=== PATIENT | male | born 1935 | race Caucasian/White ===

== ENCOUNTER → 2023-04-29 08:39 | Outpatient (REF) | payer MEDICARE, SELFPAY ==
[2023-04-29 09:16] LABS: % Basophils 1.2 % (0-2); % Eosinophils 4.7 % (0-6); % Immature Granulocytes 0.3 % (0-0.5); % Lymphocytes 26.4 % (20.5-51.1); % Monocytes 7.2 % (1.7-9.3); % Neutrophils 60.2 % (42.2-75.2); Absolute Basophils 0.1 10^3/uL (0-0.2); Absolute Eosinophils 0.3 10^3/uL (0-0.7); Absolute Lymphocytes 1.5 10^3/uL (1.2-3.4); Absolute Monocytes 0.4 10^3/uL (0.1-0.6); Absolute Neutrophils 3.5 10^3/uL (1.4-6.5); Hematocrit 42.1 % (39.0-52.0); Mean Corp Hgb Conc. 35.6 g/dL (33.0-37.0); Mean Corpuscular Hgb 31.2 pg (27.0-31.0); Mean Corpuscular Volume 87.5 fL (80.0-94.0); Mean Platelet Volume 9.9 fL (7.4-10.4); Nucleated Red Blood Cells % 0 % (-); Platelet Count 165 10^3/uL (130-400); Red Blood Cell Count 4.81 10^6/uL (4.70-6.10); Red Cell Dist. Width 12.9 % (11.5-14.5); White Blood Cell Count 5.7 10^3/uL (4.8-10.8)
[2023-04-29 09:18] LABS: Urine Albumin Negative (Neg - Trace); Urine Bilirubin Negative (Negative); Urine Character Clear (Clear); Urine Color Yellow; Urine Glucose Negative (Negative); Urine Ketone Negative (Negative); Urine Leukocyte Negative (Negative); Urine Nitrite Negative (Negative); Urine Occult Blood Negative (Negative); Urine Urobilinogen Negative (Neg - 1+); Urine pH 6.5 (5.0-9.0)
[2023-04-29 09:49] LABS: ALT (SGPT) 27 U/L (0-50); AST (SGOT) 34 U/L (17-59); Albumin 4.2 g/dl (3.5-5.0); Alkaline Phosphatase 108 U/L (38-126); Blood Urea Nitrogen 21 mg/dl (9-20); Calcium 9.4 mg/dl (8.4-10.2); Carbon Dioxide 28 mmol/L (22-30); Chloride 104 mmol/L (98-107); Glucose 94 mg/dl (70-99); HDL Cholesterol 39 mg/dl; LDL Cholesterol, Calculated 71 mg/dl; Potassium 4.5 mmol/L (3.5-5.1); Sodium 138 mmol/L (135-145); Total Bilirubin 1.1 mg/dl (0.2-1.3); Total Cholesterol 140 mg/dl (50-199); Total Protein 6.4 g/dl (6.3-8.2); Triglyceride 150 mg/dl (10-149); Very Low Density Lipoprotein 30 mg/dl (0-30); eGFR > 60.00
[2023-04-29 10:16] LABS: TSH Reflex To Free T4 1.89 uIU/ml (0.47-4.68)
[2023-04-29 12:01] LABS: Glycohemoglobin (HgbA1c) 5.8 % (4.0-5.6)
[2023-04-30 14:34] LABS: PSA Total 0.2 ng/mL (0.0-4.0)
== END ==
LOC: REG 08:39
PROVIDERS: ATTENDING PHYSICIAN Family Medicine
DX: I10 Essential (primary) hypertension (principal); E78.2 Mixed hyperlipidemia; L12.0 Bullous pemphigoid; R73.03 Prediabetes; R97.20 Elevated prostate specific antigen [PSA]
CPT/HCPCS: 36415; 80053; 80061; 81003; 83036; 84153; 84154; 84443; 85025

== ENCOUNTER → 2023-11-07 08:24 | Outpatient (REF) | payer MEDICARE, SELFPAY ==
[2023-11-07 10:49] LABS: Blood Urea Nitrogen 21 mg/dl (9-20); Calcium 9.9 mg/dl (8.4-10.2); Carbon Dioxide 29 mmol/L (22-30); Chloride 104 mmol/L (98-107); Glucose 95 mg/dl (70-99); Potassium 4.5 mmol/L (3.5-5.1); Sodium 138 mmol/L (135-145); eGFR > 60.00
[2023-11-07 11:04] LABS: PSA, Total - Screen 0.25 ng/ml (0.0-4.0)
== END ==
LOC: REG 08:24
PROVIDERS: ATTENDING PHYSICIAN Specialist; FAMILY PHYSICIAN Family Medicine
DX: N40.1 Benign prostatic hyperplasia with lower urinary tract symptoms (principal); R97.20 Elevated prostate specific antigen [PSA]; Z12.5 Encounter for screening for malignant neoplasm of prostate
CPT/HCPCS: 36415; 80048; G0103

== ENCOUNTER 2024-05-04 09:46 | Inpatient (IN) | payer MEDICARE, SELFPAY ==
[2024-05-04] VITALS (25 sets, daily range): BP systolic 83–157; BP diastolic 52–99; BMI 29.0
[2024-05-04] MEDS: NSS 1000 IV (06:21)
--- NOTE | 2024-05-04 06:22 | ED.GENMED ---
History of Present Illness
General
Chief Complaint: Chest Pain
Source: patient
Exam Limitations: none
Time Seen by Provider: 05/04/24 06:16
History of Present Illness
History of Present Illness:
See MDM
Past History
Past History
ED Past Medical History: HTN, Hypercholesterolemia, Other (Enlarged prostate, sleep apnea, arthritis, hearing impaired utilizes hearing aids bilaterally.) and Other (GIB)
ED Past Surgical History: None
Social History
Tobacco: Non-smoker
Alcohol: None
Drug: None
Personal:
Living: with family
Employment: Retired
Family History
Family History: Diabetes
Phy Exam
Physical Exam
Physical Exam:
See MDM
Scores
Heart Score for Chest Pain Patients
STEMI patient?: No
History: Slightly or Non-Suspicious
ECG: Nonspecific Repolarization
Age: >/= 65 years
Risk Factors: 1 or 2 Risk Factors
Troponin: </= Normal Limit
Heart Score for Chest Pain Patients: 4
Heart Score Risk: 20.3% MACE over next 6 weeks
Course
Orders/Labs/Results
Orders:
Orders
05/04/24 Breakfast
Regular
At Your Request: Limited Participation
05/04/24 06:12
Electrocardiogram (*1) Urgent
Reason for Study: Chest Pain
CT Chest PE Study Urgent
Comment:
Reason For Exam: chest pain through to back
EKG- Treatment ONCE
05/04/24 06:18
CT Head W/o Iv Contrast Urgent
Comment:
Reason For Exam: altered
0.9% Sodium Chloride 1000 ml [Nss] 1,000 ml IV BOLUS
05/04/24 06:19
CMP [Comprehensive Metabolic Panel] Urgent
Complete Blood Count/With Diff Urgent
PTT Urgent
Pro-BNP [NT-proBNP] Urgent
Troponin I Urgent
05/04/24 07:34
Portable Chest Xray [CR Chest Portable - 1 View] Urgent
Comment:
Reason For Exam: post chest tube insertion
Reason Study Needs to be Portable: Unable to Transport
05/04/24 07:46
Morphine Sulfate 4 mg .ROUTE .STK-MED ONE
05/04/24 07:47
Morphine Sulfate 4 mg IV NOW STA
05/04/24 09:09
Admit/Transfer Patient As Directed
Co-Sign Provider:
Level of Care: Inpatient admission
Assign to:: Telemetry
Physician / Group: hospitalist
Diagnosis: pneumothorax
Reason for Telemetry: Other
Other Reason for Telemetry: pneumothorax
Date to Stop Telemetry: 05/06/24
Time to Stop Telemetry: 11:00
Reason for Hospitalization: pneumothorax
Expected length of stay greater than two midnights?: Yes
ELOS- Estimated Length of Stay in days: 2
I certify the patient meets the requirements for IP care: Yes
PRN Pain Medication Management As Directed
May give lesser potent ordered pain med per pt: Yes
preference::
Protocol:: Medication orders for pain may be administered in a
manner that supports deferring to patient preference
when the pt is:
- Requesting an ordered lesser potent pain medication.
Least to most potent pain medications are defined
as: acetaminophen < NSAID < tramadol < opioids
(morphine, oxycodone, hydromorphone).
- Requesting a lesser dose of the same medication IF
ORDERED.
- Requesting a less intrusive route of administration
if both routes are prescribed by the provider (PO <
IV).
05/04/24 09:11
Code Status As Directed
Resuscitation Status: Full Code
05/04/24 09:12
Morphine Sulfate 2 mg IV NOW STA
05/04/24 09:14
PULMONARY CONSULT Routine
Consulting Provider: Marion Onofre
Was physician already notified: Yes
Reason for consult: pneumo
05/04/24 12:19
Acetaminophen [Tylenol] 650 mg PO Q4HPRN PRN
Amlodipine [Norvasc] 2.5 mg PO DAILY
Bisacodyl [Dulcolax] 10 mg RECTAL [id number] PRN
Docusate W/Senna [Senokot-S] 1 tablet PO BIDPRN PRN
Doxycycline [Vibramycin] 100 mg PO DAILY
Polyethylene Glycol Powder [Miralax] 17 grams PO DAILYPRN PRN
Tramadol HCl [Ultram] 50 mg PO Q6HPRN PRN
05/04/24 12:19
Activity As Directed
Activity Level: Encourage Progressive Amb
Vital Signs As Directed
Frequency: q4h
DX Deep Vein Thrombosis Video Routine
05/04/24 12:26
Artificial Tears (Pf) [Refresh Eye Drops (Pf)] 1 drops BOTH EYES BIDPRN PRN
05/04/24 18:00
Enoxaparin Sodium [Lovenox] 40 mg SC QPM
05/04/24 20:00
Dexamethasone [Decadron] 0.5 mg PO BID
Docusate Sodium [Colace] 100 mg PO BID
Sennosides [Senokot] 8.6 mg PO BID
05/04/24 22:00
Atorvastatin [Lipitor] 10 mg PO HS
Finasteride [Proscar] 5 mg PO HS
05/05/24 06:28
Basic Metabolic Panel IN AM
Complete Blood Count/No Diff IN AM
Magnesium IN AM
05/05/24 08:00
Ascorbic Acid [Vitamin C] 1,000 mg PO DAILY
Multivitamin [Theragran] 1 tablet PO DAILY
05/05/24 14:00
Non-Formulary Item See Dose Instructions PO DAILY
05/06/24 11:00
DC Protocol for Telemetry ONCE
Abnormal Lab Results
05/04/24
06:19
WBC 12.5 H 10^3/uL
(4.8-10.8)
RBC 4.60 L 10^6/uL
(4.70-6.10)
Abs Immat Gran (auto) 0.1 H 10^3/uL
(0-0.05)
Absolute Neuts (auto) 8.9 H 10^3/uL
(1.4-6.5)
BUN 23 H mg/dl
(9-20)
Glucose 205 H mg/dl
(70-99)
Total Protein 5.9 L g/dl
(6.3-8.2)
05/04/24 06:19
05/04/24 06:19
Vital Signs
Initial and Last Documented VS:
Initial Vital Signs
Temp Pulse Resp BP Pulse Ox
97.5 F 112 24 83/58 91
05/04/24 06:13 05/04/24 06:13 05/04/24 06:13 05/04/24 06:13 05/04/24 06:13
Last Documented Vital Signs
Temp Pulse Resp BP Pulse Ox
98.8 F 65 19 128/76 96
05/06/24 03:13 05/06/24 03:13 05/06/24 03:13 05/06/24 03:13 05/06/24 03:13
Procedures
Chest Tube
Indication for procedure:: Tension pneumothroax
Procedure completed by: Avni Smith DO
Consent form signed: Yes
Anesthesia: 1% Lidocaine
Chest tube placed to: left side
Size of chest tube (cm): 29
Preparation: cleaned with Betadine
Chest tube position: mid axillary line
Chest tube sutured to skin?: Yes
Chest tube complications: none
Additional information:
14Fr 29cm pigtail placed
MDM/Problems Addressed
Differential Diagnosis Includes:
HPI and MDM Narrative:
88-year-old male presenting with chest pain. Symptoms started just prior to arrival. EMS did give aspirin. On arrival, patient has a bizarre affect. He is pointing to the center of his chest but is lying in bed comfortably. He is grimacing then
smiling. Given his age and history, will obtain troponin and CT PE rule out. He is tachycardic. His EKG is nonspecific but no obvious ischemic changes. Given the bizarre affect, will obtain basic blood work and CT head.
Physical exam
General: Well appearing and non-toxic. Sitting in bed comfortably. Intermittently smiling and grimacing
HEENT: protecting airway
Neck: appears supple
CV: No evidence of cyanosis. Tachycardic but no murmur auscultated
Resp: No accessory muscle use. Shallow breath sounds throughout. Decreased breath sounds to the left
Abd: Non-distended
Extremities: No deformities. No leg edema or tenderness
Neuro: alert
Psych: Bizarre affect.
Skin: Intact
Problems Addressed including Acute and Chronic Conditions affecting care:
1. Chest pain
Acuity: acute
Prognosis: stable
Details: Given tachycardia, will obtain CT PE. Will obtain troponin
2. Bizarre affect
Acuity: acute
Prognosis: stable
Details: Will obtain CT head
3. Tension pneumothorax
Acuity: acute
Prognosis: unstable
Details: Emergent CT was performed looking for mass versus PE versus dissection. The tension pneumothorax was found. Patient signed consent and emergent chest tube placed
Updates
7 AM at bedside indicating that he woke up around 5:45 AM with chest pain and did have a fall. Based on this, will obtain second troponin
After the tension pneumothorax was found on CT, emergent chest tube placed. Patient tolerated procedure well
Differential Diagnosis (but not limited to): Noncardiac chest pain, pulmonary embolism, hyponatremia
Testing considered: Urinalysis
Drug therapy (if applicable): OTC meds, please see d/c instruction regarding Rx drugs
Amount and/or Complexity of Data Reviewed
Clinical info obtained from: Patient
External data reviewed: N/A
Labs I independently reviewed (but not limited to): Mild leukocytosis
Radiology: The CT scan was personally and independently reviewed. In addition, official CT report reviewed.
Pulse Ox: not hypoxic
EKG independently reviewed: Sinus tachycardia, normal axis, PVCs, no STEMI
C2 Tactical Analysis Technician: Sinus tachycardia
Critical Care: the high probability of a clinically significant, sudden or life threatening deterioration of the cardiopulmonary system(s) required my full and direct attention, intervention and personal management. The aggregate critical care
time was 33 minutes. This time is in addition to time spent performing reported procedures but includes the following:
[x] Data Review and interpretation
[x] Patient assessment and monitoring of vital signs
[x] Documentation
[x] Medication orders and management
Risk of Complication:
Social Determinants of health: Good social support
Discussed with other providers: Hospitalist
Escalation of Care includes Admit/Obs: Given the tension pneumothorax requiring chest tube placement, will admit
Occasional wrong word or 'sound a like' substitutions may have occurred due to the inherent limitations of voice recognition software. Read the chart carefully and recognize, using context, where substitutions have occurred.
*Critical Care Note
Total Time (30-74mins, 75-104mins- exclusive of procedures): 33 min
ED Attending Note
-
Portions of this chart may have been created with voice recognition software.� Occasional wrong word or��sound alike� substitutions may have occurred due to the inherent limitations of voice recognition software.
Discharge Plan
Departure
Patient Disposition: Admit
Date of Disposition: 05/04/24
Time of Disposition: 07:52
Admit to: Med/Surg
Presentation/result/management discussed w/ accepting MD/DO: Hospitalist
Discharge Problem:
Spontaneous tension pneumothorax
Interventions
Interventions:
*Risk Screen - Suicide Last Done: 05/04/24 06:13
*General Assessment Last Done: 05/04/24 06:13
*Neglect/Abuse Screening Last Done: 05/04/24 07:25
ED- Fall Risk Assessment Last Done: 05/04/24 06:59
*ED COVID-19 Vaccine History Last Done: 05/04/24 07:52
*Nursing Disposition Last Done: 05/04/24 12:13
ED- Cardiac Assessment Last Done: 05/04/24 07:15
Discharge Date and Time
Discharge Date/Time: 05/04/24 12:13
[2024-05-04 06:26] LABS: % Basophils 0.8 % (0-2); % Immature Granulocytes 0.4 % (0-0.5); % Lymphocytes 21.1 % (20.5-51.1); % Monocytes 3.6 % (1.7-9.3); % Neutrophils 71.1 % (42.2-75.2); Absolute Basophils 0.1 10^3/uL (0-0.2); Absolute Eosinophils 0.4 10^3/uL (0-0.7); Absolute Immature Granulocytes 0.1 10^3/uL (0-0.05); Absolute Lymphocytes 2.6 10^3/uL (1.2-3.4); Absolute Monocytes 0.5 10^3/uL (0.1-0.6); Absolute Neutrophils 8.9 10^3/uL (1.4-6.5); Hematocrit 41.3 % (39.0-52.0); Hemoglobin 14.2 g/dL (13.0-18.0); Mean Corp Hgb Conc. 34.4 g/dL (33.0-37.0); Mean Corpuscular Hgb 30.9 pg (27.0-31.0); Mean Corpuscular Volume 89.8 fL (80.0-94.0); Mean Platelet Volume 9.6 fL (7.4-10.4); Nucleated Red Blood Cells % 0 % (-); Platelet Count 166 10^3/uL (130-400); Red Cell Dist. Width 13.2 % (11.5-14.5); White Blood Cell Count 12.5 10^3/uL (4.8-10.8)
[2024-05-04 06:43] LABS: ALT (SGPT) 26 U/L (0-50); AST (SGOT) 37 U/L (17-59); Albumin 3.9 g/dl (3.5-5.0); Alkaline Phosphatase 106 U/L (38-126); Blood Urea Nitrogen 23 mg/dl (9-20); Calcium 9.2 mg/dl (8.4-10.2); Carbon Dioxide 23 mmol/L (22-30); Chloride 104 mmol/L (98-107); Estimated Creatinine Clearance 50 ml/min; Glucose 205 mg/dl (70-99); Potassium 3.9 mmol/L (3.5-5.1); Sodium 137 mmol/L (135-145); Total Protein 5.9 g/dl (6.3-8.2); eGFR > 60.00
[2024-05-04 06:51] LABS: NT-proBNP 71.2 pg/ml; Troponin I < 0.012 ng/ml
[2024-05-04 07:42] LABS: APTT 23.9 Sec (23.4-35.0)
[2024-05-04] MEDS: MORPHINE SULFATE 4 MG IV (07:50)
--- NOTE | 2024-05-04 08:50 | HPS.HSE ---
Family Physician
-
Family Physician: NOT KNOW UNKNOWN - PT DOES
Chief Complaint
-
Back pain, shortness of breath
History of Present Illness
88-year-old male woke up around 3;40 in the morning because of back pain. He sat up and then he thought he slid down in bed. He then wanted to use the restroom and came back and sat in the chair when he became really short of breath which prompted
him to come to the hospital.
Medical History
Past Medical History
Past Medical History: Reports Other
Additional Past Medical History:
Sleep apnea, history of GI bleed, hypertension, arthritis, bullous pemphigoid
Past Surgical History: Reports Other
Additional Past Surgical History:
Arthroscopy of the right knee, excision of basal cell carcinoma,
Social History
Tobacco: Former Smoker
Alcohol: None
Drug: None
Personal:
Living: With Family
Employment: Retired ([employer])
Family History
Family History: Not pertinent
Allergies / Home Medications
Allergies reflects when Allergies were last updated in [facility].
Home Medications with original date entered in [facility]
Allergy/Medication List:
Allergies
Allergy/AdvReac Type Severity Reaction Status Date / Time
Sulfa (Sulfonamide Allergy Intermediate Rash Verified 05/04/24 06:18
Antibiotics)
[Sulfa (Sulfonamides)]
niacinamide Allergy Mild Unknown Verified 05/04/24 06:18
insect stings Allergy Swelling Uncoded 05/04/24 06:18
Home Medications
ascorbic acid (vitamin C) 500 mg tablet (Vitamin C) 1,000 mg PO DAILY 12/29/15
multivitamin with folic acid 400 mcg tablet (Tab-A-Ghada) 1 tab PO DAILY 12/29/15
amlodipine 2.5 mg tablet 2.5 mg PO DAILY 05/04/24
atorvastatin 10 mg tablet 10 mg PO HS 05/04/24
dexamethasone 0.5 mg/5 mL oral solution 10 mg PO .SWISH AND SPIT BID bullous pemphigoid 05/04/24
dextran 70-hypromellose eye drops in a dropperette (Artificial Tears (PF) drops in a dropperette) 1 drp BOTH EYES BIDPRN PRN dry eye 05/04/24
doxycycline hyclate 100 mg capsule 100 mg PO DAILY bullous pemphigoid 05/04/24
finasteride 5 mg tablet 5 mg PO HS 05/04/24
niacinamide 500 mg tablet 500 mg PO DAILY 05/04/24
Review of Systems
-
A 12 point ROS was completed and negative except as noted: Yes
EENT: Denies Sore Throat, Mouth Pain or Mouth Swelling
Respiratory: Reports Trouble Breathing
Cardiac: Reports Other (Pain at the site of the tube)
Physical Exam
Vital Signs
Vital Signs
Temp Pulse Resp BP Pulse Ox
97.5 F 87 16 85/64 96
05/04/24 06:13 05/04/24 06:45 05/04/24 07:22 05/04/24 06:45 05/04/24 07:15
Physical Exam
General: Conversant and Pain (At the site of the chest tube)
Respiratory: Clear
Cardiac: S1/S2 and Regular Rhythm
GI: Soft, Non Tender and Normal Bowel Sounds
Musculoskeletal: No Edema
Neuro: AO x 3 and Nonfocal/grossly intact
Psych: Intact Judgment/Insight
Laboratory Results
-
05/04/24 06:19
05/04/24 06:19
Laboratory Results
APTT 23.9 Sec (23.4-35.0) 05/04/24 06:19
Total Bilirubin 1.0 mg/dl (0.2-1.3) 05/04/24 06:19
AST 37 U/L (17-59) 05/04/24 06:19
ALT 26 U/L (0-50) 05/04/24 06:19
Alkaline Phosphatase 106 U/L (38-126) 05/04/24 06:19
Troponin I < 0.012 ng/ml 05/04/24 06:19
Data Reviewed
-
CT Scan: Image Personally Visualized and interpreted (CT chest-large left tension pneumothorax. No PE) and Report Reviewed by me (Head CT-no acute changes)
Medical Tests (Nuc Med, Echo, EKG etc): Image Personally Visualized and interpreted (EKG sinus tachycardia [address]-T changes.)
Impression/Plan
-
IMPRESSION/PLAN:
# Spontaneous pneumothorax
Status post chest tube placement in the ER
Continue-consult pulmonary
Chest x-ray shows reexpansion after chest tube
Repeat chest x-ray in the morning
# Bullous pemphigoid-in remission
Follows up with Dr. Felicia Rico and at [place]
Not on tacrolimus or steroid ointment anymore for the skin
Uses dexamethasone swish and spit-for the mouth
Also on doxycycline 100 mg daily
# Hyperlipidemia-continue atorvastatin
# Hypertension-continue amlodipine
# Enlarged prostate-continue finasteride
# [id number] several decades ago
# DVT prophylaxis-Lovenox
# Full code
Discussed with at bedside
[2024-05-04] MEDS: MORPHINE SULFATE 2 MG IV (09:26)
--- NOTE | 2024-05-04 11:28 | CON.PUL ---
Consultation
Consultation Request
Date/Time Consultation Requested: 05/04/24
Date/Time Consultation Performed: 05/04/24
Performing Provider: [place]
Reason for Consultation: PTX
Medical History
-
History of Present Illness:
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 He notes he woke up around 3:40AM due to back pain. He sat up and then he thought he slid down in bed.
He may have fallen as he found himself on the floor. He then suddenly had acute anterior chest pain wtih SOB and came to ER. CXR showing acute L sided pneumothorax. Chest tube emergently inserted in ER and he is admitted to floors. He has never
had a ptx before, denies coughing spells prior.
Past Medical History
Past Medical History: Other (see list below)
Social History
Tobacco: Former Smoker
Alcohol: None
Drug: None
Family History
Family History: Reviewed & Not Pertinent
Allergies / Home Medications
Allergies
Allergy/AdvReac Type Severity Reaction Status Date / Time
Sulfa (Sulfonamide Allergy Intermediate Rash Verified 05/04/24 06:18
Antibiotics)
[Sulfa (Sulfonamides)]
niacinamide Allergy Mild Unknown Verified 05/04/24 06:18
insect stings Allergy Swelling Uncoded 05/04/24 06:18
Home Medications
�Medication �Instructions �Recorded �Confirmed �Last Taken �Type
ascorbic acid (vitamin C) 500 mg 1,000 mg PO DAILY 12/29/15 05/04/24 05/03/24 History
tablet (Vitamin C)
multivitamin with folic acid 400 1 tab PO DAILY 12/29/15 05/04/24 05/03/24 History
mcg tablet (Tab-A-Ghada)
amlodipine 2.5 mg tablet 2.5 mg PO DAILY 05/04/24 05/04/24 05/03/24 History
atorvastatin 10 mg tablet 10 mg PO HS 05/04/24 05/04/24 05/03/24 History
dexamethasone 0.5 mg/5 mL oral 10 mg PO .SWISH AND SPIT BID 05/04/24 05/04/24 05/03/24 History
solution bullous pemphigoid
dextran 70-hypromellose eye drops 1 drp BOTH EYES BIDPRN PRN dry eye 05/04/24 05/04/24 Unknown History
in a dropperette (Artificial Tears
(PF) drops in a dropperette)
doxycycline hyclate 100 mg capsule 100 mg PO DAILY bullous pemphigoid 05/04/24 05/04/24 05/03/24 History
finasteride 5 mg tablet 5 mg PO HS 05/04/24 05/04/24 05/03/24 History
niacinamide 500 mg tablet 500 mg PO DAILY 05/04/24 05/04/24 05/03/24 History
Review of Systems
-
History Source: Patient
All other systems: Negative unless noted
Vitals / Labs / Diagnostic Testing
Vital Signs
Temp Pulse Resp BP Pulse Ox
97.5 F 78 22 153/96 97
05/04/24 06:13 05/04/24 11:15 05/04/24 11:15 05/04/24 11:00 05/04/24 11:15
Lab Data
05/04/24 06:19
05/04/24 06:19
Laboratory Results
05/04/24
06:19
APTT 23.9
Diagnostic Testing:
Physical Exam
-
HEENT: Normocephalic, Anicteric and Moist Mucous Membranes
Cardiovascular: S1/S2 and Regular Rhythm
Respiratory: Clear, Non-Labored Respirations and Other (chest tube)
GI: Soft, Non Distended and Non Tender
Neurology: Awake, Alert, Oriented and No Motor Deficits
Skin: Warm, Dry and Good Color
General: Comfortable and Other (NAD)
Assessment
-
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 He notes he woke up around 3:40AM due to back pain. He sat up and then he thought he slid down in bed.
He may have fallen as he found himself on the floor. He then suddenly had acute anterior chest pain wtih SOB and came to ER. CXR showing acute L sided pneumothorax. Chest tube emergently inserted in ER and he is admitted to floors. He has never
had a ptx before, denies coughing spells prior.
Spontaneous pneumothorax, fell at home
Chest pain
Mild leukocytosis
Hyperglycemia
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
Data download revealed excellent compliance, AHI of 3.7, average pressure of 21/[address] scan
Pulmonary nodules <4mm/benign
Former smoker, quit smoking at age 46, smoked 1 pack/day from age [age]
Hypertension
Hyperlipidemia
GERD
Osteoarthritis of left knee, history of right knee replacement
Prediabetes
History of past GI bleed on aspirin
B/L Cataracts 2019
Basal cell carcinoma
Bilateral sensorineural hearing loss, has hearing aids
Bullous pemphigoid
History of TIA, not on aspirin due to past GI bleed
BPH, history of elevated PSA, history of bladder stones
DDD/DJD C spine, L spine
Mohs procedure left and right side of head and neck 06/16/18
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
Plan
Currently on room air, no hypoxemia noted
No chronic O2 use at home
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
Follows with Dr Stratton
On BIPAP
CXR showing acute ptx, he thinks he may have fallen at home but not sure, was on the floor
Chest tube placed on left in ER 05/04/24
PAP pressures may have contributed to issue
We will hold off PAP usage
We discussed management of chest tube in the next 48-72 hours
Suction x 24 hours, if doing well, can try water seal tomorrow
Reviewed with patient and
ECHO results from past reviewed, stable findings
Resume home meds
Former smoker, emphysema mild on CT/apical findings on prior imaging
Resume home meds
Nebs PRN
Pulmonary nodule history, benign
Discussed management of PTX and likelihood of recurrence
Will arrange OP FU post discharge
May need to reduce PAP pressure in OP settings to avoid recurrence
Last PSG in 2019, weight was 188, he has lost 15 lbs
May be worthwhile also restudying to reduce his pressures or try alternative treatments
We will follow
Diagnostic Data
CXR 05/04/24- Placement of left chest tube with significantly decreased large left pneumothorax in comparison to CT earlier in same day.
CT CHEST 05/04/24- Large left tension type pneumothorax. No findings to suggest central pulmonary embolism.
08/13/18- Pulmonary nodule being followed:
-Flat plaque-like nodule, 8 mm, at the base of the left lung of the diaphragm surface at the apex of the diaphragm. (Axial sequence 2 image 48). 2 mm nodule subpleural posterior right lower lobe (sequence 2 image 31), unchanged. No new or growing
pulmonary nodules.
Minor biapical subpleural emphysema spaces. No generalized emphysema. No fibrosis. Airways: No bronchiectasis. Minimum linear atelectasis or scarring in the para spinal medial base of both lower lobes. No change.
ECHO 2015- . Left ventricle: Normal size and function. The estimated ejection fraction is 55-60%.
2. Right ventricle: Normal size and function
3. Atria: Normal
4. Mitral valve: Trace mitral regurgitation
5. Aortic valve: Trace aortic insufficiency. No aortic stenosis
6. Tricuspid valve: Mild tricuspid regurgitation. Estimated pulmonary systolic pressures are 25-30 mmHg
7. There has been no significant change since the most recent echocardiogram from 10/28/14
[2024-05-04] MEDS: VIBRAMYCIN 100 MG PO (12:59)
[2024-05-04] MEDS: NORVASC 2.5 MG PO (12:59)
[2024-05-04] MEDS: ULTRAM 50 MG PO (17:49)
[2024-05-04] MEDS: LOVENOX 40 MG SC (17:51)
[2024-05-04] MEDS: SENOKOT 8.6 MG PO (19:46)
[2024-05-04] MEDS: COLACE 100 MG PO (19:46)
[2024-05-04] MEDS: DECADRON 0.5 MG PO (21:28)
[2024-05-04] MEDS: LIPITOR 10 MG PO (21:29)
[2024-05-04] MEDS: PROSCAR 5 MG PO (21:29)
[2024-05-05 03:45] VITALS: BP 140/85
[2024-05-05] MEDS: ULTRAM 50 MG PO ×2 (05:46→23:06)
[2024-05-05 07:32] LABS: Hematocrit 42.6 % (39.0-52.0); Hemoglobin 14.7 g/dL (13.0-18.0); Mean Corp Hgb Conc. 34.5 g/dL (33.0-37.0); Mean Corpuscular Hgb 30.7 pg (27.0-31.0); Mean Corpuscular Volume 88.9 fL (80.0-94.0); Mean Platelet Volume 9.8 fL (7.4-10.4); Platelet Count 153 10^3/uL (130-400); Red Blood Cell Count 4.79 10^6/uL (4.70-6.10); Red Cell Dist. Width 13.1 % (11.5-14.5); White Blood Cell Count 8.1 10^3/uL (4.8-10.8)
[2024-05-05 07:52] LABS: Blood Urea Nitrogen 16 mg/dl (9-20); Calcium 9.2 mg/dl (8.4-10.2); Carbon Dioxide 29 mmol/L (22-30); Chloride 103 mmol/L (98-107); Estimated Creatinine Clearance 65 ml/min; Glucose 120 mg/dl (70-99); Magnesium 1.9 mg/dl (1.6-2.3); Potassium 4.6 mmol/L (3.5-5.1); Sodium 137 mmol/L (135-145); eGFR > 60.00
[2024-05-05 08:14] VITALS: BP 128/72
[2024-05-05] MEDS: COLACE 100 MG PO ×2 (09:09→19:49)
[2024-05-05] MEDS: SENOKOT 8.6 MG PO ×2 (09:09→19:49)
[2024-05-05] MEDS: VITAMIN C 1000 MG PO (09:09)
[2024-05-05] MEDS: NORVASC 2.5 MG PO (09:09)
[2024-05-05] MEDS: DECADRON 0.5 MG PO ×2 (09:10→19:49)
[2024-05-05] MEDS: VIBRAMYCIN 100 MG PO (09:10)
[2024-05-05] MEDS: THERAGRAN 1 TABLET PO (09:10)
[2024-05-05 11:05] VITALS: BP 122/73
--- NOTE | 2024-05-05 12:18 | W.PN.PUL3 ---
Today's Communication / Plan
-
CXR today stable, 24 hours on suction
Waterseal today, repeat CXR at 6PM
If tolerating and CXR in AM is stable, can try clamp trial
OP FU discussed as well in regards to BIPAP
Assessment
-
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 He notes he woke up around 3:40AM due to back pain. He sat up and then he thought he slid down in bed.
He may have fallen as he found himself on the floor. He then suddenly had acute anterior chest pain wtih SOB and came to ER. CXR showing acute L sided pneumothorax. Chest tube emergently inserted in ER and he is admitted to floors. He has never
had a ptx before, denies coughing spells prior.
Spontaneous pneumothorax, fell at home s/p chest tube placement in ER 05/04/24
Chest pain
Mild leukocytosis
Hyperglycemia
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
Data download revealed excellent compliance, AHI of 3.7, average pressure of 21/[address] scan
Pulmonary nodules <4mm/benign
Former smoker, quit smoking at age 46, smoked 1 pack/day from age [age]
Hypertension
Hyperlipidemia
GERD
Osteoarthritis of left knee, history of right knee replacement
Prediabetes
History of past GI bleed on aspirin
B/L Cataracts 2018
Basal cell carcinoma
Bilateral sensorineural hearing loss, has hearing aids
Bullous pemphigoid
History of TIA, not on aspirin due to past GI bleed
BPH, history of elevated PSA, history of bladder stones
DDD/DJD C spine, L spine
Mohs procedure left and right side of head and neck 06/16/18
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
Plan
Currently on room air, no hypoxemia noted
No chronic O2 use at home
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
Follows with Dr Stratton
On BIPAP
CXR showing acute ptx, he thinks he may have fallen at home but not sure, was on the floor
Chest tube placed on left in ER 05/04/24
PAP pressures may have contributed to issue
We will hold off PAP usage
We discussed management of chest tube in the next 48-72 hours
Suction x 24 hours, stable CXR today
We will place on water seal today 05/05 repeat CXR this evening and AM
Reviewed with patient and /family at bedside
ECHO results from past reviewed, stable findings
Resume home meds
Former smoker, emphysema mild on CT/apical findings on prior imaging
Resume home meds
Nebs PRN
Pulmonary nodule history, benign
Discussed management of PTX and likelihood of recurrence
Will arrange OP FU post discharge
May need to reduce PAP pressure in OP settings to avoid recurrence
Last PSG in 2019, weight was 188, he has lost 15 lbs
May be worthwhile also restudying to reduce his pressures or try alternative treatments
Diagnostic Data
CXR 05/05/24- Left-sided chest tube with the tip now positioned over the left lung base. No appreciable pneumothorax. Ovoid lucency projecting over the left lung base may represent a bulla in correlation with the previous chest CT. Low lung volumes.
Subsegmental atelectasis in the left lung base. No large pleural effusion. Stable cardiomediastinal silhouette.
CXR 05/04/24- Placement of left chest tube with significantly decreased large left pneumothorax in comparison to CT earlier in same day.
CT CHEST 05/04/24- Large left tension type pneumothorax. No findings to suggest central pulmonary embolism.
08/13/18- Pulmonary nodule being followed:
-Flat plaque-like nodule, 8 mm, at the base of the left lung of the diaphragm surface at the apex of the diaphragm. (Axial sequence 2 image 48). 2 mm nodule subpleural posterior right lower lobe (sequence 2 image 31), unchanged. No new or growing
pulmonary nodules.
Minor biapical subpleural emphysema spaces. No generalized emphysema. No fibrosis. Airways: No bronchiectasis. Minimum linear atelectasis or scarring in the para spinal medial base of both lower lobes. No change.
ECHO 2016- . Left ventricle: Normal size and function. The estimated ejection fraction is 55-60%.
2. Right ventricle: Normal size and function
3. Atria: Normal
4. Mitral valve: Trace mitral regurgitation
5. Aortic valve: Trace aortic insufficiency. No aortic stenosis
6. Tricuspid valve: Mild tricuspid regurgitation. Estimated pulmonary systolic pressures are 25-30 mmHg
7. There has been no significant change since the most recent echocardiogram from 10/28/14
Reports and relevant images were personally reviewed.
Total time spent on this encounter __51__ minutes which includes review of history, physical exam, medications, laboratory data, personal review of imaging, extensive review of outpatient records, discussion with care team and respiratory therapy.
Subjective Data
-
Date of Service:
Date of Service: May 05, 2024
Chief Complaint: Pulmonary Follow Up
Subjective:
Stable on RA, no new complaints
Family at bedside
Chest tube to suction
Objective Data
Data Reviewed
Vital Signs / I&O / Oxygen:
Vital Signs
Temp Pulse Resp BP Pulse Ox
97.7 F 62 20 122/73 94
05/05/24 11:05 05/05/24 11:05 05/05/24 11:05 05/05/24 11:05 05/05/24 11:05
Intake and Output
05/04/24 05/05/24 05/06/24
06:59 06:59 06:59
Intake Total 240 / 240
Output Total 2850 / 2850
Balance -2610 / -2610
SaO2 94
Physical Exam
General: Comfortable and Other (NAD)
HEENT: Normocephalic, Anicteric and Moist Mucous Membranes
Cardiovascular: S1-S2 and Regular Rhythm
Respiratory: Clear, Non-Labored Respirations and Chest Tube
GI: Soft, Non Distended and Non Tender
Neurology: Awake, Alert, Oriented and No Motor Deficits
Skin: Warm, Dry and Good Color
Labs/Micro/Reports
Lab Data
05/05/24 06:28
05/05/24 06:28
[2024-05-05] MEDS: NON-FORMULARY ITEM 1 UNIT PO (14:08)
--- NOTE | 2024-05-05 14:52 | W.PN.HOSP.TC ---
Today's Communication/Plan
-
CXR this evening after water seal
Assessment / Plan
Assessment / Plan
CVS: S1-S2 normal
Chest: few rales left
Abdomen: Soft, NT / Bowel sounds present
Extremities: No edema, normal pulses
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
# Spontaneous pneumothorax
Status post chest tube placement in the ER
Pulmonary following.
Chest x-ray shows reexpansion after chest tube
CXR from am reviewed. No Pneumo
CT placed under water seal.
Repeat chest x-ray later today
CT had a bulla , so at risk for Spontaneous Pneumothorax again
# Bullous pemphigoid-in remission
Follows up with Dr. Felicia Rico and at [place]
Not on tacrolimus or steroid ointment anymore for the skin
Uses dexamethasone swish and spit-for the mouth
Also on doxycycline 100 mg daily
# Hyperlipidemia-continue atorvastatin
# Hypertension-continue amlodipine
# Enlarged prostate-continue finasteride
# [id number] several decades ago
# DVT prophylaxis-Lovenox
# Full code
D/W Family at bed side
D/W Pulm
D/W RN at bed side
Anticipated Discharge: Within 24 hours
Subjective/Interval History
-
Date of Service: May 05, 2024
Objective Data
-
Labs:
Laboratory Results
05/05/24
06:28
WBC 8.1
Hgb 14.7
Hct 42.6
Plt Count 153
Sodium 137
Potassium 4.6
Chloride 103
Carbon Dioxide 29
BUN 16
Creatinine 0.7
Glucose 120 H
Calcium 9.2
Vital Signs:
Vital Signs
Temp Pulse Resp BP Pulse Ox
97.7 F 62 20 122/73 94
05/05/24 11:05 05/05/24 11:05 05/05/24 11:05 05/05/24 11:05 05/05/24 11:05
I&O
05/04/24 05/05/24 05/06/24
06:59 06:59 06:59
Intake Total 240 / 240
Output Total 2850 / 2850
Balance -2610 / -2610
[2024-05-05 15:25] VITALS: BP 128/71
[2024-05-05] MEDS: LOVENOX 40 MG SC (16:51)
[2024-05-05 19:52] VITALS: BP 128/74
[2024-05-05] MEDS: PROSCAR 5 MG PO (21:10)
[2024-05-05] MEDS: LIPITOR 10 MG PO (21:10)
[2024-05-05 23:31] VITALS: BP 139/74
[2024-05-06 03:13] VITALS: BP 128/76
[2024-05-06] MEDS: ULTRAM 50 MG PO ×2 (06:30→20:54)
[2024-05-06 07:25] VITALS: BP 129/80
[2024-05-06] MEDS: SENOKOT 8.6 MG PO ×2 (07:44→20:54)
[2024-05-06] MEDS: COLACE 100 MG PO ×2 (07:44→20:54)
[2024-05-06] MEDS: NORVASC 2.5 MG PO (07:45)
[2024-05-06] MEDS: DECADRON 0.5 MG PO ×2 (07:45→20:54)
[2024-05-06] MEDS: VIBRAMYCIN 100 MG PO (07:45)
[2024-05-06] MEDS: VITAMIN C 1000 MG PO (07:45)
[2024-05-06] MEDS: THERAGRAN 1 TABLET PO (07:45)
[2024-05-06] MEDS: NON-FORMULARY ITEM 1 UNIT PO (07:46)
--- NOTE | 2024-05-06 08:57 | CM ---
Alert awake oriented patient who lives with his Geri who lives in a 2 story home with 3 step to enter and 14 steps to bed and bathroom. He is independent in driving and in all activities of daily living.He was offered VN he declined need.His
will drive him home. He has a chest tube.
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
[facility] hx / No SNF history
Pharmacy [facility]
PCP DR Thayer
PLAN Home Declined VN
--- NOTE | 2024-05-06 09:11 | W.PN.PUL3 ---
Today's Communication / Plan
-
Waterseal x 24 hours, stable CXR
Clamp trial today, repeat CXR this evening and again in AM
Can discontinue in AM if tolerates
Reviewed plan of care with patient and at bedside
Assessment
-
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 He notes he woke up around 3:40AM due to back pain. He sat up and then he thought he slid down in bed.
He may have fallen as he found himself on the floor. He then suddenly had acute anterior chest pain wtih SOB and came to ER. CXR showing acute L sided pneumothorax. Chest tube emergently inserted in ER and he is admitted to floors. He has never
had a ptx before, denies coughing spells prior.
Spontaneous pneumothorax, fell at home s/p chest tube placement in ER 05/04/24
Chest pain
Mild leukocytosis
Hyperglycemia
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
Data download revealed excellent compliance, AHI of 3.7, average pressure of 21/[address] scan
Pulmonary nodules <4mm/benign
Former smoker, quit smoking at age 46, smoked 1 pack/day from age [age]
Hypertension
Hyperlipidemia
GERD
Osteoarthritis of left knee, history of right knee replacement
Prediabetes
History of past GI bleed on aspirin
B/L Cataracts 2018
Basal cell carcinoma
Bilateral sensorineural hearing loss, has hearing aids
Bullous pemphigoid
History of TIA, not on aspirin due to past GI bleed
BPH, history of elevated PSA, history of bladder stones
DDD/DJD C spine, L spine
Mohs procedure left and right side of head and neck 06/16/18
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
Plan
Currently on room air, no hypoxemia noted
No chronic O2 use at home
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
Follows with Dr Stratton
On BIPAP
CXR showing acute ptx, he thinks he may have fallen at home but not sure, was on the floor
Chest tube placed on left in ER 05/04/24
PAP pressures may have contributed to issue
We will hold off PAP usage
We discussed management of chest tube in the next 48-72 hours
Suction x 24 hours, tolerating water seal since 05/05/24
Clamp trial today, repeat CXR this evening and AM
Reviewed with patient and /family at bedside
ECHO results from past reviewed, stable findings
Resume home meds
Former smoker, emphysema mild on CT/apical findings on prior imaging
Resume home meds
Nebs PRN
Pulmonary nodule history, benign
Discussed management of PTX and likelihood of recurrence
Will arrange OP FU post discharge
May need to reduce PAP pressure in OP settings to avoid recurrence
Last PSG in 2019, weight was 188, he has lost 15 lbs
May be worthwhile also restudying to reduce his pressures or try alternative treatments
Diagnostic Data
CXR 05/05/24- Left-sided chest tube with the tip now positioned over the left lung base. No appreciable pneumothorax. Ovoid lucency projecting over the left lung base may represent a bulla in correlation with the previous chest CT. Low lung volumes.
Subsegmental atelectasis in the left lung base. No large pleural effusion. Stable cardiomediastinal silhouette.
CXR 05/04/24- Placement of left chest tube with significantly decreased large left pneumothorax in comparison to CT earlier in same day.
CT CHEST 05/04/24- Large left tension type pneumothorax. No findings to suggest central pulmonary embolism.
08/13/18- Pulmonary nodule being followed:
-Flat plaque-like nodule, 8 mm, at the base of the left lung of the diaphragm surface at the apex of the diaphragm. (Axial sequence 2 image 48). 2 mm nodule subpleural posterior right lower lobe (sequence 2 image 31), unchanged. No new or growing
pulmonary nodules.
Minor biapical subpleural emphysema spaces. No generalized emphysema. No fibrosis. Airways: No bronchiectasis. Minimum linear atelectasis or scarring in the para spinal medial base of both lower lobes. No change.
ECHO 2016- . Left ventricle: Normal size and function. The estimated ejection fraction is 55-60%.
2. Right ventricle: Normal size and function
3. Atria: Normal
4. Mitral valve: Trace mitral regurgitation
5. Aortic valve: Trace aortic insufficiency. No aortic stenosis
6. Tricuspid valve: Mild tricuspid regurgitation. Estimated pulmonary systolic pressures are 25-30 mmHg
7. There has been no significant change since the most recent echocardiogram from 10/28/14
Reports and relevant images were personally reviewed.
Total time spent on this encounter __51__ minutes which includes review of history, physical exam, medications, laboratory data, personal review of imaging, extensive review of outpatient records, discussion with care team and respiratory therapy.
Subjective Data
-
Date of Service:
Date of Service: May 06, 2024
Chief Complaint: Pulmonary Follow Up
Subjective:
Doing well, stable on water seal
No new complaints
Objective Data
Data Reviewed
Vital Signs / I&O / Oxygen:
Vital Signs
Temp Pulse Resp BP Pulse Ox
97.5 F 64 16 129/80 94
05/06/24 07:25 05/06/24 07:25 05/06/24 07:25 05/06/24 07:25 05/06/24 07:25
Intake and Output
05/05/24 05/06/24 05/07/24
06:59 06:59 06:59
Intake Total 240 / 240 1340 / 1340
Output Total 2850 / 2850 150 / 150
Balance -2610 / -2610 1190 / 1190
SaO2 94
Physical Exam
General: Comfortable and Other (NAD)
HEENT: Normocephalic, Anicteric and Moist Mucous Membranes
Cardiovascular: S1-S2 and Regular Rhythm
Respiratory: Clear, Non-Labored Respirations and Chest Tube
GI: Soft, Non Distended and Non Tender
Neurology: Awake, Alert, Oriented and No Motor Deficits
Skin: Warm, Dry and Good Color
Labs/Micro/Reports
Lab Data
05/05/24 06:28
05/05/24 06:28
[2024-05-06] MEDS: MIRALAX 17 GRAMS PO (10:52)
[2024-05-06 11:10] VITALS: BP 127/73
--- NOTE | 2024-05-06 13:01 | PTCARENOTE ---
Addendum entered by Ana Smith RN 05/06/24 17:00:
As per front end java developer. Keep clamped until the morning. CXR in morning and if looks good with pull chest tube tomorrow.
Original Note:
Chest tube clamped at 1300 as per order.
--- NOTE | 2024-05-06 14:47 | W.PN.HOSP.TC ---
Today's Communication/Plan
-
Repeat chest x-ray tomorrow morning if no pneumothorax chest tube will be pulled
Possible discharge tomorrow
PT OT eval
Assessment / Plan
Assessment / Plan
CVS: S1-S2 normal
Chest: few rales left
Abdomen: Soft, NT / Bowel sounds present
Extremities: No edema
# Spontaneous pneumothorax
Status post chest tube placement in the ER
Chest x-ray shows reexpansion after chest tube
CT placed under water seal 05/05/24 and Clamped 05/06/24
CXR from am reviewed. No Pneumo
CT had a bulla , so at risk for Spontaneous Pneumothorax again
# Bullous pemphigoid-in remission
Follows up with Dr. Felicia Rcio and at [place]
Not on tacrolimus or steroid ointment anymore for the skin
Uses dexamethasone swish and spit-for the mouth
Also on doxycycline 100 mg daily
# Hyperlipidemia-continue atorvastatin
# Hypertension-continue amlodipine
# Enlarged prostate-continue finasteride
# [id number] several decades ago
# DVT prophylaxis-Lovenox
# Full code
D/W Family at bed side
D/W Pulm
D/W RN
Anticipated Discharge: Within 24 hours
Subjective/Interval History
-
Date of Service: May 06, 2024
Objective Data
-
Vital Signs:
Vital Signs
Temp Pulse Resp BP Pulse Ox
97.8 F 67 16 127/73 94
05/06/24 11:10 05/06/24 11:10 05/06/24 11:10 05/06/24 11:10 05/06/24 11:10
I&O
05/05/24 05/06/24 05/07/24
06:59 06:59 06:59
Intake Total 240 / 240 1340 / 1340
Output Total 2850 / 2850 150 / 150
Balance -2610 / -2610 1190 / 1190
[2024-05-06 15:30] VITALS: BP 118/69
[2024-05-06] MEDS: LOVENOX 40 MG SC (17:34)
[2024-05-06 19:45] VITALS: BP 140/83
[2024-05-06] MEDS: LIPITOR 10 MG PO (21:00)
[2024-05-06] MEDS: PROSCAR 5 MG PO (21:00)
[2024-05-06 23:58] VITALS: BP 131/79
[2024-05-07] VITALS (9 sets, daily range): BP systolic 124–175; BP diastolic 74–94
[2024-05-07] MEDS: VIBRAMYCIN 100 MG PO (08:43)
[2024-05-07] MEDS: DECADRON 0.5 MG PO ×2 (08:43→19:59)
[2024-05-07] MEDS: VITAMIN C 1000 MG PO (08:43)
[2024-05-07] MEDS: THERAGRAN 1 TABLET PO (08:43)
[2024-05-07] MEDS: COLACE 100 MG PO (08:43)
[2024-05-07] MEDS: NORVASC 2.5 MG PO (08:43)
[2024-05-07] MEDS: NON-FORMULARY ITEM 1 UNIT PO (08:44)
[2024-05-07] MEDS: SENOKOT PO (09:05)
--- NOTE | 2024-05-07 09:15 | W.PN.PUL3 ---
Today's Communication / Plan
-
Clamp x 12 hours, stable--doing well
Discontinue chest tube, IR consult placed
If doing well can discharge per team
We discussed outpatient FU and stopping PAP for now until seen/retested
OP FU to be arranged by our office
Assessment
-
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 He notes he woke up around 3:40AM due to back pain. He sat up and then he thought he slid down in bed.
He may have fallen as he found himself on the floor. He then suddenly had acute anterior chest pain wtih SOB and came to ER. CXR showing acute L sided pneumothorax. Chest tube emergently inserted in ER and he is admitted to floors. He has never
had a ptx before, denies coughing spells prior.
Spontaneous pneumothorax, fell at home s/p chest tube placement in ER 05/04/24
Chest pain
Mild leukocytosis
Hyperglycemia
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
Data download revealed excellent compliance, AHI of 3.7, average pressure of 21/[address] scan
Pulmonary nodules <4mm/benign
Former smoker, quit smoking at age 46, smoked 1 pack/day from age [age]
Hypertension
Hyperlipidemia
GERD
Osteoarthritis of left knee, history of right knee replacement
Prediabetes
History of past GI bleed on aspirin
B/L Cataracts 2018
Basal cell carcinoma
Bilateral sensorineural hearing loss, has hearing aids
Bullous pemphigoid
History of TIA, not on aspirin due to past GI bleed
BPH, history of elevated PSA, history of bladder stones
DDD/DJD C spine, L spine
Mohs procedure left and right side of head and neck 06/16/18
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
Plan
Currently on room air, no hypoxemia noted
No chronic O2 use at home
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
Follows with Dr Stratton
On BIPAP
CXR showing acute ptx, he thinks he may have fallen at home but not sure, was on the floor
Chest tube placed on left in ER 05/04/24
PAP pressures may have contributed to issue
We will hold off PAP usage
We discussed management of chest tube in the next 48-72 hours
Suction x 24 hours, tolerating water seal since 05/05/24
Clamped x 12 hours, CXR this AM appears stable
Discontinue chest tube today, IR consult placed
Reviewed with patient and /family at bedside
ECHO results from past reviewed, stable findings
Resume home meds
Former smoker, emphysema mild on CT/apical findings on prior imaging
Resume home meds
Nebs PRN
Pulmonary nodule history, benign
Discussed management of PTX and likelihood of recurrence
Will arrange OP FU post discharge
May need to reduce PAP pressure in OP settings to avoid recurrence
Last PSG in 2019, weight was 188, he has lost 15 lbs
May be worthwhile also restudying to reduce his pressures or try alternative treatments
Instructed patient not to use BIPAP until seen in office and would move forward with repeat sleep study
Discharge planning per team today
Diagnostic Data
CXR 05/05/24- Left-sided chest tube with the tip now positioned over the left lung base. No appreciable pneumothorax. Ovoid lucency projecting over the left lung base may represent a bulla in correlation with the previous chest CT. Low lung volumes.
Subsegmental atelectasis in the left lung base. No large pleural effusion. Stable cardiomediastinal silhouette.
CXR 05/04/24- Placement of left chest tube with significantly decreased large left pneumothorax in comparison to CT earlier in same day.
CT CHEST 05/04/24- Large left tension type pneumothorax. No findings to suggest central pulmonary embolism.
08/13/18- Pulmonary nodule being followed:
-Flat plaque-like nodule, 8 mm, at the base of the left lung of the diaphragm surface at the apex of the diaphragm. (Axial sequence 2 image 48). 2 mm nodule subpleural posterior right lower lobe (sequence 2 image 31), unchanged. No new or growing
pulmonary nodules.
Minor biapical subpleural emphysema spaces. No generalized emphysema. No fibrosis. Airways: No bronchiectasis. Minimum linear atelectasis or scarring in the para spinal medial base of both lower lobes. No change.
ECHO 2015- . Left ventricle: Normal size and function. The estimated ejection fraction is 55-60%.
2. Right ventricle: Normal size and function
3. Atria: Normal
4. Mitral valve: Trace mitral regurgitation
5. Aortic valve: Trace aortic insufficiency. No aortic stenosis
6. Tricuspid valve: Mild tricuspid regurgitation. Estimated pulmonary systolic pressures are 25-30 mmHg
7. There has been no significant change since the most recent echocardiogram from 10/28/14
Reports and relevant images were personally reviewed.
Total time spent on this encounter __51__ minutes which includes review of history, physical exam, medications, laboratory data, personal review of imaging, extensive review of outpatient records, discussion with care team and respiratory therapy.
Subjective Data
-
Date of Service:
Date of Service: May 07, 2024
Chief Complaint: Pulmonary Follow Up
Subjective:
Doing well, remains stable
no new complaints
Objective Data
Data Reviewed
Vital Signs / I&O / Oxygen:
Vital Signs
Temp Pulse Resp BP Pulse Ox
99.2 F 77 18 143/77 96
05/07/24 07:35 05/07/24 07:35 05/07/24 07:35 05/07/24 07:35 05/07/24 07:35
Intake and Output
05/06/24 05/07/24 05/08/24
06:59 06:59 06:59
Intake Total 1340 / 1340 240 / 240
Output Total 150 / 150
Balance 1190 / 1190 240 / 240
SaO2 96
Physical Exam
General: Comfortable and Other (NAD)
HEENT: Normocephalic, Anicteric and Moist Mucous Membranes
Cardiovascular: S1-S2 and Regular Rhythm
Respiratory: Clear, Non-Labored Respirations and Chest Tube
GI: Soft, Non Distended and Non Tender
Neurology: Awake, Alert, Oriented and No Motor Deficits
Skin: Warm, Dry and Good Color
Labs/Micro/Reports
Lab Data
05/05/24 06:28
05/05/24 06:28
--- NOTE | 2024-05-07 11:43 | W.PN.HOSP.TC ---
Today's Communication/Plan
-
Discharge later today after CT removal.
Assessment / Plan
Assessment / Plan
CVS: S1-S2 normal
Chest: few rales left
Abdomen: Soft, NT / Bowel sounds present
Extremities: No edema
# Spontaneous pneumothorax
Status post chest tube placement in the ER
Chest x-ray shows reexpansion after chest tube
CT placed under water seal 05/05/24 and Clamped 05/06/24
CXR from am reviewed. No Pneumo
CT had a bulla , so at risk for Spontaneous Pneumothorax again
CT removal today
# Bullous pemphigoid-in remission
Follows up with Dr. Felicia Rico and at [place]
Not on tacrolimus or steroid ointment anymore for the skin
Uses dexamethasone swish and spit-for the mouth
Also on doxycycline 100 mg daily
# Hyperlipidemia-continue atorvastatin
# Hypertension-continue amlodipine
# Enlarged prostate-continue finasteride
# [id number] several decades ago
# DVT prophylaxis-Lovenox
# Full code
D/W Pulm
D/W RN
Anticipated Discharge: Today
Subjective/Interval History
-
Date of Service: May 07, 2024
Objective Data
-
Vital Signs:
Vital Signs
Temp Pulse Resp BP Pulse Ox
97.6 F 96 18 124/80 99
05/07/24 11:12 05/07/24 11:12 05/07/24 11:12 05/07/24 11:12 05/07/24 11:12
I&O
05/06/24 05/07/24 05/08/24
06:59 06:59 06:59
Intake Total 1340 / 1340 240 / 240
Output Total 150 / 150
Balance 1190 / 1190 240 / 240
--- NOTE | 2024-05-07 14:19 | CM ---
Patient seen at bedside. Patient stated that he is doing well and does not anticipate any discharge needs. [facility] provided for patient to review and sign. CM will continue to follow for discharge planning needs.
Plan;home with no needs. watch for VN needs due to chest tube.
[2024-05-07] MEDS: LOVENOX 40 MG SC (17:16)
--- NOTE | 2024-05-07 17:31 | W.PN.UPDATE ---
Update Note
Progress Note Update
- L chest tube pulled in IR earlier this afternoon.
- Post pull CXR showed a likely small left pneumothorax. Pt asymptomatic.
- Discussed with Drs. Klein and Kingston. Repeat CXR ordered for later this evening.
[2024-05-07] MEDS: COLACE PO ×2 (20:00→20:05)
[2024-05-07] MEDS: SENOKOT 8.6 MG PO (20:00)
[2024-05-07] MEDS: PROSCAR 5 MG PO (20:00)
[2024-05-07] MEDS: LIPITOR 10 MG PO (20:00)
[2024-05-08] VITALS (14 sets, daily range): BP systolic 72–160; BP diastolic 68–95
[2024-05-08 08:44] LABS: Platelet Count 178 10^3/uL (130-400)
[2024-05-08 08:57] LABS: Blood Urea Nitrogen 24 mg/dl (9-20); Carbon Dioxide 33 mmol/L (22-30); Chloride 102 mmol/L (98-107); Estimated Creatinine Clearance 57 ml/min; eGFR > 60.00
--- NOTE | 2024-05-08 09:21 | W.PN.PUL3 ---
Today's Communication / Plan
-
Repeat CXR this AM with recurrent PTX, updated patient and
Reconsult for IR for chest tube re-insertion
Likely to need prolonged waterseal and clamp trials
If not improving, may need to involve CTS
Monitor through weekend
Assessment
-
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 He notes he woke up around 3:40AM due to back pain. He sat up and then he thought he slid down in bed.
He may have fallen as he found himself on the floor. He then suddenly had acute anterior chest pain wtih SOB and came to ER. CXR showing acute L sided pneumothorax. Chest tube emergently inserted in ER and he is admitted to floors. He has never
had a ptx before, denies coughing spells prior.
Spontaneous pneumothorax, fell at home s/p chest tube placement in ER 05/04/24
Chest tube discontinued 05/07
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
Chest pain
Mild leukocytosis
Hyperglycemia
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
Data download revealed excellent compliance, AHI of 3.7, average pressure of 21/[address] scan
Pulmonary nodules <4mm/benign
Former smoker, quit smoking at age 46, smoked 1 pack/day from age [age]
Hypertension
Hyperlipidemia
GERD
Osteoarthritis of left knee, history of right knee replacement
Prediabetes
History of past GI bleed on aspirin
B/L Cataracts 2018
Basal cell carcinoma
Bilateral sensorineural hearing loss, has hearing aids
Bullous pemphigoid
History of TIA, not on aspirin due to past GI bleed
BPH, history of elevated PSA, history of bladder stones
DDD/DJD C spine, L spine
Mohs procedure left and right side of head and neck 06/16/18
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
Plan
Currently on room air, no hypoxemia noted
No chronic O2 use at home
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
Follows with Dr Stratton
On BIPAP
CXR showing acute ptx, he thinks he may have fallen at home but not sure, was on the floor
Chest tube placed on left in ER 05/04/24
PAP pressures may have contributed to issue
We will hold off PAP usage
Spontaneous ptx s/p chest tube placement in ER 05/04/24
Completed suction x 24 hours, water seal x 24 hours and clamp x 24 hours
Discontinued 05/07/24--repeat CXRs with small resolving apical PTX through the evening
Unfortunately recurred 05/08/24 AM
IR reconsult for re-insertion
Likely will need to waterseal for 48-72 hours this time
Reviewed with patient and /family at bedside
ECHO results from past reviewed, stable findings
Resume home meds
Former smoker, emphysema mild on CT/apical findings on prior imaging
Resume home meds
Nebs PRN
Pulmonary nodule history, benign
Discussed management of PTX and likelihood of recurrence
Will arrange OP FU post discharge
May need to reduce PAP pressure in OP settings to avoid recurrence
Last PSG in 2019, weight was 188, he has lost 15 lbs
May be worthwhile also restudying to reduce his pressures or try alternative treatments
Instructed patient not to use BIPAP until seen in office and would move forward with repeat sleep study
Discussed with care team
Observation this week
Diagnostic Data
CXR 05/05/24- Left-sided chest tube with the tip now positioned over the left lung base. No appreciable pneumothorax. Ovoid lucency projecting over the left lung base may represent a bulla in correlation with the previous chest CT. Low lung volumes.
Subsegmental atelectasis in the left lung base. No large pleural effusion. Stable cardiomediastinal silhouette.
CXR 05/04/24- Placement of left chest tube with significantly decreased large left pneumothorax in comparison to CT earlier in same day.
CT CHEST 05/04/24- Large left tension type pneumothorax. No findings to suggest central pulmonary embolism.
08/13/18- Pulmonary nodule being followed:
-Flat plaque-like nodule, 8 mm, at the base of the left lung of the diaphragm surface at the apex of the diaphragm. (Axial sequence 2 image 48). 2 mm nodule subpleural posterior right lower lobe (sequence 2 image 31), unchanged. No new or growing
pulmonary nodules.
Minor biapical subpleural emphysema spaces. No generalized emphysema. No fibrosis. Airways: No bronchiectasis. Minimum linear atelectasis or scarring in the para spinal medial base of both lower lobes. No change.
ECHO 2016- . Left ventricle: Normal size and function. The estimated ejection fraction is 55-60%.
2. Right ventricle: Normal size and function
3. Atria: Normal
4. Mitral valve: Trace mitral regurgitation
5. Aortic valve: Trace aortic insufficiency. No aortic stenosis
6. Tricuspid valve: Mild tricuspid regurgitation. Estimated pulmonary systolic pressures are 25-30 mmHg
7. There has been no significant change since the most recent echocardiogram from 10/28/14
Reports and relevant images were personally reviewed.
Total time spent on this encounter __58__ minutes which includes review of history, physical exam, medications, laboratory data, personal review of imaging, extensive review of outpatient records, discussion with care team and respiratory therapy.
Subjective Data
-
Date of Service:
Date of Service: May 08, 2024
Chief Complaint: Pulmonary Follow Up
Subjective:
This AM felt more SOB overnight, following chest tube discontinuation had stable CXRs with small apical ptx
Repeat this AM with re-expansion
He remains stable on RA, more SOB but in NAD
Objective Data
Data Reviewed
Vital Signs / I&O / Oxygen:
Vital Signs
Temp Pulse Resp BP Pulse Ox
97.7 F 66 22 149/87 92
05/08/24 07:30 05/08/24 07:30 05/08/24 07:30 05/08/24 07:30 05/08/24 07:30
Intake and Output
05/07/24 05/08/24 05/09/24
06:59 06:59 06:59
Intake Total 240 / 240 700 / 700
Balance 240 / 240 700 / 700
SaO2 92
Physical Exam
General: Comfortable and Other (NAD)
HEENT: Normocephalic, Anicteric and Moist Mucous Membranes
Cardiovascular: S1-S2 and Regular Rhythm
Respiratory: Clear (on R), Non-Labored Respirations and Other (absent on L)
GI: Soft, Non Distended and Non Tender
Neurology: Awake, Alert, Oriented and No Motor Deficits
Skin: Warm, Dry and Good Color
Labs/Micro/Reports
Lab Data
05/08/24 08:35
05/08/24 08:35
[2024-05-08 09:24] LABS: Glucose 122 mg/dl (70-99); Potassium 5.1 mmol/L (3.5-5.1); Sodium 139 mmol/L (135-145)
[2024-05-08] MEDS: DECADRON 0.5 MG PO ×2 (09:31→21:08)
[2024-05-08] MEDS: COLACE PO ×2 (09:31→21:08)
[2024-05-08] MEDS: NORVASC 2.5 MG PO (09:33)
[2024-05-08] MEDS: SENOKOT PO ×2 (09:34→21:08)
[2024-05-08] MEDS: VITAMIN C 1000 MG PO (09:34)
[2024-05-08] MEDS: VIBRAMYCIN 100 MG PO (09:34)
[2024-05-08] MEDS: THERAGRAN 1 TABLET PO (09:34)
[2024-05-08] MEDS: NON-FORMULARY ITEM 1 UNIT PO (09:34)
--- NOTE | 2024-05-08 11:45 | PTCARENOTE ---
Pt leaving floor to [facility] for another chest tube placement
--- NOTE | 2024-05-08 13:05 | W.PN.UPDATE ---
Update Note
Progress Note Update
- L chest tube replaced. 16F
- Placed to -20cm suction.
[2024-05-08] MEDS: ULTRAM 50 MG PO (14:04)
--- NOTE | 2024-05-08 14:45 | W.PN.HOSP.TC ---
Today's Communication/Plan
-
CT to suction
Assessment / Plan
Assessment / Plan
CVS: S1-S2 normal
Chest: few rales left
Abdomen: Soft, NT / Bowel sounds present
Extremities: No edema
# Spontaneous pneumothorax
Status post chest tube placement in the ER
Chest x-ray shows reexpansion after chest tube
CT placed under water seal 05/05/24 and Clamped 05/06/24 and removed 03/06/25, CT Replaced 03/07/[address] had a bulla , so at risk for Spontaneous Pneumothorax again
CXR reviewed by me today showed more pneumothorax- SO CT replaced.
Oxygen added.
# Bullous pemphigoid-in remission
Follows up with Dr. Felicia Rico and at [place]
Not on tacrolimus or steroid ointment anymore for the skin
Uses dexamethasone swish and spit-for the mouth
Also on doxycycline 100 mg daily
# Hyperlipidemia-continue atorvastatin
# Hypertension-continue amlodipine
# Enlarged prostate-continue finasteride
# [id number] several decades ago
# DVT prophylaxis-Lovenox
# Full code
D/W IRAD
D/W Pulm
D/W RN
D/W at bed side
Anticipated Discharge: > 48 hours
Subjective/Interval History
-
Date of Service: May 08, 2024
Objective Data
-
Labs:
Laboratory Results
05/08/24
08:35
Plt Count 178
Sodium 139
Potassium 5.1
Chloride 102
Carbon Dioxide 33 H
BUN 24 H
Creatinine 0.8
Glucose 122 H
Calcium 10.0
Vital Signs:
Vital Signs
Temp Pulse Resp BP Pulse Ox
97.8 F 77 18 160/89 97
05/08/24 14:05 05/08/24 14:05 05/08/24 14:05 05/08/24 14:05 05/08/24 14:05
I&O
05/07/24 05/08/24 05/09/24
06:59 06:59 06:59
Intake Total 240 / 240 700 / 700 180 / 180
Balance 240 / 240 700 / 700 180 / 180
[2024-05-08] MEDS: LOVENOX 40 MG SC (17:12)
[2024-05-08] MEDS: PROSCAR 5 MG PO (21:11)
[2024-05-08] MEDS: LIPITOR 10 MG PO (21:11)
[2024-05-09 03:33] VITALS: BP 149/85
[2024-05-09 07:30] VITALS: BP 142/78
[2024-05-09] MEDS: DECADRON 0.5 MG PO ×2 (09:47→20:10)
[2024-05-09] MEDS: NORVASC 2.5 MG PO (09:48)
[2024-05-09] MEDS: VIBRAMYCIN 100 MG PO (09:48)
[2024-05-09] MEDS: THERAGRAN 1 TABLET PO (09:48)
[2024-05-09] MEDS: NON-FORMULARY ITEM 1 UNIT PO (09:48)
[2024-05-09] MEDS: VITAMIN C 1000 MG PO (09:48)
[2024-05-09] MEDS: SENOKOT PO ×2 (09:49→20:10)
[2024-05-09] MEDS: COLACE PO ×2 (09:49→20:10)
[2024-05-09 11:56] VITALS: BP 140/82
--- NOTE | 2024-05-09 12:54 | W.PN.PUL.V3 ---
Today's Communication / Plan
-
Wean oxygen
New chest tube
Chest x-ray with resolution of pneumothorax
Wall suction today-if no leak then waterseal for 48 to 72 hours before clamping and removal
Assessment
-
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 He notes he woke up around 3:40AM due to back pain. He sat up and then he thought he slid down in bed.
He may have fallen as he found himself on the floor. He then suddenly had acute anterior chest pain wtih SOB and came to ER. CXR showing acute L sided pneumothorax. Chest tube emergently inserted in ER and he is admitted to floors. He has never
had a ptx before, denies coughing spells prior.
Spontaneous pneumothorax, fell at home s/p chest tube placement in ER 05/04/24
Chest tube discontinued 05/07
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
Chest pain
Mild leukocytosis
Hyperglycemia
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
Data download revealed excellent compliance, AHI of 3.7, average pressure of 21/[address] scan
Pulmonary nodules <4mm/benign
Former smoker, quit smoking at age 46, smoked 1 pack/day from age [age]
Hypertension
Hyperlipidemia
GERD
Osteoarthritis of left knee, history of right knee replacement
Prediabetes
History of past GI bleed on aspirin
B/L Cataracts 2018
Basal cell carcinoma
Bilateral sensorineural hearing loss, has hearing aids
Bullous pemphigoid
History of TIA, not on aspirin due to past GI bleed
BPH, history of elevated PSA, history of bladder stones
DDD/DJD C spine, L spine
Mohs procedure left and right side of head and neck 06/16/18
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
Plan
Respiratory status slowly improving
Wean oxygen
Assess discharge supplemental oxygen needs
Incentive spirometry
BiPAP 21/18 cm at night and during the daytime as tolerated-hold while patient has pneumothorax
Aspiration precautions
Chest x-ray follow-up 05/09/2024-typically left chest tube lateral left lung apex and complete resolution of left-sided pneumothorax
Chest tube for pneumothorax after fall 05/04/2024-discontinued 05/07/2024
Recurrent pneumothorax 05/08/2024
Interventional radiology reconsulted
Will likely need waterseal for 48 to 72 hours this time
Discussed with nursing
Last saw Dr. Stratton on 12/21/2020 for COPD and FATEMEH on BiPAP and since then has been following with Cristina Olmstead-last seen 09/17/[id number] as an outpatient
May need to reduce PAP pressure in OP settings to avoid recurrence
Last PSG in 2019, weight was 188, he has lost 15 lbs
May be worthwhile also restudying to reduce his pressures or try alternative treatments
Instructed patient not to use BIPAP until seen in office and would move forward with repeat sleep study
Diagnostic Data
CXR 05/05/24- Left-sided chest tube with the tip now positioned over the left lung base. No appreciable pneumothorax. Ovoid lucency projecting over the left lung base may represent a bulla in correlation with the previous chest CT. Low lung volumes.
Subsegmental atelectasis in the left lung base. No large pleural effusion. Stable cardiomediastinal silhouette.
CXR 05/04/24- Placement of left chest tube with significantly decreased large left pneumothorax in comparison to CT earlier in same day.
CT CHEST 05/04/24- Large left tension type pneumothorax. No findings to suggest central pulmonary embolism.
08/13/18- Pulmonary nodule being followed:
-Flat plaque-like nodule, 8 mm, at the base of the left lung of the diaphragm surface at the apex of the diaphragm. (Axial sequence 2 image 48). 2 mm nodule subpleural posterior right lower lobe (sequence 2 image 31), unchanged. No new or growing
pulmonary nodules.
Minor biapical subpleural emphysema spaces. No generalized emphysema. No fibrosis. Airways: No bronchiectasis. Minimum linear atelectasis or scarring in the para spinal medial base of both lower lobes. No change.
ECHO 2016- . Left ventricle: Normal size and function. The estimated ejection fraction is 55-60%.
2. Right ventricle: Normal size and function
3. Atria: Normal
4. Mitral valve: Trace mitral regurgitation
5. Aortic valve: Trace aortic insufficiency. No aortic stenosis
6. Tricuspid valve: Mild tricuspid regurgitation. Estimated pulmonary systolic pressures are 25-30 mmHg
7. There has been no significant change since the most recent echocardiogram from 10/28/14
.
Subjective Data
-
Date of Service:
Date of Service: May 09, 2024
Chief Complaint: Pulmonary Follow Up and Dyspnea Follow Up
Subjective:
Denies any worsening shortness of breath, chest pain, productive cough, abdominal pain
Review of Systems
General: Other (Per HPI)
Objective Data
Data Reviewed
Vital Signs / I&O:
Vital Signs
Temp Pulse Resp BP Pulse Ox
97.5 F 77 20 140/82 96
05/09/24 11:56 05/09/24 11:56 05/09/24 11:56 05/09/24 11:56 05/09/24 11:56
Intake and Output
05/08/24 05/09/24 05/10/24
06:59 06:59 06:59
Intake Total 700 / 700 900 / 900
Output Total 433 / 433
Balance 700 / 700 467 / 467
SaO2: 96
Nasal Cannula flow liters per minute: 2
Physical Exam
General: Comfortable and Other (NAD)
HEENT: Normocephalic, Anicteric and Moist Mucous Membranes
Cardiovascular: S1-S2 and Regular Rhythm
Respiratory: Clear (on R), Non-Labored Respirations and Other (absent on L)
GI: Soft, Non Distended and Non Tender
Neurology: Awake, Alert, Oriented and No Motor Deficits
Skin: Warm, Dry and Good Color
Labs/Micro/Reports
Lab Data
05/08/24 08:35
05/08/24 08:35
--- NOTE | 2024-05-09 13:32 | W.PN.HOSP.TC ---
Today's Communication/Plan
-
CT management per pulm.
? water seal
Assessment / Plan
Assessment / Plan
CVS: S1-S2 normal
Chest: few rales left
Abdomen: Soft, NT / Bowel sounds present
Extremities: No edema
# Spontaneous pneumothorax
Status post chest tube placement in the ER
CT placed under water seal 05/05/24 and Clamped 05/06/24 and removed 03/06/25, CT Replaced 03/07/25 for recurrent Pneumothorax
Chest x-ray today shows reexpansion after chest tube
CT had a bulla , so at risk for Spontaneous Pneumothorax again
CXR reviewed by me today showed more pneumothorax- SO CT replaced.
Oxygen added.
# Bullous pemphigoid-in remission
Follows up with Dr. Felicia Rico and at [facility]
Not on tacrolimus or steroid ointment anymore for the skin
Uses dexamethasone swish and spit-for the mouth
Also on doxycycline 100 mg daily
# Hyperlipidemia-continue atorvastatin
# Hypertension-continue amlodipine
# Enlarged prostate-continue finasteride
# [id number] several decades ago
# DVT prophylaxis-Lovenox
# Full code
D/W RN
D/W at bed side
Anticipated Discharge: 24 - 48 hours
Subjective/Interval History
-
Date of Service: May 09, 2024
Objective Data
-
Vital Signs:
Vital Signs
Temp Pulse Resp BP Pulse Ox
97.5 F 77 20 140/82 96
05/09/24 11:56 05/09/24 11:56 05/09/24 11:56 05/09/24 11:56 05/09/24 12:55
I&O
05/08/24 05/09/24 05/10/24
06:59 06:59 06:59
Intake Total 700 / 700 900 / 900
Output Total 433 / 433
Balance 700 / 700 467 / 467
[2024-05-09 15:25] VITALS: BP 137/86
[2024-05-09] MEDS: LOVENOX 40 MG SC (17:13)
[2024-05-09 19:30] VITALS: BP 123/74
[2024-05-09] MEDS: LIPITOR 10 MG PO (20:11)
[2024-05-09] MEDS: PROSCAR 5 MG PO (20:11)
[2024-05-09 23:29] VITALS: BP 139/78
[2024-05-10] MEDS: ULTRAM 50 MG PO ×2 (03:41→20:43)
[2024-05-10 06:57] LABS: Hematocrit 40.6 % (39.0-52.0); Hemoglobin 13.9 g/dL (13.0-18.0); Mean Corp Hgb Conc. 34.2 g/dL (33.0-37.0); Mean Corpuscular Hgb 30.4 pg (27.0-31.0); Mean Corpuscular Volume 88.8 fL (80.0-94.0); Mean Platelet Volume 9.8 fL (7.4-10.4); Platelet Count 157 10^3/uL (130-400); Red Blood Cell Count 4.57 10^6/uL (4.70-6.10); Red Cell Dist. Width 13.2 % (11.5-14.5); White Blood Cell Count 7.9 10^3/uL (4.8-10.8)
[2024-05-10 07:30] VITALS: BP 146/81
[2024-05-10 07:35] LABS: Blood Urea Nitrogen 27 mg/dl (9-20); Calcium 8.8 mg/dl (8.4-10.2); Carbon Dioxide 28 mmol/L (22-30); Chloride 105 mmol/L (98-107); Estimated Creatinine Clearance 57 ml/min; Glucose 107 mg/dl (70-99); Potassium 4.4 mmol/L (3.5-5.1); Sodium 138 mmol/L (135-145); eGFR > 60.00
[2024-05-10] MEDS: VIBRAMYCIN 100 MG PO (08:42)
[2024-05-10] MEDS: DECADRON 0.5 MG PO ×2 (08:42→20:44)
[2024-05-10] MEDS: NORVASC 2.5 MG PO (08:42)
[2024-05-10] MEDS: VITAMIN C 1000 MG PO (08:42)
[2024-05-10] MEDS: THERAGRAN 1 TABLET PO (08:43)
[2024-05-10] MEDS: NON-FORMULARY ITEM 1 UNIT PO (08:43)
[2024-05-10] MEDS: COLACE PO ×2 (08:44→20:42)
[2024-05-10] MEDS: SENOKOT PO ×2 (08:44→20:42)
--- NOTE | 2024-05-10 13:33 | W.PN.HOSP.TC ---
Today's Communication/Plan
-
CT under water seal
Assessment / Plan
Assessment / Plan
CVS: S1-S2 normal
Chest: few rales left
Abdomen: Soft, NT / Bowel sounds present
Extremities: No edema
# Spontaneous pneumothorax
Status post chest tube placement in the ER
CT placed under water seal 05/05/24 and Clamped 05/06/24 and removed 03/06/25, CT Replaced 03/07/25 for recurrent Pneumothorax
Chest x-ray today shows reexpansion after chest tube
CT had a bulla , so at risk for Spontaneous Pneumothorax again
CXR reviewed by me today showed more pneumothorax- So CT replaced.
No pneumothorax on the chest x-ray yesterday
I discussed with pulmonary today, placed CT under water seal.
# Bullous pemphigoid-in remission
Follows up with Dr. Felicia Rico and at [facility]
Not on tacrolimus or steroid ointment anymore for the skin
Uses dexamethasone swish and spit-for the mouth
Also on doxycycline 100 mg daily
# Hyperlipidemia-continue Atorvastatin
# Hypertension-continue Amlodipine
# Enlarged prostate-continue Finasteride
# [id number] several decades ago
# DVT prophylaxis-Lovenox
# Full code
D/W RN
D/W Pulm
D/W daughter at bed side
Anticipated Discharge: > 48 hours
Subjective/Interval History
-
Date of Service: May 10, 2024
Objective Data
-
Labs:
Laboratory Results
05/10/24
05:58
WBC 7.9
Hgb 13.9
Hct 40.6
Plt Count 157
Sodium 138
Potassium 4.4
Chloride 105
Carbon Dioxide 28
BUN 27 H
Creatinine 0.8
Glucose 107 H
Calcium 8.8
Vital Signs:
Vital Signs
Temp Pulse Resp BP Pulse Ox
97.6 F 62 20 146/81 96
05/10/24 07:30 05/10/24 08:42 05/10/24 07:30 05/10/24 08:42 05/10/24 08:40
I&O
05/09/24 05/10/24 05/11/24
06:59 06:59 06:59
Intake Total 900 / 900 1680 / 1680
Output Total 433 / 433 826 / 826
Balance 467 / 467 854 / 854
--- NOTE | 2024-05-10 14:47 | W.PN.PUL.V3 ---
Today's Communication / Plan
-
No airleak
Chest x-ray with pneumothorax resolution
Changed to waterseal for 48-72 hours with subsequent clamp and potential removal
Assessment
-
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 He notes he woke up around 3:40AM due to back pain. He sat up and then he thought he slid down in bed.
He may have fallen as he found himself on the floor. He then suddenly had acute anterior chest pain wtih SOB and came to ER. CXR showing acute L sided pneumothorax. Chest tube emergently inserted in ER and he is admitted to floors. He has never
had a ptx before, denies coughing spells prior.
Spontaneous pneumothorax, fell at home s/p chest tube placement in ER 05/04/24
Chest tube discontinued 05/07
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
Chest pain
Mild leukocytosis
Hyperglycemia
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
Data download revealed excellent compliance, AHI of 3.7, average pressure of 21/[address] scan
Pulmonary nodules <4mm/benign
Former smoker, quit smoking at age 46, smoked 1 pack/day from age [age]
Hypertension
Hyperlipidemia
GERD
Osteoarthritis of left knee, history of right knee replacement
Prediabetes
History of past GI bleed on aspirin
B/L Cataracts 2018
Basal cell carcinoma
Bilateral sensorineural hearing loss, has hearing aids
Bullous pemphigoid
History of TIA, not on aspirin due to past GI bleed
BPH, history of elevated PSA, history of bladder stones
DDD/DJD C spine, L spine
Mohs procedure left and right side of head and neck 06/16/18
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
Plan
Respiratory status is stabilized with chest tube
Supplemental oxygen as needed
Assess discharge supplemental oxygen needs
BiPAP 21/18 cm at night and during the daytime as tolerated-hold while patient has pneumothorax
Aspiration precautions
Chest x-ray follow-up 05/09/2024-typically left chest tube lateral left lung apex and complete resolution of left-sided pneumothorax
Chest tube for pneumothorax after fall 05/04/2024-discontinued 05/07/2024
Recurrent pneumothorax 05/08/2024
Interventional radiology reconsulted for another chest tube
Chest x-ray 05/09/2024 with resolution of pneumothorax
No airleak-lets change to waterseal for 48-72 hours before clamping-reviewed with primary team
Last saw Dr. Stratton on 12/21/2020 for COPD and FATEMEH on BiPAP and since then has been following with Cristina Olmstead-last seen 09/[id number] as an outpatient
May need to reduce PAP pressure in OP settings to avoid recurrence
Last PSG in 2019, weight was 188, he has lost 15 lbs
May be worthwhile also restudying to reduce his pressures or try alternative treatments
Instructed patient not to use BIPAP until seen in office and would move forward with repeat sleep study
Diagnostic Data
CXR 05/05/24- Left-sided chest tube with the tip now positioned over the left lung base. No appreciable pneumothorax. Ovoid lucency projecting over the left lung base may represent a bulla in correlation with the previous chest CT. Low lung volumes.
Subsegmental atelectasis in the left lung base. No large pleural effusion. Stable cardiomediastinal silhouette.
CXR 05/04/24- Placement of left chest tube with significantly decreased large left pneumothorax in comparison to CT earlier in same day.
CT CHEST 05/04/24- Large left tension type pneumothorax. No findings to suggest central pulmonary embolism.
08/13/18- Pulmonary nodule being followed:
-Flat plaque-like nodule, 8 mm, at the base of the left lung of the diaphragm surface at the apex of the diaphragm. (Axial sequence 2 image 48). 2 mm nodule subpleural posterior right lower lobe (sequence 2 image 31), unchanged. No new or growing
pulmonary nodules.
Minor biapical subpleural emphysema spaces. No generalized emphysema. No fibrosis. Airways: No bronchiectasis. Minimum linear atelectasis or scarring in the para spinal medial base of both lower lobes. No change.
ECHO 2016- . Left ventricle: Normal size and function. The estimated ejection fraction is 55-60%.
2. Right ventricle: Normal size and function
3. Atria: Normal
4. Mitral valve: Trace mitral regurgitation
5. Aortic valve: Trace aortic insufficiency. No aortic stenosis
6. Tricuspid valve: Mild tricuspid regurgitation. Estimated pulmonary systolic pressures are 25-30 mmHg
7. There has been no significant change since the most recent echocardiogram from 10/28/14
.
Subjective Data
-
Date of Service:
Date of Service: May 10, 2024
Chief Complaint: Pulmonary Follow Up and Dyspnea Follow Up
Subjective:
No complaints of worsening shortness of breath, chest pain, productive cough
Review of Systems
General: Other (Per HPI)
Objective Data
Data Reviewed
Vital Signs / I&O:
Vital Signs
Temp Pulse Resp BP Pulse Ox
97.6 F 62 20 146/81 96
05/10/24 07:30 05/10/24 08:42 05/10/24 07:30 05/10/24 08:42 05/10/24 08:40
Intake and Output
05/09/24 05/10/24 05/11/24
06:59 06:59 06:59
Intake Total 900 / 900 1680 / 1680
Output Total 433 / 433 826 / 826
Balance 467 / 467 854 / 854
SaO2: 96
Nasal Cannula flow liters per minute: 2
Physical Exam
General: Respiratory Distress (n), Comfortable and Other (NAD)
HEENT: Normocephalic, Anicteric and Moist Mucous Membranes
Cardiovascular: Regular Rhythm
Respiratory: Clear (on R), Non-Labored Respirations, Chest Tube and Other
GI: Soft, Non Distended and Non Tender
Neurology: Awake, Alert, Oriented and No Motor Deficits
Skin: Warm, Dry and Good Color
Labs/Micro/Reports
Lab Data
05/10/24 05:58
05/10/24 05:58
[2024-05-10 15:40] VITALS: BP 129/75; PULSE 81; O2SAT 91
[2024-05-10 15:45] VITALS: BP 127/73
[2024-05-10] MEDS: LOVENOX 40 MG SC (18:11)
[2024-05-10] MEDS: PROSCAR 5 MG PO (20:43)
[2024-05-10] MEDS: LIPITOR 10 MG PO (20:44)
[2024-05-10 23:56] VITALS: BP 127/71
[2024-05-11 07:30] VITALS: BP 145/81
[2024-05-11] MEDS: COLACE PO ×2 (08:35→20:00)
[2024-05-11] MEDS: VIBRAMYCIN 100 MG PO (08:35)
[2024-05-11] MEDS: NORVASC 2.5 MG PO (08:35)
[2024-05-11] MEDS: VITAMIN C 1000 MG PO (08:35)
[2024-05-11] MEDS: THERAGRAN 1 TABLET PO (08:35)
[2024-05-11] MEDS: NON-FORMULARY ITEM 1 UNIT PO (08:37)
[2024-05-11] MEDS: DECADRON 0.5 MG PO ×2 (08:37→20:02)
[2024-05-11] MEDS: SENOKOT PO ×2 (08:38→20:00)
--- NOTE | 2024-05-11 09:55 | CM ---
Patient seen at bedside, patient with suction in place to chest tube. CM will continue to follow for discharge planning needs.
Plan; home with no needs vs home with VN
--- NOTE | 2024-05-11 10:01 | W.PN.PUL.V3 ---
Today's Communication / Plan
-
Chest tube on waterseal-chest x-ray with small apical pneumothorax
Chest tube back on wall suction
Assessment
-
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 He notes he woke up around 3:40AM due to back pain. He sat up and then he thought he slid down in bed.
He may have fallen as he found himself on the floor. He then suddenly had acute anterior chest pain wtih SOB and came to ER. CXR showing acute L sided pneumothorax. Chest tube emergently inserted in ER and he is admitted to floors. He has never
had a ptx before, denies coughing spells prior.
Spontaneous pneumothorax, fell at home s/p chest tube placement in ER 05/04/24
Chest tube discontinued 05/07
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
Chest pain
Mild leukocytosis
Hyperglycemia
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
Data download revealed excellent compliance, AHI of 3.7, average pressure of 21/[address] scan
Pulmonary nodules <4mm/benign
Former smoker, quit smoking at age 46, smoked 1 pack/day from age [age]
Hypertension
Hyperlipidemia
GERD
Osteoarthritis of left knee, history of right knee replacement
Prediabetes
History of past GI bleed on aspirin
B/L Cataracts 2018
Basal cell carcinoma
Bilateral sensorineural hearing loss, has hearing aids
Bullous pemphigoid
History of TIA, not on aspirin due to past GI bleed
BPH, history of elevated PSA, history of bladder stones
DDD/DJD C spine, L spine
Mohs procedure left and right side of head and neck 06/16/18
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
Plan
Respiratory status is stabilized with chest tube
Supplemental oxygen as needed-attempt to wean
Assess discharge supplemental oxygen needs
BiPAP 21/18 cm at night and during the daytime as tolerated--on hold while patient has pneumothorax
Aspiration precautions
Chest x-ray follow-up 05/09/2024-typically left chest tube lateral left lung apex and complete resolution of left-sided pneumothorax
Chest x-ray 05/10/2024-resolution of pneumothorax
Chest tube for pneumothorax after fall 05/04/2024-discontinued 05/07/2024
Recurrent pneumothorax 05/08/2024
Interventional radiology reconsulted for another chest tube
Chest x-ray 05/09/2024 with resolution of pneumothorax
Chest tube was placed on waterseal 05/10/2024
Chest x-ray 05/11/2024 with small left apical pneumothorax
Chest tube placed back on wall suction for at least [address] Stratton on 12/21/2020 for COPD and FATEMEH on BiPAP and since then has been following with Cristina Olmstead-last seen 09/17/[id number] as an outpatient
May need to reduce PAP pressure in OP settings to avoid recurrence
Last PSG in 2019, weight was 188, he has lost 15 lbs
May be worthwhile also restudying to reduce his pressures or try alternative treatments
Instructed patient not to use BIPAP until seen in office and would move forward with repeat sleep study
Diagnostic Data
CXR 05/05/24- Left-sided chest tube with the tip now positioned over the left lung base. No appreciable pneumothorax. Ovoid lucency projecting over the left lung base may represent a bulla in correlation with the previous chest CT. Low lung volumes.
Subsegmental atelectasis in the left lung base. No large pleural effusion. Stable cardiomediastinal silhouette.
CXR 05/04/24- Placement of left chest tube with significantly decreased large left pneumothorax in comparison to CT earlier in same day.
CT CHEST 05/04/24- Large left tension type pneumothorax. No findings to suggest central pulmonary embolism.
08/13/18- Pulmonary nodule being followed:
-Flat plaque-like nodule, 8 mm, at the base of the left lung of the diaphragm surface at the apex of the diaphragm. (Axial sequence 2 image 48). 2 mm nodule subpleural posterior right lower lobe (sequence 2 image 31), unchanged. No new or growing
pulmonary nodules.
Minor biapical subpleural emphysema spaces. No generalized emphysema. No fibrosis. Airways: No bronchiectasis. Minimum linear atelectasis or scarring in the para spinal medial base of both lower lobes. No change.
ECHO 2016- . Left ventricle: Normal size and function. The estimated ejection fraction is 55-60%.
2. Right ventricle: Normal size and function
3. Atria: Normal
4. Mitral valve: Trace mitral regurgitation
5. Aortic valve: Trace aortic insufficiency. No aortic stenosis
6. Tricuspid valve: Mild tricuspid regurgitation. Estimated pulmonary systolic pressures are 25-30 mmHg
7. There has been no significant change since the most recent echocardiogram from 10/28/14
.
Subjective Data
-
Date of Service:
Date of Service: May 11, 2024
Chief Complaint: Pulmonary Follow Up and Dyspnea Follow Up
Subjective:
No complaints of worsening shortness of breath, chest pain, chest tightness, productive cough, abdominal pain or leg swelling.CT
Review of Systems
General: Other (Per HPI)
Objective Data
Data Reviewed
Vital Signs / I&O:
Vital Signs
Temp Pulse Resp BP Pulse Ox
97.8 F 62 18 145/81 94
05/11/24 07:30 05/11/24 08:35 05/11/24 07:30 05/11/24 08:35 05/11/24 08:00
Intake and Output
05/10/24 05/11/24 05/12/24
06:59 06:59 06:59
Intake Total 1680 / 1680 1440 / 1440
Output Total 826 / 826 840 / 840
Balance 854 / 854 600 / 600
SaO2: 94
Nasal Cannula flow liters per minute: 2
Physical Exam
General: Respiratory Distress (n), Comfortable and Other (NAD)
HEENT: Normocephalic, Anicteric and Moist Mucous Membranes
Cardiovascular: Regular Rhythm
Respiratory: Clear (on R), Non-Labored Respirations, Chest Tube and Other
GI: Soft, Non Distended and Non Tender
Neurology: Awake, Alert, Oriented and No Motor Deficits
Skin: Warm, Dry and Good Color
Labs/Micro/Reports
Lab Data
05/10/24 05:58
05/10/24 05:58
--- NOTE | 2024-05-11 11:59 | W.PN.HOSP.TC ---
Today's Communication/Plan
-
Chest tube to wall suction
Assessment / Plan
Assessment / Plan
CVS: S1-S2 normal
Chest: few rales left
Abdomen: Soft, NT / Bowel sounds present
Extremities: No edema
# Spontaneous pneumothorax
Status post chest tube placement in the ER
CT placed under water seal 05/05/24 and Clamped 05/06/24 and removed 03/06/25, CT Replaced 03/07/25 for recurrent Pneumothorax
Chest tube placed to waterseal 03/09/2025-repeat x-ray with pneumothorax. Placed on wall suction again today 03/10/2025
CT had a bulla , so at risk for Spontaneous Pneumothorax again
# Bullous pemphigoid-in remission
Follows up with Dr. Felicia Rico and at [place]
Not on tacrolimus or steroid ointment anymore for the skin
Uses dexamethasone swish and spit-for the mouth
Also on doxycycline 100 mg daily
# Hyperlipidemia-continue Atorvastatin
# Hypertension-continue Amlodipine
# Enlarged prostate-continue Finasteride
# [id number] several decades ago
# DVT prophylaxis-Lovenox
# Full code
D/W RN
Anticipated Discharge: > 48 hours
Subjective/Interval History
-
Date of Service: May 11, 2024
Objective Data
-
Vital Signs:
Vital Signs
Temp Pulse Resp BP Pulse Ox
97.8 F 62 18 145/81 94
05/11/24 07:30 05/11/24 08:35 05/11/24 07:30 05/11/24 08:35 05/11/24 11:54
I&O
05/10/24 05/11/24 05/12/24
06:59 06:59 06:59
Intake Total 1680 / 1680 1440 / 1440
Output Total 826 / 826 840 / 840
Balance 854 / 854 600 / 600
--- NOTE | 2024-05-11 13:12 | PTCARENOTE ---
At 8:30, Chest tube back on wall suction as per MD order.
[2024-05-11 15:21] VITALS: BP 138/40
[2024-05-11] MEDS: LOVENOX 40 MG SC (17:48)
[2024-05-11] MEDS: LIPITOR 10 MG PO (20:02)
[2024-05-11] MEDS: PROSCAR 5 MG PO (20:02)
[2024-05-11 23:25] VITALS: BP 140/83
--- NOTE | 2024-05-12 00:55 | PTCARENOTE ---
Pt has left lateral chest tube in place. dressing is clean, dry and intact. Hooked up to wall suction. Pt has no active order for suction 05/11/24. Prior notes from 05/11/24 include information about the chest tube to suction. INSURANCE OFFICE MANAGER aware. [facility] is
within reach.
[2024-05-12 07:30] VITALS: BP 152/84
[2024-05-12 07:36] LABS: Hematocrit 43.3 % (39.0-52.0); Hemoglobin 15.1 g/dL (13.0-18.0); Mean Corp Hgb Conc. 34.9 g/dL (33.0-37.0); Mean Corpuscular Hgb 30.6 pg (27.0-31.0); Mean Corpuscular Volume 87.8 fL (80.0-94.0); Mean Platelet Volume 9.8 fL (7.4-10.4); Platelet Count 166 10^3/uL (130-400); Red Blood Cell Count 4.93 10^6/uL (4.70-6.10); Red Cell Dist. Width 13.2 % (11.5-14.5)
[2024-05-12 07:59] LABS: Blood Urea Nitrogen 23 mg/dl (9-20); Calcium 9.4 mg/dl (8.4-10.2); Carbon Dioxide 24 mmol/L (22-30); Chloride 104 mmol/L (98-107); Estimated Creatinine Clearance 57 ml/min; Glucose 111 mg/dl (70-99); Potassium 4.4 mmol/L (3.5-5.1); Sodium 136 mmol/L (135-145); eGFR > 60.00
[2024-05-12] MEDS: THERAGRAN 1 TABLET PO (08:44)
[2024-05-12] MEDS: VITAMIN C 1000 MG PO (08:44)
[2024-05-12] MEDS: NORVASC 2.5 MG PO (08:44)
[2024-05-12] MEDS: VIBRAMYCIN 100 MG PO (08:44)
[2024-05-12] MEDS: NON-FORMULARY ITEM 1 UNIT PO (08:45)
[2024-05-12] MEDS: DECADRON 0.5 MG PO ×2 (08:45→19:33)
[2024-05-12] MEDS: COLACE PO ×2 (08:47→19:19)
[2024-05-12] MEDS: SENOKOT PO ×2 (08:47→19:19)
--- NOTE | 2024-05-12 10:39 | W.PN.PUL.V3 ---
Today's Communication / Plan
-
Increased wall suction
Recheck chest x-ray
Consider upsizing chest tube or thoracic surgical involvement in the next 24 hours if no significant improvement
Dr. Stratton updated daughter at length
Assessment
-
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 He notes he woke up around 3:40AM due to back pain. He sat up and then he thought he slid down in bed.
He may have fallen as he found himself on the floor. He then suddenly had acute anterior chest pain wtih SOB and came to ER. CXR showing acute L sided pneumothorax. Chest tube emergently inserted in ER and he is admitted to floors. He has never
had a ptx before, denies coughing spells prior.
Spontaneous pneumothorax, fell at home s/p chest tube placement in ER 05/04/24
Chest tube discontinued 05/07
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
Chest pain
Mild leukocytosis
Hyperglycemia
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
Data download revealed excellent compliance, AHI of 3.7, average pressure of 21/[address] scan
Pulmonary nodules <4mm/benign
Former smoker, quit smoking at age 46, smoked 1 pack/day from age [age]
Hypertension
Hyperlipidemia
GERD
Osteoarthritis of left knee, history of right knee replacement
Prediabetes
History of past GI bleed on aspirin
B/L Cataracts 2018
Basal cell carcinoma
Bilateral sensorineural hearing loss, has hearing aids
Bullous pemphigoid
History of TIA, not on aspirin due to past GI bleed
BPH, history of elevated PSA, history of bladder stones
DDD/DJD C spine, L spine
Mohs procedure left and right side of head and neck 06/16/18
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
Plan
Respiratory status is stabilized with chest tube
Supplemental oxygen as needed-attempt to wean
Assess discharge supplemental oxygen needs
BiPAP 21/18 cm at night and during the daytime as tolerated--on hold while patient has pneumothorax
Aspiration precautions
Chest x-ray follow-up 05/09/2024-typically left chest tube lateral left lung apex and complete resolution of left-sided pneumothorax
Chest x-ray 05/10/2024-resolution of pneumothorax
Chest tube for pneumothorax after fall 05/04/2024-discontinued 05/07/2024
Recurrent pneumothorax 05/08/2024
Interventional radiology reconsulted for another chest tube
Chest x-ray 05/09/2024 with resolution of pneumothorax
Chest tube was placed on waterseal 05/10/2024
Chest x-ray 05/11/2024 with small left apical pneumothorax
Chest tube placed back on wall suction 05/11/24--20 cm-there was a 5-hour. Where he was not placed back on wall suction
Chest x-ray 05/12/2024 while on -20 cm wall suction-persistent pneumothorax
Ordered suction to be increased to -40 cm on 05/12/2024
Follow-up chest x-ray 05/13/2024-if no pneumothorax then chest tube may need to be 'upsized'
Or thoracic surgery may need to be involved
Last saw Dr. Stratton on 12/21/2020 for COPD and FATEMEH on BiPAP and since then has been following with Cristina Olmstead-last seen 09/17/[id number] as an outpatient
May need to reduce PAP pressure in OP settings to avoid recurrence
Last PSG in 2019, weight was 188, he has lost 15 lbs
May be worthwhile also restudying to reduce his pressures or try alternative treatments
Instructed patient not to use BIPAP until seen in office and would move forward with repeat sleep study
Dr. Stratton reviewed with daughter 05/12/2024 over the phone extensively including pathophysiology of pneumothorax, typical treatment options, if not improved potential upsizing of chest tube for thoracic surgery involvement and realistically it will
take many more days to resolve
Diagnostic Data
CXR 05/05/24- Left-sided chest tube with the tip now positioned over the left lung base. No appreciable pneumothorax. Ovoid lucency projecting over the left lung base may represent a bulla in correlation with the previous chest CT. Low lung volumes.
Subsegmental atelectasis in the left lung base. No large pleural effusion. Stable cardiomediastinal silhouette.
CXR 05/04/24- Placement of left chest tube with significantly decreased large left pneumothorax in comparison to CT earlier in same day.
CT CHEST 05/04/24- Large left tension type pneumothorax. No findings to suggest central pulmonary embolism.
08/13/18- Pulmonary nodule being followed:
-Flat plaque-like nodule, 8 mm, at the base of the left lung of the diaphragm surface at the apex of the diaphragm. (Axial sequence 2 image 48). 2 mm nodule subpleural posterior right lower lobe (sequence 2 image 31), unchanged. No new or growing
pulmonary nodules.
Minor biapical subpleural emphysema spaces. No generalized emphysema. No fibrosis. Airways: No bronchiectasis. Minimum linear atelectasis or scarring in the para spinal medial base of both lower lobes. No change.
ECHO 2016- . Left ventricle: Normal size and function. The estimated ejection fraction is 55-60%.
2. Right ventricle: Normal size and function
3. Atria: Normal
4. Mitral valve: Trace mitral regurgitation
5. Aortic valve: Trace aortic insufficiency. No aortic stenosis
6. Tricuspid valve: Mild tricuspid regurgitation. Estimated pulmonary systolic pressures are 25-30 mmHg
7. There has been no significant change since the most recent echocardiogram from 10/28/14
.
Subjective Data
-
Date of Service:
Date of Service: May 12, 2024
Chief Complaint: Pulmonary Follow Up and Dyspnea Follow Up
Subjective:
No complaints of worsening shortness of breath, chest pain, abdominal pain
Review of Systems
General: Other (Per HPI)
Objective Data
Data Reviewed
Vital Signs / I&O:
Vital Signs
Temp Pulse Resp BP Pulse Ox
97.5 F 58 18 152/84 95
05/12/24 07:30 05/12/24 08:44 05/12/24 07:30 05/12/24 08:44 05/12/24 07:30
Intake and Output
05/11/24 05/12/24 05/13/24
06:59 06:59 06:59
Intake Total 1440 / 1440 1560 / 1560 420 / 420
Output Total 840 / 840 1950 / 1950
Balance 600 / 600 -390 / -390 420 / 420
SaO2: 95
Nasal Cannula flow liters per minute: 2
Physical Exam
General: Respiratory Distress (n), Comfortable and Other (NAD)
HEENT: Normocephalic, Anicteric and Moist Mucous Membranes
Cardiovascular: Regular Rhythm
Respiratory: Clear (on R), Non-Labored Respirations, Chest Tube and Other
GI: Soft, Non Distended and Non Tender
Neurology: Awake, Alert, Oriented and No Motor Deficits
Skin: Warm, Dry and Good Color
Labs/Micro/Reports
Lab Data
05/12/24 06:46
05/12/24 06:46
--- NOTE | 2024-05-12 12:00 | VATNOTE ---
VAT rounds: Left ac red and swollen. Iv dc'd. Warm compress applied for comfort. Will monitor closely.
--- NOTE | 2024-05-12 14:37 | W.PN.HOSP.TC ---
Today's Communication/Plan
-
Chest tube wall suction increased pressure
Assessment / Plan
Assessment / Plan
CVS: S1-S2 normal
Chest: few rales left
Abdomen: Soft, NT / Bowel sounds present
Extremities: No edema
# Spontaneous pneumothorax
Status post chest tube placement in the ER
First chest tube placed under water seal 05/05/24 and Clamped 05/06/24 and removed 03/06/25, CT Replaced 03/07/25 for recurrent Pneumothorax
Second chest tube chest tube placed to waterseal 03/09/2025-repeat x-ray with pneumothorax. Placed on wall suction again 03/10/2025, wall suction negative pressure increased on 05/12/2024
CT had a bulla , so at risk for Spontaneous Pneumothorax again
# Bullous pemphigoid-in remission
Follows up with Dr. Felicia Rico and at [place]
Not on tacrolimus or steroid ointment anymore for the skin
Uses dexamethasone swish and spit-for the mouth
Also on doxycycline 100 mg daily
# Hyperlipidemia-continue Atorvastatin
# Hypertension-continue Amlodipine
# Enlarged prostate-continue Finasteride
# [id number] several decades ago
# DVT prophylaxis-Lovenox
# Full code
Discussed with daughter at bedside
D/W RN
Discussed with pulmonary
Encouraged out of bed
Anticipated Discharge: > 48 hours
Subjective/Interval History
-
Date of Service: May 12, 2024
Objective Data
-
Labs:
Laboratory Results
05/12/24
06:46
WBC 7.0
Hgb 15.1
Hct 43.3
Plt Count 166
Sodium 136
Potassium 4.4
Chloride 104
Carbon Dioxide 24
BUN 23 H
Creatinine 0.8
Glucose 111 H
Calcium 9.4
Vital Signs:
Vital Signs
Temp Pulse Resp BP Pulse Ox
97.5 F 58 18 152/84 95
05/12/24 07:30 05/12/24 08:44 05/12/24 07:30 05/12/24 08:44 05/12/24 10:39
I&O
05/11/24 05/12/24 05/13/24
06:59 06:59 06:59
Intake Total 1440 / 1440 1560 / 1560 660 / 660
Output Total 840 / 840 1950 / 1950
Balance 600 / 600 -390 / -390 660 / 660
[2024-05-12 15:23] VITALS: BP 136/75
[2024-05-12] MEDS: LOVENOX 40 MG SC (17:49)
[2024-05-12] MEDS: LIPITOR 10 MG PO (19:32)
[2024-05-12] MEDS: PROSCAR 5 MG PO (19:33)
[2024-05-12 23:45] VITALS: BP 120/68
[2024-05-13] VITALS (7 sets, daily range): BP systolic 72–154; BP diastolic 74–84; PULSE 71; O2SAT 98
--- NOTE | 2024-05-13 03:32 | DOWNTIME ---
There was a [facility] [employer] Operator Downtime on 05/13/2024 from 0100 to 05/13/2023 at 0235 . Downtime documentation of patient's care, including medication administrations, has been reconciled in the electronic record per guidelines. Refer to the
patient's paper chart under the miscellaneous tab to see printed paper medication records and downtime forms.
[2024-05-13] MEDS: VITAMIN C 1000 MG PO (08:40)
[2024-05-13] MEDS: THERAGRAN 1 TABLET PO (08:41)
[2024-05-13] MEDS: VIBRAMYCIN 100 MG PO (08:41)
[2024-05-13] MEDS: NORVASC 2.5 MG PO (08:41)
[2024-05-13] MEDS: DECADRON 0.5 MG PO ×2 (08:42→19:56)
[2024-05-13] MEDS: NON-FORMULARY ITEM 1 UNIT PO (08:43)
[2024-05-13] MEDS: SENOKOT PO ×2 (08:49→19:52)
[2024-05-13] MEDS: COLACE PO ×2 (08:49→19:52)
--- NOTE | 2024-05-13 10:26 | W.PN.PUL.V3 ---
Today's Communication / Plan
-
Chest x-ray mild improvement
Bedside chest tube evaluation-no inspiratory pleural swings-even with coughing-not sure if tube is clogged --clearly not evacuating air---no bubbles.
Dr. Stratton spoke with interventional radiology-they will upsize an reposition chest tube.
Follow chest x-ray
Consider thoracic surgical opinion if pneumothorax does not resolve with conservative therapy.
Dr. Stratton reviewed with extensively
Assessment
-
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 He notes he woke up around 3:40AM due to back pain. He sat up and then he thought he slid down in bed.
He may have fallen as he found himself on the floor. He then suddenly had acute anterior chest pain wtih SOB and came to ER. CXR showing acute L sided pneumothorax. Chest tube emergently inserted in ER and he is admitted to floors. He has never
had a ptx before, denies coughing spells prior.
Spontaneous pneumothorax, fell at home s/p chest tube placement in ER 05/04/24
Chest tube discontinued 05/07
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
Chest pain
Mild leukocytosis
Hyperglycemia
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
Data download revealed excellent compliance, AHI of 3.7, average pressure of 21/[address] scan
Pulmonary nodules <4mm/benign
Former smoker, quit smoking at age 46, smoked 1 pack/day from age [age]
Hypertension
Hyperlipidemia
GERD
Osteoarthritis of left knee, history of right knee replacement
Prediabetes
History of past GI bleed on aspirin
B/L Cataracts 2019
Basal cell carcinoma
Bilateral sensorineural hearing loss, has hearing aids
Bullous pemphigoid
History of TIA, not on aspirin due to past GI bleed
BPH, history of elevated PSA, history of bladder stones
DDD/DJD C spine, L spine
Mohs procedure left and right side of head and neck 06/16/18
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
Plan
Respiratory status is stabilized with chest tube
Supplemental oxygen as needed-attempt to wean
Assess discharge supplemental oxygen needs
Patient is usually on BiPAP 21/18 cm at night and during the daytime as tolerated--on hold while patient has pneumothorax
Aspiration precautions
Follow-up chest x-ray
Chest tube for pneumothorax after fall 05/04/2024-discontinued 05/07/2024
Recurrent pneumothorax 05/08/2024
Interventional radiology reconsulted for another chest tube
Chest x-ray 05/09/2024 with resolution of pneumothorax
Chest tube was placed on waterseal 05/10/2024
Chest x-ray 05/11/2024 with small left apical pneumothorax
Chest tube placed back on wall suction 05/11/24--20 cm-there was a 5-hour. Where he was not placed back on wall suction
Chest x-ray 05/12/2024 while on -20 cm wall suction-persistent pneumothorax
Ordered suction to be increased to -40 cm on 05/12/2024
Chest x-ray 05/13/24-small left apical pneumothorax decrease in volume compared to yesterday.
Dr. Stratton called interventional radiology to evaluate chest tube-no pleural slings with deep inspiration-? To reposition or upsize-discussed with then-they will upsize chest tube.
Continue to follow. Chest x-ray
Thoracic surgery opinion may need to be obtained if persistent leak occurs
Last saw Dr. Stratton on 12/21/2020 for COPD and FATEMEH on BiPAP and since then has been following with Cristina Olmstead-last seen [id number] as an outpatient
May need to reduce PAP pressure in OP settings to avoid recurrence
Last PSG in 2019, weight was 188, he has lost 15 lbs
May be worthwhile also restudying to reduce his pressures or try alternative treatments
Instructed patient not to use BIPAP until seen in office and would move forward with repeat sleep study
Dr. Stratton reviewed with daughter 05/12/2024 over the phone extensively including pathophysiology of pneumothorax, typical treatment options, if not improved potential upsizing of chest tube for thoracic surgery involvement and realistically it will
take many more days to resolve
Dr. Stratton reviewed with 05/13/24, extensively, including once again the pathophysiology, pneumothorax, treatment options, potential need for increasing chest tube size or possibly even thoracic surgical opinion if pleural tear is not healed
with conservative therapy
Diagnostic Data
CXR 05/05/24- Left-sided chest tube with the tip now positioned over the left lung base. No appreciable pneumothorax. Ovoid lucency projecting over the left lung base may represent a bulla in correlation with the previous chest CT. Low lung volumes.
Subsegmental atelectasis in the left lung base. No large pleural effusion. Stable cardiomediastinal silhouette.
CXR 05/04/24- Placement of left chest tube with significantly decreased large left pneumothorax in comparison to CT earlier in same day.
Chest x-ray follow-up 05/09/2024-typically left chest tube lateral left lung apex and complete resolution of left-sided pneumothorax
Chest x-ray 05/10/2024-resolution of pneumothorax
CT CHEST 05/04/24- Large left tension type pneumothorax. No findings to suggest central pulmonary embolism.
08/13/18- Pulmonary nodule being followed:
-Flat plaque-like nodule, 8 mm, at the base of the left lung of the diaphragm surface at the apex of the diaphragm. (Axial sequence 2 image 48). 2 mm nodule subpleural posterior right lower lobe (sequence 2 image 31), unchanged. No new or growing
pulmonary nodules.
Minor biapical subpleural emphysema spaces. No generalized emphysema. No fibrosis. Airways: No bronchiectasis. Minimum linear atelectasis or scarring in the para spinal medial base of both lower lobes. No change.
ECHO 2015- . Left ventricle: Normal size and function. The estimated ejection fraction is 55-60%.
2. Right ventricle: Normal size and function
3. Atria: Normal
4. Mitral valve: Trace mitral regurgitation
5. Aortic valve: Trace aortic insufficiency. No aortic stenosis
6. Tricuspid valve: Mild tricuspid regurgitation. Estimated pulmonary systolic pressures are 25-30 mmHg
7. There has been no significant change since the most recent echocardiogram from 10/28/14
.
Subjective Data
-
Date of Service:
Date of Service: May 13, 2024
Chief Complaint: Pulmonary Follow Up and Dyspnea Follow Up
Subjective:
No complaints of worsening shortness breath, chest pain, productive cough, abdominal pain
Review of Systems
General: Other ( per HPI)
Objective Data
Data Reviewed
Vital Signs / I&O:
Vital Signs
Temp Pulse Resp BP Pulse Ox
98.5 F 59 20 150/80 97
05/13/24 07:29 05/13/24 08:41 05/13/24 07:29 05/13/24 08:41 05/13/24 07:29
Intake and Output
05/12/24 05/13/24 05/14/24
06:59 06:59 06:59
Intake Total 1560 / 1560 1140 / 1140
Output Total 1950 / 1950 1150 / 1150 0 / 0
Balance -390 / -390 -10 / -10 0 / 0
SaO2: 97
Nasal Cannula flow liters per minute: 2
Physical Exam
General: Respiratory Distress (n), Comfortable and Other (NAD)
HEENT: Normocephalic, Anicteric and Moist Mucous Membranes
Cardiovascular: Regular Rhythm
Respiratory: Clear (on R), Non-Labored Respirations, Chest Tube and Other
GI: Soft, Non Distended and Non Tender
Neurology: Awake, Alert and No Motor Deficits
Skin: Warm, Good Color, Cyanosis (n) and Jaundice (n)
Labs/Micro/Reports
Lab Data
05/12/24 06:46
05/12/24 06:46
--- NOTE | 2024-05-13 11:19 | W.PN.HOSP.TC ---
Today's Communication/Plan
-
mgmt as per pulm
Assessment / Plan
Assessment / Plan
88yo M with PMHx of COPD, bullous pemphigoid, HLD, HTN, BPH came with chest pain, found spontaneous pneumothorax, chest tube placed on 05/05, clamped on 05/06 and removed on 05/07, however pneumothorax reoccured, so tube placed back on 05/11. Managed
with consulting hr professional
A/P:
#Spontaneous pneumothorax 04/26 bullous disease
chest tube mgmt as per pulm
#Bullous pemphigoid
#HLD
#Essential HTN
#BPH
cont home meds
#DJD
Tylenol
PT/OT
DVT ppx lovenox
Full code
I have spent at least 37min reviewing chart, test results and providing direct patient care
Anticipated Discharge: > 48 hours
Subjective/Interval History
-
Date of Service: May 13, 2024
Objective Data
-
Vital Signs:
Vital Signs
Temp Pulse Resp BP Pulse Ox
98.5 F 59 20 150/80 97
05/13/24 07:29 05/13/24 08:41 05/13/24 07:29 05/13/24 08:41 05/13/24 10:26
I&O
05/12/24 05/13/24 05/14/24
06:59 06:59 06:59
Intake Total 1560 / 1560 1140 / 1140
Output Total 1949 / 1949 1150 / 1150 0 / 0
Balance -390 / -390 -10 / -10 0 / 0
Review of Systems
-
History Source: Patient
All other systems: Reviewed and negative
Physical Exam
-
General: No Apparent Distress
HEENT: Normocephalic
GI: Soft, Nontender and Nondistended
Neuro: Awake, Alert, Oriented and AO x 3
Psych: Calm
[2024-05-13] MEDS: ULTRAM 50 MG PO (17:37)
[2024-05-13] MEDS: LOVENOX 40 MG SC (17:37)
[2024-05-13] MEDS: LIPITOR 10 MG PO (19:56)
[2024-05-13] MEDS: PROSCAR 5 MG PO (19:56)
[2024-05-14 07:36] LABS: ALT (SGPT) 47 U/L (0-50); AST (SGOT) 39 U/L (17-59); Albumin 3.5 g/dl (3.5-5.0); Alkaline Phosphatase 113 U/L (38-126); Blood Urea Nitrogen 22 mg/dl (9-20); Calcium 9.1 mg/dl (8.4-10.2); Carbon Dioxide 23 mmol/L (22-30); Chloride 105 mmol/L (98-107); Estimated Creatinine Clearance 75 ml/min; Glucose 87 mg/dl (70-99); Potassium 4.4 mmol/L (3.5-5.1); Sodium 137 mmol/L (135-145); Total Bilirubin 0.8 mg/dl (0.2-1.3); Total Protein 5.4 g/dl (6.3-8.2); eGFR > 60.00
[2024-05-14 07:43] LABS: % Basophils 1.1 % (0-2); % Immature Granulocytes 0.8 % (0-0.5); % Lymphocytes 22.6 % (20.5-51.1); % Monocytes 8.3 % (1.7-9.3); % Neutrophils 59.2 % (42.2-75.2); Absolute Basophils 0.1 10^3/uL (0-0.2); Absolute Eosinophils 0.6 10^3/uL (0-0.7); Absolute Immature Granulocytes 0.1 10^3/uL (0-0.05); Absolute Lymphocytes 1.8 10^3/uL (1.2-3.4); Absolute Monocytes 0.7 10^3/uL (0.1-0.6); Absolute Neutrophils 4.7 10^3/uL (1.4-6.5); Hematocrit 41.3 % (39.0-52.0); Hemoglobin 14.2 g/dL (13.0-18.0); Mean Corp Hgb Conc. 34.4 g/dL (33.0-37.0); Mean Corpuscular Hgb 30.5 pg (27.0-31.0); Mean Corpuscular Volume 88.8 fL (80.0-94.0); Mean Platelet Volume 9.5 fL (7.4-10.4); Nucleated Red Blood Cells % 0 % (-); Platelet Count 166 10^3/uL (130-400); Red Blood Cell Count 4.65 10^6/uL (4.70-6.10); Red Cell Dist. Width 13.2 % (11.5-14.5); White Blood Cell Count 7.9 10^3/uL (4.8-10.8)
[2024-05-14 07:45] VITALS: BP 129/74
[2024-05-14] MEDS: VIBRAMYCIN 100 MG PO (09:05)
[2024-05-14] MEDS: NORVASC 2.5 MG PO (09:05)
[2024-05-14] MEDS: THERAGRAN 1 TABLET PO (09:05)
[2024-05-14] MEDS: DECADRON 0.5 MG PO ×2 (09:06→20:23)
[2024-05-14] MEDS: COLACE PO ×2 (09:06→20:35)
[2024-05-14] MEDS: VITAMIN C 1000 MG PO (09:06)
[2024-05-14] MEDS: SENOKOT PO ×2 (09:07→20:35)
[2024-05-14] MEDS: NON-FORMULARY ITEM 1 UNIT PO (09:07)
--- NOTE | 2024-05-14 09:16 | W.PN.PUL3 ---
Today's Communication / Plan
-
CXR with resolution of left-sided pneumothorax today
Reduced chest tube negative suction from -20 cmH2O to -10 cmH2O
If airleak continues to remain resolved for the remainder of today then I will change to waterseal for tonight with repeat CXR tomorrow
Okay to keep patient off of oxygen but if pneumothorax recurs then he should be placed back onto supplemental O2 to help resorb pneumothorax
Consider thoracic surgical opinion if pneumothorax does not resolve with conservative therapy
Hopefully I can remove the chest tube over the next 1-2 days, then would keep in hospital for 1 extra day after removal to assure PTX does not recur
Do NOT use BiPAP/CPAP or incentive spirometer until instructed otherwise given the high risk of PTX recurrence with positive pressure or high negative inspiratory force
Assessment
-
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 He notes he woke up around 3:40AM due to back pain. He sat up and then he thought he slid down in bed.
He may have fallen as he found himself on the floor. He then suddenly had acute anterior chest pain wtih SOB and came to ER. CXR showing acute L sided pneumothorax. Chest tube emergently inserted in ER and he is admitted to floors. He has never
had a ptx before, denies coughing spells prior.
Spontaneous pneumothorax, fell at home s/p chest tube placement in ER 05/04/24
Chest tube discontinued 05/07
Recurrent PtX 05/08/24 with upsize in tube on 05/13 from 16Fr to 18 Fr
Chest pain
Mild leukocytosis - resolved
Hyperglycemia
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
Data download revealed excellent compliance, AHI of 3.7, average pressure of 21/18 cm
Paraseptal emphysema on CT scan
Pulmonary nodules <4mm/benign
Former smoker, quit smoking at age 46, smoked 1 pack/day from age [age]
Hypertension
Hyperlipidemia
GERD
Osteoarthritis of left knee, history of right knee replacement
Prediabetes
History of past GI bleed on aspirin
B/L Cataracts 2018
Basal cell carcinoma
Bilateral sensorineural hearing loss, has hearing aids
Bullous pemphigoid
History of TIA, not on aspirin due to past GI bleed
BPH, history of elevated PSA, history of bladder stones
DDD/DJD C spine, L spine
Mohs procedure left and right side of head and neck 06/16/18
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
Plan
Respiratory status is stabilized with chest tube
Supplemental oxygen as needed-currently on room air
CXR this AM (05/14) shows that the left PTX has resolved
No need for O2 at this time, but if PTX recurs again then he should be on O2 to help resorb his PTX --> continue to monitor
Patient is usually on BiPAP 21/18 cm at night and during the daytime as tolerated--on hold for now until instructed otherwise by our service given high risk for PTX recurrence
Aspiration precautions
Serial AM CXR
Chest tube for pneumothorax after fall 05/04/2024-discontinued 05/07/2024
Recurrent pneumothorax 05/08/2024
Interventional radiology reconsulted for another chest tube
Chest x-ray 05/09/2024 with resolution of pneumothorax
Chest tube was placed on waterseal 05/10/2024
Chest x-ray 05/11/2024 with small left apical pneumothorax
Chest tube placed back on wall suction 05/11/24--20 cm-there was a 5-hour window where he was not placed back on wall suction
Chest x-ray 05/12/2024 while on -20 cm wall suction-persistent pneumothorax
Ordered suction to be increased to -40 cm on 05/12/2024
Chest x-ray 05/13/24-small left apical pneumothorax decrease in volume compared to day prior.
Chest tube upsized from 16 Fr to 18 Fr on 05/13
CXR on AM of 05/14 shows resolution of PTX
Chest tube suction reduced today from [id number] to [id number]
If no air leak for remainder of the day, then will place chest tube to water seal, with CXR tomorrow AM
Thoracic surgery opinion may need to be obtained if persistent leak occurs
Last saw Dr. Stratton on 12/21/2020 for COPD and FATEMEH on BiPAP and since then has been following with KELSEY Mejia - last seen 09/17/[id number] as an outpatient
May need to reduce PAP pressure in OP settings to avoid PTX recurrence
Last PSG in 2019, weight was 188, he has lost 15 lbs
May be worthwhile also restudying to reduce his pressures or try alternative treatments
Instructed patient not to use BIPAP until seen in office and would move forward with repeat sleep study/titration study
Dr. Stratton reviewed with daughter 05/12/2024 over the phone extensively including pathophysiology of pneumothorax, typical treatment options, if not improved potential upsizing of chest tube for thoracic surgery involvement and realistically it will
take many more days to resolve
Dr. Stratton reviewed with 05/13/24, extensively, including once again the pathophysiology, pneumothorax, treatment options, potential need for increasing chest tube size or possibly even thoracic surgical opinion if pleural tear is not healed
with conservative therapy
Dr. El reviewed with daughter and today at bedside and answered all questions.
Diagnostic Data
CXR 05/05/24- Left-sided chest tube with the tip now positioned over the left lung base. No appreciable pneumothorax. Ovoid lucency projecting over the left lung base may represent a bulla in correlation with the previous chest CT. Low lung volumes.
Subsegmental atelectasis in the left lung base. No large pleural effusion. Stable cardiomediastinal silhouette.
CXR 05/04/24- Placement of left chest tube with significantly decreased large left pneumothorax in comparison to CT earlier in same day.
Chest x-ray follow-up 05/09/2024-typically left chest tube lateral left lung apex and complete resolution of left-sided pneumothorax
Chest x-ray 05/10/2024-resolution of pneumothorax
CT CHEST 05/04/24- Large left tension type pneumothorax. No findings to suggest central pulmonary embolism.
08/13/18- Pulmonary nodule being followed:
-Flat plaque-like nodule, 8 mm, at the base of the left lung of the diaphragm surface at the apex of the diaphragm. (Axial sequence 2 image 48). 2 mm nodule subpleural posterior right lower lobe (sequence 2 image 31), unchanged. No new or growing
pulmonary nodules.
Minor biapical subpleural emphysema spaces. No generalized emphysema. No fibrosis. Airways: No bronchiectasis. Minimum linear atelectasis or scarring in the para spinal medial base of both lower lobes. No change.
ECHO 2016- . Left ventricle: Normal size and function. The estimated ejection fraction is 55-60%.
2. Right ventricle: Normal size and function
3. Atria: Normal
4. Mitral valve: Trace mitral regurgitation
5. Aortic valve: Trace aortic insufficiency. No aortic stenosis
6. Tricuspid valve: Mild tricuspid regurgitation. Estimated pulmonary systolic pressures are 25-30 mmHg
7. There has been no significant change since the most recent echocardiogram from 10/28/14
.
Total time spent today was 37 minutes for this encounter. Time includes reviewing laboratory test/imaging results, reviewing pertinent medical records, obtaining and reviewing medical history, performing an appropriate exam, ordering medications,
tests and procedures. Time also includes documentation of this encounter, coordinating patient care and communicating with other healthcare professionals. Total time does not include separately billed tests performed on this date of service.
Subjective Data
-
Date of Service:
Date of Service: May 14, 2024
Chief Complaint: Pulmonary Follow Up and Dyspnea Follow Up
Subjective:
Patient seen and evaluated this morning. He is feeling well. No airleak seen in Pleur-evac. Chest tube currently at 20 cmH2O. Currently on room air breathing comfortably. Patient's daughter as well as (Stormy) at bedside and all questions
were answered. He has minimal chest pain on the left side where the chest tube was inserted, otherwise denies shoulder pain, SOB, nausea, fevers chills.
Review of Systems
General: Other (Negative unless mentioned above)
Objective Data
Data Reviewed
Vital Signs / I&O / Oxygen:
Vital Signs
Temp Pulse Resp BP Pulse Ox
97.6 F 58 18 129/74 96
05/14/24 07:45 05/14/24 09:05 05/14/24 07:45 05/14/24 09:05 05/14/24 07:45
Intake and Output
05/13/24 05/14/24 05/15/24
06:59 06:59 06:59
Intake Total 1140 / 1140 960 / 960
Output Total 1150 / 1150 790 / 790
Balance -10 / -10 170 / 170
SaO2 96
Nasal Cannula flow liters per 2
minute
Physical Exam
General: Respiratory Distress (n), Comfortable and Other (NAD)
HEENT: Normocephalic, Anicteric and Moist Mucous Membranes
Cardiovascular: S1-S2, Murmur (RONNI heard best at RUSB) and Peripheral Edema (negative)
Respiratory: Wheeze (negative), Crackles (Bibasilar), Rhonchi (negative), Non-Labored Respirations, Stridor (negative), Chest Tube (no air leak seen) and Other (Inspiratory squeeks heard in bases bilaterally)
GI: Soft, Non Distended and Non Tender
Neurology: Awake, Alert and Tremors (negative)
Skin: Warm, Dry, Cyanosis (n) and Jaundice (n)
Labs/Micro/Reports
Lab Data
05/14/24 07:12
05/14/24 05:54
--- NOTE | 2024-05-14 09:54 | W.PN.HOSP.TC ---
Today's Communication/Plan
-
mgmt as per pulm
Assessment / Plan
Assessment / Plan
88yo M with PMHx of COPD, bullous pemphigoid, HLD, HTN, BPH came with chest pain, found spontaneous pneumothorax, chest tube placed on 05/05, clamped on 05/06 and removed on 05/07, however pneumothorax reoccured, so tube placed back on 05/11. Tube was
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
A/P:
#Spontaneous pneumothorax 04/26 bullous disease
chest tube mgmt as per pulm
#Bullous pemphigoid
#HLD
#Essential HTN
#BPH
cont home meds
#DJD
Tylenol
PT/OT
DVT ppx lovenox
Full code
I have spent at least 37min reviewing chart, test results and providing direct patient care
Anticipated Discharge: 24 - 48 hours
Subjective/Interval History
-
Date of Service: May 14, 2024
Objective Data
-
Labs:
Laboratory Results
05/14/24 05/14/24 05/14/24
05:54 05:55 07:12
WBC Cancelled 7.9
Hgb Cancelled 14.2
Hct Cancelled 41.3
Plt Count Cancelled 166
Sodium 137
Potassium 4.4
Chloride 105
Carbon Dioxide 23
BUN 22 H
Creatinine 0.6 L
Glucose 87
Calcium 9.1
Total Bilirubin 0.8
AST 39
ALT 47
Alkaline Phosphatase 113
Vital Signs:
Vital Signs
Temp Pulse Resp BP Pulse Ox
97.6 F 58 18 129/74 96
05/14/24 07:45 05/14/24 09:05 05/14/24 07:45 05/14/24 09:05 05/14/24 07:45
I&O
05/13/24 05/14/24 05/15/24
06:59 06:59 06:59
Intake Total 1140 / 1140 960 / 960
Output Total 1150 / 1150 790 / 790
Balance -10 / -10 170 / 170
Review of Systems
-
History Source: Patient
All other systems: Reviewed and negative
Physical Exam
-
General: No Apparent Distress
HEENT: Normocephalic
Respiratory: Clear to Auscultation
GI: Soft, Nontender and Nondistended
Neuro: Awake, Alert, Oriented and AO x 3
Psych: Calm
--- NOTE | 2024-05-14 11:11 | VATNOTE ---
Left antecub. area not swollen. Not painful per patient. Skin does appear slightly red.
[2024-05-14 15:43] VITALS: BP 132/76; PULSE 74; O2SAT 96
[2024-05-14 15:49] VITALS: BP 130/76
--- NOTE | 2024-05-14 16:40 | CM ---
PT indicated no skilled needs.
Pt continues with a chest tube which was changed.
Supportive and family.
Offered VN he declined need.
PLAN Home no needs
[2024-05-14] MEDS: LOVENOX 40 MG SC (18:12)
[2024-05-14] MEDS: LIPITOR 10 MG PO (20:23)
[2024-05-14] MEDS: PROSCAR 5 MG PO (20:24)
[2024-05-14 23:23] VITALS: BP 120/60
[2024-05-15 07:25] VITALS: BP 147/80
--- NOTE | 2024-05-15 07:49 | VATNOTE ---
Left antecub. area slightly red. No swelling noted. No pain per pt. Dressing removed.
--- NOTE | 2024-05-15 08:27 | W.PN.PUL3 ---
Today's Communication / Plan
-
CXR with resolution of left-sided pneumothorax today
Placed chest tube to water seal this AM --> repeat CXR this evening --> if no PTX recurrence tonight then will clamp trial overnight with CXR tomorrow AM
Okay to keep patient off of oxygen but if pneumothorax recurs then he should be placed back onto supplemental O2 to help resorb pneumothorax
Consider thoracic surgical opinion if pneumothorax does not resolve with conservative therapy
Hopefully I can remove the chest tube by tomorrow, then would keep in hospital for 1 extra day after removal to assure PTX does not recur
Do NOT use BiPAP/CPAP or incentive spirometer until instructed otherwise given the high risk of PTX recurrence with positive pressure or high negative inspiratory force
Assessment
-
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 He notes he woke up around 3:40AM due to back pain. He sat up and then he thought he slid down in bed.
He may have fallen as he found himself on the floor. He then suddenly had acute anterior chest pain wtih SOB and came to ER. CXR showing acute L sided pneumothorax. Chest tube emergently inserted in ER and he is admitted to floors. He has never
had a ptx before, denies coughing spells prior.
Spontaneous pneumothorax, fell at home s/p chest tube placement in ER 05/04/24
Chest tube discontinued 05/07
Recurrent PTX 05/08/24 with upsize in tube on 05/13 from 16Fr to 18 Fr
Chest pain
Mild leukocytosis - resolved
Hyperglycemia
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
Data download revealed excellent compliance, AHI of 3.7, average pressure of 21/18 cm
Paraseptal emphysema on CT scan
Pulmonary nodules <4mm/benign
Former smoker, quit smoking at age 46, smoked 1 pack/day from age [age]
Hypertension
Hyperlipidemia
GERD
Osteoarthritis of left knee, history of right knee replacement
Prediabetes
History of past GI bleed on aspirin
B/L Cataracts 2019
Basal cell carcinoma
Bilateral sensorineural hearing loss, has hearing aids
Bullous pemphigoid
History of TIA, not on aspirin due to past GI bleed
BPH, history of elevated PSA, history of bladder stones
DDD/DJD C spine, L spine
Mohs procedure left and right side of head and neck 06/16/18
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
Plan
Respiratory status is stabilized with chest tube
Supplemental oxygen as needed-currently on room air
CXR shows resolved L-sided PTX since 05/14/2024
No need for O2 at this time, but if PTX recurs again then he should be on O2 to help resorb his PTX --> continue to monitor
Patient is usually on BiPAP 21/18 cm at night and during the daytime as tolerated--on hold for now until instructed otherwise by our service given high risk for PTX recurrence
Aspiration precautions
Serial AM CXR
Chest tube for pneumothorax after fall 05/04/2024-discontinued 05/07/2024
Recurrent pneumothorax 05/08/2024
Interventional radiology reconsulted for another chest tube
Chest x-ray 05/09/2024 with resolution of pneumothorax
Chest tube was placed on waterseal 05/10/2024
Chest x-ray 05/11/2024 with small left apical pneumothorax
Chest tube placed back on wall suction 05/11/24--20 cm-there was a 5-hour window where he was not placed back on wall suction
Chest x-ray 05/12/2024 while on -20 cm wall suction-persistent pneumothorax
Ordered suction to be increased to -40 cm on 05/12/2024
Chest x-ray 05/13/24-small left apical pneumothorax decrease in volume compared to day prior.
Chest tube upsized from 16 Fr to 18 Fr on 05/13
CXR on AM of 05/14 shows resolution of PTX
On 05/14, chest tube suction reduced from [id number] to [id number]
Chest tube changed to continuosu water seal on 05/15 --> will repeat CXR tonight and if still no PTX recurrence then chest tube should be clamped for the night with CXR tomorrow AM
Thoracic surgery opinion may need to be obtained if persistent leak occurs
Last saw Dr. Stratton on 12/21/2020 for COPD and FATEMEH on BiPAP and since then has been following with KELSEY Mejia - last seen 09/17/[id number] as an outpatient
May need to reduce PAP pressure in OP settings to avoid PTX recurrence
Last PSG in 2018, weight was 188, he has lost 15 lbs
May be worthwhile also restudying to reduce his pressures or try alternative treatments
Instructed patient not to use BIPAP until seen in office and would move forward with repeat sleep study/titration study
Dr. Stratton reviewed with daughter 05/12/2024 over the phone extensively including pathophysiology of pneumothorax, typical treatment options, if not improved potential upsizing of chest tube for thoracic surgery involvement and realistically it will
take many more days to resolve
Dr. Stratton reviewed with 05/13/24, extensively, including once again the pathophysiology, pneumothorax, treatment options, potential need for increasing chest tube size or possibly even thoracic surgical opinion if pleural tear is not healed
with conservative therapy
Dr. El reviewed with daughter and on 05/14/2024 at bedside and answered all questions.
Diagnostic Data
CXR 05/05/24- Left-sided chest tube with the tip now positioned over the left lung base. No appreciable pneumothorax. Ovoid lucency projecting over the left lung base may represent a bulla in correlation with the previous chest CT. Low lung volumes.
Subsegmental atelectasis in the left lung base. No large pleural effusion. Stable cardiomediastinal silhouette.
CXR 05/04/24- Placement of left chest tube with significantly decreased large left pneumothorax in comparison to CT earlier in same day.
Chest x-ray follow-up 05/09/2024-typically left chest tube lateral left lung apex and complete resolution of left-sided pneumothorax
Chest x-ray 05/10/2024-resolution of pneumothorax
CT CHEST 05/04/24- Large left tension type pneumothorax. No findings to suggest central pulmonary embolism.
08/13/18- Pulmonary nodule being followed:
-Flat plaque-like nodule, 8 mm, at the base of the left lung of the diaphragm surface at the apex of the diaphragm. (Axial sequence 2 image 48). 2 mm nodule subpleural posterior right lower lobe (sequence 2 image 31), unchanged. No new or growing
pulmonary nodules.
Minor biapical subpleural emphysema spaces. No generalized emphysema. No fibrosis. Airways: No bronchiectasis. Minimum linear atelectasis or scarring in the para spinal medial base of both lower lobes. No change.
ECHO 2016- . Left ventricle: Normal size and function. The estimated ejection fraction is 55-60%.
2. Right ventricle: Normal size and function
3. Atria: Normal
4. Mitral valve: Trace mitral regurgitation
5. Aortic valve: Trace aortic insufficiency. No aortic stenosis
6. Tricuspid valve: Mild tricuspid regurgitation. Estimated pulmonary systolic pressures are 25-30 mmHg
7. There has been no significant change since the most recent echocardiogram from 10/28/14
.
Total time spent today was 36 minutes for this encounter. Time includes reviewing laboratory test/imaging results, reviewing pertinent medical records, obtaining and reviewing medical history, performing an appropriate exam, ordering medications,
tests and procedures. Time also includes documentation of this encounter, coordinating patient care and communicating with other healthcare professionals. Total time does not include separately billed tests performed on this date of service.
Subjective Data
-
Date of Service:
Date of Service: May 15, 2024
Chief Complaint: Pulmonary Follow Up and Dyspnea Follow Up
Subjective:
Patient seen and evaluated today at bedside. Currently on room air breathing comfortably. Denies shortness of breath. No airleak seen in Pleur-evac which is currently at -10 cmH2O. Chest tube placed to waterseal. Still with no airleak seen.
Currently denies cough, HERNANDEZ, nausea, fevers chills.
Review of Systems
General: Other (Negative unless mentioned above)
Objective Data
Data Reviewed
Vital Signs / I&O / Oxygen:
Vital Signs
Temp Pulse Resp BP Pulse Ox
97.9 F 64 19 120/60 94
05/14/24 23:23 05/14/24 23:23 05/14/24 23:23 05/14/24 23:23 05/14/24 23:23
Intake and Output
05/14/24 05/15/24 05/16/24
06:59 06:59 06:59
Intake Total 960 / 960 720 / 720
Output Total 790 / 790 1011 / 1011
Balance 170 / 170 -291 / -291
SaO2 94
Nasal Cannula flow liters per 2
minute
Physical Exam
General: Respiratory Distress (n), Comfortable and Other (NAD)
HEENT: Normocephalic, Anicteric and Moist Mucous Membranes
Cardiovascular: S1-S2, Murmur (RONNI heard best at R[facility]) and Peripheral Edema (negative)
Respiratory: Wheeze (negative), Crackles (Bibasilar), Rhonchi (negative), Non-Labored Respirations, Stridor (negative) and Chest Tube (no air leak seen)
GI: Soft, Non Distended, Non Tender and Normal Bowel Sounds
Neurology: AO x 3 and Tremors (negative)
Skin: Warm, Dry, Cyanosis (n) and Jaundice (n)
Labs/Micro/Reports
Lab Data
05/14/24 07:12
05/14/24 05:54
[2024-05-15] MEDS: THERAGRAN 1 TABLET PO (09:22)
[2024-05-15] MEDS: VITAMIN C 1000 MG PO (09:22)
[2024-05-15] MEDS: NORVASC 2.5 MG PO (09:22)
[2024-05-15] MEDS: NON-FORMULARY ITEM 1 UNIT PO (09:23)
[2024-05-15] MEDS: DECADRON 0.5 MG PO ×2 (09:23→20:11)
[2024-05-15] MEDS: SENOKOT PO ×2 (09:23→22:31)
[2024-05-15] MEDS: COLACE PO ×2 (09:23→22:30)
[2024-05-15] MEDS: VIBRAMYCIN 100 MG PO (09:23)
--- NOTE | 2024-05-15 09:28 | W.PN.HOSP.TC ---
Today's Communication/Plan
-
Pneumothorax resolved, tube mgmt as per pulm
Assessment / Plan
Assessment / Plan
88yo M with PMHx of COPD, bullous pemphigoid, HLD, HTN, BPH came with chest pain, found spontaneous pneumothorax, chest tube placed on 05/05, clamped on 05/06 and removed on 05/07, however pneumothorax reoccured, so tube placed back on 05/11. Tube was
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
A/P:
#Spontaneous pneumothorax 04/26 bullous disease
chest tube mgmt as per pulm
#Bullous pemphigoid
#HLD
#Essential HTN
#BPH
cont home meds
#DJD
Tylenol
PT/OT
DVT ppx lovenox
Full code
I have spent at least 37min reviewing chart, test results and providing direct patient care
Anticipated Discharge: 24 - 48 hours
Subjective/Interval History
-
Date of Service: May 15, 2024
Objective Data
-
Vital Signs:
Vital Signs
Temp Pulse Resp BP Pulse Ox
97.7 F 68 16 147/80 94
05/15/24 07:25 05/15/24 09:22 05/15/24 07:25 05/15/24 09:22 05/15/24 07:25
I&O
05/14/24 05/15/24 05/16/24
06:59 06:59 06:59
Intake Total 960 / 960 720 / 720
Output Total 790 / 790 1011 / 1011
Balance 170 / 170 -291 / -291
Review of Systems
-
History Source: Patient
All other systems: Reviewed and negative
Physical Exam
-
General: No Apparent Distress
HEENT: Normocephalic
Respiratory: Clear to Auscultation
GI: Soft, Nontender and Nondistended
Neuro: Awake, Alert, Oriented and AO x 3
Psych: Calm
[2024-05-15 12:44] VITALS: BP 133/67; PULSE 78; O2SAT 95
[2024-05-15 15:15] VITALS: BP 139/76
[2024-05-15] MEDS: LOVENOX 40 MG SC (17:38)
[2024-05-15] MEDS: LIPITOR PO (20:10)
[2024-05-15] MEDS: PROSCAR 5 MG PO (20:11)
[2024-05-15] MEDS: LIPITOR 10 MG PO (20:15)
[2024-05-15 23:47] VITALS: BP 112/60
--- NOTE | 2024-05-16 06:35 | PTCARENOTE ---
Pt [id number] to make his needs known.Denies pain or any other discomfort. Pt left chest tube is clamped since yesterday evening,awaiting xray results this morning.. Plan of care continued.
[2024-05-16 07:37] VITALS: BP 148/78
[2024-05-16] MEDS: COLACE PO (10:01)
[2024-05-16] MEDS: SENOKOT PO ×2 (10:02→19:52)
[2024-05-16] MEDS: VITAMIN C 1000 MG PO (10:02)
[2024-05-16] MEDS: THERAGRAN 1 TABLET PO (10:02)
[2024-05-16] MEDS: VIBRAMYCIN 100 MG PO (10:02)
[2024-05-16] MEDS: NORVASC 2.5 MG PO (10:03)
[2024-05-16] MEDS: DECADRON 0.5 MG PO ×2 (10:03→19:53)
[2024-05-16] MEDS: NON-FORMULARY ITEM 1 UNIT PO (10:05)
--- NOTE | 2024-05-16 10:10 | PTCARENOTE ---
pt aox3, left sided back continues, refuses pain med. chest tube unclamped, wall suction resumed. pt resting, call rivers in place
--- NOTE | 2024-05-16 10:33 | W.PN.UPDATE ---
Update Note
Progress Note Update
CARDIAC SURGERY ATTENDING:
CXR reviewed. Apical PTX despite CT w/ upsizing
Given patient's advanced age would recommend IR placement of additional apical CT
If PTX resolves with this additional tube, could then consider CT based pleurodesis
Will follow
--- NOTE | 2024-05-16 10:57 | W.PN.HOSP.TC ---
Today's Communication/Plan
-
cont tube suction
IRAD for apical tube
Assessment / Plan
Assessment / Plan
88yo M with PMHx of COPD, bullous pemphigoid, HLD, HTN, BPH came with chest pain, found spontaneous pneumothorax, chest tube placed on 05/05, clamped on 05/06 and removed on 05/07, however pneumothorax reoccured, so tube placed back on 05/11. Tube was
changed to larger diameter on 05/13/24 with resultant complete resolution of pneumothorax on suction, but recurrence while clamped tube. CTX recommended additional apical chest tube and possible chemical pleurodesis via chest tube if still not
resolved
A/P:
#Spontaneous pneumothorax 04/26 bullous disease
chest tube mgmt as per pulm
CTX consult_ not good candidate for VATS with wedge, manage with additional chest tube and possible chemical pleurodesis - IRAD informed
#Bullous pemphigoid
#HLD
#Essential HTN
#BPH
cont home meds
#DJD
Tylenol
PT/OT
DVT ppx lovenox
Full code
I have spent at least 50min reviewing chart, test results and providing direct patient care
Anticipated Discharge: > 48 hours
Subjective/Interval History
-
Date of Service: May 16, 2024
Objective Data
-
Vital Signs:
Vital Signs
Temp Pulse Resp BP Pulse Ox
98 F 57 20 148/78 96
05/16/24 07:37 05/16/24 07:37 05/16/24 07:37 05/16/24 07:37 05/16/24 07:37
I&O
05/15/24 05/16/24 05/17/24
06:59 06:59 06:59
Intake Total 720 / 720 340 / 340
Output Total 1011 / 1011 2049
Balance -291 / -291 -1710 / -1710
Review of Systems
-
History Source: Patient
All other systems: Reviewed and negative
Physical Exam
-
General: No Apparent Distress
HEENT: Normocephalic
Respiratory: Clear to Auscultation
GI: Soft, Nontender and Nondistended
Skin: Warm
Neuro: Awake, Alert, Oriented and AO x 3
Psych: Calm
--- NOTE | 2024-05-16 12:41 | W.PN.PUL3 ---
Today's Communication / Plan
-
CXR this AM shows recurrence of L-sided PTX after chest tube was clamped overnight
Keep on negative suction for now at [id number]
Plan for chemical pleurodesis on Saturday
If pleurodesis unsuccessful then will need evaluation from CT surgery for blebectomy vs lobectomy
keep on supplemental O2 for now to help resorb the PTX
Do NOT use BiPAP/CPAP or incentive spirometer until instructed otherwise given the high risk of PTX recurrence with positive pressure or high negative inspiratory force
Pulmonary service will continue to follow along
Assessment
-
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 He notes he woke up around 3:40AM due to back pain. He sat up and then he thought he slid down in bed.
He may have fallen as he found himself on the floor. He then suddenly had acute anterior chest pain wtih SOB and came to ER. CXR showing acute L sided pneumothorax. Chest tube emergently inserted in ER and he is admitted to floors. He has never
had a ptx before, denies coughing spells prior.
Spontaneous pneumothorax, fell at home s/p chest tube placement in ER 05/04/24
Chest tube discontinued 05/07
Recurrent PTX 05/08/24 with upsize in tube on 05/13 from 16Fr to 18 Fr
Chest pain
Mild leukocytosis - resolved
Hyperglycemia
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
Data download revealed excellent compliance, AHI of 3.7, average pressure of 21/18 cm
Paraseptal emphysema on CT scan
Pulmonary nodules <4mm/benign
Former smoker, quit smoking at age 46, smoked 1 pack/day from age [age]
Hypertension
Hyperlipidemia
GERD
Osteoarthritis of left knee, history of right knee replacement
Prediabetes
History of past GI bleed on aspirin
B/L Cataracts 2018
Basal cell carcinoma
Bilateral sensorineural hearing loss, has hearing aids
Bullous pemphigoid
History of TIA, not on aspirin due to past GI bleed
BPH, history of elevated PSA, history of bladder stones
DDD/DJD C spine, L spine
Mohs procedure left and right side of head and neck 06/16/18
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
Plan
Respiratory status is stabilized with chest tube
Supplemental oxygen as needed-currently on room air --> will place onto supplemental O2 to help resorb L-sided PTX
CXR shows resolved L-sided PTX since 05/14/2024 --> chest tube was clamped on 05/15 but CXR this AM (on 05/16/2024) shows recurrent PTX --> chest tube back on suction now at [id number]
Place the pt onto venturi mask at 50% FiO2, and can change to nasal cannula when he eats at 6L/min - this will help resorb his PTX
Patient is usually on BiPAP 21/18 cm at night and during the daytime as tolerated--on hold for now until instructed otherwise by our service given high risk for PTX recurrence
Aspiration precautions
Serial AM CXR
Chest tube for pneumothorax after fall 05/04/2024-discontinued 05/07/2024
Recurrent pneumothorax 05/08/2024
Interventional radiology reconsulted for another chest tube
Chest x-ray 05/09/2024 with resolution of pneumothorax
Chest tube was placed on waterseal 05/10/2024
Chest x-ray 05/11/2024 with small left apical pneumothorax
Chest tube placed back on wall suction 05/11/24--20 cm-there was a 5-hour window where he was not placed back on wall suction
Chest x-ray 05/12/2024 while on -20 cm wall suction-persistent pneumothorax
Ordered suction to be increased to -40 cm on 05/12/2024
Chest x-ray 05/13/24-small left apical pneumothorax decrease in volume compared to day prior.
Chest tube upsized from 16 Fr to 18 Fr on 05/13
CXR on AM of 05/14 shows resolution of PTX
On 05/14, chest tube suction reduced from [id number] to [id number]
Chest tube changed to continuous water seal on 05/15 --> clamped on evening of 05/15 but CXR on 05/16 shows recurrent L-sided PTX. Chest tube back on suction now. Touched base with IR --> will plan for chemical pleurodesis on Saturday. If pleurodesis
unsuccessful then he will need thoracic surgery evaluation for blebectomy vs lobectomy
I think if he goes for surgery that he would be a good candidate as he has adequate functional status with no chronic heart or lung disease besides FATEMEH
Hospitalist consulted thoracic surgery today --> recs appreciated
Last saw Dr. Stratton on 12/21/2020 for COPD and FATEMEH on BiPAP and since then has been following with KELSEY Mejia - last seen [id number] as an outpatient
May need to reduce PAP pressure in OP settings to avoid PTX recurrence
Last PSG in 2019, weight was 188, he has lost 15 lbs
May be worthwhile also restudying to reduce his pressures or try alternative treatments
Instructed patient not to use BIPAP until seen in office and would move forward with repeat sleep study/titration study
Dr. Stratton reviewed with daughter 05/12/2024 over the phone extensively including pathophysiology of pneumothorax, typical treatment options, if not improved potential upsizing of chest tube for thoracic surgery involvement and realistically it will
take many more days to resolve
Dr. Stratton reviewed with 05/13/24, extensively, including once again the pathophysiology, pneumothorax, treatment options, potential need for increasing chest tube size or possibly even thoracic surgical opinion if pleural tear is not healed
with conservative therapy
Dr. El reviewed with daughter and on 05/14/2024 and again on 05/16/2024 at bedside and answered all questions.
Diagnostic Data
CXR 05/05/24- Left-sided chest tube with the tip now positioned over the left lung base. No appreciable pneumothorax. Ovoid lucency projecting over the left lung base may represent a bulla in correlation with the previous chest CT. Low lung volumes.
Subsegmental atelectasis in the left lung base. No large pleural effusion. Stable cardiomediastinal silhouette.
CXR 05/04/24- Placement of left chest tube with significantly decreased large left pneumothorax in comparison to CT earlier in same day.
Chest x-ray follow-up 05/09/2024-typically left chest tube lateral left lung apex and complete resolution of left-sided pneumothorax
Chest x-ray 05/10/2024-resolution of pneumothorax
CT CHEST 05/04/24- Large left tension type pneumothorax. No findings to suggest central pulmonary embolism.
08/13/18- Pulmonary nodule being followed:
-Flat plaque-like nodule, 8 mm, at the base of the left lung of the diaphragm surface at the apex of the diaphragm. (Axial sequence 2 image 48). 2 mm nodule subpleural posterior right lower lobe (sequence 2 image 31), unchanged. No new or growing
pulmonary nodules.
Minor biapical subpleural emphysema spaces. No generalized emphysema. No fibrosis. Airways: No bronchiectasis. Minimum linear atelectasis or scarring in the para spinal medial base of both lower lobes. No change.
ECHO 2016- . Left ventricle: Normal size and function. The estimated ejection fraction is 55-60%.
2. Right ventricle: Normal size and function
3. Atria: Normal
4. Mitral valve: Trace mitral regurgitation
5. Aortic valve: Trace aortic insufficiency. No aortic stenosis
6. Tricuspid valve: Mild tricuspid regurgitation. Estimated pulmonary systolic pressures are 25-30 mmHg
7. There has been no significant change since the most recent echocardiogram from 10/28/14
.
Total time spent today was 36 minutes for this encounter. Time includes reviewing laboratory test/imaging results, reviewing pertinent medical records, obtaining and reviewing medical history, performing an appropriate exam, ordering medications,
tests and procedures. Time also includes documentation of this encounter, coordinating patient care and communicating with other healthcare professionals. Total time does not include separately billed tests performed on this date of service.
Subjective Data
-
Date of Service:
Date of Service: May 16, 2024
Chief Complaint: Pulmonary Follow Up and Dyspnea Follow Up
Subjective:
Patient seen and evaluated today at bedside. Chest tube was clamped last night and this morning CXR showed recurrence of left-sided pneumothorax. He feels well, denies shortness of breath overnight or this morning. Patient's as well as
daughter (Megan), at bedside and all questions were answered. Chest tube currently on -20 cmH2O and there is no airleak seen currently.
Review of Systems
General: Other (Negative unless mentioned above)
Objective Data
Data Reviewed
Vital Signs / I&O / Oxygen:
Vital Signs
Temp Pulse Resp BP Pulse Ox
98 F 57 20 148/78 96
05/16/24 07:37 05/16/24 07:37 05/16/24 07:37 05/16/24 07:37 05/16/24 07:37
Intake and Output
05/15/24 05/16/24 05/17/24
06:59 06:59 06:59
Intake Total 720 / 720 340 / 340
Output Total 1011 / 1011 2049
Balance -291 / -291 -1710 / -1710
SaO2 96
Nasal Cannula flow liters per 2
minute
Physical Exam
General: Respiratory Distress (n), Comfortable and Other (NAD)
HEENT: Normocephalic, Anicteric and Moist Mucous Membranes
Cardiovascular: S1-S2, Murmur (RONNI heard best at RUSB) and Peripheral Edema (negative)
Respiratory: Wheeze (negative), Crackles (Bibasilar), Rhonchi (negative), Non-Labored Respirations, Stridor (negative) and Chest Tube (no air leak seen)
GI: Soft, Non Distended, Non Tender and Normal Bowel Sounds
Neurology: AO x 3 and Tremors (negative)
Skin: Warm, Dry, Cyanosis (n) and Jaundice (n)
Labs/Micro/Reports
Lab Data
05/14/24 07:12
05/14/24 05:54
--- NOTE | 2024-05-16 12:43 | CONSULT.CT ---
Consultation
-
Date/Time Consultation Requested: 05/16/24
Date/Time Consultation Performed: 05/16/24
Requesting Provider: Hannah
Performing Provider: Sheila Womack PA-C for Dr. Osiel Sauceda
Reason for Consultation: spontaneous PTX
Patient History
History of Present Illness
Patient is a very pleasant 88-year-old male who presented to the hospital on 05/04/2024 with a spontaneous left-sided tension pneumothorax. Urgent chest tube was placed in the emergency department with good reexpansion of his lung. Patient has
remained hospitalized for conservative management of this pneumothorax. Chest tube has been replaced/upsized twice so far this admission. Unfortunately last night he failed a clamp trial and had a recurrence of his pneumothorax, we are asked to
weigh in on management of this problem.
Past Medical History
Past Medical History: Other
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
Emphysema on CT scan
Pulmonary nodules <4mm/benign
Former smoker, quit smoking at age 46, smoked 1 pack/day from age [age]
Hypertension
Hyperlipidemia
GERD
Osteoarthritis of left knee, history of right knee replacement
Prediabetes
History of past GI bleed on aspirin
B/L Cataracts 2018
Basal cell carcinoma
Bilateral sensorineural hearing loss, has hearing aids
Bullous pemphigoid
History of TIA, not on aspirin due to past GI bleed
BPH, history of elevated PSA, history of bladder stones
DDD/DJD C spine, L spine
Mohs procedure left and right side of head and neck 06/16/18
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
Family History
Mother: N/A
Father: N/A
Social History
Alcohol: None
Drug: None
Tobacco: Former Smoker
Allergies
Allergy/AdvReac Type Severity Reaction Status Date / Time
Sulfa (Sulfonamide Allergy Intermediate Rash Verified 05/04/24 06:18
Antibiotics)
[Sulfa (Sulfonamides)]
niacinamide Allergy Mild Unknown Verified 05/04/24 06:18
insect stings Allergy Swelling Uncoded 05/04/24 06:18
Home Medications
�Medication �Instructions �Recorded �Confirmed �Type
ascorbic acid (vitamin C) 500 mg 1,000 mg PO DAILY Supplement 12/29/15 05/04/24 History
tablet (Vitamin C)
multivitamin with folic acid 400 1 tab PO DAILY Supplement 12/29/15 05/04/24 History
mcg tablet (Tab-A-Ghada)
amlodipine 2.5 mg tablet 2.5 mg PO DAILY Blood Pressure 05/04/24 05/04/24 History
atorvastatin 10 mg tablet 10 mg PO HS High Cholesterol 05/04/24 05/04/24 History
dexamethasone 0.5 mg/5 mL oral 0.5 mg PO .SWISH AND SPIT BID 05/04/24 05/04/24 History
solution bullous pemphigoid
dextran 70-hypromellose eye drops 1 drp BOTH EYES BIDPRN PRN dry eye 05/04/24 05/04/24 History
in a dropperette (Artificial Tears
(PF) drops in a dropperette)
doxycycline hyclate 100 mg capsule 100 mg PO DAILY bullous pemphigoid 05/04/24 05/04/24 History
finasteride 5 mg tablet 5 mg PO HS Urinary Issue 05/04/24 05/04/24 History
niacinamide 500 mg tablet 500 mg PO DAILY Supplement 05/04/24 05/04/24 History
docusate sodium 100 mg capsule 100 mg PO BID Constipation #0 caps 05/07/24 Rx
polyethylene glycol 3350 17 gram 17 g PO DAILYPRN PRN constipation 05/07/24 Rx
oral powder packet #0 ea
Review of Systems
-
History Source: Patient
General: Reports No Symptoms
HEENT: Reports No Symptoms
Respiratory: Reports SOB
Cardiac: Reports Chest Pain
Abdomen/GI: Reports No Symptoms
: Reports No Symptoms
Musculoskeletal: Reports No Symptoms
Skin: Reports No Symptoms
Neurological: Reports No Symptoms
Vascular: Reports No Symptoms
Physical Exam
Vital Signs
Temp 98 F 05/16/24 07:37
Temp route: Oral 05/16/24 07:37
Pulse 57 05/16/24 07:37
Rhythm: Normal sinus rhythm 05/08/24 08:45
Resp Rate 20 05/16/24 07:37
Blood pressure 148/78 05/16/24 07:37
Blood pressure extremity used: Left upper arm 05/16/24 07:37
Position: Lying 05/16/24 07:37
MAP (cuff-Amanda Monitor) 105 05/04/24 12:00
MAP 67 05/04/24 06:13
SaO2 96 05/16/24 07:37
Nasal Cannula flow liters per minute 2 05/13/24 10:26
Oxygen Mode of Delivery Room air 05/16/24 07:37
Other oxygen comment 2LO2 PRN 05/12/24 20:00
Pulse Ox at Rest 95 05/15/24 12:44
Can the patient verbally communicate their pain? Yes 05/15/24 21:15
Pain scale ratin 05/14/24 09:00
Actual Weight 79 kg 05/04/24 06:20
Body Mass Index (BMI) 29.0 05/04/24 06:20
Supine- Blood Pressure 133/67 05/15/24 12:44
Supine- Pulse 78 05/15/24 12:44
Heart rate after activity 93 05/10/24 15:40
Blood pressure after activity 175/94 05/07/24 09:40
Oxygen Saturation with Activity 99 05/15/24 12:44
Labs
05/14/24 07:12
05/14/24 05:54
APTT 23.9 Sec (23.4-35.0) 05/04/24 06:19
Troponin I Cancelled 05/04/24 09:00
Exu-H-Joiyjnagomj Pept 71.2 pg/ml 05/04/24 06:19
Exam
General: Well Developed, Well Nourished and No Apparent Distress
Respiratory: Other (Chest tube site clean dry and intact, dressing changed at bedside; no significant tidaling, no airleak, on -20cm h2o)
Neuro: Nonfocal/Grossly Intact
Psych: Calm
Assessment / Plan
-
Left-sided tension pneumothorax, spontaneous
-Continue conservative management per direction of pulmonary
-Consider additional apical chest tube if unable to get full reexpansion of lung with current tube
-Hopefully can undergo chemical pleurodesis by interventional radiology this week
-Would exhaust all conservative options prior to taking patient for VATS, but we will follow along
Data Reviewed
-
Radiology: Image Personally Visualized and interpreted and Report Reviewed by me
CT Scan: Report Reviewed by me
[2024-05-16 15:37] VITALS: BP 129/69
[2024-05-16] MEDS: LOVENOX 40 MG SC (18:21)
[2024-05-16] MEDS: COLACE 100 MG PO (19:52)
[2024-05-16] MEDS: LIPITOR 10 MG PO (19:56)
[2024-05-16] MEDS: PROSCAR 5 MG PO (19:56)
[2024-05-16 23:41] VITALS: BP 144/75
[2024-05-17 07:58] VITALS: BP 141/66
[2024-05-17 08:05] LABS: % Basophils 1.3 % (0-2); % Eosinophils 6.8 % (0-6); % Immature Granulocytes 0.8 % (0-0.5); % Lymphocytes 25.1 % (20.5-51.1); % Monocytes 6.9 % (1.7-9.3); % Neutrophils 59.1 % (42.2-75.2); Absolute Basophils 0.1 10^3/uL (0-0.2); Absolute Eosinophils 0.5 10^3/uL (0-0.7); Absolute Immature Granulocytes 0.1 10^3/uL (0-0.05); Absolute Monocytes 0.6 10^3/uL (0.1-0.6); Absolute Neutrophils 4.7 10^3/uL (1.4-6.5); Hematocrit 41.7 % (39.0-52.0); Hemoglobin 14.3 g/dL (13.0-18.0); Mean Corp Hgb Conc. 34.3 g/dL (33.0-37.0); Mean Corpuscular Hgb 30.7 pg (27.0-31.0); Mean Corpuscular Volume 89.5 fL (80.0-94.0); Mean Platelet Volume 9.8 fL (7.4-10.4); Nucleated Red Blood Cells % 0 % (-); Platelet Count 192 10^3/uL (130-400); Red Blood Cell Count 4.66 10^6/uL (4.70-6.10); Red Cell Dist. Width 13.2 % (11.5-14.5)
[2024-05-17 08:34] LABS: ALT (SGPT) 45 U/L (0-50); AST (SGOT) 33 U/L (17-59); Albumin 3.3 g/dl (3.5-5.0); Alkaline Phosphatase 110 U/L (38-126); Blood Urea Nitrogen 28 mg/dl (9-20); Calcium 9.3 mg/dl (8.4-10.2); Carbon Dioxide 27 mmol/L (22-30); Chloride 103 mmol/L (98-107); Estimated Creatinine Clearance 57 ml/min; Glucose 104 mg/dl (70-99); Potassium 4.3 mmol/L (3.5-5.1); Sodium 136 mmol/L (135-145); Total Bilirubin 0.6 mg/dl (0.2-1.3); Total Protein 5.6 g/dl (6.3-8.2); eGFR > 60.00
[2024-05-17] MEDS: THERAGRAN 1 TABLET PO (09:15)
[2024-05-17] MEDS: SENOKOT PO ×2 (09:15→19:41)
[2024-05-17] MEDS: VITAMIN C 1000 MG PO (09:15)
[2024-05-17] MEDS: VIBRAMYCIN 100 MG PO (09:15)
[2024-05-17] MEDS: NON-FORMULARY ITEM 1 UNIT PO (09:16)
[2024-05-17] MEDS: DECADRON 0.5 MG PO ×2 (09:16→19:41)
[2024-05-17] MEDS: NORVASC 2.5 MG PO (09:16)
[2024-05-17] MEDS: COLACE 100 MG PO ×2 (09:18→19:41)
--- NOTE | 2024-05-17 11:18 | W.PN.HOSP.TC ---
Today's Communication/Plan
-
pending pleurodesis on 05/18/24
Assessment / Plan
Assessment / Plan
88yo M with PMHx of COPD, bullous pemphigoid, HLD, HTN, BPH came with chest pain, found spontaneous pneumothorax, chest tube placed on 05/05, clamped on 05/06 and removed on 05/07, however pneumothorax reoccured, so tube placed back on 05/11. Tube was
changed to larger diameter on 05/13/24 with resultant complete resolution of pneumothorax on suction, but recurrence while clamped tube. CTX recommended chemical pleurodesis via chest tube, that is planned for 05/17/24
A/P:
#Spontaneous pneumothorax 04/26 bullous disease
chest tube mgmt as per pulm
CTX consult_ not good candidate for VATS with wedge, manage with chemical pleurodesis at this time - IRAD informed
#Bullous pemphigoid
#HLD
#Essential HTN
#BPH
cont home meds
#DJD
Tylenol
PT/OT
DVT ppx lovenox
Full code
I have spent at least 50min reviewing chart, test results and providing direct patient care
Anticipated Discharge: 24 - 48 hours
Subjective/Interval History
-
Date of Service: May 17, 2024
Objective Data
-
Labs:
Laboratory Results
05/17/24
06:25
WBC 8.0
Hgb 14.3
Hct 41.7
Plt Count 192
Sodium 136
Potassium 4.3
Chloride 103
Carbon Dioxide 27
BUN 28 H
Creatinine 0.8
Glucose 104 H
Calcium 9.3
Total Bilirubin 0.6
AST 33
ALT 45
Alkaline Phosphatase 110
Vital Signs:
Vital Signs
Temp Pulse Resp BP Pulse Ox
98.1 F 63 20 141/66 97
05/17/24 07:58 05/17/24 07:58 05/17/24 07:58 05/17/24 07:58 05/17/24 07:58
I&O
05/16/24 05/17/24 05/18/24
06:59 06:59 06:59
Intake Total 340 / 340 660 / 660
Output Total 2049 1185 / 1185
Balance -1710 / -1710 -525 / -525
Review of Systems
-
History Source: Patient
All other systems: Reviewed and negative
Physical Exam
-
General: Comfortable
HEENT: Normocephalic
Respiratory: Clear to Auscultation; Negative Wheezes
Cardiac: Regular Rhythm
GI: Soft and Nontender
Neuro: Awake, Alert, Oriented and AO x 3
Psych: Calm
--- NOTE | 2024-05-17 13:50 | W.PN.PUL3 ---
Today's Communication / Plan
-
CXR AM of 05/16 showed recurrence of L-sided PTX after chest tube was clamped overnight
Chest tube back on negative suction at -[id number] --> PTX now resolved again
Plan for chemical pleurodesis on Saturday; keep NPO past midnight
If pleurodesis unsuccessful then will need evaluation from CT surgery for blebectomy vs lobectomy
Keep on supplemental O2 for now to help resorb the PTX
Do NOT use BiPAP/CPAP or incentive spirometer until instructed otherwise given the high risk of PTX recurrence with positive pressure or high negative inspiratory force
Pulmonary service will continue to follow along
Assessment
-
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 He notes he woke up around 3:40AM due to back pain. He sat up and then he thought he slid down in bed.
He may have fallen as he found himself on the floor. He then suddenly had acute anterior chest pain wtih SOB and came to ER. CXR showing acute L sided pneumothorax. Chest tube emergently inserted in ER and he is admitted to floors. He has never
had a ptx before, denies coughing spells prior.
Spontaneous pneumothorax, fell at home s/p chest tube placement in ER 05/04/24
Chest tube discontinued 05/07
Recurrent PTX 05/08/24 with upsize in tube on 05/13 from 16Fr to 18 Fr
Chest pain
Mild leukocytosis - resolved
Hyperglycemia - resolved
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
Data download revealed excellent compliance, AHI of 3.7, average pressure of 21/18 cm
Paraseptal emphysema on CT scan
Pulmonary nodules <4mm/benign
Former smoker, quit smoking at age 46, smoked 1 pack/day from age [age]
Hypertension
Hyperlipidemia
GERD
Osteoarthritis of left knee, history of right knee replacement
Prediabetes
History of past GI bleed on aspirin
B/L Cataracts 2018
Basal cell carcinoma
Bilateral sensorineural hearing loss, has hearing aids
Bullous pemphigoid
History of TIA, not on aspirin due to past GI bleed
BPH, history of elevated PSA, history of bladder stones
DDD/DJD C spine, L spine
Mohs procedure left and right side of head and neck 06/16/18
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
Plan
Respiratory status is stabilized with chest tube
Supplemental oxygen as needed-currently on room air --> will place onto supplemental O2 to help resorb L-sided PTX
CXR had shown resolved L-sided PTX since 05/14/2024 --> chest tube was clamped on 05/15 but CXR on AM of 05/16/2024 shows recurrent PTX --> chest tube back on suction at -[id number]
Placed pt onto venturi mask at 50% FiO2, and can change to nasal cannula when he eats at 6L/min - this will help resorb his PTX
Patient is usually on BiPAP 21/18 cm at night and during the daytime as tolerated--on hold for now until instructed otherwise by our service given high risk for PTX recurrence
Aspiration precautions
Serial AM CXR
Chest tube for pneumothorax after fall 05/04/2024-discontinued 05/07/2024
Recurrent pneumothorax 05/08/2024
Interventional radiology reconsulted for another chest tube
Chest x-ray 05/09/2024 with resolution of pneumothorax
Chest tube was placed on waterseal 05/10/2024
Chest x-ray 05/11/2024 with small left apical pneumothorax
Chest tube placed back on wall suction 05/11/24--20 cm-there was a 5-hour window where he was not placed back on wall suction
Chest x-ray 05/12/2024 while on -20 cm wall suction-persistent pneumothorax
Ordered suction to be increased to -40 cm on 05/12/2024
Chest x-ray 05/13/24-small left apical pneumothorax decrease in volume compared to day prior.
Chest tube upsized from 16 Fr to 18 Fr on 05/13
CXR on AM of 05/14 shows resolution of PTX
On 05/14, chest tube suction reduced from [id number] to [id number]
Chest tube changed to continuous water seal on 05/15 --> clamped on evening of 05/15 but CXR on 05/16 shows recurrent L-sided PTX. Chest tube back on suction now. Touched base with IR --> will plan for chemical pleurodesis tomorrow (05/18). If
pleurodesis unsuccessful then he will need thoracic surgery evaluation for blebectomy vs lobectomy.
I think if he goes for surgery that he would be a good candidate as he has adequate functional status with no chronic heart or lung disease besides FATEMEH
Hospitalist consulted thoracic surgery on 05/16 --> recs appreciated
Last saw Dr. Stratton on 12/21/2020 for COPD and FATEMEH on BiPAP and since then has been following with KELSEY Mejia - last seen 09/17/[id number] as an outpatient
May need to reduce PAP pressure in OP settings to avoid PTX recurrence
Last PSG in 2019, weight was 188, he has lost 15 lbs
May be worthwhile also restudying to reduce his pressures or try alternative treatments
Instructed patient not to use BIPAP until seen in office and would move forward with repeat sleep study/titration study
Dr. Stratton reviewed with daughter 05/12/2024 over the phone extensively including pathophysiology of pneumothorax, typical treatment options, if not improved potential upsizing of chest tube for thoracic surgery involvement and realistically it will
take many more days to resolve
Dr. Stratton reviewed with 05/13/24, extensively, including once again the pathophysiology, pneumothorax, treatment options, potential need for increasing chest tube size or possibly even thoracic surgical opinion if pleural tear is not healed
with conservative therapy
Dr. El reviewed with daughter and on 05/14/2024 and again on 05/16-05/17/2024 at bedside and answered all questions.
Diagnostic Data
CXR 05/05/24- Left-sided chest tube with the tip now positioned over the left lung base. No appreciable pneumothorax. Ovoid lucency projecting over the left lung base may represent a bulla in correlation with the previous chest CT. Low lung volumes.
Subsegmental atelectasis in the left lung base. No large pleural effusion. Stable cardiomediastinal silhouette.
CXR 05/04/24- Placement of left chest tube with significantly decreased large left pneumothorax in comparison to CT earlier in same day.
Chest x-ray follow-up 05/09/2024-typically left chest tube lateral left lung apex and complete resolution of left-sided pneumothorax
Chest x-ray 05/10/2024-resolution of pneumothorax
CT CHEST 05/04/24- Large left tension type pneumothorax. No findings to suggest central pulmonary embolism.
08/13/18- Pulmonary nodule being followed:
-Flat plaque-like nodule, 8 mm, at the base of the left lung of the diaphragm surface at the apex of the diaphragm. (Axial sequence 2 image 48). 2 mm nodule subpleural posterior right lower lobe (sequence 2 image 31), unchanged. No new or growing
pulmonary nodules.
Minor biapical subpleural emphysema spaces. No generalized emphysema. No fibrosis. Airways: No bronchiectasis. Minimum linear atelectasis or scarring in the para spinal medial base of both lower lobes. No change.
ECHO 2016- . Left ventricle: Normal size and function. The estimated ejection fraction is 55-60%.
2. Right ventricle: Normal size and function
3. Atria: Normal
4. Mitral valve: Trace mitral regurgitation
5. Aortic valve: Trace aortic insufficiency. No aortic stenosis
6. Tricuspid valve: Mild tricuspid regurgitation. Estimated pulmonary systolic pressures are 25-30 mmHg
7. There has been no significant change since the most recent echocardiogram from 10/28/14
.
Total time spent today was 40 minutes for this encounter. Time includes reviewing laboratory test/imaging results, reviewing pertinent medical records, obtaining and reviewing medical history, performing an appropriate exam, ordering medications,
tests and procedures. Time also includes documentation of this encounter, coordinating patient care and communicating with other healthcare professionals. Total time does not include separately billed tests performed on this date of service.
Subjective Data
-
Date of Service:
Date of Service: May 17, 2024
Chief Complaint: Pulmonary Follow Up and Dyspnea Follow Up
Subjective:
Patient seen this afternoon and evaluated at bedside. Patient's and daughter both at bedside. All questions were answered. Chest tube currently on -20 cmH2O suction with no airleak. Patient has some pain at the chest tube insertion site but
otherwise denies shortness of breath, HERNANDEZ, cough, fevers or chills.
Review of Systems
General: Other (Negative unless mentioned above)
Objective Data
Data Reviewed
Vital Signs / I&O / Oxygen:
Vital Signs
Temp Pulse Resp BP Pulse Ox
98.1 F 63 20 141/66 97
05/17/24 07:58 05/17/24 07:58 05/17/24 07:58 05/17/24 07:58 05/17/24 07:58
Intake and Output
05/16/24 05/17/24 05/18/24
06:59 06:59 06:59
Intake Total 340 / 340 660 / 660
Output Total 2049 / 2049 1185 / 1185
Balance -1710 / -1710 -525 / -525
SaO2 97
Nasal Cannula flow liters per 2
minute
Physical Exam
General: Respiratory Distress (n), Pain (chest tube insertion site) and Other (NAD)
HEENT: Normocephalic, Anicteric and Moist Mucous Membranes
Cardiovascular: S1-S2, Murmur (RONNI heard best at [facility]) and Peripheral Edema (negative)
Respiratory: Wheeze (negative), Crackles (Bibasilar), Rhonchi (negative), Non-Labored Respirations, Stridor (negative) and Chest Tube (no air leak seen)
GI: Soft, Non Distended, Non Tender and Normal Bowel Sounds
Neurology: AO x 3 and Tremors (negative)
Skin: Warm, Dry, Cyanosis (n) and Jaundice (n)
Labs/Micro/Reports
Lab Data
05/17/24 06:25
05/17/24 06:25
[2024-05-17] MEDS: ULTRAM 50 MG PO ×2 (14:32→22:30)
[2024-05-17 15:50] VITALS: BP 127/66
[2024-05-17] MEDS: LOVENOX 40 MG SC (17:17)
--- NOTE | 2024-05-17 19:23 | PTCARENOTE ---
Received patient this am [facility]. CT reamined on suction. Pt complained of pain at chest tube site. Medicated with Tramadol with relief. Pt tolerated diet well. Made patient comfortable. Cont to assess patient status.
[2024-05-17] MEDS: LIPITOR 10 MG PO (20:58)
[2024-05-17] MEDS: PROSCAR 5 MG PO (20:58)
[2024-05-17 23:13] VITALS: BP 135/83
[2024-05-18] VITALS (21 sets, daily range): BP systolic 74–168; BP diastolic 59–109
[2024-05-18 08:16] LABS: Hematocrit 42.3 % (39.0-52.0); Hemoglobin 14.1 g/dL (13.0-18.0); Mean Corp Hgb Conc. 33.3 g/dL (33.0-37.0); Mean Corpuscular Hgb 30.5 pg (27.0-31.0); Mean Corpuscular Volume 91.4 fL (80.0-94.0); Mean Platelet Volume 9.3 fL (7.4-10.4); Platelet Count 165 10^3/uL (130-400); Red Blood Cell Count 4.63 10^6/uL (4.70-6.10); Red Cell Dist. Width 13.2 % (11.5-14.5); White Blood Cell Count 8.2 10^3/uL (4.8-10.8)
--- NOTE | 2024-05-18 08:19 | W.PN.UPDATE ---
Update Note
Progress Note Update
Case was discussed with Dr. Ham. Will place patient on h20 seal this am and repeat CXR in a few hours to monitor for a PTX. Eventual chemical pleurodesis by IR today.
--- NOTE | 2024-05-18 08:40 | W.PN.HOSP.TC ---
Addendum entered and electronically signed by Naren Naik MD 05/18/24 18:22:
I saw and evaluated the patient. I reviewed the resident�s note and agree with findings and plan as documented in the resident�s note except for changes in my documentation
Original Note:
Today's Communication/Plan
-
Continue chest tube to suction
Repeat chest x-ray later today
If no pneumothorax, can place chest tube to waterseal
Assessment / Plan
Assessment / Plan
88yo M who presented with came with chest pain and shortness of breath. Chest x-ray in ED showed left-sided pneumothorax, chest tube placed on 05/05, clamped on 05/06 and removed on 05/07, however pneumothorax reoccured after waterseal, so tube placed
back on 05/11. Tube was upsized on 05/13 with resultant complete resolution of pneumothorax on suction on 05/15. However, pneumothorax recurred while on clamp trial. CTX recommended chemical pleurodesis via chest tube, that is planned for 05/17/24
Chronic conditions prior to admission
COPD
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
Former smoker
Essential hypertension
HLD
BPH
Bullous pemphigoid
# Spontaneous left-sided pneumothorax
CXR 05/14/24 showed no pneumothorax. Chest tube placed to waterseal on 05/15/2020 and clamped in the evening of 05/15/2020
Chest x-ray 05/16 showed recurrence of pneumothorax and chest tube was changed back to suction
CTS consulted�patient not a good candidate for VATS-recommend chemical pleurodesis before surgery
Interventional radiology consulted-pleurodesis done earlier this morning. Repeat chest x-ray immediately after chemical pleurodesis shows no pneumothorax
Chest tube left to suction (-20)-currently no apparent air leakage
Will obtain follow-up chest x-ray-if no pneumothorax, can change to waterseal
Per pulmonology, if pneumothorax recurs within 48 to 72 hours, he will require surgical intervention
# Bullous pemphigoid-in remission
Follows up with Dr. Felicia Rico and at [facility]
Currently not on tacrolimus or steroid ointment
Uses dexamethasone swish and spit-for the mouth
Continue doxycycline 100 mg daily
# Essential ypertension
-continue Amlodipine
# Hyperlipidemia
-continue Atorvastatin
# History of BPH
-continue Finasteride
# DVT prophylaxis
-Lovenox
# Full code
Anticipated Discharge: 24 - 48 hours
Subjective/Interval History
-
Date of Service: May 18, 2024
Patient complains of minor pain at the site of chest tube. However, he declines receiving any pain meds.
Objective Data
-
Labs:
Laboratory Results
05/18/24
07:58
WBC 8.2
Hgb 14.1
Hct 42.3
Plt Count 165
Sodium Pending
Potassium Pending
Chloride Pending
Carbon Dioxide Pending
BUN Pending
Creatinine Pending
Glucose Pending
Calcium Pending
Vital Signs:
Vital Signs
Temp Pulse Resp BP Pulse Ox
97.8 F 70 18 135/83 98
05/17/24 23:13 05/17/24 23:13 05/17/24 23:13 05/17/24 23:13 05/17/24 23:13
I&O
05/17/24 05/18/24 05/19/24
06:59 06:59 06:59
Intake Total 660 / 660 720 / 720
Output Total 1185 / 1185 1555 / 1555
Balance -525 / -525 -835 / -835
Review of Systems
-
History Source: Patient
All other systems: Reviewed and negative
Physical Exam
-
General: Comfortable
HEENT: Normocephalic
Respiratory: Clear to Auscultation and Chest Tubes; Negative Wheezes
Cardiac: Regular Rhythm
GI: Soft and Nontender
Neuro: Awake, Alert, Oriented and AO x 3
Psych: Calm
[2024-05-18 08:43] LABS: Blood Urea Nitrogen 28 mg/dl (9-20); Calcium 9.3 mg/dl (8.4-10.2); Carbon Dioxide 29 mmol/L (22-30); Chloride 103 mmol/L (98-107); Estimated Creatinine Clearance 57 ml/min; Glucose 103 mg/dl (70-99); Potassium 4.4 mmol/L (3.5-5.1); Sodium 137 mmol/L (135-145); eGFR > 60.00
[2024-05-18] MEDS: NORVASC 2.5 MG PO (08:54)
[2024-05-18] MEDS: VIBRAMYCIN 100 MG PO (08:54)
[2024-05-18] MEDS: THERAGRAN 1 TABLET PO (08:55)
[2024-05-18] MEDS: DECADRON 0.5 MG PO ×2 (08:55→20:40)
[2024-05-18] MEDS: NON-FORMULARY ITEM 1 UNIT PO (08:55)
[2024-05-18] MEDS: VITAMIN C 1000 MG PO (08:56)
[2024-05-18] MEDS: COLACE PO (09:05)
[2024-05-18] MEDS: SENOKOT PO ×2 (09:05→20:41)
[2024-05-18] MEDS: SUBLIMAZE 50 MCG IV ×2 (09:36→10:01)
--- NOTE | 2024-05-18 09:45 | PN.IRAD.UPD ---
Update Note - IRAD
- -
Injected 50ml of Doxycycline into left sided chest tube at 9:40 and clamped tube. Chest tube should be unclamped in 1 hour at 10:40.
Hammad Snow RT(R)()
[2024-05-18] MEDS: TORADOL 15 MG IV ×2 (09:47→10:27)
--- NOTE | 2024-05-18 13:08 | W.PN.PUL3 ---
Today's Communication / Plan
-
s/p chemical pleurodesis today
Chest tube to suction and eventually to waterseal.
Analgesia
Daily chest x-ray
Hold on BiPAP until seen in the office
Assessment
-
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 He notes he woke up around 3:40AM due to back pain. He sat up and then he thought he slid down in bed.
He may have fallen as he found himself on the floor. He then suddenly had acute anterior chest pain wtih SOB and came to ER. CXR showing acute L sided pneumothorax. Chest tube emergently inserted in ER and he is admitted to floors. He has never
had a ptx before, denies coughing spells prior.
Spontaneous pneumothorax, fell at home s/p chest tube placement in ER 05/04/24
Chest tube discontinued 05/07
Recurrent PTX 05/08/24 with upsize in tube on 05/13 from 16Fr to 18 Fr
Status post chemical pleurodesis 05/18/2024
Chest pain
Mild leukocytosis - resolved
Hyperglycemia - resolved
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
Data download revealed excellent compliance, AHI of 3.7, average pressure of 21/18 cm
Paraseptal emphysema on CT scan
Pulmonary nodules <4mm/benign
Former smoker, quit smoking at age 46, smoked 1 pack/day from age [age]
Hypertension
Hyperlipidemia
GERD
Osteoarthritis of left knee, history of right knee replacement
Prediabetes
History of past GI bleed on aspirin
B/L Cataracts 2018
Basal cell carcinoma
Bilateral sensorineural hearing loss, has hearing aids
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
History of TIA, not on aspirin due to past GI bleed
BPH, history of elevated PSA, history of bladder stones
DDD/DJD C spine, L spine
Mohs procedure left and right side of head and neck 06/16/18
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
Plan
Respiratory status is stable-no overnight events.
Supplemental oxygen as needed-currently on room air --> will place onto supplemental O2 to help resorb L-sided PTX
CXR had shown resolved L-sided PTX since 05/14/2024 --> chest tube was clamped on 05/15 but CXR on AM of 05/16/2024 shows recurrent PTX --> chest tube back on suction at -[id number]
-
Patient is usually on BiPAP 21/18 cm at night and during the daytime as tolerated--on hold for now until instructed otherwise by our service given high risk for PTX recurrence
-
Chest tube for pneumothorax after fall 05/04/2024-discontinued 05/07/2024
Recurrent pneumothorax 05/08/2024
Interventional radiology reconsulted for another chest tube
Chest x-ray 05/09/2024 with resolution of pneumothorax
Chest tube was placed on waterseal 05/10/2024
Chest x-ray 05/11/2024 with small left apical pneumothorax
Chest tube placed back on wall suction 05/11/24--20 cm-there was a 5-hour window where he was not placed back on wall suction
Chest x-ray 05/12/2024 while on -20 cm wall suction-persistent pneumothorax
Ordered suction to be increased to -40 cm on 05/12/2024
Chest x-ray 05/13/24-small left apical pneumothorax decrease in volume compared to day prior.
Chest tube upsized from 16 Fr to 18 Fr on 05/13
CXR on AM of 05/14 shows resolution of PTX
On 05/14, chest tube suction reduced from [id number] to [id number]
Chest tube changed to continuous water seal on 05/15 --> clamped on evening of 05/15 but CXR on 05/16 shows recurrent L-sided PTX. Chest tube back on suction now.
Hospitalist consulted thoracic surgery on 05/16 --> recs appreciated
Chest x-ray 05/18/2019 5:11 AM-on waterseal reviewed, no recurrent pneumothorax.
Status post chemical pleurodesis (05/18).
No airleak noted in chest tube 05/18/2024 1:27 PM
Analgesia-monitor respiratory status closely.
Eventual transition to waterseal,
If pleurodesis unsuccessful then he will need thoracic surgery evaluation for blebectomy vs lobectomy.
I think if he goes for surgery that he would be a good candidate as he has adequate functional status with no chronic heart or lung disease besides FATEMEH
-
Last saw Dr. Stratton on 12/21/2020 for COPD and FATEMEH on BiPAP and since then has been following with KELSEY Mejia - last seen 09/17/[id number] as an outpatient
May need to reduce PAP pressure in OP settings to avoid PTX recurrence
Last PSG in 2018, weight was 188, he has lost 15 lbs
May be worthwhile also restudying to reduce his pressures or try alternative treatments
Instructed patient not to use BIPAP until seen in office and would move forward with repeat sleep study/titration study
Dr. Stratton reviewed with daughter 05/12/2024 over the phone extensively including pathophysiology of pneumothorax, typical treatment options, if not improved potential upsizing of chest tube for thoracic surgery involvement and realistically it will
take many more days to resolve
Dr. Stratton reviewed with 05/13/24, extensively, including once again the pathophysiology, pneumothorax, treatment options, potential need for increasing chest tube size or possibly even thoracic surgical opinion if pleural tear is not healed
with conservative therapy
Dr. El reviewed with daughter and on 05/14/2024 and again on 05/16-05/17/2024 at bedside and answered all questions.

Diagnostic Data
CXR 05/05/24- Left-sided chest tube with the tip now positioned over the left lung base. No appreciable pneumothorax. Ovoid lucency projecting over the left lung base may represent a bulla in correlation with the previous chest CT. Low lung volumes.
Subsegmental atelectasis in the left lung base. No large pleural effusion. Stable cardiomediastinal silhouette.
CXR 05/04/24- Placement of left chest tube with significantly decreased large left pneumothorax in comparison to CT earlier in same day.
Chest x-ray follow-up 05/09/2024-typically left chest tube lateral left lung apex and complete resolution of left-sided pneumothorax
Chest x-ray 05/10/2024-resolution of pneumothorax
CT CHEST 05/04/24- Large left tension type pneumothorax. No findings to suggest central pulmonary embolism.
08/13/18- Pulmonary nodule being followed:
-Flat plaque-like nodule, 8 mm, at the base of the left lung of the diaphragm surface at the apex of the diaphragm. (Axial sequence 2 image 48). 2 mm nodule subpleural posterior right lower lobe (sequence 2 image 31), unchanged. No new or growing
pulmonary nodules.
Minor biapical subpleural emphysema spaces. No generalized emphysema. No fibrosis. Airways: No bronchiectasis. Minimum linear atelectasis or scarring in the para spinal medial base of both lower lobes. No change.
ECHO 2016- . Left ventricle: Normal size and function. The estimated ejection fraction is 55-60%.
2. Right ventricle: Normal size and function
3. Atria: Normal
4. Mitral valve: Trace mitral regurgitation
5. Aortic valve: Trace aortic insufficiency. No aortic stenosis
6. Tricuspid valve: Mild tricuspid regurgitation. Estimated pulmonary systolic pressures are 25-30 mmHg
7. There has been no significant change since the most recent echocardiogram from 10/28/14
.
Total time spent today was 41 minutes for this encounter. Time includes reviewing laboratory test/imaging results, reviewing pertinent medical records, obtaining and reviewing medical history, performing an appropriate exam, ordering medications,
tests and procedures. Time also includes documentation of this encounter, coordinating patient care and communicating with other healthcare professionals. Total time does not include separately billed tests performed on this date of service.
Subjective Data
-
Date of Service:
Date of Service: May 18, 2024
Chief Complaint: Pulmonary Follow Up and Dyspnea Follow Up
Subjective:
No new pulmonary complaints
Review of Systems
Cardiopulmonary: Dyspnea (n) and Cough (n)
GI: Abdominal Pain (n)
Neuro: Headache (n)
Objective Data
Data Reviewed
Vital Signs / I&O / Oxygen:
Vital Signs
Temp Pulse Resp BP Pulse Ox
98.0 F 87 18 160/86 95
05/18/24 11:27 05/18/24 11:27 05/18/24 11:27 05/18/24 11:27 05/18/24 11:27
Intake and Output
05/17/24 05/18/24 05/19/24
06:59 06:59 06:59
Intake Total 660 / 660 720 / 720
Output Total 1185 / 1185 1555 / 1555
Balance -525 / -525 -835 / -835
SaO2 95
Nasal Cannula flow liters per 6
minute
Physical Exam
General: Respiratory Distress (n), Pain (chest tube insertion site) and Other (NAD)
HEENT: Normocephalic, Anicteric and Moist Mucous Membranes
Cardiovascular: S1-S2, Murmur (RONNI heard best at [facility]) and Peripheral Edema (negative)
Respiratory: Wheeze (negative), Crackles (Bibasilar), Rhonchi (negative), Non-Labored Respirations, Stridor (negative) and Chest Tube (no air leak seen)
GI: Soft, Non Distended, Non Tender and Normal Bowel Sounds
Neurology: AO x 3 and Tremors (negative)
Skin: Warm, Dry, Cyanosis (n) and Jaundice (n)
Labs/Micro/Reports
Lab Data
05/18/24 07:58
05/18/24 07:58
--- NOTE | 2024-05-18 16:10 | W.PN.UPDATE ---
Update Note
Progress Note Update
I saw and evaluated the patient. I reviewed the resident�s note and agree with findings and plan as documented in the resident�s note except for changes in my documentation
Seen earlier. Late documentation
88-year-old with pneumothorax
CVS: S1-S2 normal
Chest: CTA B/L, few rales left base
Abdomen: Soft, NT , Bowel sounds present
Extremities: No edema
# Spontaneous pneumothorax
Status post chest tube placement in the ER
First chest tube placed under water seal 05/05/24 and Clamped 05/06/24 and removed 03/06/25, CT Replaced 03/07/25 for recurrent Pneumothorax
Second chest tube chest tube placed to waterseal 03/09/2025-repeat x-ray with pneumothorax. Placed on wall suction again 03/10/2025, wall suction negative pressure increased on 05/12/2024
Patient continued to have pneumothorax-Chest tube upsized from 16 Fr to 18 Fr on 05/13
CXR 05/14/24 no pneumothorax. Suction reduced and chest tube changed to waterseal on 05/15/2020 and clamped in the evening of 05/15/2020
Chest x-ray 05/16/2024 showed pneumothorax-chest tube changed back to suction
Interventional radiology consulted for pleurodesis which was done on on 05/18/2024.
Repeat chest x-ray after the pleurodesis with no pneumothorax.
Change to water seal per interventional radiology/pulmonary when OK
If pleurodesis is unsuccessful he needs thoracic surgery intervention
# Bullous pemphigoid-in remission
Follows up with Dr. Felicia Rico and at [place]
Not on tacrolimus or steroid ointment anymore for the skin
Uses dexamethasone swish and spit-for the mouth
Also on doxycycline 100 mg daily
# Hyperlipidemia-continue Atorvastatin
# Hypertension-continue Amlodipine
# Enlarged prostate-continue Finasteride
# [id number] several decades ago
# DVT prophylaxis-Lovenox
# Full code
Discussed with patient's and daughter at bedside
Discussed with nursing
--- NOTE | 2024-05-18 16:11 | PTCARENOTE ---
Received patient this am AAOx3. Pt NPO this am for Chemical Pleurodesis in Interventional Radiology. Pt Chest Tube to water as per ordered at 08:05. Pt sent to IR. Pt returned to unit at 11:25 am. Chest Tube placed on Suction as ordered. AAOx3 ,
HRR, Lungs diminished throughout. Pt on Mora Mask at 6 Liters. Pt made comfortable. Cont to assess patient status.
--- NOTE | 2024-05-18 16:51 | CM ---
Spoke with pt and at bedside.
On Ventimask Pox 93%.
Pt had chemical pleurodesis today. Awaiting results
Chest tube remains.
Pulmonary involved .
PLAN Home no needs
[2024-05-18] MEDS: LOVENOX 40 MG SC (18:05)
[2024-05-18] MEDS: COLACE 100 MG PO (20:39)
[2024-05-18] MEDS: LIPITOR 10 MG PO (20:41)
[2024-05-18] MEDS: PROSCAR 5 MG PO (20:42)
[2024-05-19 06:37] LABS: Hematocrit 44.2 % (39.0-52.0); Hemoglobin 14.6 g/dL (13.0-18.0); Mean Corpuscular Volume 90.9 fL (80.0-94.0); Platelet Count 169 10^3/uL (130-400); Red Blood Cell Count 4.86 10^6/uL (4.70-6.10); Red Cell Dist. Width 13.2 % (11.5-14.5); White Blood Cell Count 9.9 10^3/uL (4.8-10.8)
[2024-05-19 07:14] LABS: Blood Urea Nitrogen 25 mg/dl (9-20); Calcium 9.4 mg/dl (8.4-10.2); Carbon Dioxide 26 mmol/L (22-30); Chloride 103 mmol/L (98-107); Estimated Creatinine Clearance 65 ml/min; Glucose 103 mg/dl (70-99); Potassium 4.5 mmol/L (3.5-5.1); Sodium 136 mmol/L (135-145); eGFR > 60.00
--- NOTE | 2024-05-19 07:30 | W.PN.HOSP.TC ---
Today's Communication/Plan
-
Pain management
Place CT to waterseal
Daily CXR
Assessment / Plan
Assessment / Plan
88yo M who presented with came with chest pain and shortness of breath. Chest x-ray in ED showed left-sided pneumothorax, chest tube placed on 05/05, clamped on 05/06 and removed on 05/07, however pneumothorax reoccured after waterseal, so tube placed
back on 05/11. Tube was upsized on 05/13 with resultant complete resolution of pneumothorax on suction on 05/15. However, pneumothorax recurred while on clamp trial. CTX recommended chemical pleurodesis via chest tube, that is planned for 05/17/24
Chronic conditions prior to admission
COPD
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
Former smoker
Essential hypertension
HLD
BPH
Bullous pemphigoid
# Spontaneous left-sided pneumothorax
CXR 05/14/24 showed no pneumothorax. Chest tube placed to waterseal on 05/15/2020 and clamped in the evening of 05/15/2020
Chest x-ray 05/16 showed recurrence of pneumothorax and chest tube was changed back to suction
CTS consulted�patient not a good candidate for VATS-recommend chemical pleurodesis before surgery-signed off
Interventional radiology consulted-pleurodesis done earlier this morning. Repeat chest x-ray immediately after chemical pleurodesis showed no pneumothorax.
Chest x-ray today (05/19) did not show pneumothorax, Will place CT to waterseal
Avoid BiPAP-supplemental O2 to keep SpO2>90%
Per pulmonology, if pneumothorax recurs within 48 to 72 hours, he will require surgical intervention.
Pain management with Tylenol for pain at CT site
# Bullous pemphigoid-in remission
Follows up with Dr. Felicia Rico and at [place]
Currently not on tacrolimus or steroid ointment
Uses dexamethasone swish and spit-for the mouth
Continue doxycycline 100 mg daily
# Essential ypertension
-continue Amlodipine
# Hyperlipidemia
-continue Atorvastatin
# History of BPH
-continue Finasteride
# DVT prophylaxis
-Lovenox
Full code
Updated and daughter at bedside
Anticipated Discharge: 24 - 48 hours
Subjective/Interval History
-
Date of Service: May 19, 2024
Objective Data
-
Labs:
Laboratory Results
05/19/24
06:06
WBC 9.9
Hgb 14.6
Hct 44.2
Plt Count 169
Sodium 136
Potassium 4.5
Chloride 103
Carbon Dioxide 26
BUN 25 H
Creatinine 0.7
Glucose 103 H
Calcium 9.4
Vital Signs:
Vital Signs
Temp Pulse Resp BP Pulse Ox
98.2 F 83 20 112/59 98
05/18/24 23:31 05/18/24 23:31 05/18/24 23:31 05/18/24 23:31 05/18/24 23:31
I&O
05/18/24 05/19/24 05/20/24
06:59 06:59 06:59
Intake Total 720 / 720 0 / 0
Output Total 1555 / 1555 300 / 300
Balance -835 / -835 -300 / -300
Review of Systems
-
History Source: Patient
All other systems: Reviewed and negative
Constitutional: Reports Other (Pain at site of chest tube)
Physical Exam
-
General: Comfortable
HEENT: Normocephalic
Respiratory: Clear to Auscultation, Other (Saturating well on 6lit O2) and Chest Tubes (anterolateral left chest); Negative Wheezes
Cardiac: Regular Rhythm
GI: Soft and Nontender
Neuro: Awake, Alert, Oriented and AO x 3
Psych: Calm
[2024-05-19 07:55] VITALS: BP 131/75
[2024-05-19] MEDS: VIBRAMYCIN 100 MG PO (09:02)
[2024-05-19] MEDS: SENOKOT PO ×2 (09:14→20:01)
[2024-05-19] MEDS: VITAMIN C 1000 MG PO (09:14)
[2024-05-19] MEDS: NORVASC 2.5 MG PO (09:15)
[2024-05-19] MEDS: THERAGRAN 1 TABLET PO (09:15)
[2024-05-19] MEDS: DECADRON 0.5 MG PO ×2 (09:16→20:01)
[2024-05-19] MEDS: NON-FORMULARY ITEM 1 UNIT PO (09:16)
[2024-05-19] MEDS: COLACE 100 MG PO ×2 (09:16→20:01)
[2024-05-19] MEDS: TYLENOL 650 MG PO (11:28)
--- NOTE | 2024-05-19 12:48 | W.PN.UPDATE ---
Update Note
Progress Note Update
S/p chemical pleurodesis on 05/18. A.m. chest x-ray was reviewed and no pneumothorax was appreciated. Continue pulmonary management of chest tube and CT surgery will sign off at this time. Please reconsult as needed, thank you.
--- NOTE | 2024-05-19 14:39 | W.PN.PUL3 ---
Today's Communication / Plan
-
Chest tube to waterseal today 3:40 PM.
Repeat chest x-ray tomorrow
Plan is to clamp chest tube tomorrow morning if lung remains reexpanded. If there is no recurrent pneumothorax on 05/21/2024 then discontinue chest tube.
Continue analgesia
continue to hold BiPAP until seen in the office
Assessment
-
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 He notes he woke up around 3:40AM due to back pain. He sat up and then he thought he slid down in bed.
He may have fallen as he found himself on the floor. He then suddenly had acute anterior chest pain wtih SOB and came to ER. CXR showing acute L sided pneumothorax. Chest tube emergently inserted in ER and he is admitted to floors. He has never
had a ptx before, denies coughing spells prior.
Spontaneous pneumothorax, fell at home s/p chest tube placement in ER 05/04/24
Chest tube discontinued 05/07
Recurrent PTX 05/08/24 with upsize in tube on 05/13 from 16Fr to 18 Fr
Status post chemical pleurodesis 05/18/2024
Chest pain
Mild leukocytosis - resolved
Hyperglycemia - resolved
Conditions present [employer]:
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
Data download revealed excellent compliance, AHI of 3.7, average pressure of 21/18 cm
Paraseptal emphysema on CT scan
Pulmonary nodules <4mm/benign
Former smoker, quit smoking at age 46, smoked 1 pack/day from age [age]
Hypertension
Hyperlipidemia
GERD
Osteoarthritis of left knee, history of right knee replacement
Prediabetes
History of past GI bleed on aspirin
B/L Cataracts 2018
Basal cell carcinoma
Bilateral sensorineural hearing loss, has hearing aids
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
History of TIA, not on aspirin due to past GI bleed
BPH, history of elevated PSA, history of bladder stones
DDD/DJD C spine, L spine
Mohs procedure left and right side of head and neck 06/16/18
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
Plan
Respiratory status is stable-no overnight events.
Supplemental oxygen as needed-currently on room air --> will place onto supplemental O2 to help resorb L-sided PTX
CXR had shown resolved L-sided PTX since 05/14/2024 --> chest tube was clamped on 05/15 but CXR on AM of 05/16/2024 shows recurrent PTX --> chest tube back on suction at -[id number]
-
Patient is usually on BiPAP 21/18 cm at night and during the daytime as tolerated--on hold for now until instructed otherwise by our service given high risk for PTX recurrence
-
Chest tube for pneumothorax after fall 05/04/2024-discontinued 05/07/2024
Recurrent pneumothorax 05/08/2024
Interventional radiology reconsulted for another chest tube
Chest x-ray 05/09/2024 with resolution of pneumothorax
Chest tube was placed on waterseal 05/10/2024
Chest x-ray 05/11/2024 with small left apical pneumothorax
Chest tube placed back on wall suction 05/11/24--20 cm-there was a 5-hour window where he was not placed back on wall suction
Chest x-ray 05/12/2024 while on -20 cm wall suction-persistent pneumothorax
Ordered suction to be increased to -40 cm on 05/12/2024
Chest x-ray 05/13/24-small left apical pneumothorax decrease in volume compared to day prior.
Chest tube upsized from 16 Fr to 18 Fr on 05/13
CXR on AM of 05/14 shows resolution of PTX
On 05/14, chest tube suction reduced from [id number] to [id number]
Chest tube changed to continuous water seal on 05/15 --> clamped on evening of 05/15 but CXR on 05/16 shows recurrent L-sided PTX. Chest tube back on suction now.
Hospitalist consulted thoracic surgery on 05/16 --> recs appreciated
Chest x-ray 05/18/2019 5:11 AM-on waterseal reviewed, no recurrent pneumothorax.
Status post chemical pleurodesis (05/18).
No airleak noted in chest tube 05/19/2024
Chest x-ray 05/19/2024: Reviewed, no evidence for pneumothorax.
Analgesia-monitor respiratory status closely.
Transition to waterseal for 24 hours. If there is no pneumothorax then will clamp and discontinue chest tube if he remains stable and there is full lung reexpansion on 05/21/2024.
If pleurodesis unsuccessful then he will need thoracic surgery evaluation for blebectomy vs lobectomy.
I think if he goes for surgery that he would be a good candidate as he has adequate functional status with no chronic heart or lung disease besides FATEMEH
-
Last saw Dr. Stratton on 12/21/2020 for COPD and FATEMEH on BiPAP and since then has been following with KELSEY Mejia - last seen [id number] as an outpatient
May need to reduce PAP pressure in OP settings to avoid PTX recurrence
Last PSG in 2019, weight was 188, he has lost 15 lbs
May be worthwhile also restudying to reduce his pressures or try alternative treatments
Instructed patient not to use BIPAP until seen in office and would move forward with repeat sleep study/titration study

Dr. Stratton reviewed with daughter 05/12/2024 over the phone extensively including pathophysiology of pneumothorax, typical treatment options, if not improved potential upsizing of chest tube for thoracic surgery involvement and realistically it will
take many more days to resolve
Dr. Stratton reviewed with 05/13/24, extensively, including once again the pathophysiology, pneumothorax, treatment options, potential need for increasing chest tube size or possibly even thoracic surgical opinion if pleural tear is not healed
with conservative therapy
Dr. El reviewed with daughter and on 05/14/2024 and again on 05/16-05/17/2024 at bedside and answered all questions.
Dr. Mcdaniel updated daughter and in detail 05/19/2024.

Diagnostic Data
CXR 05/05/24- Left-sided chest tube with the tip now positioned over the left lung base. No appreciable pneumothorax. Ovoid lucency projecting over the left lung base may represent a bulla in correlation with the previous chest CT. Low lung volumes.
Subsegmental atelectasis in the left lung base. No large pleural effusion. Stable cardiomediastinal silhouette.
CXR 05/04/24- Placement of left chest tube with significantly decreased large left pneumothorax in comparison to CT earlier in same day.
Chest x-ray follow-up 05/09/2024-typically left chest tube lateral left lung apex and complete resolution of left-sided pneumothorax
Chest x-ray 05/10/2024-resolution of pneumothorax
CT CHEST 05/04/24- Large left tension type pneumothorax. No findings to suggest central pulmonary embolism.
08/13/18- Pulmonary nodule being followed:
-Flat plaque-like nodule, 8 mm, at the base of the left lung of the diaphragm surface at the apex of the diaphragm. (Axial sequence 2 image 48). 2 mm nodule subpleural posterior right lower lobe (sequence 2 image 31), unchanged. No new or growing
pulmonary nodules.
Minor biapical subpleural emphysema spaces. No generalized emphysema. No fibrosis. Airways: No bronchiectasis. Minimum linear atelectasis or scarring in the para spinal medial base of both lower lobes. No change.
ECHO 2016- . Left ventricle: Normal size and function. The estimated ejection fraction is 55-60%.
2. Right ventricle: Normal size and function
3. Atria: Normal
4. Mitral valve: Trace mitral regurgitation
5. Aortic valve: Trace aortic insufficiency. No aortic stenosis
6. Tricuspid valve: Mild tricuspid regurgitation. Estimated pulmonary systolic pressures are 25-30 mmHg
7. There has been no significant change since the most recent echocardiogram from 10/28/14
.
Total time spent today was 41 minutes for this encounter. Time includes reviewing laboratory test/imaging results, reviewing pertinent medical records, obtaining and reviewing medical history, performing an appropriate exam, ordering medications,
tests and procedures. Time also includes documentation of this encounter, coordinating patient care and communicating with other healthcare professionals. Total time does not include separately billed tests performed on this date of service.
Subjective Data
-
Date of Service:
Date of Service: May 19, 2024
Chief Complaint: Pulmonary Follow Up and Dyspnea Follow Up
Subjective:
No new complaints
No overnight events
Continues to complain of some chest discomfort post pleurodesis.
Review of Systems
Cardiopulmonary: Dyspnea (None at rest) and Cough (n)
Objective Data
Data Reviewed
Vital Signs / I&O / Oxygen:
Vital Signs
Temp Pulse Resp BP Pulse Ox
98.0 F 72 16 131/75 96
05/19/24 07:55 05/19/24 07:55 05/19/24 07:55 05/19/24 07:55 05/19/24 09:30
Intake and Output
05/18/24 05/19/24 05/20/24
06:59 06:59 06:59
Intake Total 720 / 720 0 / 0
Output Total 1555 / 1555 300 / 300
Balance -835 / -835 -300 / -300
SaO2 96
Nasal Cannula flow liters per 6
minute
Physical Exam
General: Respiratory Distress (n), Pain (chest tube insertion site) and Other (NAD)
HEENT: Normocephalic, Anicteric and Moist Mucous Membranes
Cardiovascular: S1-S2, Murmur (RONNI heard best at RUSB) and Peripheral Edema (negative)
Respiratory: Wheeze (negative), Crackles (Bibasilar), Rhonchi (negative), Non-Labored Respirations, Stridor (negative) and Chest Tube (no air leak seen)
GI: Soft, Non Distended, Non Tender and Normal Bowel Sounds
Neurology: AO x 3 and Tremors (negative)
Skin: Warm, Dry, Cyanosis (n) and Jaundice (n)
Labs/Micro/Reports
Lab Data
05/19/24 06:06
05/19/24 06:06
--- NOTE | 2024-05-19 15:34 | W.PN.UPDATE ---
Update Note
Progress Note Update
I saw and evaluated the patient. I reviewed the resident�s note and agree with findings and plan as documented in the resident�s note except for changes in my documentation
Seen earlier. Late documentation
88-year-old with pneumothorax
CVS: S1-S2 normal
Chest: CTA B/L, good air entry bilateral.
Abdomen: Soft, NT , Bowel sounds present
Extremities: No edema
# Spontaneous pneumothorax
Status post chest tube placement in the ER
First chest tube placed under water seal 05/05/24 and Clamped 05/06/24 and removed 03/06/25, CT Replaced 03/07/25 for recurrent Pneumothorax
Second chest tube chest tube placed to waterseal 03/09/2025-repeat x-ray with pneumothorax. Placed on wall suction again 03/10/2025, wall suction negative pressure increased on 05/12/2024
Patient continued to have pneumothorax-Chest tube upsized from 16 Fr to 18 Fr on 05/13
CXR 05/14/24 no pneumothorax. Suction reduced and chest tube changed to waterseal on 05/15/2020 and clamped in the evening of 05/15/2020
Chest x-ray 05/16/2024 showed pneumothorax-chest tube changed back to suction
Interventional radiology consulted for pleurodesis which was done on on 05/18/2024.
Repeat chest x-ray after the pleurodesis with no pneumothorax.
Chest x-ray 05/19/2024 reviewed by me-questionable localized pneumothorax around the chest tube area laterally but other than that lung reexpansion noted.
Change to water seal per interventional radiology/pulmonary when OK
If pleurodesis is unsuccessful he needs thoracic surgery intervention
# Bullous pemphigoid-in remission
Follows up with Dr. Felicia Rico and at [place]
Not on tacrolimus or steroid ointment anymore for the skin
Uses dexamethasone swish and spit-for the mouth
Also on doxycycline 100 mg daily
# Hyperlipidemia-continue Atorvastatin
# Hypertension-continue Amlodipine
# Enlarged prostate-continue Finasteride
# [id number] several decades ago
# DVT prophylaxis-Lovenox
# Full code
Discussed with patient's and daughter at bedside
Discussed with nursing
D/W OMAR and [facility].
[2024-05-19 15:55] VITALS: BP 105/64
[2024-05-19] MEDS: LOVENOX 40 MG SC (18:10)
[2024-05-19] MEDS: LIPITOR 10 MG PO (21:22)
[2024-05-19] MEDS: PROSCAR 5 MG PO (21:22)
[2024-05-19 23:30] VITALS: BP 138/75
[2024-05-20] MEDS: ULTRAM 50 MG PO (06:27)
[2024-05-20 07:01] LABS: Hematocrit 44.9 % (39.0-52.0); Hemoglobin 14.9 g/dL (13.0-18.0); Mean Corp Hgb Conc. 33.2 g/dL (33.0-37.0); Mean Corpuscular Volume 90.3 fL (80.0-94.0); Mean Platelet Volume 9.2 fL (7.4-10.4); Platelet Count 181 10^3/uL (130-400); Red Blood Cell Count 4.97 10^6/uL (4.70-6.10); Red Cell Dist. Width 13.2 % (11.5-14.5); White Blood Cell Count 8.2 10^3/uL (4.8-10.8)
[2024-05-20 07:16] LABS: Blood Urea Nitrogen 23 mg/dl (9-20); Calcium 9.6 mg/dl (8.4-10.2); Carbon Dioxide 28 mmol/L (22-30); Chloride 104 mmol/L (98-107); Estimated Creatinine Clearance 65 ml/min; Glucose 107 mg/dl (70-99); Potassium 4.7 mmol/L (3.5-5.1); Sodium 137 mmol/L (135-145); eGFR > 60.00
[2024-05-20 07:30] VITALS: BP 137/88
[2024-05-20] MEDS: NORVASC 2.5 MG PO (07:53)
[2024-05-20] MEDS: THERAGRAN 1 TABLET PO (07:53)
[2024-05-20] MEDS: VIBRAMYCIN 100 MG PO (07:53)
[2024-05-20] MEDS: VITAMIN C 1000 MG PO (07:53)
[2024-05-20] MEDS: SENOKOT PO ×3 (07:54→20:45)
[2024-05-20] MEDS: COLACE 100 MG PO ×2 (07:54→20:41)
[2024-05-20] MEDS: NON-FORMULARY ITEM 1 UNIT PO (07:54)
[2024-05-20] MEDS: DECADRON 0.5 MG PO ×2 (07:54→20:40)
--- NOTE | 2024-05-20 10:18 | W.PN.PUL3 ---
Today's Communication / Plan
-
Back to suction this morning 05/20/2024
No significant air leak noted during my evaluation including coughing, suctioning or deep inspiration.
Likely has minimal intermittent leak.
Chest x-ray tomorrow.
Continue with current care for now.
Holding BiPAP.
Discussed with family at the bedside 05/20/2024.
Assessment
-
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 He notes he woke up around 3:40AM due to back pain. He sat up and then he thought he slid down in bed.
He may have fallen as he found himself on the floor. He then suddenly had acute anterior chest pain wtih SOB and came to ER. CXR showing acute L sided pneumothorax. Chest tube emergently inserted in ER and he is admitted to floors. He has never
had a ptx before, denies coughing spells prior.
Spontaneous pneumothorax, fell at home s/p chest tube placement in ER 05/04/24
Chest tube discontinued 05/07
Recurrent PTX 05/08/24 with upsize in tube on 05/13 from 16Fr to 18 Fr
Status post chemical pleurodesis 05/18/2024
Chest pain
Mild leukocytosis - resolved
Hyperglycemia - resolved
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
Data download revealed excellent compliance, AHI of 3.7, average pressure of 21/18 cm
Paraseptal emphysema on CT scan
Pulmonary nodules <4mm/benign
Former smoker, quit smoking at age 46, smoked 1 pack/day from age [age]
Hypertension
Hyperlipidemia
GERD
Osteoarthritis of left knee, history of right knee replacement
Prediabetes
History of past GI bleed on aspirin
B/L Cataracts 2018
Basal cell carcinoma
Bilateral sensorineural hearing loss, has hearing aids
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
History of TIA, not on aspirin due to past GI bleed
BPH, history of elevated PSA, history of bladder stones
DDD/DJD C spine, L spine
Mohs procedure left and right side of head and neck 06/16/18
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
Plan
Respiratory status is stable-no overnight events.
Continue supplemental oxygen as needed. It may help with pneumothorax reabsorption.
-
Chest tube for pneumothorax after fall 05/04/2024-discontinued 05/07/2024
Recurrent pneumothorax 05/08/2024
Interventional radiology reconsulted for another chest tube
Chest x-ray 05/09/2024 with resolution of pneumothorax
Chest tube was placed on waterseal 05/10/2024
Chest x-ray 05/11/2024 with small left apical pneumothorax
Chest tube placed back on wall suction 05/11/24--20 cm-there was a 5-hour window where he was not placed back on wall suction
Chest x-ray 05/12/2024 while on -20 cm wall suction-persistent pneumothorax
Ordered suction to be increased to -40 cm on 05/12/2024
Chest x-ray 05/13/24-small left apical pneumothorax decrease in volume compared to day prior.
Chest tube upsized from 16 Fr to 18 Fr on 05/13
CXR on AM of 05/14 shows resolution of PTX
On 05/14, chest tube suction reduced from [id number] to [id number]
Chest tube changed to continuous water seal on 05/15 --> clamped on evening of 05/15 but CXR on 05/16 shows recurrent L-sided PTX. Chest tube back on suction now.
Hospitalist consulted thoracic surgery on 05/16 --> recs appreciated
Chest x-ray 05/18/2019 5:11 AM-on waterseal reviewed, no recurrent pneumothorax.
Status post chemical pleurodesis (05/18).
No airleak noted in chest tube 05/19/2024 or 05/20/2024
Chest x-ray 05/19/2024: no evidence for pneumothorax.
-
Chest x-ray 05/20/2024: Reviewed, showed new slight left apical pneumothorax. No subcutaneous air. Patient was on waterseal overnight.
Return to suction -20 cm of water morning of 05/20/2024.
Okay to disconnect from suctioning for mobility. May go to the bathroom without suction as well.
-
Analgesia-monitor respiratory status closely.
-
If pleurodesis unsuccessful then he will need thoracic surgery reevaluation for blebectomy vs lobectomy.
I think if he goes for surgery that he would be a good candidate as he has adequate functional status with no chronic heart or lung disease besides FATEMEH.
CT surgery has signed off for now. Will reconsult if there is significant recurrence.
-
Last saw Dr. Stratton on 12/21/2020 for COPD and FATEMEH on BiPAP and since then has been following with KELSEY Mejia - last seen [id number] as an outpatient
May need to reduce PAP pressure in OP settings to avoid PTX recurrence
Last PSG in 2019, weight was 188, he has lost 15 lbs
May be worthwhile also restudying to reduce his pressures or try alternative treatments
Instructed patient not to use BIPAP until seen in office and would move forward with repeat sleep study/titration study

Dr. Stratton reviewed with daughter 05/12/2024 over the phone extensively including pathophysiology of pneumothorax, typical treatment options, if not improved potential upsizing of chest tube for thoracic surgery involvement and realistically it will
take many more days to resolve
Dr. Stratton reviewed with 05/13/24, extensively, including once again the pathophysiology, pneumothorax, treatment options, potential need for increasing chest tube size or possibly even thoracic surgical opinion if pleural tear is not healed
with conservative therapy
Dr. El reviewed with daughter and on 05/14/2024 and again on 05/16-05/17/2024 at bedside and answered all questions.
Dr. Mcdaniel updated daughter and in detail 05/19/2024 and 05/20/2024.

Diagnostic Data
CXR 05/05/24- Left-sided chest tube with the tip now positioned over the left lung base. No appreciable pneumothorax. Ovoid lucency projecting over the left lung base may represent a bulla in correlation with the previous chest CT. Low lung volumes.
Subsegmental atelectasis in the left lung base. No large pleural effusion. Stable cardiomediastinal silhouette.
CXR 05/04/24- Placement of left chest tube with significantly decreased large left pneumothorax in comparison to CT earlier in same day.
Chest x-ray follow-up 05/09/2024-typically left chest tube lateral left lung apex and complete resolution of left-sided pneumothorax
Chest x-ray 05/10/2024-resolution of pneumothorax
CT CHEST 05/04/24- Large left tension type pneumothorax. No findings to suggest central pulmonary embolism.
08/13/18- Pulmonary nodule being followed:
-Flat plaque-like nodule, 8 mm, at the base of the left lung of the diaphragm surface at the apex of the diaphragm. (Axial sequence 2 image 48). 2 mm nodule subpleural posterior right lower lobe (sequence 2 image 31), unchanged. No new or growing
pulmonary nodules.
Minor biapical subpleural emphysema spaces. No generalized emphysema. No fibrosis. Airways: No bronchiectasis. Minimum linear atelectasis or scarring in the para spinal medial base of both lower lobes. No change.
ECHO 2015- . Left ventricle: Normal size and function. The estimated ejection fraction is 55-60%.
2. Right ventricle: Normal size and function
3. Atria: Normal
4. Mitral valve: Trace mitral regurgitation
5. Aortic valve: Trace aortic insufficiency. No aortic stenosis
6. Tricuspid valve: Mild tricuspid regurgitation. Estimated pulmonary systolic pressures are 25-30 mmHg
7. There has been no significant change since the most recent echocardiogram from 10/28/14
.
Total time spent today was 41 minutes for this encounter. Time includes reviewing laboratory test/imaging results, reviewing pertinent medical records, obtaining and reviewing medical history, performing an appropriate exam, ordering medications,
tests and procedures. Time also includes documentation of this encounter, coordinating patient care and communicating with other healthcare professionals. Total time does not include separately billed tests performed on this date of service.
Subjective Data
-
Date of Service:
Date of Service: May 20, 2024
Chief Complaint: Pulmonary Follow Up and Dyspnea Follow Up
Subjective:
He offers no new complaints
Left-sided chest discomfort only with deep inspiration and movement.
Denies shortness of breath at rest
Review of Systems
General: Fever (n)
Cardiopulmonary: Dyspnea (none at rest)
GI: Abdominal Pain (n) and Nausea
Objective Data
Data Reviewed
Vital Signs / I&O / Oxygen:
Vital Signs
Temp Pulse Resp BP Pulse Ox
97.8 F 68 16 137/88 93
05/20/24 07:30 05/20/24 07:53 05/20/24 07:30 05/20/24 07:53 05/20/24 07:30
Intake and Output
05/19/24 05/20/24 05/21/24
06:59 06:59 06:59
Intake Total 0 / 0 1680 / 1680
Output Total 300 / 300 1575 / 1575
Balance -300 / -300 105 / 105
SaO2 93
Nasal Cannula flow liters per 6
minute
Physical Exam
General: Respiratory Distress (n), Pain (chest tube insertion site) and Other (NAD)
HEENT: Normocephalic, Anicteric and Moist Mucous Membranes
Cardiovascular: S1-S2, Murmur (RONNI heard best at RUSB) and Peripheral Edema (negative)
Respiratory: Wheeze (negative), Crackles (Bibasilar), Rhonchi (negative), Non-Labored Respirations, Stridor (negative) and Chest Tube (no air leak seen during visit)
GI: Soft, Non Distended, Non Tender and Normal Bowel Sounds
Neurology: AO x 3 and Tremors (negative)
Skin: Warm, Dry, Cyanosis (n) and Jaundice (n)
Labs/Micro/Reports
Lab Data
05/20/24 06:39
05/20/24 06:39
--- NOTE | 2024-05-20 12:56 | W.PN.HOSP.TC ---
Addendum entered and electronically signed by Naren Naik MD 05/20/24 14:22:
I saw and evaluated the patient. I reviewed the resident�s note and agree with findings and plan as documented in the resident�s note.
Seen earlier today. Late documentation
Case discussed with pulmonary also
Per pulmonary he was on waterseal overnight and repeat chest x-ray showed pneumothorax
Patient placed on wall suction -20 cm of water
Chest exam with slightly decreased breath sounds lateral left side chest
Repeat x-ray tomorrow
We have also given a heads up to CT surgery
Discussed with pulmonary
Discussed with at bedside
Original Note:
Today's Communication/Plan
-
Place CT to suction
TT'ed Dr. Ham (CTS)
Discussed case with Dr. Herbert
Cont daily CXR
Assessment / Plan
Assessment / Plan
88yo M who presented with came with chest pain and shortness of breath. Chest x-ray in ED showed left-sided pneumothorax, chest tube placed on 05/05, clamped on 05/06 and removed on 05/07, however pneumothorax reoccured after waterseal, so tube placed
back on 05/11. Tube was upsized on 05/13 with resultant complete resolution of pneumothorax on suction on 05/15. However, pneumothorax recurred while on clamp trial. CTX recommended chemical pleurodesis via chest tube, that is planned for 05/17/24
Chronic conditions prior to admission
COPD
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
Former smoker
Essential hypertension
HLD
BPH
Bullous pemphigoid
# Spontaneous left-sided pneumothorax
CXR 05/14/24 showed no pneumothorax. Chest tube placed to waterseal on 05/15/2020 and clamped in the evening of 05/15/2020
Chest x-ray 05/16 showed recurrence of pneumothorax and chest tube was changed back to suction
Interventional radiology aprreciated-pleurodesis done 05/18. Repeat chest x-ray immediately after chemical pleurodesis showed no pneumothorax.
Chest x-ray today (05/19) did not show pneumothorax, today (05/20) shows recurrent small left pneumothorax
No air leakage seen when asked patient to cough
Avoid BiPAP-supplemental O2 to keep SpO2>90%
Appreciate pulmonology-Return to suction -20 cm- Okay to disconnect from suctioning for mobility. May go to the bathroom without suction as well.
CTS consulted-recommend chemical pleurodesis- Recurrent PTX seen today- Re-consulted CTS, Dr. Ham aware
Pain management with Tylenol/Tramadol for pain at CT site
# Bullous pemphigoid-in remission
Follows up with Dr. Felicia Rico and at [facility]
Currently not on tacrolimus or steroid ointment
Uses dexamethasone swish and spit-for the mouth
Continue doxycycline 100 mg daily
# Essential hypertension
-continue Amlodipine
# Hyperlipidemia
-continue Atorvastatin
# History of BPH
-continue Finasteride
# DVT prophylaxis
-Lovenox
Full code
Updated at bedside
Anticipated Discharge: 24 - 48 hours
Subjective/Interval History
-
Date of Service: May 20, 2024
Patient is very disappointed to hear that pneumothorax is back. Otherwise, does not offer any complaints
Objective Data
-
Labs:
Laboratory Results
05/20/24
06:39
WBC 8.2
Hgb 14.9
Hct 44.9
Plt Count 181
Sodium 137
Potassium 4.7
Chloride 104
Carbon Dioxide 28
BUN 23 H
Creatinine 0.7
Glucose 107 H
Calcium 9.6
Vital Signs:
Vital Signs
Temp Pulse Resp BP Pulse Ox
97.8 F 68 16 137/88 2
05/20/24 07:30 05/20/24 07:53 05/20/24 07:30 05/20/24 07:53 05/20/24 08:00
I&O
05/19/24 05/20/24 05/21/24
06:59 06:59 06:59
Intake Total 0 / 0 1680 / 1680
Output Total 300 / 300 1575 / 1575
Balance -300 / -300 105 / 105
Review of Systems
-
History Source: Patient
All other systems: Reviewed and negative
Constitutional: Reports Other (Pain at site of chest tube)
Physical Exam
-
General: Comfortable
HEENT: Normocephalic
Respiratory: Clear to Auscultation, Other (Saturating well on 6lit O2) and Chest Tubes (at anterolateral left chest); Negative Wheezes
Cardiac: Regular Rhythm and S1/S2
GI: Soft, Nontender and Distended
Neuro: Awake, Alert, Oriented and AO x 3
Psych: Anxious
[2024-05-20 14:41] VITALS: BP 131/78; PULSE 88; O2SAT 95
--- NOTE | 2024-05-20 14:57 | CM ---
Patient seen bedside with spouse.
Patient with chest tube to suction.
Patient and spouse both declined home care needs.
Plan: home no needs anticipated.
[2024-05-20 15:25] VITALS: BP 125/80
[2024-05-20] MEDS: LOVENOX 40 MG SC (16:30)
[2024-05-20] MEDS: PROSCAR 5 MG PO (20:41)
[2024-05-20] MEDS: LIPITOR 10 MG PO (20:41)
[2024-05-20 23:15] VITALS: BP 137/72
[2024-05-21 07:30] VITALS: BP 146/87
[2024-05-21 07:36] LABS: Hematocrit 43.5 % (39.0-52.0); Hemoglobin 14.5 g/dL (13.0-18.0); Mean Corp Hgb Conc. 33.3 g/dL (33.0-37.0); Mean Corpuscular Hgb 30.6 pg (27.0-31.0); Mean Corpuscular Volume 91.8 fL (80.0-94.0); Mean Platelet Volume 9.3 fL (7.4-10.4); Platelet Count 186 10^3/uL (130-400); Red Blood Cell Count 4.74 10^6/uL (4.70-6.10); Red Cell Dist. Width 13.1 % (11.5-14.5); White Blood Cell Count 7.7 10^3/uL (4.8-10.8)
--- NOTE | 2024-05-21 08:10 | W.PN.HOSP.TC ---
Addendum entered and electronically signed by Naren Naik MD 05/21/24 17:16:
I personally performed a history and physical exam of the patient and discussed management with the resident. I reviewed the resident's note and agree with the documented findings and plan of care HPI/CC.
Seen and examined the patient earlier today. Late documentation
Patient with no symptoms
Exam unchanged
Chest x-ray reviewed by me increasing pneumothorax
Case discussed with pulmonary
CT surgery recommended IR consult to evaluate the chest tube to make sure of its patency-consulted and discussed
CT surgery also recommends consulting Dr Tony Mariscal -Dr. Mcdaniel will discuss with Dr. Mariscal.
Consult placed
Discussed with pulmonary
Discussed with patient's and daughter at bedside
D/W Nursing
Original Note:
Today's Communication/Plan
-
Daily CXR
CTS consulted yesterday-awaiting input regarding next steps
Assessment / Plan
Assessment / Plan
88yo M who presented with came with chest pain and shortness of breath. Chest x-ray in ED showed left-sided pneumothorax, chest tube placed on 05/05, clamped on 05/06 and removed on 05/07, however pneumothorax reoccured after waterseal, so tube placed
back on 05/11. Tube was upsized on 05/13 with resultant complete resolution of pneumothorax on suction on 05/15. However, pneumothorax recurred while on clamp trial. CTX recommended chemical pleurodesis via chest tube, that is planned for 05/17/24
Chronic conditions prior to admission
COPD
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
Former smoker
Essential hypertension
HLD
BPH
Bullous pemphigoid
# Spontaneous left-sided pneumothorax
CXR 05/14/24 showed no pneumothorax. Chest tube placed to waterseal on 05/15/2020 and clamped in the evening of 05/15/2020
Chest x-ray 05/16 showed recurrence of pneumothorax and chest tube was changed back to suction
Interventional radiology aprreciated-pleurodesis done 05/18. Repeat chest x-ray immediately after chemical pleurodesis showed no pneumothorax.
Chest x-ray today (05/19) did not show pneumothorax, cxr 05/20 shows recurrent small left pneumothorax.
Personally reviewd CXR today- PTX appears to be expanding-awaiting final report
No air leakage seen when asked patient to cough
Avoid BiPAP-supplemental O2 to keep SpO2>90%- currently on RA
Appreciate pulmonology-Returned to suction on 05/20- Currently on -10- Okay to disconnect from suctioning for mobility. May go to the bathroom without suction as well.
CTS consulted-recommended chemical pleurodesis which was done 05/18- Recurrent PTX seen after chemical pleurodesis - Re-consulted CTS, Dr. Ham aware, awaiting input
Adequate pain management with Tylenol/Tramadol for pain at CT site
# Bullous pemphigoid-in remission
Follows up with Dr. Felicia Rico and at [place]
Currently not on tacrolimus or steroid ointment
Uses dexamethasone swish and spit-for the mouth
Continue doxycycline 100 mg daily
# Essential hypertension
-continue Amlodipine
# Hyperlipidemia
-continue Atorvastatin
# History of BPH
-continue Finasteride
# DVT prophylaxis
-Lovenox
Full code
Updated at bedside
Anticipated Discharge: > 48 hours
Subjective/Interval History
-
Date of Service: May 21, 2024
Objective Data
-
Labs:
Laboratory Results
05/21/24
06:44
WBC 7.7
Hgb 14.5
Hct 43.5
Plt Count 186
Sodium Pending
Potassium Pending
Chloride Pending
Carbon Dioxide Pending
BUN Pending
Creatinine Pending
Glucose Pending
Calcium Pending
Vital Signs:
Vital Signs
Temp Pulse Resp BP Pulse Ox
98.1 F 70 18 137/72 93
05/20/24 23:15 05/20/24 23:15 05/20/24 23:15 05/20/24 23:15 05/20/24 23:15
I&O
05/20/24 05/21/24 05/22/24
06:59 06:59 06:59
Intake Total 1680 / 1680 1300 / 1300
Output Total 1575 / 1575 460 / 460
Balance 105 / 105 840 / 840
Review of Systems
-
History Source: Patient
All other systems: Reviewed and negative
Constitutional: Reports Other (Pain at site of chest tube)
Physical Exam
-
General: Comfortable
HEENT: Normocephalic
Respiratory: Clear to Auscultation, Other (Saturating well on RA) and Chest Tubes (at anterolateral left chest); Negative Wheezes
Cardiac: Regular Rhythm and S1/S2
GI: Soft, Nontender and Distended
Neuro: Awake, Alert, Oriented and AO x 3
Psych: Anxious
[2024-05-21] MEDS: THERAGRAN 1 TABLET PO (08:11)
[2024-05-21] MEDS: COLACE 100 MG PO ×2 (08:11→19:55)
[2024-05-21] MEDS: VITAMIN C 1000 MG PO (08:11)
[2024-05-21] MEDS: NORVASC 2.5 MG PO (08:11)
[2024-05-21] MEDS: VIBRAMYCIN 100 MG PO (08:11)
[2024-05-21] MEDS: NON-FORMULARY ITEM 1 UNIT PO (08:13)
[2024-05-21] MEDS: SENOKOT PO ×2 (08:14→21:26)
[2024-05-21] MEDS: DECADRON 0.5 MG PO ×2 (08:14→19:56)
[2024-05-21 09:06] LABS: Blood Urea Nitrogen 20 mg/dl (9-20); Calcium 9.6 mg/dl (8.4-10.2); Carbon Dioxide 28 mmol/L (22-30); Chloride 104 mmol/L (98-107); Estimated Creatinine Clearance 65 ml/min; Glucose 102 mg/dl (70-99); Potassium 4.6 mmol/L (3.5-5.1); Sodium 139 mmol/L (135-145); eGFR > 60.00
--- NOTE | 2024-05-21 12:00 | W.PN.UPDATE ---
Update Note
Progress Note Update
Pt seen with and daughter at bedside. Prolonged hospitalization for refractory Left sided pneumothorax. Pt underwent chemical pleurodesis 05/18 by interventional radiology and has again recurred with moderate sized L PTX despite being back on
-10 suction x24hrs. I examined his chest tube and temporarily increased suction to -20, but no air leak or tidaling was noted. Pt remains comfortable on room air. Discussed case in detail with Dr. Ham, current recommendation is for VATS/bleb
resection/pleurodesis. Unfortunately, at this time, Dr. Ham does not have OR/robotic time in the near future. We discussed case with Dr. Tony Mariscal who is willing to take on this consult for VATS eval & could potentially operate early next week. IF
[facility] is unable to offer surgery, recommend tertiary transfer. In the meantime, recommend re-eval by IR with tPA/flush chest tube vs wire exchange for patency and leave on suction for at least 2-3 days prior to trialing another water seal. Will defer
to pulmonary service for chest tube management. Discussed with Dr. Mcdaniel, hospitalist resident and RN. Explained all of the above to patient and family. We will sign off at this time, please call with questions/concerns.
--- NOTE | 2024-05-21 14:12 | CHAP ---
Fr. Gene Torres of [facility] in [place] gave Ronnie the Anointing of the Sick and Holy Communion.
[2024-05-21 15:25] VITALS: BP 131/83
--- NOTE | 2024-05-21 15:25 | W.PN.PUL3 ---
Today's Communication / Plan
-
Will have IR either replace or troubleshoot nonfunctional chest tube.
After chest tube more functional we will maintain on suction for a few more days.
Repeat chest x-ray daily
Wait for surgical evaluation for possible VATS definitive pneumothorax therapy. Case discussed with Dr. Mariscal. Consult has been placed.
Will follow
Assessment
-
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 He notes he woke up around 3:40AM due to back pain. He sat up and then he thought he slid down in bed.
He may have fallen as he found himself on the floor. He then suddenly had acute anterior chest pain wtih SOB and came to ER. CXR showing acute L sided pneumothorax. Chest tube emergently inserted in ER and he is admitted to floors. He has never
had a ptx before, denies coughing spells prior.
Left spontaneous pneumothorax, fell at home s/p chest tube placement in ER 05/04/24
Chest tube discontinued 05/07
Recurrent PTX 05/08/24 with upsize in tube on 05/13 from 16Fr to 18 Fr
Status post chemical pleurodesis 05/18/2024
Chest pain
Mild leukocytosis - resolved
Hyperglycemia - resolved
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
Data download revealed excellent compliance, AHI of 3.7, average pressure of 21/18 cm
Paraseptal emphysema on CT scan
Pulmonary nodules <4mm/benign
Former smoker, quit smoking at age 46, smoked 1 pack/day from age [age]
Hypertension
Hyperlipidemia
GERD
Osteoarthritis of left knee, history of right knee replacement
Prediabetes
History of past GI bleed on aspirin
B/L Cataracts 2018
Basal cell carcinoma
Bilateral sensorineural hearing loss, has hearing aids
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
History of TIA, not on aspirin due to past GI bleed
BPH, history of elevated PSA, history of bladder stones
DDD/DJD C spine, L spine
Mohs procedure left and right side of head and neck 06/16/18
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
Plan:
Respiratory status is stable-no overnight events-05/21/2024
-
Chest tube for pneumothorax after fall 05/04/2024-discontinued 05/07/2024
Recurrent pneumothorax 05/08/2024
Since then unfortunately recurrent pneumothorax/air leak.
Status post chemical pleurodesis (05/18).
Hospitalist consulted thoracic surgery on 05/16 --> recs appreciated
Chest x-ray 05/18/2019 5:11 AM-on water seal reviewed, no recurrent pneumothorax.
No airleak noted in chest tube 05/19/2024 or 05/20/2024
Chest x-ray 05/19/2024: no evidence for pneumothorax.
Chest x-ray 05/20/2024: showed new slight left apical pneumothorax. No subcutaneous air. Patient was on waterseal overnight.
Return to suction -20 cm of water morning of 05/20/2024.
Chest x-ray 05/21/2024: Moderate sided pneumothorax.
No air leak appreciated even with milking of the chest tube. Discussed with CT surgery possibly chest tube is nonfunctional.
Will ask interventional radiology to flush/wire/exchange.
CT surgery recommendations noted 05/21/2024: Recommending VATS for definitive treatment. Patient does have history of mild paraseptal emphysema in that area on prior CT chest. Case has been discussed.
Unfortunately, Dr. Ham does not have OR time.
We have consulted Dr. Tony Mariscal to evaluate patient. I personally discussed his case. Will evaluate today or tomorrow. Likely surgical intervention next week.
-
Analgesia-monitor respiratory status closely.
-
I think if he goes for surgery that he would be a good candidate as he has adequate functional status with no chronic heart or lung disease besides FATEMEH.
-
Last saw Dr. Stratton on 12/21/2020 for COPD and FATEMEH on BiPAP and since then has been following with KELSEY Mejia - last seen [id number]/17/[id number] as an outpatient
May need to reduce PAP pressure in OP settings to avoid PTX recurrence
Last PSG in 2019, weight was 188, he has lost 15 lbs
May be worthwhile also restudying to reduce his pressures or try alternative treatments
Instructed patient not to use BIPAP until seen in office and would move forward with repeat sleep study/titration study

Dr. Stratton reviewed with daughter 05/12/2024 over the phone extensively including pathophysiology of pneumothorax, typical treatment options, if not improved potential upsizing of chest tube for thoracic surgery involvement and realistically it will
take many more days to resolve
Dr. Stratton reviewed with 05/13/24, extensively, including once again the pathophysiology, pneumothorax, treatment options, potential need for increasing chest tube size or possibly even thoracic surgical opinion if pleural tear is not healed
with conservative therapy
Dr. El reviewed with daughter and on 05/14/2024 and again on 05/16-05/17/2024 at bedside and answered all questions.
Dr. Mcdaniel updated daughter and in detail 05/19/2024 and 05/20/2024.

Diagnostic Data
CXR 05/05/24- Left-sided chest tube with the tip now positioned over the left lung base. No appreciable pneumothorax. Ovoid lucency projecting over the left lung base may represent a bulla in correlation with the previous chest CT. Low lung volumes.
Subsegmental atelectasis in the left lung base. No large pleural effusion. Stable cardiomediastinal silhouette.
CXR 05/04/24- Placement of left chest tube with significantly decreased large left pneumothorax in comparison to CT earlier in same day.
Chest x-ray follow-up 05/09/2024-typically left chest tube lateral left lung apex and complete resolution of left-sided pneumothorax
Chest x-ray 05/10/2024-resolution of pneumothorax
CT CHEST 05/04/24- Large left tension type pneumothorax. No findings to suggest central pulmonary embolism.
08/13/18- Pulmonary nodule being followed:
-Flat plaque-like nodule, 8 mm, at the base of the left lung of the diaphragm surface at the apex of the diaphragm. (Axial sequence 2 image 48). 2 mm nodule subpleural posterior right lower lobe (sequence 2 image 31), unchanged. No new or growing
pulmonary nodules.
Minor biapical subpleural emphysema spaces. No generalized emphysema. No fibrosis. Airways: No bronchiectasis. Minimum linear atelectasis or scarring in the para spinal medial base of both lower lobes. No change.
ECHO 2016- . Left ventricle: Normal size and function. The estimated ejection fraction is 55-60%.
2. Right ventricle: Normal size and function
3. Atria: Normal
4. Mitral valve: Trace mitral regurgitation
5. Aortic valve: Trace aortic insufficiency. No aortic stenosis
6. Tricuspid valve: Mild tricuspid regurgitation. Estimated pulmonary systolic pressures are 25-30 mmHg
7. There has been no significant change since the most recent echocardiogram from 10/28/14
.
Total time spent today was 45 minutes for this encounter. Time includes reviewing laboratory test/imaging results, reviewing pertinent medical records, obtaining and reviewing medical history, performing an appropriate exam, ordering medications,
tests and procedures. Time also includes documentation of this encounter, coordinating patient care and communicating with other healthcare professionals. Total time does not include separately billed tests performed on this date of service.
Subjective Data
-
Date of Service:
Date of Service: May 21, 2024
Chief Complaint: Pulmonary Follow Up and Dyspnea Follow Up
Subjective:
Patient offers no new complaints
Chest pain is slowly subsiding
Denies cough or phlegm production
Review of Systems
Cardiopulmonary: Dyspnea (n)
GI: Abdominal Pain (n) and Nausea (n)
Objective Data
Data Reviewed
Vital Signs / I&O / Oxygen:
Vital Signs
Temp Pulse Resp BP Pulse Ox
97.9 F 72 18 146/87 94
05/21/24 07:30 05/21/24 08:11 05/21/24 07:30 05/21/24 08:11 05/21/24 08:00
Intake and Output
05/20/24 05/21/24 05/22/24
06:59 06:59 06:59
Intake Total 1680 / 1680 1300 / 1300
Output Total 1575 / 1575 460 / 460
Balance 105 / 105 840 / 840
SaO2 94
Nasal Cannula flow liters per 93
minute
Physical Exam
General: Respiratory Distress (n), Pain (chest tube insertion site) and Other (NAD)
HEENT: Normocephalic, Anicteric and Moist Mucous Membranes
Cardiovascular: S1-S2, Murmur (RONNI heard best at [facility]) and Peripheral Edema (negative)
Respiratory: Wheeze (negative), Crackles (Bibasilar), Rhonchi (negative), Non-Labored Respirations, Stridor (negative) and Chest Tube (no air leak seen during visit)
GI: Soft, Non Distended, Non Tender and Normal Bowel Sounds
Neurology: AO x 3 and Tremors (negative)
Skin: Warm, Dry, Cyanosis (n) and Jaundice (n)
Labs/Micro/Reports
Lab Data
05/21/24 06:44
05/21/24 06:44
[2024-05-21 15:45] VITALS: BP 143/87; BP_SYST 93
[2024-05-21 16:38] VITALS: BP 152/86
[2024-05-21] MEDS: LOVENOX 40 MG SC (18:18)
--- NOTE | 2024-05-21 19:22 | PTCARENOTE ---
Received patient this am AAOx3 . Pt ff unit today to interventional radiology for change out of left chest tube. Pt returned from IR with Ct at 20 cm of suction. Pt offered no complaints. Made patient comfortable. Cont to assess patient status.
[2024-05-21] MEDS: PROSCAR 5 MG PO (19:55)
[2024-05-21] MEDS: LIPITOR 10 MG PO (19:55)
--- NOTE | 2024-05-21 20:48 | CON.SURG ---
Surgical Consultation
-
Mr. Ronnie Wolfe is an 88-year-old man who was admitted on 05/04/24 for a spontaneous pneumothorax. His chest CT scan on 05/04/24 revealed a large left tension pneumothorax. Since his admission, he has undergone several chest tube placements and
doxycycline pleurodesis via the chest tube. His most recent chest tube was placed today, and he has just returned from that procedure. He had no complaints and denied experiencing chest pain or dyspnea.
His past medical history is significant for sleep apnea and HTN. He is allergic to sulfa drugs and niacinamide.
His heart had a regular rhythm and rate, and his lungs had decreased breath sounds in the left lower lung field.
His chest tube had no air leak on suction.
A/P Spontaneous/persistent left pneumothorax
Although not mentioned on the official reading of the CT scan done on 05/04/24, there appears to be a large bleb coming off the inferior aspect of the collapsed left lung. Furthermore, his CT scan from 6 years ago (2018) showed an 8 mm cavitary
lesion/bleb-like lesion in the inferior lingular segment of the left upper lobe. If this is the cause of his pneumothorax, there is a high risk of a persistent air leak and recurrent pneumothorax, even if this episode resolves on its own. I
recommend repeating his chest CT scan since his lung has been reinflated to define the anatomy better. I will tentatively put him on the OR schedule this coming Saturday for video-assisted thoracoscopic bleb resection and talc pleurodesis. I will
regroup with the patient and his on the morning of this coming Saturday.
D/w Mr. & Mrs. Wolfe and Dr. Mcdaniel
[2024-05-21] MEDS: ULTRAM 50 MG PO (21:44)
[2024-05-21 23:03] VITALS: BP 115/69
[2024-05-22 07:25] VITALS: BP 150/81
[2024-05-22 08:03] LABS: Mean Corp Hgb Conc. 34.1 g/dL (33.0-37.0); Mean Corpuscular Hgb 30.4 pg (27.0-31.0); Mean Corpuscular Volume 89.1 fL (80.0-94.0); Mean Platelet Volume 9.3 fL (7.4-10.4); Platelet Count 211 10^3/uL (130-400); Red Blood Cell Count 4.94 10^6/uL (4.70-6.10); Red Cell Dist. Width 13.2 % (11.5-14.5); White Blood Cell Count 8.9 10^3/uL (4.8-10.8)
--- NOTE | 2024-05-22 08:19 | W.PN.HOSP.TC ---
Addendum entered and electronically signed by Naren Naik MD 05/22/24 15:37:
I saw and evaluated the patient. I reviewed the resident�s note and agree with findings and plan as documented in the resident�s note.
Seen earlier today. Late documentation
was at bedside
Patient did not have any symptoms
Chest tube was replaced yesterday by IR
CT scan of the chest noted-results reviewed with patient and at bedside. They were aware about his renal cyst from before-outpatient urology follow-up discussed.
Also discussed about the findings on CT of the chest
Plan for VATS on Saturday by Dr. Mariscal
Continue chest tube with wall suction
Original Note:
Today's Communication/Plan
-
Chest CT today
Cont rest of care as before
For VATS on Saturday with Dr. Mariscal
Assessment / Plan
Assessment / Plan
88yo M who presented with came with chest pain and shortness of breath. Chest x-ray in ED showed left-sided pneumothorax, chest tube placed on 05/05, clamped on 05/06 and removed on 05/07, however pneumothorax reoccured after waterseal, so tube placed
back on 05/11. Tube was upsized on 05/13 with resultant complete resolution of pneumothorax on suction on 05/15. However, pneumothorax recurred while on clamp trial. CTX recommended chemical pleurodesis via chest tube, that is planned for 05/17/24
Chronic conditions prior to admission
COPD
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
Former smoker
Essential hypertension
HLD
BPH
Bullous pemphigoid
# Spontaneous left-sided pneumothorax
CXR 05/14/24 showed no pneumothorax. Chest tube placed to waterseal on 05/15/2020 and clamped in the evening of 05/15/2020
Chest x-ray 05/16 showed recurrence of pneumothorax and chest tube was changed back to suction
-Interventional radiology appreciated-pleurodesis done 05/18. Repeat chest x-ray immediately after chemical pleurodesis showed no pneumothorax.
-Chest x-ray (05/19) did not show pneumothorax, cxr 05/20 showed recurrent small left pneumothorax. 05/21 showed PTX expansion
-Avoid BiPAP-supplemental O2 to keep SpO2>90%- currently on RA
-Appreciate pulmonology-Returned to suction on 05/20- Currently on -10- Okay to disconnect from suctioning for mobility. May go to the bathroom without suction as well.
-CTS consulted-recommended chemical pleurodesis which was done 05/18- Recurrent PTX seen after chemical pleurodesis - Re-consulted CTS- Appreciate Dr. Mariscal-recommend repeating his chest CT scan-will tentatively put him on the OR schedule this coming
Saturday for video-assisted thoracoscopic bleb resection and talc pleurodesis
-Adequate pain management with Tylenol/Tramadol for pain at CT site
# Bullous pemphigoid-in remission
Follows up with Dr. Felicia Rico and at [facility]
Currently not on tacrolimus or steroid ointment
Uses dexamethasone swish and spit-for the mouth
Continue doxycycline 100 mg daily
# Essential hypertension
-continue Amlodipine
# Hyperlipidemia
-continue Atorvastatin
# History of BPH
-continue Finasteride
# DVT prophylaxis
-Lovenox
Full code
Updated at bedside
Anticipated Discharge: > 48 hours
Subjective/Interval History
-
Date of Service: May 22, 2024
Objective Data
-
Labs:
Laboratory Results
05/22/24
07:25
WBC 8.9
Hgb 15.0
Hct 44.0
Plt Count 211
Sodium Pending
Potassium Pending
Chloride Pending
Carbon Dioxide Pending
BUN Pending
Creatinine Pending
Glucose Pending
Calcium Pending
Vital Signs:
Vital Signs
Temp Pulse Resp BP Pulse Ox
98.1 F 73 20 115/69 93
05/21/24 23:03 05/21/24 23:03 05/21/24 23:03 05/21/24 23:03 05/21/24 23:03
I&O
05/21/24 05/22/24 05/23/24
06:59 06:59 06:59
Intake Total 1300 / 1300 240 / 240
Output Total 460 / 460 710 / 710
Balance 840 / 840 -470 / -470
Review of Systems
-
History Source: Patient
All other systems: Reviewed and negative
Constitutional: Reports Other (Pain at site of chest tube)
Physical Exam
-
General: Comfortable
HEENT: Normocephalic
Respiratory: Clear to Auscultation, Other (Saturating well on RA) and Chest Tubes (at anterolateral left chest); Negative Wheezes
Cardiac: Regular Rhythm and S1/S2
GI: Soft, Nontender and Normal Bowel Sounds
Neuro: Awake, Alert, Oriented and AO x 3
Psych: Calm and Anxious
[2024-05-22 08:45] LABS: Blood Urea Nitrogen 20 mg/dl (9-20); Calcium 9.9 mg/dl (8.4-10.2); Carbon Dioxide 25 mmol/L (22-30); Chloride 101 mmol/L (98-107); Estimated Creatinine Clearance 57 ml/min; Glucose 100 mg/dl (70-99); Potassium 4.3 mmol/L (3.5-5.1); Sodium 136 mmol/L (135-145); eGFR > 60.00
[2024-05-22] MEDS: COLACE 100 MG PO ×2 (09:38→20:31)
[2024-05-22] MEDS: DECADRON 0.5 MG PO ×2 (09:39→20:31)
[2024-05-22] MEDS: VITAMIN C 1000 MG PO (09:39)
[2024-05-22] MEDS: NON-FORMULARY ITEM 1 UNIT PO (09:39)
[2024-05-22] MEDS: NORVASC 2.5 MG PO (09:39)
[2024-05-22] MEDS: THERAGRAN 1 TABLET PO (09:40)
[2024-05-22] MEDS: VIBRAMYCIN 100 MG PO (09:40)
[2024-05-22] MEDS: FLUSH (NSS) 1 FLUSH IV (09:40)
[2024-05-22] MEDS: SENOKOT PO ×2 (09:42→20:32)
[2024-05-22 15:15] VITALS: BP 124/75
--- NOTE | 2024-05-22 15:35 | W.PN.PUL3 ---
Today's Communication / Plan
-
Continue chest tube to suction, may disconnect to waterseal for mobility
Daily chest x-ray
For VATS next week with Dr. Mariscal
will follow
Assessment
-
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 He notes he woke up around 3:40AM due to back pain. He sat up and then he thought he slid down in bed.
He may have fallen as he found himself on the floor. He then suddenly had acute anterior chest pain wtih SOB and came to ER. CXR showing acute L sided pneumothorax. Chest tube emergently inserted in ER and he is admitted to floors. He has never
had a ptx before, denies coughing spells prior.
Left spontaneous pneumothorax, fell at home s/p chest tube placement in ER 05/04/24
Chest tube discontinued 05/07
Recurrent PTX 05/08/24 with upsize in tube on 05/13 from 16Fr to 18 Fr
Status post chemical pleurodesis 05/18/2024
Chest pain
Mild leukocytosis - resolved
Hyperglycemia - resolved
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
Data download revealed excellent compliance, AHI of 3.7, average pressure of 21/18 cm
Paraseptal emphysema on CT scan
Pulmonary nodules <4mm/benign
Former smoker, quit smoking at age 46, smoked 1 pack/day from age [age]
Hypertension
Hyperlipidemia
GERD
Osteoarthritis of left knee, history of right knee replacement
Prediabetes
History of past GI bleed on aspirin
B/L Cataracts 2018
Basal cell carcinoma
Bilateral sensorineural hearing loss, has hearing aids
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
History of TIA, not on aspirin due to past GI bleed
BPH, history of elevated PSA, history of bladder stones
DDD/DJD C spine, L spine
Mohs procedure left and right side of head and neck 06/16/18
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
Plan:
-
Respiratory status is stable 05/22/2024
-
Chest tube for pneumothorax after fall 05/04/2024-discontinued 05/07/2024
Recurrent pneumothorax 05/08/2024
Since then unfortunately recurrent pneumothorax/air leak.
Status post chemical pleurodesis (05/18/2024).
Hospitalist consulted thoracic surgery on 05/16 --> recs appreciated
Chest x-ray 05/20/2024: showed new slight left apical pneumothorax. No subcutaneous air. Patient was on waterseal overnight.
Return to suction -20 cm of water morning of 05/20/2024.
Chest x-ray 05/21/2024: Moderate sided pneumothorax.
Chest tube was exchanged. Reexpansion of lung on subsequent chest x-ray 05/21/2024
05/22/2024: No airleak.
-
CT chest 05/22/2024-reviewed showed 5.8 cm loculated thin-walled collection of air on the left hemithorax pulmonary bulla. Residual loculated left pneumothorax less likely. Left chest tube in adequate position. Small left pleural effusion.
Moderate subpleural airspace consolidation suspect atelectasis. Mild paraseptal emphysema in the right lung apex.
-
CT surgery recommendations noted 05/21/2024: Recommending VATS for definitive treatment. Patient does have history of mild paraseptal emphysema in that area on prior CT chest. Case has been discussed.
Unfortunately, Dr. Ham does not have OR time.
Discussed with Dr. Tony Mariscal -for VATS/talc pleurodesis/blebectomy next week.
-
Analgesia-monitor respiratory status closely.
-
From the pulmonary perspective okay to proceed with surgery. Good functional capacity. Minimal emphysema
-
Last saw Dr. Stratton on 12/21/2020 for COPD and FATEMEH on BiPAP and since then has been following with KELSEY Mejia - last seen 09/17/[id number] as an outpatient
May need to reduce PAP pressure in OP settings to avoid PTX recurrence
Last PSG in 2019, weight was 188, he has lost 15 lbs
May be worthwhile also restudying to reduce his pressures or try alternative treatments
Instructed patient not to use BIPAP until seen in office and would move forward with repeat sleep study/titration study

Dr. Stratton reviewed with daughter 05/12/2024 over the phone extensively including pathophysiology of pneumothorax, typical treatment options, if not improved potential upsizing of chest tube for thoracic surgery involvement and realistically it will
take many more days to resolve
Dr. Stratton reviewed with 05/13/24, extensively, including once again the pathophysiology, pneumothorax, treatment options, potential need for increasing chest tube size or possibly even thoracic surgical opinion if pleural tear is not healed
with conservative therapy
Dr. El reviewed with daughter and on 05/14/2024 and again on 05/16-05/17/2024 at bedside and answered all questions.
Dr. Mcdaniel updated daughter and in detail 05/19/2024 and 05/20/2024, 05/21/2024 and 05/22/2024.

Diagnostic Data
CXR 05/05/24- Left-sided chest tube with the tip now positioned over the left lung base. No appreciable pneumothorax. Ovoid lucency projecting over the left lung base may represent a bulla in correlation with the previous chest CT. Low lung volumes.
Subsegmental atelectasis in the left lung base. No large pleural effusion. Stable cardiomediastinal silhouette.
CXR 05/04/24- Placement of left chest tube with significantly decreased large left pneumothorax in comparison to CT earlier in same day.
Chest x-ray follow-up 05/09/2024-typically left chest tube lateral left lung apex and complete resolution of left-sided pneumothorax
Chest x-ray 05/10/2024-resolution of pneumothorax
CT CHEST 05/04/24- Large left tension type pneumothorax. No findings to suggest central pulmonary embolism.
08/13/18- Pulmonary nodule being followed:
-Flat plaque-like nodule, 8 mm, at the base of the left lung of the diaphragm surface at the apex of the diaphragm. (Axial sequence 2 image 48). 2 mm nodule subpleural posterior right lower lobe (sequence 2 image 31), unchanged. No new or growing
pulmonary nodules.
Minor biapical subpleural emphysema spaces. No generalized emphysema. No fibrosis. Airways: No bronchiectasis. Minimum linear atelectasis or scarring in the para spinal medial base of both lower lobes. No change.
ECHO 2016- . Left ventricle: Normal size and function. The estimated ejection fraction is 55-60%.
2. Right ventricle: Normal size and function
3. Atria: Normal
4. Mitral valve: Trace mitral regurgitation
5. Aortic valve: Trace aortic insufficiency. No aortic stenosis
6. Tricuspid valve: Mild tricuspid regurgitation. Estimated pulmonary systolic pressures are 25-30 mmHg
7. There has been no significant change since the most recent echocardiogram from 10/28/14
.
Total time spent today was 43 minutes for this encounter. Time includes reviewing laboratory test/imaging results, reviewing pertinent medical records, obtaining and reviewing medical history, performing an appropriate exam, ordering medications,
tests and procedures. Time also includes documentation of this encounter, coordinating patient care and communicating with other healthcare professionals. Total time does not include separately billed tests performed on this date of service.
Subjective Data
-
Date of Service:
Date of Service: May 22, 2024
Chief Complaint: Pulmonary Follow Up and Dyspnea Follow Up
Subjective:
No new complaint
Review of Systems
Cardiopulmonary: Dyspnea (n), Dyspnea on Exertion and Cough (n)
GI: Abdominal Pain (n)
Objective Data
Data Reviewed
Vital Signs / I&O / Oxygen:
Vital Signs
Temp Pulse Resp BP Pulse Ox
97.7 F 97 18 124/75 95
05/22/24 15:15 05/22/24 15:15 05/22/24 15:15 05/22/24 15:15 05/22/24 15:15
Intake and Output
05/21/24 05/22/24 05/23/24
06:59 06:59 06:59
Intake Total 1300 / 1300 240 / 240
Output Total 460 / 460 710 / 710
Balance 840 / 840 -470 / -470
SaO2 95
Nasal Cannula flow liters per 93
minute
Physical Exam
General: Respiratory Distress (n), Pain (chest tube insertion site) and Other (NAD)
HEENT: Normocephalic, Anicteric and Moist Mucous Membranes
Cardiovascular: S1-S2, Murmur (RONNI heard best at [facility]) and Peripheral Edema (negative)
Respiratory: Wheeze (negative), Crackles (Bibasilar), Rhonchi (negative), Non-Labored Respirations, Stridor (negative) and Chest Tube (no air leak seen during visit)
GI: Soft, Non Distended, Non Tender and Normal Bowel Sounds
Neurology: AO x 3 and Tremors (negative)
Skin: Warm, Dry, Cyanosis (n) and Jaundice (n)
Labs/Micro/Reports
Lab Data
05/22/24 07:25
05/22/24 07:25
--- NOTE | 2024-05-22 16:45 | PTCARENOTE ---
patient reporting feeling swollen in face and hands, requesting IV fluids be decreased. Dr Lovett made aware ad order received to decrease IV fluids to 60 ml/hr, rate decreased at 1630.
[2024-05-22 16:51] VITALS: BP 134/77; PULSE 87; O2SAT 94
--- NOTE | 2024-05-22 17:07 | CM ---
Spoke with pt and and dgt at bedside.
On room air
Continues with Chest tube..
Pulmonary involved.Pt will surgery by Dr Tony Mariscal Saturday.
PLAN Will depend on hospital course of care
[2024-05-22] MEDS: LOVENOX 40 MG SC (18:01)
[2024-05-22] MEDS: PROSCAR 5 MG PO (21:16)
[2024-05-22] MEDS: LIPITOR 10 MG PO (21:16)
[2024-05-22 23:44] VITALS: BP 131/74
[2024-05-23 07:25] VITALS: BP 143/85
[2024-05-23] MEDS: DECADRON 0.5 MG PO ×2 (08:39→20:53)
[2024-05-23] MEDS: NORVASC 2.5 MG PO (08:40)
[2024-05-23] MEDS: NON-FORMULARY ITEM 1 UNIT PO (08:40)
[2024-05-23] MEDS: VIBRAMYCIN 100 MG PO (08:40)
[2024-05-23] MEDS: THERAGRAN 1 TABLET PO (08:40)
[2024-05-23] MEDS: VITAMIN C 1000 MG PO (08:41)
[2024-05-23] MEDS: COLACE PO ×2 (08:56→20:52)
[2024-05-23] MEDS: SENOKOT PO ×2 (08:56→20:52)
[2024-05-23] MEDS: ULTRAM 50 MG PO ×2 (11:18→20:53)
--- NOTE | 2024-05-23 14:47 | W.PN.HOSP.TC ---
Today's Communication/Plan
-
Chest x-ray in the morning
Labs ordered for Saturday
Assessment / Plan
Assessment / Plan
88-year-old with pneumothorax
CVS: S1-S2 normal
Chest: CTA B/L, few rales left base
Abdomen: Soft, NT , Bowel sounds present
Extremities: No edema
# Spontaneous pneumothorax
Status post chest tube placement in the ER
First chest tube placed under water seal 05/05/24 and Clamped 05/06/24 and removed 03/06/25, CT Replaced 03/07/25 for recurrent Pneumothorax
Second chest tube chest tube placed to waterseal 03/09/2025-repeat x-ray with pneumothorax. Placed on wall suction again 03/10/2025, wall suction negative pressure increased on 05/12/2024
Patient continued to have pneumothorax-Chest tube upsized from 16 Fr to 18 Fr on 05/13
CXR 05/14/24 no pneumothorax. Suction reduced and chest tube changed to waterseal on 05/15/2020 and clamped in the evening of 05/15/2020
Chest x-ray 05/16/2024 showed pneumothorax-chest tube changed back to suction
Interventional radiology did pleurodesis on 05/18/2024.
Repeat chest x-ray after the pleurodesis with no pneumothorax. But next day showed Pneumothorax-chest tube changed to wall suction
CT surgery recommended IR check of chest tube to make sure of patency-chest tube was exchanged on 05/21/2024 by IR
Chest tube remains on wall suction
Dr.Ho Mariscal consulted for VATS
VATS planned on Saturday05/26/24
# Bullous pemphigoid-in remission
Follows up with Dr. Felicia Rico and at [place]
Not on tacrolimus or steroid ointment anymore for the skin
Uses dexamethasone swish and spit-for the mouth
Also on doxycycline 100 mg daily
# Hyperlipidemia-continue Atorvastatin
# Hypertension-continue Amlodipine
# Enlarged prostate-continue Finasteride
# [id number] several decades ago
# DVT prophylaxis-Lovenox
# Full code
Discussed with patient's daughter at bedside
Discussed with nursing
Anticipated Discharge: > 48 hours
Subjective/Interval History
-
Date of Service: May 23, 2024
Objective Data
-
Vital Signs:
Vital Signs
Temp Pulse Resp BP Pulse Ox
97.5 F 66 16 143/85 93
05/23/24 07:25 05/23/24 07:25 05/23/24 07:25 05/23/24 07:25 05/23/24 07:25
I&O
05/22/24 05/23/24 05/24/24
06:59 06:59 06:59
Intake Total 240 / 240 720 / 720
Output Total 710 / 710 1350 / 1350
Balance -470 / -470 -630 / -630
[2024-05-23 15:30] VITALS: BP 159/82
--- NOTE | 2024-05-23 17:20 | W.PN.PUL3 ---
Today's Communication / Plan
-
Continue chest tube to suction, may disconnect to waterseal for mobility
Daily chest x-ray
For VATS next week with Dr. Mariscal on 05/26/2024
Pain control
will follow
Assessment
-
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 He notes he woke up around 3:40AM due to back pain. He sat up and then he thought he slid down in bed.
He may have fallen as he found himself on the floor. He then suddenly had acute anterior chest pain wtih SOB and came to ER. CXR showing acute L sided pneumothorax. Chest tube emergently inserted in ER and he is admitted to floors. He has never
had a ptx before, denies coughing spells prior.
Left spontaneous pneumothorax, fell at home s/p chest tube placement in ER 05/04/24
Chest tube discontinued 05/07
Recurrent PTX 05/08/24 with upsize in tube on 05/13 from 16Fr to 18 Fr
Status post chemical pleurodesis 05/18/2024 - unsuccessful
Chest pain
Mild leukocytosis - resolved
Hyperglycemia - resolved
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
Data download revealed excellent compliance, AHI of 3.7, average pressure of 21/18 cm
Paraseptal emphysema on CT scan
Pulmonary nodules <4mm/benign
Former smoker, quit smoking at age 46, smoked 1 pack/day from age [age]
Hypertension
Hyperlipidemia
GERD
Osteoarthritis of left knee, history of right knee replacement
Prediabetes
History of past GI bleed on aspirin
B/L Cataracts 2018
Basal cell carcinoma
Bilateral sensorineural hearing loss, has hearing aids
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
History of TIA, not on aspirin due to past GI bleed
BPH, history of elevated PSA, history of bladder stones
DDD/DJD C spine, L spine
Mohs procedure left and right side of head and neck 06/16/18
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
Plan:
-
Respiratory status is stable 05/22/2024
-
Chest tube for pneumothorax after fall 05/04/2024-discontinued 05/07/2024
Recurrent pneumothorax 05/08/2024
Since then unfortunately recurrent pneumothorax/air leak.
Status post chemical pleurodesis (05/18/2024) --> unsuccessful as pneumothorax recurred on 05/20/2024
Hospitalist consulted thoracic surgery on 05/16 --> recs appreciated
Chest x-ray 05/20/2024: showed new left-sided pneumothorax. No subcutaneous air. Patient was on waterseal overnight.
Returned to suction -20 cm of water morning of 05/20/2024.
Chest x-ray 05/21/2024: Moderate sided pneumothorax.
Chest tube was exchanged on 05/21/2024 by IR, upsizing from a 16 [place] to an 18 [place] Thal-Quick chest tube. Reexpansion of lung on subsequent chest x-ray 05/21/2024
05/22/2024 + 05/23/2024: No airleak.
-
CT chest 05/22/2024-reviewed showed 5.8 cm loculated thin-walled collection of air on the left hemithorax pulmonary bulla. Residual loculated left pneumothorax less likely. Left chest tube in adequate position. Small left pleural effusion.
Moderate subpleural airspace consolidation suspect atelectasis. Mild paraseptal emphysema in the right lung apex.
-
CT surgery recommendations noted 05/21/2024: Recommending VATS for definitive treatment. Patient does have history of mild paraseptal emphysema in that area on prior CT chest. Case has been discussed.
Unfortunately, Dr. Ham does not have OR time.
Discussed with Dr. Tony Mariscal -for VATS/talc pleurodesis/blebectomy next week on 05/26/2024
-
Pain control
-
From the pulmonary perspective okay to proceed with surgery. Good functional capacity. Minimal emphysema
-
Last saw Dr. Stratton on 12/21/2020 for COPD and FATEMEH on BiPAP and since then has been following with KELSEY Mejia - last seen [id number] as an outpatient
May need to reduce PAP pressure in OP settings to avoid PTX recurrence
Last PSG in 2019, weight was 188, he has lost 15 lbs
May be worthwhile also restudying to reduce his pressures or try alternative treatments
Instructed patient not to use BIPAP until seen in office and would move forward with repeat sleep study/titration study

Dr. Stratton reviewed with daughter 05/12/2024 over the phone extensively including pathophysiology of pneumothorax, typical treatment options, if not improved potential upsizing of chest tube for thoracic surgery involvement and realistically it will
take many more days to resolve
Dr. Stratton reviewed with 05/13/24, extensively, including once again the pathophysiology, pneumothorax, treatment options, potential need for increasing chest tube size or possibly even thoracic surgical opinion if pleural tear is not healed
with conservative therapy
Dr. El reviewed with daughter and on 05/14/2024 and again on 05/16-05/17/2024 at bedside and answered all questions.
Dr. Mcdaniel updated daughter and in detail 05/19/2024 and 05/20/2024, 05/21/2024 and 05/22/2024.

Diagnostic Data
CXR 05/05/24- Left-sided chest tube with the tip now positioned over the left lung base. No appreciable pneumothorax. Ovoid lucency projecting over the left lung base may represent a bulla in correlation with the previous chest CT. Low lung volumes.
Subsegmental atelectasis in the left lung base. No large pleural effusion. Stable cardiomediastinal silhouette.
CXR 05/04/24- Placement of left chest tube with significantly decreased large left pneumothorax in comparison to CT earlier in same day.
Chest x-ray follow-up 05/09/2024-typically left chest tube lateral left lung apex and complete resolution of left-sided pneumothorax
Chest x-ray 05/10/2024-resolution of pneumothorax
CT CHEST 05/04/24- Large left tension type pneumothorax. No findings to suggest central pulmonary embolism.
08/13/18- Pulmonary nodule being followed:
-Flat plaque-like nodule, 8 mm, at the base of the left lung of the diaphragm surface at the apex of the diaphragm. (Axial sequence 2 image 48). 2 mm nodule subpleural posterior right lower lobe (sequence 2 image 31), unchanged. No new or growing
pulmonary nodules.
Minor biapical subpleural emphysema spaces. No generalized emphysema. No fibrosis. Airways: No bronchiectasis. Minimum linear atelectasis or scarring in the para spinal medial base of both lower lobes. No change.
ECHO 2016- . Left ventricle: Normal size and function. The estimated ejection fraction is 55-60%.
2. Right ventricle: Normal size and function
3. Atria: Normal
4. Mitral valve: Trace mitral regurgitation
5. Aortic valve: Trace aortic insufficiency. No aortic stenosis
6. Tricuspid valve: Mild tricuspid regurgitation. Estimated pulmonary systolic pressures are 25-30 mmHg
7. There has been no significant change since the most recent echocardiogram from 10/28/14
.
Total time spent today was 38 minutes for this encounter. Time includes reviewing laboratory test/imaging results, reviewing pertinent medical records, obtaining and reviewing medical history, performing an appropriate exam, ordering medications,
tests and procedures. Time also includes documentation of this encounter, coordinating patient care and communicating with other healthcare professionals. Total time does not include separately billed tests performed on this date of service.
Subjective Data
-
Date of Service:
Date of Service: May 23, 2024
Chief Complaint: Pulmonary Follow Up and Dyspnea Follow Up
Subjective:
Patient seen earlier today (late note entry). Patient currently on room air breathing comfortably. Has pain at the left side where the chest tube is located. Chest tube is on -20 cmH2O suction and there is no airleak. He currently denies HERNANDEZ,
SOB, nausea, fevers or chills.
Review of Systems
General: Other (Negative unless mentioned above)
Objective Data
Data Reviewed
Vital Signs / I&O / Oxygen:
Vital Signs
Temp Pulse Resp BP Pulse Ox
97.5 F 66 16 143/85 93
05/23/24 07:25 05/23/24 07:25 05/23/24 07:25 05/23/24 07:25 05/23/24 07:25
Intake and Output
05/22/24 05/23/24 05/24/24
06:59 06:59 06:59
Intake Total 240 / 240 720 / 720
Output Total 710 / 710 1350 / 1350
Balance -470 / -470 -630 / -630
SaO2 93
Nasal Cannula flow liters per 93
minute
Physical Exam
General: Respiratory Distress (n), Pain (chest tube insertion site), Chills (n), Sweats (n) and Other (NAD)
HEENT: Normocephalic, Anicteric and Moist Mucous Membranes
Cardiovascular: S1-S2, Murmur (RONNI heard best at [facility]) and Peripheral Edema (negative)
Respiratory: Wheeze (negative), Crackles (Bibasilar), Rhonchi (negative), Non-Labored Respirations, Stridor (negative) and Chest Tube (On -20 cmH2O suction; no air leak seen)
GI: Soft, Non Distended, Non Tender and Normal Bowel Sounds
Neurology: AO x 3 and Tremors (negative)
Skin: Warm, Dry, Cyanosis (n) and Jaundice (n)
Labs/Micro/Reports
Lab Data
05/22/24 07:25
05/22/24 07:25
[2024-05-23] MEDS: LOVENOX 40 MG SC (17:59)
[2024-05-23] MEDS: LIPITOR 10 MG PO (21:21)
[2024-05-23] MEDS: PROSCAR 5 MG PO (21:21)
[2024-05-23 23:28] VITALS: BP 119/60
[2024-05-24] MEDS: THERAGRAN 1 TABLET PO (08:06)
[2024-05-24] MEDS: COLACE PO (08:06)
[2024-05-24] MEDS: VIBRAMYCIN 100 MG PO (08:06)
[2024-05-24] MEDS: NON-FORMULARY ITEM 1 UNIT PO (08:06)
[2024-05-24] MEDS: NORVASC 2.5 MG PO (08:06)
[2024-05-24] MEDS: DECADRON 0.5 MG PO ×2 (08:06→20:28)
[2024-05-24] MEDS: VITAMIN C 1000 MG PO (08:06)
[2024-05-24] MEDS: SENOKOT PO ×2 (08:07→20:28)
[2024-05-24 08:11] VITALS: BP 145/73
--- NOTE | 2024-05-24 13:24 | W.PN.HOSP.TC ---
Today's Communication/Plan
-
CT to wall suction
VATS saturday
Assessment / Plan
Assessment / Plan
88-year-old with pneumothorax
CVS: S1-S2 normal
Chest: CTA B/L, few rales left base
Abdomen: Soft, NT , Bowel sounds present
Extremities: No edema
Chest x-ray 05/24/2024 reviewed by me-pneumothorax noted
# Spontaneous pneumothorax
Status post chest tube placement in the ER
First chest tube placed under water seal 05/05/24 and Clamped 05/06/24 and removed 03/06/25, CT Replaced 03/07/25 for recurrent Pneumothorax
Second chest tube chest tube placed to waterseal 03/09/2025-repeat x-ray with pneumothorax. Placed on wall suction again 03/10/2025, wall suction negative pressure increased on 05/12/2024
Patient continued to have pneumothorax-Chest tube upsized from 16 Fr to 18 Fr on 05/13
CXR 05/14/24 no pneumothorax. Suction reduced and chest tube changed to waterseal on 05/15/2020 and clamped in the evening of 05/15/2020
Chest x-ray 05/16/2024 showed pneumothorax-chest tube changed back to suction
Interventional radiology did pleurodesis on 05/18/2024.
Repeat chest x-ray after the pleurodesis with no pneumothorax. But next day showed Pneumothorax-chest tube changed to wall suction
CT surgery recommended IR check of chest tube to make sure of patency-chest tube was exchanged on 05/21/2024 by IR
Chest tube remains on wall suction
25% pneumothorax on x-ray on 05/24/2024-wall suction increased to -[address]Ho Mariscal consulted for VATS
VATS planned on Saturday05/26/24
# Bullous pemphigoid-in remission
Follows up with Dr. Felicia Rico and at [place]
Not on tacrolimus or steroid ointment anymore for the skin
Uses dexamethasone swish and spit-for the mouth
Also on doxycycline 100 mg daily
# Hyperlipidemia-continue Atorvastatin
# Hypertension-continue Amlodipine
# Enlarged prostate-continue Finasteride
# [id number] several decades ago
# DVT prophylaxis-Lovenox
# Full code
Discussed with patient's daughter at bedside
Discussed with nursing
Discussed
Anticipated Discharge: > 48 hours
Subjective/Interval History
-
Date of Service: May 24, 2024
Objective Data
-
Vital Signs:
Vital Signs
Temp Pulse Resp BP Pulse Ox
98.1 F 70 18 145/73 95
05/24/24 08:11 05/24/24 08:11 05/24/24 08:11 05/24/24 08:11 05/24/24 08:11
I&O
05/23/24 05/24/24 05/25/24
06:59 06:59 06:59
Intake Total 720 / 720
Output Total 1350 / 1350 907.5 / 907.5
Balance -630 / -630 -907.5 / -907.5
--- NOTE | 2024-05-24 14:30 | W.PN.PUL3 ---
Today's Communication / Plan
-
This morning on 05/24, CXR showed enlargement of left-sided pneumothorax, now moderate size. Negative suction change from -20 cmH2O to -30 cmH2O. CXR repeated later in the afternoon showed stable, unchanged moderate left-sided pneumothorax. I
placed him onto supplemental oxygen at nasal cannula at 4 L/min, in an attempt to resorb his left-sided pneumothorax. Contact pulmonary physician on-call for any sudden chest pain, shoulder pain, back pain, increased leak noticed in airleak
chamber, or hypoxia. In no scenarios, obtain stat CXR.
Keep chest tube at negative suction now at -30 cmH2O
Daily chest x-ray
For VATS with Dr. Mariscal on 05/26/2024
Pain control
Will follow
Assessment
-
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 He notes he woke up around 3:40AM due to back pain. He sat up and then he thought he slid down in bed.
He may have fallen as he found himself on the floor. He then suddenly had acute anterior chest pain wtih SOB and came to ER. CXR showing acute L sided pneumothorax. Chest tube emergently inserted in ER and he is admitted to floors. He has never
had a ptx before, denies coughing spells prior.
Left spontaneous pneumothorax, fell at home s/p chest tube placement in ER 05/04/24
Chest tube discontinued 05/07
Recurrent PTX 05/08/24 with upsize in tube on 05/13 from 16Fr to 18 Fr
Status post chemical pleurodesis 05/18/2024 - unsuccessful
Chest pain
Mild leukocytosis - resolved
Hyperglycemia - resolved
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
Data download revealed excellent compliance, AHI of 3.7, average pressure of 21/18 cm
Paraseptal emphysema on CT scan
Pulmonary nodules <4mm/benign
Former smoker, quit smoking at age 46, smoked 1 pack/day from age [age]
Hypertension
Hyperlipidemia
GERD
Osteoarthritis of left knee, history of right knee replacement
Prediabetes
History of past GI bleed on aspirin
B/L Cataracts 2019
Basal cell carcinoma
Bilateral sensorineural hearing loss, has hearing aids
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
History of TIA, not on aspirin due to past GI bleed
BPH, history of elevated PSA, history of bladder stones
DDD/DJD C spine, L spine
Mohs procedure left and right side of head and neck 06/16/18
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
Plan:
-
Respiratory status is stable 05/22/2024
-
Chest tube for pneumothorax after fall 05/04/2024-discontinued 05/07/2024
Recurrent pneumothorax 05/08/2024
Since then unfortunately recurrent pneumothorax/air leak.
Status post chemical pleurodesis (05/18/2024) --> unsuccessful as pneumothorax recurred on 05/20/2024
Hospitalist consulted thoracic surgery on 05/16 --> recs appreciated
Chest x-ray 05/20/2024: showed new left-sided pneumothorax. No subcutaneous air. Patient was on waterseal overnight.
Returned to suction -20 cm of water morning of 05/20/2024.
Chest x-ray 05/21/2024: Moderate sided pneumothorax.
Chest tube was exchanged on 05/21/2024 by IR, upsizing from a 16 [place] to an 18 [place] Thal-Quick chest tube. Reexpansion of lung on subsequent chest x-ray 05/21/2024
05/22/2024 through 05/24/2024: No airleak.
-
CT chest 05/22/2024-reviewed showed 5.8 cm loculated thin-walled collection of air on the left hemithorax pulmonary bulla. Residual loculated left pneumothorax less likely. Left chest tube in adequate position. Small left pleural effusion.
Moderate subpleural airspace consolidation suspect atelectasis. Mild paraseptal emphysema in the right lung apex.
This morning on 05/24, CXR showed enlargement of left-sided pneumothorax, now moderate size. Negative suction change from -20 cmH2O to -30 cmH2O. CXR repeated later in the afternoon showed stable, unchanged moderate left-sided pneumothorax. I
placed him onto supplemental oxygen at nasal cannula at 4 L/min, in an attempt to resorb his left-sided pneumothorax. Contact pulmonary physician on-call for any sudden chest pain, shoulder pain, back pain, increased leak noticed in airleak
chamber, or hypoxia. In no scenarios, obtain stat CXR.
-
CT surgery recommendations noted 05/21/2024: Recommending VATS for definitive treatment. Patient does have history of mild paraseptal emphysema in that area on prior CT chest. Case has been discussed.
Unfortunately, Dr. Ham does not have OR time.
Discussed with Dr. Tony Mariscal -for VATS/talc pleurodesis/blebectomy next week on 05/26/2024
-
Pain control
-
From the pulmonary perspective okay to proceed with surgery. Good functional capacity. Minimal emphysema
-
Last saw Dr. Stratton on 12/21/2020 for COPD and FATEMEH on BiPAP and since then has been following with KELSEY Mejia - last seen 09/17/[id number] as an outpatient
May need to reduce PAP pressure in OP settings to avoid PTX recurrence
Last PSG in 2019, weight was 188, he has lost 15 lbs
May be worthwhile also restudying to reduce his pressures or try alternative treatments
Instructed patient not to use BIPAP until seen in office and would move forward with repeat sleep study/titration study

Dr. Stratton reviewed with daughter 05/12/2024 over the phone extensively including pathophysiology of pneumothorax, typical treatment options, if not improved potential upsizing of chest tube for thoracic surgery involvement and realistically it will
take many more days to resolve
Dr. Stratton reviewed with 05/13/24, extensively, including once again the pathophysiology, pneumothorax, treatment options, potential need for increasing chest tube size or possibly even thoracic surgical opinion if pleural tear is not healed
with conservative therapy
Dr. El reviewed with daughter and on 05/14/2024 and again on 05/16-05/17/2024 at bedside and answered all questions.
Dr. Mcdaniel updated daughter and in detail 05/19/2024 and 05/20/2024, 05/21/2024 and 05/22/2024.

Diagnostic Data
CXR 05/05/24- Left-sided chest tube with the tip now positioned over the left lung base. No appreciable pneumothorax. Ovoid lucency projecting over the left lung base may represent a bulla in correlation with the previous chest CT. Low lung volumes.
Subsegmental atelectasis in the left lung base. No large pleural effusion. Stable cardiomediastinal silhouette.
CXR 05/04/24- Placement of left chest tube with significantly decreased large left pneumothorax in comparison to CT earlier in same day.
Chest x-ray follow-up 05/09/2024-typically left chest tube lateral left lung apex and complete resolution of left-sided pneumothorax
Chest x-ray 05/10/2024-resolution of pneumothorax
CT CHEST 05/04/24- Large left tension type pneumothorax. No findings to suggest central pulmonary embolism.
08/13/18- Pulmonary nodule being followed:
-Flat plaque-like nodule, 8 mm, at the base of the left lung of the diaphragm surface at the apex of the diaphragm. (Axial sequence 2 image 48). 2 mm nodule subpleural posterior right lower lobe (sequence 2 image 31), unchanged. No new or growing
pulmonary nodules.
Minor biapical subpleural emphysema spaces. No generalized emphysema. No fibrosis. Airways: No bronchiectasis. Minimum linear atelectasis or scarring in the para spinal medial base of both lower lobes. No change.
ECHO 2016- . Left ventricle: Normal size and function. The estimated ejection fraction is 55-60%.
2. Right ventricle: Normal size and function
3. Atria: Normal
4. Mitral valve: Trace mitral regurgitation
5. Aortic valve: Trace aortic insufficiency. No aortic stenosis
6. Tricuspid valve: Mild tricuspid regurgitation. Estimated pulmonary systolic pressures are 25-30 mmHg
7. There has been no significant change since the most recent echocardiogram from 10/28/14
.
Total time spent today was 40 minutes for this encounter. Time includes reviewing laboratory test/imaging results, reviewing pertinent medical records, obtaining and reviewing medical history, performing an appropriate exam, ordering medications,
tests and procedures. Time also includes documentation of this encounter, coordinating patient care and communicating with other healthcare professionals. Total time does not include separately billed tests performed on this date of service.
Subjective Data
-
Date of Service:
Date of Service: May 24, 2024
Chief Complaint: Pulmonary Follow Up and Dyspnea Follow Up
Subjective:
Patient seen and evaluated today at bedside. CXR this morning shows moderate size left pneumothorax. He feels well otherwise. His son-in-law, Didier, and his were both at bedside and all questions were answered. The patient is currently on
room air breathing comfortably. He says he slept well overnight. He denies any chest pain, HERNANDEZ, back pain, shoulder pain, fevers or chills.
Review of Systems
General: Other (Negative unless mentioned above)
Objective Data
Data Reviewed
Vital Signs / I&O / Oxygen:
Vital Signs
Temp Pulse Resp BP Pulse Ox
98.1 F 70 18 145/73 95
05/24/24 08:11 05/24/24 08:11 05/24/24 08:11 05/24/24 08:11 05/24/24 08:11
Intake and Output
05/23/24 05/24/24 05/25/24
06:59 06:59 06:59
Intake Total 720 / 720
Output Total 1350 / 1350 907.5 / 907.5
Balance -630 / -630 -907.5 / -907.5
SaO2 95
Nasal Cannula flow liters per 93
minute
Physical Exam
General: Respiratory Distress (n), Pain (chest tube insertion site), Chills (n), Sweats (n) and Other (NAD)
HEENT: Normocephalic, Anicteric and Moist Mucous Membranes
Cardiovascular: S1-S2, Murmur (RONNI heard best at [facility]) and Peripheral Edema (negative)
Respiratory: Wheeze (negative), Crackles (Bibasilar), Rhonchi (negative), Non-Labored Respirations, Stridor (negative), Chest Tube (On -20 cmH2O suction; no air leak seen) and Other (Diminished breath sounds bilaterally)
GI: Soft, Non Distended, Non Tender and Normal Bowel Sounds
Neurology: AO x 3 and Tremors (negative)
Skin: Warm, Dry, Cyanosis (n) and Jaundice (n)
Labs/Micro/Reports
Lab Data
05/22/24 07:25
05/22/24 07:25
[2024-05-24 16:06] VITALS: BP 146/83
[2024-05-24] MEDS: LOVENOX 40 MG SC (17:15)
[2024-05-24] MEDS: COLACE 100 MG PO (20:29)
[2024-05-24] MEDS: PROSCAR 5 MG PO (21:55)
[2024-05-24] MEDS: LIPITOR 10 MG PO (21:55)
--- NOTE | 2024-05-24 22:48 | PTCARENOTE ---
Helping the pt back to bed after using the urinal. Notice that the tube looks longer behind the dressing. Assess pt's dressing, found the tip of the chest tube out. Pt appears stable, denies SOB, or chest pain, SpO2=97% on 4L NC. [facility] called and DIRECTOR OF PRODUCT MARKETING
made aware. [facility] asks for a stat XRay. A portable XRay obtained. Will keep pt on close monitoring pending XRay results.
[2024-05-24 23:20] VITALS: BP 124/64
[2024-05-24 23:43] VITALS: BP 146/83; BP_SYST 79
[2024-05-25] VITALS (11 sets, daily range): BP systolic 76–163; BP diastolic 62–89
--- NOTE | 2024-05-25 00:28 | W.PN.IRAD.PR ---
Procedure Note
-
Left chest tube dislodged. New 16Fr left chest tube was placed under fluoroscopic guidance. No immediate complications.
--- NOTE | 2024-05-25 01:12 | W.PN.UPDATE ---
Update Note
Progress Note Update
Reported by nursing at 22[address] about patient found with CT out. DSD with adaptic placed over site. PCXR done and reviewed by IR. Decision made by them to replace CT tonight. Returned to his room at 0100 with some nausea. Lukas ordered.
--- NOTE | 2024-05-25 02:13 | PTCARENOTE ---
Pt taken to IR for chest tube placement around 2320. Pt returned to the floor at 0100. Chest tube 16F placed with 100cc of straw color fluid, suction to -20cm of water. Pt is alert oriented X3, feels some nausea. Pt pulled over to his bed. Chest
tube connected to suction. VSS (T=97.8, HR=76, RR=18, NL=451/89, SpO2=96% on 4L NC). Pt resting comfortably in his bed. Will continue to monitor.
[2024-05-25] MEDS: TYLENOL 650 MG PO (02:51)
[2024-05-25] MEDS: ULTRAM 50 MG PO ×3 (04:31→21:05)
[2024-05-25] MEDS: VIBRAMYCIN 100 MG PO (08:28)
[2024-05-25] MEDS: VITAMIN C 1000 MG PO (08:28)
[2024-05-25] MEDS: DECADRON 0.5 MG PO ×2 (08:30→20:06)
[2024-05-25] MEDS: SENOKOT PO (08:30)
[2024-05-25] MEDS: NORVASC 2.5 MG PO (08:30)
[2024-05-25] MEDS: THERAGRAN 1 TABLET PO (08:30)
[2024-05-25] MEDS: NON-FORMULARY ITEM 1 UNIT PO (08:36)
[2024-05-25] MEDS: COLACE 100 MG PO ×2 (08:36→20:06)
[2024-05-25] MEDS: FLUSH (NSS) 1 FLUSH IV (08:37)
[2024-05-25 08:47] LABS: Hematocrit 41.1 % (39.0-52.0); Hemoglobin 14.1 g/dL (13.0-18.0); Mean Corp Hgb Conc. 34.3 g/dL (33.0-37.0); Mean Corpuscular Hgb 30.9 pg (27.0-31.0); Mean Corpuscular Volume 89.9 fL (80.0-94.0); Mean Platelet Volume 9.5 fL (7.4-10.4); Platelet Count 189 10^3/uL (130-400); Red Blood Cell Count 4.57 10^6/uL (4.70-6.10); Red Cell Dist. Width 12.8 % (11.5-14.5); White Blood Cell Count 9.8 10^3/uL (4.8-10.8)
--- NOTE | 2024-05-25 09:03 | W.PN.HOSP.TC ---
Today's Communication/Plan
-
Pain control for chest tube
Leave chest tube to suction
For VATS surgery tomorrow with Dr. Mariscal
Wean O2 as able
Assessment / Plan
Assessment / Plan
88yo M who presented with came with chest pain and shortness of breath. Chest x-ray in ED showed left-sided pneumothorax, chest tube placed on 05/05, clamped on 05/06 and removed on 05/07, however pneumothorax reoccured after waterseal, so tube placed
back on 05/11. Tube was upsized on 05/13 with resultant complete resolution of pneumothorax on suction on 05/15. However, pneumothorax recurred while on clamp trial. CTX recommended chemical pleurodesis via chest tube, that is planned for 05/17/24
Chronic conditions prior to admission
COPD
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
Former smoker
Essential hypertension
HLD
BPH
Bullous pemphigoid
# Spontaneous left-sided pneumothorax
CXR 05/14/24 showed no pneumothorax. Chest tube placed to waterseal on 05/15/2020 and clamped in the evening of 05/15/2020
Chest x-ray 05/16 showed recurrence of pneumothorax and chest tube was changed back to suction
-Interventional radiology appreciated-pleurodesis done 05/18. Repeat chest x-ray immediately after chemical pleurodesis showed no pneumothorax.
-Chest x-ray (05/19) did not show pneumothorax, cxr 05/20 showed recurrent small left pneumothorax. 05/21 showed PTX expansion
-Appreciate pulmonology-Returned to suction on 05/20
-Chest tube was dislodged on the night of 05/24-IR was called and patient immediately went for new chest tube placement
-Chest x-ray 05/25: No visible pneumothorax.
-Currently on - suction- Okay to disconnect from suctioning for mobility. May go to the bathroom without suction as well.
-CTS consulted-recommended chemical pleurodesis which was done 05/18- Recurrent PTX seen after chemical pleurodesis - Reconsulted CTS- Appreciate Dr. Mariscal-will tentatively put him on the OR schedule this coming Saturday for video-assisted thoracoscopic
bleb resection and talc pleurodesis
-Adequate pain management with Tylenol/Tramadol for pain at CT site
-Avoid BiPAP-supplemental O2 to keep SpO2>90%- currently on 4L O2
-CT obtained on 05/[address] Mariscal request
# Bullous pemphigoid-in remission
Follows up with Dr. Felicia Rico and at [facility]
Currently not on tacrolimus or steroid ointment
Uses dexamethasone swish and spit-for the mouth
Continue doxycycline 100 mg daily
# Essential hypertension
-continue Amlodipine
# Hyperlipidemia
-continue Atorvastatin
# History of BPH
-continue Finasteride
# DVT prophylaxis
-Lovenox
Full code
Anticipated Discharge: > 48 hours
Subjective/Interval History
-
Date of Service: May 25, 2024
Patient does not offer any complaints.
Objective Data
-
Labs:
Laboratory Results
05/25/24
07:19
WBC 9.8
Hgb 14.1
Hct 41.1
Plt Count 189
Sodium Pending
Potassium Pending
Chloride Pending
Carbon Dioxide Pending
BUN Pending
Creatinine Pending
Glucose Pending
Calcium Pending
Vital Signs:
Vital Signs
Temp Pulse Resp BP Pulse Ox
97.6 F 65 18 136/78 98
05/25/24 07:31 05/25/24 07:31 05/25/24 07:31 05/25/24 07:31 05/25/24 07:31
I&O
05/24/24 05/25/24 05/26/24
06:59 06:59 06:59
Intake Total 880 / 880
Output Total 912.5 / 912.5 1355 / 1355
Balance -912.5 / -912.5 -475 / -475
Review of Systems
-
History Source: Patient
All other systems: Reviewed and negative
Physical Exam
-
General: Comfortable
HEENT: Normocephalic
Respiratory: Clear to Auscultation, Other (Saturating well on 4 L O2) and Chest Tubes (at anterolateral left chest, new chest tube placed a bit lower than previous chest tube); Negative Wheezes
Cardiac: Regular Rhythm and S1/S2
GI: Soft, Nontender and Normal Bowel Sounds
Neuro: Awake, Alert, Oriented and AO x 3
Psych: Calm and Anxious
[2024-05-25 09:26] LABS: Blood Urea Nitrogen 22 mg/dl (9-20); Calcium 9.5 mg/dl (8.4-10.2); Carbon Dioxide 26 mmol/L (22-30); Chloride 103 mmol/L (98-107); Estimated Creatinine Clearance 57 ml/min; Glucose 104 mg/dl (70-99); Potassium 4.7 mmol/L (3.5-5.1); Sodium 136 mmol/L (135-145); eGFR > 60.00
--- NOTE | 2024-05-25 11:06 | W.PN.PUL3 ---
Today's Communication / Plan
-
Remains on suction, no air leak--repeat CXR post reinsertion improved but small persistent ptx noted
Plan for OR tomorrow by Dr Mariscal
We discussed expectations with postop course
Will follow post surgery
All questions answered today
Assessment
-
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 He notes he woke up around 3:40AM due to back pain. He sat up and then he thought he slid down in bed.
He may have fallen as he found himself on the floor. He then suddenly had acute anterior chest pain wtih SOB and came to ER. CXR showing acute L sided pneumothorax. Chest tube emergently inserted in ER and he is admitted to floors. He has never
had a ptx before, denies coughing spells prior. We are consulted for evaluation.
Left spontaneous pneumothorax, fell at home s/p chest tube placement in ER 05/04/24
Chest tube discontinued 05/07, reinserted 05/08/24
Recurrent PTX s/p upsize in tube on 05/13 from 16Fr to 18 Fr
Status post chemical pleurodesis 05/18/2024 - unsuccessful
Chest pain
Mild leukocytosis - resolved
Hyperglycemia - resolved
Conditions present [employer] OFF[employer]ER:
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
Data download revealed excellent compliance, AHI of 3.7, average pressure of 21/18 cm
Paraseptal emphysema on CT scan
Pulmonary nodules <4mm/benign
Former smoker, quit smoking at age 46, smoked 1 pack/day from age [age]
Hypertension
Hyperlipidemia
GERD
Osteoarthritis of left knee, history of right knee replacement
Prediabetes
History of past GI bleed on aspirin
B/L Cataracts 2018
Basal cell carcinoma
Bilateral sensorineural hearing loss, has hearing aids
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
History of TIA, not on aspirin due to past GI bleed
BPH, history of elevated PSA, history of bladder stones
DDD/DJD C spine, L spine
Mohs procedure left and right side of head and neck 06/16/18
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
Plan:
Respiratory status is stable 05/22/2024
Has remained on RA, no hypoxemia noted
Placed on 4L for Ptx reasons, not hypoxemia
Pain control, PO PRN treatment
Chest tube for pneumothorax after fall 05/04/2024-discontinued 05/07/2024
Recurrent pneumothorax 05/08/2024
Since then unfortunately recurrent pneumothorax/air leak.
Status post chemical pleurodesis (05/18/2024) --> unsuccessful as pneumothorax recurred on 05/20/2024
Hospitalist consulted thoracic surgery on 05/16 --> recs appreciated
Chest x-ray 05/20/2024: showed new left-sided pneumothorax. No subcutaneous air. Patient was on waterseal overnight.
Returned to suction -20 cm of water morning of 05/20/2024.
Chest x-ray 05/21/2024: Moderate sided pneumothorax.
Chest tube was exchanged on 05/21/2024 by IR, upsizing from a 16 Guatemalan to an 18 Guatemalan Thal-Quick chest tube. Reexpansion of lung on subsequent chest x-ray 05/21/2024
05/22/2024 through 05/24/2024: No airleak.
CT chest 05/22/2024-reviewed showed 5.8 cm loculated thin-walled collection of air on the left hemithorax pulmonary bulla. Residual loculated left pneumothorax less likely. Left chest tube in adequate position. Small left pleural effusion.
Moderate subpleural airspace consolidation suspect atelectasis. Mild paraseptal emphysema in the right lung apex.
05/24 CXR showed enlargement of left-sided pneumothorax, now moderate size. Negative suction change from -20 cmH2O to -30 cmH2O. CXR repeated later in the afternoon showed stable, unchanged moderate left-sided pneumothorax.
Chest tube dislodged and reinserted by IR 05/25
Repeat CXR improved but has small persistent PTX (could be entrapped now)
CT surgery recommendations noted 05/21/2024: Recommending VATS for definitive treatment.
Patient does have history of mild paraseptal emphysema in that area on prior CT chest. Case has been discussed.
Unfortunately, Dr. Ham does not have OR time.
Discussed with Dr. Tony Mariscal -for VATS/talc pleurodesis/blebectomy next week on 05/26/2024
From the pulmonary perspective okay to proceed with surgery. Good functional capacity. Minimal emphysema
Last saw Dr. Stratton on 12/21/2020 for COPD and FATEMEH on BiPAP and since then has been following with KELSEY Mejia - last seen [id number] as an outpatient
May need to reduce PAP pressure in OP settings to avoid PTX recurrence
Last PSG in 2019, weight was 188, he has lost 15 lbs
May be worthwhile also restudying to reduce his pressures or try alternative treatments
Instructed patient not to use BIPAP until seen in office and would move forward with repeat sleep study/titration study

Family Discussions
Dr. Stratton reviewed with daughter 05/12/2024 over the phone extensively including pathophysiology of pneumothorax, typical treatment options, if not improved potential upsizing of chest tube for thoracic surgery involvement and realistically it will
take many more days to resolve
Dr. Stratton reviewed with 05/13/24, extensively, including once again the pathophysiology, pneumothorax, treatment options, potential need for increasing chest tube size or possibly even thoracic surgical opinion if pleural tear is not healed
with conservative therapy
Dr. El reviewed with daughter and on 05/14/2024 and again on 05/16-05/17/2024 at bedside and answered all questions.
Dr. Mcdaniel updated daughter and in detail 05/19/2024 and 05/20/2024, 05/21/2024 and 05/22/2024.

Diagnostic Data
CXR 05/05/24- Left-sided chest tube with the tip now positioned over the left lung base. No appreciable pneumothorax. Ovoid lucency projecting over the left lung base may represent a bulla in correlation with the previous chest CT. Low lung volumes.
Subsegmental atelectasis in the left lung base. No large pleural effusion. Stable cardiomediastinal silhouette.
CXR 05/04/24- Placement of left chest tube with significantly decreased large left pneumothorax in comparison to CT earlier in same day.
Chest x-ray follow-up 05/09/2024-typically left chest tube lateral left lung apex and complete resolution of left-sided pneumothorax
Chest x-ray 05/10/2024-resolution of pneumothorax
CT CHEST 05/04/24- Large left tension type pneumothorax. No findings to suggest central pulmonary embolism.
08/13/18- Pulmonary nodule being followed:
-Flat plaque-like nodule, 8 mm, at the base of the left lung of the diaphragm surface at the apex of the diaphragm. (Axial sequence 2 image 48). 2 mm nodule subpleural posterior right lower lobe (sequence 2 image 31), unchanged. No new or growing
pulmonary nodules.
Minor biapical subpleural emphysema spaces. No generalized emphysema. No fibrosis. Airways: No bronchiectasis. Minimum linear atelectasis or scarring in the para spinal medial base of both lower lobes. No change.
ECHO 2015- . Left ventricle: Normal size and function. The estimated ejection fraction is 55-60%.
2. Right ventricle: Normal size and function
3. Atria: Normal
4. Mitral valve: Trace mitral regurgitation
5. Aortic valve: Trace aortic insufficiency. No aortic stenosis
6. Tricuspid valve: Mild tricuspid regurgitation. Estimated pulmonary systolic pressures are 25-30 mmHg
7. There has been no significant change since the most recent echocardiogram from 10/28/14
.
Total time spent today was 50 minutes for this encounter. Time includes reviewing laboratory test/imaging results, reviewing pertinent medical records, obtaining and reviewing medical history, performing an appropriate exam, ordering medications,
tests and procedures. Time also includes documentation of this encounter, coordinating patient care and communicating with other healthcare professionals. Total time does not include separately billed tests performed on this date of service.
Subjective Data
-
Date of Service:
Date of Service: May 25, 2024
Chief Complaint: Pulmonary Follow Up
Subjective:
Events ON noted, chest tube reinserted
Remains on O2 but not for hypoxemia
Pain noted at chest tube insertion site, but no other noted
No SOB
at bedside, frustrated that she was not notified of events
Objective Data
Data Reviewed
Vital Signs / I&O / Oxygen:
Vital Signs
Temp Pulse Resp BP Pulse Ox
97.6 F 65 18 136/78 98
05/25/24 07:31 05/25/24 07:31 05/25/24 07:31 05/25/24 07:31 05/25/24 07:31
Intake and Output
05/24/24 05/25/24 05/26/24
06:59 06:59 06:59
Intake Total 880 / 880
Output Total 912.5 / 912.5 1355 / 1355
Balance -912.5 / -912.5 -475 / -475
SaO2 98
Nasal Cannula flow liters per 4
minute
Physical Exam
General: Respiratory Distress (n), Pain (chest tube insertion site), Chills (n), Sweats (n) and Other (NAD)
HEENT: Normocephalic, Anicteric and Moist Mucous Membranes
Cardiovascular: S1-S2, Regular Rhythm, Murmur (RONNI heard best at RUSB) and Peripheral Edema (negative)
Respiratory: Wheeze (negative), Crackles (Bibasilar), Rhonchi (negative), Non-Labored Respirations, Stridor (negative), Chest Tube (On -20 cmH2O suction; no air leak seen) and Other (Diminished breath sounds bilaterally)
GI: Soft, Non Distended, Non Tender and Normal Bowel Sounds
Neurology: AO x 3 and Tremors (negative)
Skin: Warm, Dry, Cyanosis (n) and Jaundice (n)
Labs/Micro/Reports
Lab Data
05/25/24 07:19
05/25/24 07:19
--- NOTE | 2024-05-25 11:15 | PN.CDI ---
CDI
- -
CDI:
Physician Documentation Request
Admit Date: 05/04/24 09:46
Dear Doctor Jeanna,
Patient admitted for management of spontaneous pneumothorax.
patient noted to have increase oxygen use on 6 Liters
05/18 Nursing note states ' Pt on Mora Mask at 6 Liters'
05/20 physical exam states 'Saturating well on 6lit O2'
Please clarify which of the following accurately represents the patient's respiratory status
Acute respiratory failure (please specify type)
Hypoxia
Other
Additional information for Respiratory Failure:
Recognized criteria for Respiratory Failure (Source: [facility] Hospitalist Jan 2013)
ABGs: (1 or more) Symptoms Please indicate type if known
1. p)2 <60 or RA SPO2 <91% on RA 1. Tachypnea, SOB, dyspnea Hypoxic
2. pCO2 50 and pH <7.35 2. Use of accessory muscles Hypercapnic
3. pO2 decrease of pCO2 increase by 3. Pallor or cyanosis Hypoxic and Hypercapnic
10 mmHg from baseline if known 4. Anxiety or restlessness Unable to determine
5. Unable to speak in full sentences
Supplemental O2 of > 40% (5LPM) Intubation is not required
Use of terms such as suspected, likely, concern for, or probable (associated with a specific diagnosis that is being evaluated, monitored, or treated as if it exists) are acceptable and can be coded in the inpatient setting, when documented at the
time of discharge.
Thank you,
Dorota Golden RN BSN
CDI Specialist
tiger text
Please use your independent medical judgment in providing your response.
--- NOTE | 2024-05-25 13:11 | W.PN.UPDATE ---
Update Note
Progress Note Update
I saw and evaluated the patient. I reviewed the resident�s note and agree with findings and plan as documented in the resident�s note.
No new complaints.
Gen: NAD, AAOx3.
Eyes: EOMI, PERRLA, no scleral icterus.
Neck: supple.
CV: RRR, +S1/S2, no m/r/g.
Resp: CTAB, no rales, wheezes, or rhonchi.
Skin: No rashes.
Neuro: CN 2-12 intact, non-focal.
Psych: Normal mood and affect.
CXR 05/25/24: Interval placement of a left-sided chest tube with tip projecting over the lateral left upper lung. Resolution of the previously seen left-sided pneumothorax. Unchanged left basilar atelectasis.
Acute hypoxic respiratory failure due to spontaneous L PTX:
-s/p chest tube placement in the ER
-First chest tube placed under water seal 05/05/24 and Clamped 05/06/24 and removed 05/07/24, CT Replaced 05/08/24 for recurrent Pneumothorax
-Second chest tube placed to water seal 05/10/24, repeat CXR with PTX. Placed on wall suction again 05/11/2024, wall suction negative pressure increased on 05/12/24
-Chest tube upsized from 16 Fr to 18 Fr on 05/13/24
-CXR 05/14/24 no pneumothorax. Suction reduced and chest tube changed to water seal on 05/15/2020 and clamped in the evening of 05/15/2020
-CXR 05/16/24 showed PTX and chest tube placed back to suction
-IR did pleurodesis on 05/18/24.
-repeat CXR after the pleurodesis without PTX, but next day CXR with PTX and chest tube changed to wall suction
-CT surgery recommended IR check of chest tube to make sure of patency. Chest tube was exchanged on 05/21/2024 by IR.
-05/24/24 CXR with 25% PTX and wall suction increased to -30cm water
-evening of 05/25/24 chest tube fell out, replaced by IR
-Dr. Tony Mariscal consulted for VATS which is planned for 05/26/24
Other problems:
Bullous pemphigoid: in remission, cont dexamethasone swish/spit and doxy
Hyperlipidemia: cont statin
Essential HTN: continue Amlodipine
BPH: continue Finasteride
Family updated extensively at bedside.
FULL/Lovenox
Total time spent on today's encounter was 50 minutes which included time spent in counseling the patient/family regarding diagnosis and treatment plan as listed above, goals of care, and symptom management. Case was discussed with nursing staff,
specialists, and care coordinators/case management. All labs and imaging personally reviewed by me. Remainder the time spent in detailed review of previous records, lab data, imaging, and other medical provider documentation.
--- NOTE | 2024-05-25 17:39 | CM ---
Pt for VATS surgery by DR Tony Mariscal tomorrow.
Will be transferred postop .
PLAN for dc has been home no needs .
Will need PT OT ordered postop for dc planning .
PLAN Will depend on hospital course of care.
[2024-05-25] MEDS: LOVENOX 40 MG SC (19:29)
[2024-05-25] MEDS: SENOKOT 8.6 MG PO (20:06)
[2024-05-25] MEDS: LIPITOR 10 MG PO (21:00)
[2024-05-25] MEDS: PROSCAR 5 MG PO (21:01)
[2024-05-26] VITALS (12 sets, daily range): BP systolic 123–146; BP diastolic 68–84
[2024-05-26 06:17] LABS: Hemoglobin 14.3 g/dL (13.0-18.0); Mean Corpuscular Hgb 30.6 pg (27.0-31.0); Mean Corpuscular Volume 89.9 fL (80.0-94.0); Mean Platelet Volume 9.7 fL (7.4-10.4); Platelet Count 173 10^3/uL (130-400); Red Blood Cell Count 4.67 10^6/uL (4.70-6.10); Red Cell Dist. Width 12.8 % (11.5-14.5); White Blood Cell Count 7.9 10^3/uL (4.8-10.8)
[2024-05-26 06:35] LABS: Blood Urea Nitrogen 24 mg/dl (9-20); Calcium 9.5 mg/dl (8.4-10.2); Carbon Dioxide 28 mmol/L (22-30); Chloride 102 mmol/L (98-107); Estimated Creatinine Clearance 65 ml/min; Glucose 107 mg/dl (70-99); Potassium 4.2 mmol/L (3.5-5.1); Sodium 136 mmol/L (135-145); eGFR > 60.00
[2024-05-26] MEDS: COLACE PO ×2 (08:40→21:42)
[2024-05-26] MEDS: DECADRON 0.5 MG PO ×2 (08:41→21:42)
[2024-05-26] MEDS: NORVASC 2.5 MG PO (08:41)
[2024-05-26] MEDS: VIBRAMYCIN 100 MG PO (08:42)
[2024-05-26] MEDS: THERAGRAN PO (08:42)
[2024-05-26] MEDS: VITAMIN C PO (08:42)
[2024-05-26] MEDS: SENOKOT PO ×2 (08:42→21:42)
[2024-05-26] MEDS: NON-FORMULARY ITEM PO (08:42)
--- NOTE | 2024-05-26 10:29 | W.PN.PUL3 ---
Today's Communication / Plan
-
NPO now, for OR today for VATS/pleurodesis by Dr Mariscal
Likely to need transfer to ICU vs 2S pending OR course
Family at bedside, reviewed all questions
Will follow postop
Assessment
-
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 He notes he woke up around 3:40AM due to back pain. He sat up and then he thought he slid down in bed.
He may have fallen as he found himself on the floor. He then suddenly had acute anterior chest pain wtih SOB and came to ER. CXR showing acute L sided pneumothorax. Chest tube emergently inserted in ER and he is admitted to floors. He has never
had a ptx before, denies coughing spells prior. We are consulted for evaluation.
Left spontaneous pneumothorax, fell at home s/p chest tube placement in ER 05/04/24
Chest tube discontinued 05/07, reinserted 05/08/24
Recurrent PTX s/p upsize in tube on 05/13 from 16Fr to 18 Fr
Status post chemical pleurodesis 05/18/2024 - unsuccessful
Chest pain
Mild leukocytosis - resolved
Hyperglycemia - resolved
Conditions present [employer]:
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
Data download revealed excellent compliance, AHI of 3.7, average pressure of 21/18 cm
Paraseptal emphysema on CT scan
Pulmonary nodules <4mm/benign
Former smoker, quit smoking at age 46, smoked 1 pack/day from age [age]
Hypertension
Hyperlipidemia
GERD
Osteoarthritis of left knee, history of right knee replacement
Prediabetes
History of past GI bleed on aspirin
B/L Cataracts 2018
Basal cell carcinoma
Bilateral sensorineural hearing loss, has hearing aids
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
History of TIA, not on aspirin due to past GI bleed
BPH, history of elevated PSA, history of bladder stones
DDD/DJD C spine, L spine
Mohs procedure left and right side of head and neck 06/16/18
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
Plan:
Respiratory status is stable 05/22/2024
Has remained on RA, no hypoxemia noted
Placed on 4L for Ptx reasons, not hypoxemia
Pain control, PO PRN treatment
Chest tube for pneumothorax after fall 05/04/2024-discontinued 05/07/2024
Recurrent pneumothorax 05/08/2024
Since then unfortunately recurrent pneumothorax/air leak.
Status post chemical pleurodesis (05/18/2024) --> unsuccessful as pneumothorax recurred on 05/20/2024
Hospitalist consulted thoracic surgery on 05/16 --> recs appreciated
Chest x-ray 05/20/2024: showed new left-sided pneumothorax. No subcutaneous air. Patient was on waterseal overnight.
Returned to suction -20 cm of water morning of 05/20/2024.
Chest x-ray 05/21/2024: Moderate sided pneumothorax.
Chest tube was exchanged on 05/21/2024 by IR, upsizing from a 16 [place] to an 18 [place] Arabian Thal-Quick chest tube. Reexpansion of lung on subsequent chest x-ray 05/21/2024
05/22/2024 through 05/24/2024: No airleak.
CT chest 05/22/2024-reviewed showed 5.8 cm loculated thin-walled collection of air on the left hemithorax pulmonary bulla. Residual loculated left pneumothorax less likely. Left chest tube in adequate position. Small left pleural effusion.
Moderate subpleural airspace consolidation suspect atelectasis. Mild paraseptal emphysema in the right lung apex.
05/24 CXR showed enlargement of left-sided pneumothorax, now moderate size. Negative suction change from -20 cmH2O to -30 cmH2O. CXR repeated later in the afternoon showed stable, unchanged moderate left-sided pneumothorax.
Chest tube dislodged and reinserted by IR 05/25
Repeat CXR improved but has small persistent PTX (could be entrapped now)
CT surgery recommendations noted 05/21/2024: Recommending VATS for definitive treatment.
Patient does have history of mild paraseptal emphysema in that area on prior CT chest. Case has been discussed.
Unfortunately, Dr. Ham does not have OR time.
Discussed with Dr. Tony Mariscal -for VATS/talc pleurodesis/blebectomy on 05/26/2024
From the pulmonary perspective okay to proceed with surgery. Good functional capacity. Minimal emphysema
Last saw Dr. Stratton on 12/21/2020 for COPD and FATEMEH on BiPAP and since then has been following with KELSEY Mejia - last seen 09/17/[id number] as an outpatient
May need to reduce PAP pressure in OP settings to avoid PTX recurrence
Last PSG in 2019, weight was 188, he has lost 15 lbs
May be worthwhile also restudying to reduce his pressures or try alternative treatments
Instructed patient not to use BIPAP until seen in office and would move forward with repeat sleep study/titration study

Family Discussions
Dr. Stratton reviewed with daughter 05/12/2024 over the phone extensively including pathophysiology of pneumothorax, typical treatment options, if not improved potential upsizing of chest tube for thoracic surgery involvement and realistically it will
take many more days to resolve
Dr. Stratton reviewed with 05/13/24, extensively, including once again the pathophysiology, pneumothorax, treatment options, potential need for increasing chest tube size or possibly even thoracic surgical opinion if pleural tear is not healed
with conservative therapy
Dr. El reviewed with daughter and on 05/14/2024 and again on 05/16-05/17/2024 at bedside and answered all questions.
Dr. Mcdaniel updated daughter and in detail 05/19/2024 and 05/20/2024, 05/21/2024 and 05/22/2024.

Diagnostic Data
CXR 05/05/24- Left-sided chest tube with the tip now positioned over the left lung base. No appreciable pneumothorax. Ovoid lucency projecting over the left lung base may represent a bulla in correlation with the previous chest CT. Low lung volumes.
Subsegmental atelectasis in the left lung base. No large pleural effusion. Stable cardiomediastinal silhouette.
CXR 05/04/24- Placement of left chest tube with significantly decreased large left pneumothorax in comparison to CT earlier in same day.
Chest x-ray follow-up 05/09/2024-typically left chest tube lateral left lung apex and complete resolution of left-sided pneumothorax
Chest x-ray 05/10/2024-resolution of pneumothorax
CT CHEST 05/04/24- Large left tension type pneumothorax. No findings to suggest central pulmonary embolism.
08/13/18- Pulmonary nodule being followed:
-Flat plaque-like nodule, 8 mm, at the base of the left lung of the diaphragm surface at the apex of the diaphragm. (Axial sequence 2 image 48). 2 mm nodule subpleural posterior right lower lobe (sequence 2 image 31), unchanged. No new or growing
pulmonary nodules.
Minor biapical subpleural emphysema spaces. No generalized emphysema. No fibrosis. Airways: No bronchiectasis. Minimum linear atelectasis or scarring in the para spinal medial base of both lower lobes. No change.
ECHO 2015- . Left ventricle: Normal size and function. The estimated ejection fraction is 55-60%.
2. Right ventricle: Normal size and function
3. Atria: Normal
4. Mitral valve: Trace mitral regurgitation
5. Aortic valve: Trace aortic insufficiency. No aortic stenosis
6. Tricuspid valve: Mild tricuspid regurgitation. Estimated pulmonary systolic pressures are 25-30 mmHg
7. There has been no significant change since the most recent echocardiogram from 10/28/14
.
Total time spent today was 35 minutes for this encounter. Time includes reviewing laboratory test/imaging results, reviewing pertinent medical records, obtaining and reviewing medical history, performing an appropriate exam, ordering medications,
tests and procedures. Time also includes documentation of this encounter, coordinating patient care and communicating with other healthcare professionals. Total time does not include separately billed tests performed on this date of service.
Subjective Data
-
Date of Service:
Date of Service: May 26, 2024
Chief Complaint: Pulmonary Follow Up
Subjective:
No new complaints, events ON
Sleeping, family at bedside
NPO, for OR today
Objective Data
Data Reviewed
Vital Signs / I&O / Oxygen:
Vital Signs
Temp Pulse Resp BP Pulse Ox
97.7 F 68 18 132/81 99
05/26/24 07:55 05/26/24 08:41 05/26/24 07:55 05/26/24 08:41 05/26/24 08:25
Intake and Output
05/25/24 05/26/24 05/27/24
06:59 06:59 06:59
Intake Total 880 / 880 840 / 840
Output Total 1355 / 1355 955 / 955
Balance -475 / -475 -115 / -115
SaO2 99
Nasal Cannula flow liters per 4
minute
Physical Exam
General: Respiratory Distress (n), Pain (chest tube insertion site), Chills (n), Sweats (n) and Other (NAD)
HEENT: Normocephalic, Anicteric and Moist Mucous Membranes
Cardiovascular: S1-S2, Regular Rhythm, Murmur (RONNI heard best at RUSB) and Peripheral Edema (negative)
Respiratory: Wheeze (negative), Crackles (Bibasilar), Rhonchi (negative), Non-Labored Respirations, Stridor (negative), Chest Tube (On -20 cmH2O suction; no air leak seen) and Other (Diminished breath sounds bilaterally)
GI: Soft, Non Distended, Non Tender and Normal Bowel Sounds
Neurology: AO x 3 and Tremors (negative)
Skin: Warm, Dry, Cyanosis (n) and Jaundice (n)
Labs/Micro/Reports
Lab Data
05/26/24 05:30
05/26/24 05:30
--- NOTE | 2024-05-26 11:09 | W.PN.HOSP.TC ---
Today's Communication/Plan
-
Dr. Mariscal visited patient this morning-VATS surgery to be done anytime between 11a-1p
Updated and daughter at bedside
Assessment / Plan
Assessment / Plan
88yo M who presented with came with chest pain and shortness of breath. Chest x-ray in ED showed left-sided pneumothorax, chest tube placed on 05/05, clamped on 05/06 and removed on 05/07, however pneumothorax reoccured after waterseal, so tube placed
back on 05/11. Tube was upsized on 05/13 with resultant complete resolution of pneumothorax on suction on 05/15. However, pneumothorax recurred while on clamp trial. CTX recommended chemical pleurodesis via chest tube, that is planned for 05/17/24
Chronic conditions prior to admission
COPD
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
Former smoker
Essential hypertension
HLD
BPH
Bullous pemphigoid
# Spontaneous left-sided pneumothorax
CXR 05/14/24 showed no pneumothorax. Chest tube placed to waterseal on 05/15/2020 and clamped in the evening of 05/15/2020
Chest x-ray 05/16 showed recurrence of pneumothorax and chest tube was changed back to suction
-Interventional radiology appreciated-pleurodesis done 05/18. Repeat chest x-ray immediately after chemical pleurodesis showed no pneumothorax.
-Chest x-ray (05/19) did not show pneumothorax, cxr 05/20 showed recurrent small left pneumothorax. 05/21 showed PTX expansion
-Appreciate pulmonology-Returned to suction on 05/20
-Chest tube was dislodged on the night of 05/24-IR was called and patient immediately went for new chest tube placement
-Chest x-ray 05/25: No visible pneumothorax.
-Currently on -20 suction- Okay to disconnect from suctioning for mobility. May go to the bathroom without suction as well.
-CTS consulted-recommended chemical pleurodesis which was done 05/18- Recurrent PTX seen after chemical pleurodesis - Reconsulted CTS- Appreciate Dr. Mariscal-will tentatively put him on the OR schedule for 05/26 for video-assisted thoracoscopic bleb
resection and talc pleurodesis
-Adequate pain management with Tylenol/Tramadol for pain at CT site
-Avoid BiPAP-supplemental O2 to keep SpO2>90%- currently on 4L O2
-CT obtained on 05/[address] Mariscal request
-Dr. Mariscal visited patient this morning-patient to go down for surgery anytime between 11 AM to 1 PM
# Bullous pemphigoid-in remission
Follows up with Dr. Felicia Rico and at [facility]
Currently not on tacrolimus or steroid ointment
Uses dexamethasone swish and spit-for the mouth
Continue doxycycline 100 mg daily
# Essential hypertension
-continue Amlodipine
# Hyperlipidemia
-continue Atorvastatin
# History of BPH
-continue Finasteride
# DVT prophylaxis
-Lovenox
Full code
Anticipated Discharge: > 48 hours
Subjective/Interval History
-
Date of Service: May 26, 2024
Patient does not offer complaints. Is positive about surgery.
Objective Data
-
Labs:
Laboratory Results
05/26/24
05:30
WBC 7.9
Hgb 14.3
Hct 42.0
Plt Count 173
Sodium 136
Potassium 4.2
Chloride 102
Carbon Dioxide 28
BUN 24 H
Creatinine 0.7
Glucose 107 H
Calcium 9.5
Vital Signs:
Vital Signs
Temp Pulse Resp BP Pulse Ox
97.7 F 68 18 132/81 99
05/26/24 07:55 05/26/24 08:41 05/26/24 07:55 05/26/24 08:41 05/26/24 08:25
I&O
05/25/24 05/26/2405/27/25
06:59 06:59 06:59
Intake Total 880 / 880 840 / 840
Output Total 1355 / 1355 955 / 955
Balance -475 / -475 -115 / -115
Review of Systems
-
History Source: Patient
All other systems: Reviewed and negative
Physical Exam
-
General: Comfortable
HEENT: Normocephalic
Respiratory: Clear to Auscultation, Other (Saturating well on 4 L O2) and Chest Tubes (at anterolateral left chest, new chest tube placed a bit lower than previous chest tube); Negative Wheezes
Cardiac: Regular Rhythm and S1/S2
GI: Soft, Nontender and Normal Bowel Sounds
Neuro: Awake, Alert, Oriented and AO x 3
Psych: Calm and Anxious
--- NOTE | 2024-05-26 11:53 | W.PN.UPDATE ---
Update Note
Progress Note Update
I saw and evaluated the patient. I reviewed the resident�s note and agree with findings and plan as documented in the resident�s note.
No new complaints.
Gen: NAD, AAOx3.
Eyes: EOMI, PERRLA, no scleral icterus.
Neck: supple.
CV: RRR, +S1/S2
Resp: CTAB anteriorly, no rales, wheezes, or rhonchi.
Abd: +BS, soft, NT, ND
Skin: No rashes.
Neuro: CN 2-12 intact, non-focal.
Psych: Normal mood and affect.
CXR 05/25/24: Interval placement of a left-sided chest tube with tip projecting over the lateral left upper lung. Resolution of the previously seen left-sided pneumothorax. Unchanged left basilar atelectasis.
Acute hypoxic respiratory failure due to spontaneous L PTX:
-s/p chest tube placement in the ER
-First chest tube placed under water seal 05/05/24 and Clamped 05/06/24 and removed 05/07/24, CT Replaced 05/08/24 for recurrent Pneumothorax
-Second chest tube placed to water seal 05/10/24, repeat CXR with PTX. Placed on wall suction again 05/11/2024, wall suction negative pressure increased on 05/12/24
-Chest tube upsized from 16 Fr to 18 Fr on 05/13/24
-CXR 05/14/24 no pneumothorax. Suction reduced and chest tube changed to water seal on 05/15/2020 and clamped in the evening of 05/15/2020
-CXR 05/16/24 showed PTX and chest tube placed back to suction
-IR did pleurodesis on 05/18/24.
-repeat CXR after the pleurodesis without PTX, but next day CXR with PTX and chest tube changed to wall suction
-CT surgery recommended IR check of chest tube to make sure of patency. Chest tube was exchanged on 05/21/2024 by IR.
-05/24/24 CXR with 25% PTX and wall suction increased to -30cm water
-evening of 05/25/24 chest tube fell out, replaced by IR
-Dr. Tony Mariscal consulted for VATS which is planned for 05/26/24
Other problems:
Bullous pemphigoid: in remission, cont dexamethasone swish/spit and doxy
Hyperlipidemia: cont statin
Essential HTN: continue Amlodipine
BPH: continue Finasteride
Family updated at bedside.
FULL/Lovenox
--- NOTE | 2024-05-26 12:37 | PTCARENOTE ---
pt left floor for OR with transport
[2024-05-26] MEDS: DILAUDID 0.25 MG IV ×2 (16:13→16:49)
--- NOTE | 2024-05-26 16:30 | SUR.PHASEI ---
Dr. Mariscal at bedside. Chest tube hooked to suction. OK to transport to floor off suction
--- NOTE | 2024-05-26 17:30 | PTCARENOTE ---
pt arrives from pacu in hospital bed. chest tube present on Left side working without issue. pt arrives on 3L NC. VSS. family at bedside. pt with no concerns at this time, does reports pain with deep breathing, but states pain is tolerable.
plan of care continues to be followed.
[2024-05-26] MEDS: LOVENOX 40 MG SC (17:42)
[2024-05-26] MEDS: LIPITOR 10 MG PO (21:42)
[2024-05-26] MEDS: PROSCAR 5 MG PO (21:42)
[2024-05-26] MEDS: ULTRAM 50 MG PO (21:53)
--- NOTE | 2024-05-27 02:49 | PTCARENOTE ---
during rounds @ 0145 audible air/suctioning sound from chest tube canister noted. Output was in tubing but no additional in canister. Assessed system from insertion site, tubing and canister. No apparent leak noticed, dressing changed and reapplied,
new tubing and chest tube canister placed. Same sound still present but not has loud as previously noted. Pt denies any acute SOB or pain, VSS 116/70 HR 98 98.8 and 93% RA. House provider notifed to assess pt and system. Pt educated to notify staff
with any changes with pain or difficulty breathing.
[2024-05-27 03:10] VITALS: BP 109/57
--- NOTE | 2024-05-27 04:04 | PTCARENOTE ---
House provider assessed pt and system at bedside, pt denies SOB or pain, VS remain stable , no output in tubing or tidaling noted in system. STAT chest xray ordered at this time. Pt is sleeping in bed callbell within reach
--- NOTE | 2024-05-27 05:00 | PTCARENOTE ---
PA from ICU came to bedside to assess pt and system, noted system intact, working properly and sound is from suction in the chamber. Pt continues to deies SOB or acute pain, resting comfortably
--- NOTE | 2024-05-27 05:29 | W.PN.UPDATE ---
Update Note
Progress Note Update
RN reports audible air suctioning sound from the chest tube canister is louder than normal. RN changed canister and tubes and still continuos to be the same. Patient seen and evaluated, denies any chest pain or shortness of breath, looks
comfortable. VS 116/70 HR 98 98.8 and 93% RA, 18. noted Canister make loud suctioning sound, and no Tidaling noted at this time. No leaking noted, per RN Out put noted to be less could be that pneumothorax resolving.
Will order Chest Xray to make sure no displacement.
Chest Xray read by ICU MANAGER COSTING and Dr. Lopez.
Actual report pending.
No interventions at present
Chest tube functioning well confirmed by PA.
[2024-05-27 07:10] VITALS: BP 132/75
--- NOTE | 2024-05-27 07:41 | PTOTSP ---
chart reviewed, noted pt underwent procedure with general anesthesia. per department protocol, will require new OT orders once pt is medically stable for continuation of services. will monitor.
[2024-05-27 07:54] LABS: Hematocrit 42.3 % (39.0-52.0); Hemoglobin 14.1 g/dL (13.0-18.0); Mean Corp Hgb Conc. 33.3 g/dL (33.0-37.0); Mean Corpuscular Hgb 30.1 pg (27.0-31.0); Mean Corpuscular Volume 90.2 fL (80.0-94.0); Mean Platelet Volume 9.6 fL (7.4-10.4); Platelet Count 209 10^3/uL (130-400); Red Blood Cell Count 4.69 10^6/uL (4.70-6.10); Red Cell Dist. Width 12.9 % (11.5-14.5); White Blood Cell Count 12.3 10^3/uL (4.8-10.8)
[2024-05-27] MEDS: ULTRAM 50 MG PO ×3 (08:17→21:02)
[2024-05-27] MEDS: VIBRAMYCIN 100 MG PO (08:18)
[2024-05-27] MEDS: DECADRON 0.5 MG PO ×2 (08:18→21:03)
[2024-05-27] MEDS: SENOKOT 8.6 MG PO ×2 (08:20→21:03)
[2024-05-27] MEDS: COLACE 100 MG PO ×2 (08:20→21:03)
[2024-05-27] MEDS: THERAGRAN 1 TABLET PO (08:21)
[2024-05-27] MEDS: VITAMIN C 1000 MG PO (08:21)
[2024-05-27] MEDS: NORVASC 2.5 MG PO (08:22)
[2024-05-27] MEDS: NON-FORMULARY ITEM 1 UNIT PO (08:22)
--- NOTE | 2024-05-27 08:44 | W.PN.HOSP.TC ---
Today's Communication/Plan
-
Repeat chest x-ray later today
May consider placing chest tube to waterseal if okay with CTS and pulmonology
Assessment / Plan
Assessment / Plan
88yo M who presented with came with chest pain and shortness of breath. Chest x-ray in ED showed left-sided pneumothorax, chest tube placed on 05/05, clamped on 05/06 and removed on 05/07, however pneumothorax reoccured after waterseal, so tube placed
back on 05/11. Tube was upsized on 05/13 with resultant complete resolution of pneumothorax on suction on 05/15. However, pneumothorax recurred while on clamp trial. CTX recommended chemical pleurodesis via chest tube, that is planned for 05/17/24
Chronic conditions prior to admission
COPD
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
Former smoker
Essential hypertension
HLD
BPH
Bullous pemphigoid
# Spontaneous left-sided pneumothorax
CXR 05/14/24 showed no pneumothorax. Chest tube placed to waterseal on 05/15/2020 and clamped in the evening of 05/15/2020
Chest x-ray 05/16 showed recurrence of pneumothorax and chest tube was changed back to suction
-Interventional radiology did pleurodesis on 05/18. Repeat chest x-ray immediately after chemical pleurodesis showed no pneumothorax.
-Chest x-ray (05/19) did not show pneumothorax, cxr 05/20 showed recurrent small left pneumothorax. 05/21 showed PTX expansion
-Chest tube was dislodged on the night of 05/24-IR was called and patient immediately went for new chest tube placement
-CTS consulted-recommended initial chemical pleurodesis which was done 05/18- Recurrent PTX seen after chemical pleurodesis - Reconsulted CTS- Appreciate Dr. Mariscal-Status post VATS on 05/26
-Currently on -20 suction- Okay to disconnect from suctioning for mobility. May go to the bathroom without suction as well.
-May consider placing chest tube to waterseal if okay with CTS and pulmonology
-Adequate pain management with Tylenol/Tramadol for pain at CT site
-Avoid BiPAP-supplemental O2 to keep SpO2>90%- currently on 4L O2
# Bullous pemphigoid-in remission
Follows up with Dr. Felicia Rico and at [facility]
Currently not on tacrolimus or steroid ointment
Uses dexamethasone swish and spit-for the mouth
Continue doxycycline 100 mg daily
# Essential hypertension
-continue Amlodipine
# Hyperlipidemia
-continue Atorvastatin
# History of BPH
-continue Finasteride
# DVT prophylaxis
-Lovenox
Full code
Anticipated Discharge: 24 - 48 hours
Subjective/Interval History
-
Date of Service: May 27, 2024
Objective Data
-
Labs:
Laboratory Results
05/27/24
06:33
WBC 12.3 H
Hgb 14.1
Hct 42.3
Plt Count 209 D
Sodium Pending
Potassium Pending
Chloride Pending
Carbon Dioxide Pending
BUN Pending
Creatinine Pending
Glucose Pending
Calcium Pending
Vital Signs:
Vital Signs
Temp Pulse Resp BP Pulse Ox
98.2 F 97 16 132/75 95
05/27/24 07:10 05/27/24 07:10 05/27/24 07:10 05/27/24 07:10 05/27/24 07:10
I&O
05/26/24 05/27/24 05/28/24
06:59 06:59 06:59
Intake Total 840 / 840 405 / 405
Output Total 955 / 955 292 / 292
Balance -115 / -115 113 / 113
Review of Systems
-
History Source: Patient
All other systems: Reviewed and negative
Physical Exam
-
General: Comfortable
HEENT: Normocephalic
Respiratory: Clear to Auscultation, Other (Saturating well on 4 L O2) and Chest Tubes (at anterolateral left chest, new chest tube placed a bit lower than previous chest tube); Negative Wheezes
Cardiac: Regular Rhythm and S1/S2
GI: Soft, Nontender and Normal Bowel Sounds
Neuro: Awake, Alert, Oriented and AO x 3
Psych: Calm and Anxious
--- NOTE | 2024-05-27 08:45 | W.IMMPOSTOP ---
Surgical Immed Post Op Note
-
Date of Operation: May 26, 2024
Preoperative Diagnosis: Lung Pneumothorax Spontaneous - [id number]
����������������� �������������������� Lung Bleb - [id number]
Postoperative Diagnosis: Same
Surgeon: Tony Mariscal M.D.
Operation: VATS Resection of left lower lobe bleb � [id number]
����������������� VATS Chemical Pleurodesis - [id number]
Anesthesia: GET
Estimated Blood Loss: 30 cc
Drains: Chest tube in the left thorax
Specimen: Left lower lobe bleb
Complications: �None
Procedure:
The patient was placed in the right lateral decubitus position after induction of general anesthesia. The left chest was prepped and draped in the usual sterile fashion. A 11 mm port was introduced in the 5th intercostal space along the midaxillary
line. A 30-degree thoracoscope was inserted, providing excellent visualization of the pleural cavity. Two additional ports were placed under direct vision: a 11 mm port in the 5th intercostal space anteriorly and a 11 mm port in the 5th intercostal
space posteriorly. Thorough exploration of the pleural cavity was performed.
A large bleb in the inferior lingular segment was identified. Using an EndoGIA stapling device, the bleb was excised. Hemostasis was confirmed. Following bleb resection, talc pleurodesis was performed. Approximately 4 grams of sterile talc was
insufflated evenly over the pleural surface, ensuring adequate distribution.
A 32 Frisian chest tube was placed through the inferior port site, and the lung was re-expanded under direct vision. The pleural cavity was inspected for any air leaks or bleeding, and none were noted. The instruments were removed, and the port sites
were closed in layers with absorbable sutures. The chest tube was secured and connected to an underwater seal drainage system. Steri-strips and a sterile dressing were placed. The patient was placed back in the supine position and extubated without
any problems. The final needle, sponge, and instrument counts were correct. The patient was transferred to the recovery room.
--- NOTE | 2024-05-27 08:47 | OR.RPT ---
Operative Report
Operative Report
Date of Operation: May 26, 2024
Preoperative Diagnosis: Lung Pneumothorax Spontaneous - J9311
����������������� �������������������� Lung Bleb - J439
Postoperative Diagnosis: Same
Surgeon: Tony Mariscal M.D.
Operation: VATS Resection of left lower lobe bleb � 19125
����������������� VATS Chemical Pleurodesis - 05158
Anesthesia: GET
Estimated Blood Loss: 30 cc
Drains: Chest tube in the left thorax
Specimen: Left lower lobe bleb
Complications: �None
Procedure:
The patient was placed in the right lateral decubitus position after induction of general anesthesia. The left chest was prepped and draped in the usual sterile fashion. A 11 mm port was introduced in the 5th intercostal space along the midaxillary
line. A 30-degree thoracoscope was inserted, providing excellent visualization of the pleural cavity. Two additional ports were placed under direct vision: a 11 mm port in the 5th intercostal space anteriorly and a 11 mm port in the 5th intercostal
space posteriorly. Thorough exploration of the pleural cavity was performed.
A large bleb in the inferior lingular segment was identified. Using an EndoGIA stapling device, the bleb was excised. Hemostasis was confirmed. Following bleb resection, talc pleurodesis was performed. Approximately 4 grams of sterile talc was
insufflated evenly over the pleural surface, ensuring adequate distribution.
A 32 Hebrew chest tube was placed through the inferior port site, and the lung was re-expanded under direct vision. The pleural cavity was inspected for any air leaks or bleeding, and none were noted. The instruments were removed, and the port sites
were closed in layers with absorbable sutures. The chest tube was secured and connected to an underwater seal drainage system. Steri-strips and a sterile dressing were placed. The patient was placed back in the supine position and extubated without
any problems. The final needle, sponge, and instrument counts were correct. The patient was transferred to the recovery room.
[2024-05-27 08:51] LABS: Blood Urea Nitrogen 21 mg/dl (9-20); Calcium 9.6 mg/dl (8.4-10.2); Carbon Dioxide 25 mmol/L (22-30); Chloride 99 mmol/L (98-107); Estimated Creatinine Clearance 57 ml/min; Glucose 125 mg/dl (70-99); Potassium 4.7 mmol/L (3.5-5.1); Sodium 135 mmol/L (135-145); eGFR > 60.00
--- NOTE | 2024-05-27 09:36 | W.PN.UPDATE ---
Update Note
Progress Note Update
I saw and evaluated the patient. I reviewed the resident�s note and agree with findings and plan as documented in the resident�s note.
No new complaints.
Gen: NAD, AAOx3.
Eyes: EOMI, PERRLA, no scleral icterus.
Neck: supple.
CV: RRR, +S1/S2
Resp: Rales R base, decreased BS L base
Abd: +BS, soft, NT, ND
Skin: No rashes.
Neuro: CN 2-12 intact, non-focal.
Psych: Normal mood and affect.
CXR 05/25/24: Interval placement of a left-sided chest tube with tip projecting over the lateral left upper lung. Resolution of the previously seen left-sided pneumothorax. Unchanged left basilar atelectasis.
Acute hypoxic respiratory failure due to spontaneous L PTX:
-s/p chest tube placement in the ER
-First chest tube placed under water seal 05/05/24 and Clamped 05/06/24 and removed 05/07/24, CT Replaced 05/08/24 for recurrent Pneumothorax
-Second chest tube placed to water seal 05/10/24, repeat CXR with PTX. Placed on wall suction again 05/11/2024, wall suction negative pressure increased on 05/12/24
-Chest tube upsized from 16 Fr to 18 Fr on 05/13/24
-CXR 05/14/24 no pneumothorax. Suction reduced and chest tube changed to water seal on 05/15/2020 and clamped in the evening of 05/15/2020
-CXR 05/16/24 showed PTX and chest tube placed back to suction
-IR did pleurodesis on 05/18/24.
-repeat CXR after the pleurodesis without PTX, but next day CXR with PTX and chest tube changed to wall suction
-CT surgery recommended IR check of chest tube to make sure of patency. Chest tube was exchanged on 05/21/2024 by IR.
-05/24/24 CXR with 25% PTX and wall suction increased to -30cm water
-evening of 05/25/24 chest tube fell out, replaced by IR
-s/p VATS on 05/26/24 with resection of left lower lobe bleb and chemical pleurodesis
-chest tube management as per CT surgery
Other problems:
Bullous pemphigoid: in remission, cont dexamethasone swish/spit and doxy
Hyperlipidemia: cont statin
Essential HTN: continue Amlodipine
BPH: continue Finasteride
FULL/Lovenox
[2024-05-27] MEDS: TYLENOL 650 MG PO ×2 (10:33→17:41)
[2024-05-27 11:22] VITALS: BP 118/68
--- NOTE | 2024-05-27 13:00 | W.PN.PUL3 ---
Today's Communication / Plan
-
Doing well postoperatively, pain control
Chest tube to suction, can trial waterseal per surgery
Encouraged OOB/activities in the room
Discussed case with patient and
Assessment
-
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 He notes he woke up around 3:40AM due to back pain. He sat up and then he thought he slid down in bed.
He may have fallen as he found himself on the floor. He then suddenly had acute anterior chest pain wtih SOB and came to ER. CXR showing acute L sided pneumothorax. Chest tube emergently inserted in ER and he is admitted to floors. He has never
had a ptx before, denies coughing spells prior. We are consulted for evaluation.
Left spontaneous pneumothorax, fell at home s/p chest tube placement in ER 05/04/24
Chest tube discontinued 05/07, reinserted 05/08/24
Recurrent PTX s/p upsize in tube on 05/13 from 16Fr to 18 Fr
Status post chemical pleurodesis 05/18/2024 - unsuccessful
s/p VATS/bleb resection/pleurodesis 05/26/24
Chest pain
Mild leukocytosis - resolved
Hyperglycemia - resolved
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
Data download revealed excellent compliance, AHI of 3.7, average pressure of 21/18 cm
Paraseptal emphysema on CT scan
Pulmonary nodules <4mm/benign
Former smoker, quit smoking at age 46, smoked 1 pack/day from age [age]
Hypertension
Hyperlipidemia
GERD
Osteoarthritis of left knee, history of right knee replacement
Prediabetes
History of past GI bleed on aspirin
B/L Cataracts 2018
Basal cell carcinoma
Bilateral sensorineural hearing loss, has hearing aids
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
History of TIA, not on aspirin due to past GI bleed
BPH, history of elevated PSA, history of bladder stones
DDD/DJD C spine, L spine
Mohs procedure left and right side of head and neck 06/16/18
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
Plan:
Respiratory status is stable 05/22/2024
Has remained on RA, no hypoxemia noted
Pain control, PO PRN treatment
Chest tube for pneumothorax after fall 05/04/2024-discontinued 05/07/2024
Recurrent pneumothorax 05/08/2024
Since then unfortunately recurrent pneumothorax/air leak.
Status post chemical pleurodesis (05/18/2024) --> unsuccessful as pneumothorax recurred on 05/20/2024
Hospitalist consulted thoracic surgery on 05/16 --> recs appreciated
Chest x-ray 05/20/2024: showed new left-sided pneumothorax. No subcutaneous air. Patient was on waterseal overnight.
Returned to suction -20 cm of water morning of 05/20/2024.
Chest x-ray 05/21/2024: Moderate sided pneumothorax.
Chest tube was exchanged on 05/21/2024 by IR, upsizing from a 16 Argentine to an 18 Argentine Thal-Quick chest tube. Reexpansion of lung on subsequent chest x-ray 05/21/2024
05/22/2024 through 05/24/2024: No airleak.
CT chest 05/22/2024-reviewed showed 5.8 cm loculated thin-walled collection of air on the left hemithorax pulmonary bulla. Residual loculated left pneumothorax less likely. Left chest tube in adequate position. Small left pleural effusion.
Moderate subpleural airspace consolidation suspect atelectasis. Mild paraseptal emphysema in the right lung apex.
05/24 CXR showed enlargement of left-sided pneumothorax, now moderate size. Negative suction change from -20 cmH2O to -30 cmH2O. CXR repeated later in the afternoon showed stable, unchanged moderate left-sided pneumothorax.
Chest tube dislodged and reinserted by IR 05/25
Repeat CXR improved but has small persistent PTX (could be entrapped now)
CT surgery recommendations noted 05/21/2024: Recommending VATS for definitive treatment.
Patient does have history of mild paraseptal emphysema in that area on prior CT chest. Case has been discussed.
Unfortunately, Dr. Jessica Ham does not have OR time.
s/p-VATS/talc pleurodesis/blebectomy 05/26/[address] Tony Mariscal
Chest tube remains on suction
Last saw Dr. Stratton on 12/21/2020 for COPD and FATEMEH on BiPAP and since then has been following with KELSEY Mejia - last seen [id number] as an outpatient
May need to reduce PAP pressure in OP settings to avoid PTX recurrence
Last PSG in 2019, weight was 188, he has lost 15 lbs
May be worthwhile also restudying to reduce his pressures or try alternative treatments
Instructed patient not to use BIPAP until seen in office and would move forward with repeat sleep study/titration study

Family Discussions
Dr. Stratton reviewed with daughter 05/12/2024 over the phone extensively including pathophysiology of pneumothorax, typical treatment options, if not improved potential upsizing of chest tube for thoracic surgery involvement and realistically it will
take many more days to resolve
Dr. Stratton reviewed with 05/13/24, extensively, including once again the pathophysiology, pneumothorax, treatment options, potential need for increasing chest tube size or possibly even thoracic surgical opinion if pleural tear is not healed
with conservative therapy
Dr. El reviewed with daughter and on 05/14/2024 and again on 05/16-05/17/2024 at bedside and answered all questions.
Dr. Mcdaniel updated daughter and in detail 05/19/2024 and 05/20/2024, 05/21/2024 and 05/22/2024.

Diagnostic Data
CXR 05/05/24- Left-sided chest tube with the tip now positioned over the left lung base. No appreciable pneumothorax. Ovoid lucency projecting over the left lung base may represent a bulla in correlation with the previous chest CT. Low lung volumes.
Subsegmental atelectasis in the left lung base. No large pleural effusion. Stable cardiomediastinal silhouette.
CXR 05/04/24- Placement of left chest tube with significantly decreased large left pneumothorax in comparison to CT earlier in same day.
Chest x-ray follow-up 05/09/2024-typically left chest tube lateral left lung apex and complete resolution of left-sided pneumothorax
Chest x-ray 05/10/2024-resolution of pneumothorax
CT CHEST 05/04/24- Large left tension type pneumothorax. No findings to suggest central pulmonary embolism.
08/13/18- Pulmonary nodule being followed:
-Flat plaque-like nodule, 8 mm, at the base of the left lung of the diaphragm surface at the apex of the diaphragm. (Axial sequence 2 image 48). 2 mm nodule subpleural posterior right lower lobe (sequence 2 image 31), unchanged. No new or growing
pulmonary nodules.
Minor biapical subpleural emphysema spaces. No generalized emphysema. No fibrosis. Airways: No bronchiectasis. Minimum linear atelectasis or scarring in the para spinal medial base of both lower lobes. No change.
ECHO 2015- . Left ventricle: Normal size and function. The estimated ejection fraction is 55-60%.
2. Right ventricle: Normal size and function
3. Atria: Normal
4. Mitral valve: Trace mitral regurgitation
5. Aortic valve: Trace aortic insufficiency. No aortic stenosis
6. Tricuspid valve: Mild tricuspid regurgitation. Estimated pulmonary systolic pressures are 25-30 mmHg
7. There has been no significant change since the most recent echocardiogram from 10/28/14
.
Total time spent today was 35 minutes for this encounter. Time includes reviewing laboratory test/imaging results, reviewing pertinent medical records, obtaining and reviewing medical history, performing an appropriate exam, ordering medications,
tests and procedures. Time also includes documentation of this encounter, coordinating patient care and communicating with other healthcare professionals. Total time does not include separately billed tests performed on this date of service.
Subjective Data
-
Date of Service:
Date of Service: May 27, 2024
Chief Complaint: Pulmonary Follow Up
Subjective:
Doing well postop, no new complaints
at bedside
Chest tube to suction
Objective Data
Data Reviewed
Vital Signs / I&O / Oxygen:
Vital Signs
Temp Pulse Resp BP Pulse Ox
98.6 F 88 16 118/68 96
05/27/24 11:22 05/27/24 11:22 05/27/24 11:22 05/27/24 11:22 05/27/24 11:22
Intake and Output
05/26/24 05/27/24 05/28/24
06:59 06:59 06:59
Intake Total 840 / 840 405 / 405
Output Total 955 / 955 292 / 292
Balance -115 / -115 113 / 113
SaO2 96
Nasal Cannula flow liters per 3
minute
Physical Exam
General: Respiratory Distress (n), Pain (chest tube insertion site), Chills (n), Sweats (n) and Other (NAD)
HEENT: Normocephalic, Anicteric and Moist Mucous Membranes
Cardiovascular: S1-S2, Regular Rhythm, Murmur (RONNI heard best at RUSB) and Peripheral Edema (negative)
Respiratory: Wheeze (negative), Crackles (Bibasilar), Rhonchi (negative), Non-Labored Respirations, Stridor (negative), Chest Tube (On -20 cmH2O suction; no air leak seen) and Other (Diminished breath sounds bilaterally)
GI: Soft, Non Distended, Non Tender and Normal Bowel Sounds
Neurology: AO x 3 and Tremors (negative)
Skin: Warm, Dry, Cyanosis (n) and Jaundice (n)
Labs/Micro/Reports
Lab Data
05/27/24 06:33
05/27/24 06:33
[2024-05-27 15:10] VITALS: BP 117/60
--- NOTE | 2024-05-27 16:21 | CM ---
Chart reviewed
L chest tube; O2 sats 94% or greater
Following chest xray
Plan - TBD based on needs
[2024-05-27] MEDS: LOVENOX 40 MG SC (17:41)
[2024-05-27 19:10] VITALS: BP 125/65
[2024-05-27] MEDS: PROSCAR 5 MG PO (21:04)
[2024-05-27] MEDS: LIPITOR 10 MG PO (21:04)
[2024-05-27 23:10] VITALS: BP 115/56
[2024-05-28 03:15] VITALS: BP 111/66
[2024-05-28] MEDS: ULTRAM 50 MG PO (03:39)
[2024-05-28 06:35] LABS: Hematocrit 37.1 % (39.0-52.0); Hemoglobin 12.7 g/dL (13.0-18.0); Mean Corp Hgb Conc. 34.2 g/dL (33.0-37.0); Mean Corpuscular Hgb 30.7 pg (27.0-31.0); Mean Corpuscular Volume 89.6 fL (80.0-94.0); Mean Platelet Volume 9.4 fL (7.4-10.4); Platelet Count 174 10^3/uL (130-400); Red Blood Cell Count 4.14 10^6/uL (4.70-6.10); Red Cell Dist. Width 13.1 % (11.5-14.5); White Blood Cell Count 11.4 10^3/uL (4.8-10.8)
[2024-05-28 07:05] VITALS: BP 136/78
[2024-05-28 07:05] LABS: Blood Urea Nitrogen 26 mg/dl (9-20); Carbon Dioxide 29 mmol/L (22-30); Chloride 101 mmol/L (98-107); Estimated Creatinine Clearance 57 ml/min; Glucose 109 mg/dl (70-99); Potassium 4.4 mmol/L (3.5-5.1); Sodium 135 mmol/L (135-145); eGFR > 60.00
[2024-05-28] MEDS: VIBRAMYCIN 100 MG PO (08:33)
[2024-05-28] MEDS: VITAMIN C 1000 MG PO (08:33)
[2024-05-28] MEDS: DECADRON 0.5 MG PO ×2 (08:34→20:25)
[2024-05-28] MEDS: NORVASC 2.5 MG PO (08:34)
[2024-05-28] MEDS: THERAGRAN 1 TABLET PO (08:34)
[2024-05-28] MEDS: SENOKOT 8.6 MG PO ×2 (08:37→20:25)
[2024-05-28] MEDS: COLACE 100 MG PO ×2 (08:37→20:24)
[2024-05-28] MEDS: NON-FORMULARY ITEM 1 UNIT PO (08:37)
--- NOTE | 2024-05-28 08:47 | W.PN.UPDATE ---
Update Note
Progress Note Update
I saw and evaluated the patient. I reviewed the resident�s note and agree with findings and plan as documented in the resident�s note.
No new complaints.
Gen: NAD, AAOx3.
Eyes: EOMI, PERRLA, no scleral icterus.
Neck: supple.
CV: remains RRR, +S1/S2
Resp: CTAB anteriorly
Abd: remains +BS, soft, NT, ND
Skin: No rashes.
Neuro: CN 2-12 intact, non-focal.
Psych: Normal mood and affect.
CXR 05/25/24: Interval placement of a left-sided chest tube with tip projecting over the lateral left upper lung. Resolution of the previously seen left-sided pneumothorax. Unchanged left basilar atelectasis.
Acute hypoxic respiratory failure due to spontaneous L PTX:
-s/p chest tube placement in the ER
-First chest tube placed under water seal 05/05/24 and Clamped 05/06/24 and removed 05/07/24, CT Replaced 05/08/24 for recurrent Pneumothorax
-Second chest tube placed to water seal 05/10/24, repeat CXR with PTX. Placed on wall suction again 05/11/2024, wall suction negative pressure increased on 05/12/24
-Chest tube upsized from 16 Fr to 18 Fr on 05/13/24
-CXR 05/14/24 no pneumothorax. Suction reduced and chest tube changed to water seal on 05/15/2020 and clamped in the evening of 05/15/2020
-CXR 05/16/24 showed PTX and chest tube placed back to suction
-IR did pleurodesis on 05/18/24.
-repeat CXR after the pleurodesis without PTX, but next day CXR with PTX and chest tube changed to wall suction
-CT surgery recommended IR check of chest tube to make sure of patency. Chest tube was exchanged on 05/21/2024 by IR.
-05/24/24 CXR with 25% PTX and wall suction increased to -30cm water
-evening of 05/25/24 chest tube fell out, replaced by IR
-s/p VATS on 05/26/24 with resection of left lower lobe bleb and chemical pleurodesis
-chest tube management as per CT surgery/pulm, currently to suction. As per discussion with Dr. Mariscal, chest tube to be removed today.
-saturating well on RA
Other problems:
Bullous pemphigoid: in remission, cont dexamethasone swish/spit and doxy
Hyperlipidemia: cont statin
Essential HTN: continue Amlodipine
BPH: continue Finasteride
FULL/Lovenox
--- NOTE | 2024-05-28 09:01 | W.PN.HOSP.TC ---
Today's Communication/Plan
-
Can place CT to waterseal today pending CTS approval
Assessment / Plan
Assessment / Plan
88yo M who presented with came with chest pain and shortness of breath. Chest x-ray in ED showed left-sided pneumothorax, chest tube placed on 05/05, clamped on 05/06 and removed on 05/07, however pneumothorax reoccured after waterseal, so tube placed
back on 05/11. Tube was upsized on 05/13 with resultant complete resolution of pneumothorax on suction on 05/15. However, pneumothorax recurred while on clamp trial. CTX recommended chemical pleurodesis via chest tube, that is planned for 05/17/24
Chronic conditions prior to admission
COPD
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
Former smoker
Essential hypertension
HLD
BPH
Bullous pemphigoid
# Spontaneous left-sided pneumothorax
CXR 05/14/24 showed no pneumothorax. Chest tube placed to waterseal on 05/15/2020 and clamped in the evening of 05/15/2020
Chest x-ray 05/16 showed recurrence of pneumothorax and chest tube was changed back to suction
-Interventional radiology did pleurodesis on 05/18. Repeat chest x-ray immediately after chemical pleurodesis showed no pneumothorax.
-Chest x-ray (05/19) did not show pneumothorax, cxr 05/20 showed recurrent small left pneumothorax. 05/21 showed PTX expansion
-Chest tube was dislodged on the night of 05/24-IR was called and patient immediately went for new chest tube placement
-CTS consulted-recommended initial chemical pleurodesis which was done 05/18- Recurrent PTX seen after chemical pleurodesis - Reconsulted CTS- Appreciate Dr. Mariscal-Status post VATS on 05/26
-Currently on - suction- Okay to disconnect from suctioning for mobility. May go to the bathroom without suction as well.
-Chest x-ray (05/28) reviewed by me-no signs of pneumothorax- May consider placing chest tube to waterseal if okay with CTS and pulmonology
-Adequate pain management with Tylenol/Tramadol for pain at CT site
-Avoid BiPAP-supplemental O2 to keep SpO2>90%- currently saturating well on room air
# Bullous pemphigoid-in remission
Follows up with Dr. Felicia Rico and at [place]
Currently not on tacrolimus or steroid ointment
Uses dexamethasone swish and spit-for the mouth
Continue doxycycline 100 mg daily
# Essential hypertension
-continue Amlodipine
# Hyperlipidemia
-continue Atorvastatin
# History of BPH
-continue Finasteride
# DVT prophylaxis
-Lovenox
Full code
Anticipated Discharge: 24 - 48 hours
Subjective/Interval History
-
Date of Service: May 28, 2024
Patient does not offer any complaints except for mild pain at site of chest tube when moving around.
Objective Data
-
Labs:
Laboratory Results
05/28/24
05:11
WBC 11.4 H
Hgb 12.7 L
Hct 37.1 L
Plt Count 174
Sodium 135
Potassium 4.4
Chloride 101
Carbon Dioxide 29
BUN 26 H
Creatinine 0.8
Glucose 109 H
Calcium 9.0
Vital Signs:
Vital Signs
Temp Pulse Resp BP Pulse Ox
97.9 F 73 16 136/78 94
05/28/24 07:05 05/28/24 07:05 05/28/24 07:05 05/28/24 08:34 05/28/24 07:05
I&O
05/27/24 05/28/24 05/29/24
06:59 06:59 06:59
Intake Total 405 / 405 840 / 840
Output Total 292 / 292 1020 / 1020
Balance 113 / 113 -180 / -180
Review of Systems
-
History Source: Patient
All other systems: Reviewed and negative
Physical Exam
-
General: Comfortable
HEENT: Normocephalic
Respiratory: Clear to Auscultation, Non Labored Respirations and Chest Tubes (Left); Negative Wheezes
Cardiac: Regular Rhythm and S1/S2
GI: Soft, Nontender and Normal Bowel Sounds
Neuro: Awake, Alert, Oriented and AO x 3
Psych: Calm and Anxious
[2024-05-28 11:15] VITALS: BP 118/69
--- NOTE | 2024-05-28 11:34 | W.PN.GENERIC ---
Assessment / Plan
-
S/p left lower lobe bleb resection/talc pleurodesis POD #2
Surgically stable
Chest tube dc'd
Check CXR in 3 hours then one in AM
If CXR stays stble, sugically he is ok to be dc'd tomorrow
Will see pt tomorrow after his AM CXR.
Physician Progress Note
Subjective
No complaints. No dyspnea or SOB
Objective
Vital Signs
Temp Pulse Resp BP Pulse Ox
97.9 F 73 16 136/78 94
05/28/24 07:05 05/28/24 07:05 05/28/24 07:05 05/28/24 08:34 05/28/24 07:05
Lab Results
05/28/24 05:11
05/28/24 05:11
Lungs - CTA x 2
Chest tube without air leak
--- NOTE | 2024-05-28 12:20 | PTCARENOTE ---
Chest tubes removed, pt denies pain, 96%RA. dressing CDI, ambulating to bathroom with assistance.
--- NOTE | 2024-05-28 12:49 | W.PN.PUL3 ---
Today's Communication / Plan
-
Chest tube removed this AM, repeat CXR later today
Doing well, no new complaints, family at bedside
Encouraged OOB, PT eval obtained
Observation 24 hours, assess for d/c in AM if ptx remains resolved
OP FU recommended
Assessment
-
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 He notes he woke up around 3:40AM due to back pain. He sat up and then he thought he slid down in bed.
He may have fallen as he found himself on the floor. He then suddenly had acute anterior chest pain wtih SOB and came to ER. CXR showing acute L sided pneumothorax. Chest tube emergently inserted in ER and he is admitted to floors. He has never
had a ptx before, denies coughing spells prior. We are consulted for evaluation.
Left spontaneous pneumothorax, fell at home s/p chest tube placement in ER 05/04/24
Chest tube discontinued 05/07, reinserted 05/08/24
Recurrent PTX s/p upsize in tube on 05/13 from 16Fr to 18 Fr
Status post chemical pleurodesis 05/18/2024 - unsuccessful
s/p VATS/bleb resection/pleurodesis 05/26/24
Chest pain
Mild leukocytosis - resolved
Hyperglycemia - resolved
Conditions present MONOTYPER:
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
Data download revealed excellent compliance, AHI of 3.7, average pressure of 21/18 cm
Paraseptal emphysema on CT scan
Pulmonary nodules <4mm/benign
Former smoker, quit smoking at age 46, smoked 1 pack/day from age [age]
Hypertension
Hyperlipidemia
GERD
Osteoarthritis of left knee, history of right knee replacement
Prediabetes
History of past GI bleed on aspirin
B/L Cataracts 2018
Basal cell carcinoma
Bilateral sensorineural hearing loss, has hearing aids
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
History of TIA, not on aspirin due to past GI bleed
BPH, history of elevated PSA, history of bladder stones
DDD/DJD C spine, L spine
Mohs procedure left and right side of head and neck 06/16/18
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
Plan:
Respiratory status is stable on RA
Has remained on RA, no hypoxemia noted
Pain control, PO PRN treatment
Chest tube for pneumothorax after fall 05/04/2024-discontinued 05/07/2024
Recurrent pneumothorax 05/08/2024
Since then unfortunately recurrent pneumothorax/air leak.
Status post chemical pleurodesis (05/18/2024) --> unsuccessful as pneumothorax recurred on 05/20/2024
Hospitalist consulted thoracic surgery on 05/16 --> recs appreciated
Chest x-ray 05/20/2024: showed new left-sided pneumothorax. No subcutaneous air. Patient was on waterseal overnight.
Returned to suction -20 cm of water morning of 05/20/2024.
Chest x-ray 05/21/2024: Moderate sided pneumothorax.
Chest tube was exchanged on 05/21/2024 by IR, upsizing from a 16 Welsh to an 18 Welsh Thal-Quick chest tube. Reexpansion of lung on subsequent chest x-ray 05/21/2024
05/22/2024 through 05/24/2024: No airleak.
CT chest 05/22/2024-reviewed showed 5.8 cm loculated thin-walled collection of air on the left hemithorax pulmonary bulla. Residual loculated left pneumothorax less likely. Left chest tube in adequate position. Small left pleural effusion.
Moderate subpleural airspace consolidation suspect atelectasis. Mild paraseptal emphysema in the right lung apex.
05/24 CXR showed enlargement of left-sided pneumothorax, now moderate size. Negative suction change from -20 cmH2O to -30 cmH2O. CXR repeated later in the afternoon showed stable, unchanged moderate left-sided pneumothorax.
Chest tube dislodged and reinserted by IR 05/25
CT surgery recommendations noted 05/21/2024: Recommending VATS for definitive treatment.
Patient does have history of mild paraseptal emphysema in that area on prior CT chest. Case has been discussed.
Unfortunately, Dr. Jessica Ham does not have OR time.
s/p-VATS/talc pleurodesis/blebectomy 05/26/[address] Tony Mariscal
Chest tube discontinued 05/28/[address] Stratton on 12/21/2020 for COPD and FATEMEH on BiPAP and since then has been following with KELSEY Mejia - last seen [id number] as an outpatient
May need to reduce PAP pressure in OP settings to avoid PTX recurrence
Last PSG in 2019, weight was 188, he has lost 15 lbs
May be worthwhile also restudying to reduce his pressures or try alternative treatments
Instructed patient not to use BIPAP until seen in office and would move forward with repeat sleep study/titration study

Family Discussions
Dr. Stratton reviewed with daughter 05/12/2024 over the phone extensively including pathophysiology of pneumothorax, typical treatment options, if not improved potential upsizing of chest tube for thoracic surgery involvement and realistically it will
take many more days to resolve
Dr. Stratton reviewed with 05/13/24, extensively, including once again the pathophysiology, pneumothorax, treatment options, potential need for increasing chest tube size or possibly even thoracic surgical opinion if pleural tear is not healed
with conservative therapy
Dr. El reviewed with daughter and on 05/14/2024 and again on 05/16-05/17/2024 at bedside and answered all questions.
Dr. Mcdaniel updated daughter and in detail 05/19/2024 and 05/20/2024, 05/21/2024 and 05/22/2024.

Diagnostic Data
CXR 05/05/24- Left-sided chest tube with the tip now positioned over the left lung base. No appreciable pneumothorax. Ovoid lucency projecting over the left lung base may represent a bulla in correlation with the previous chest CT. Low lung volumes.
Subsegmental atelectasis in the left lung base. No large pleural effusion. Stable cardiomediastinal silhouette.
CXR 05/04/24- Placement of left chest tube with significantly decreased large left pneumothorax in comparison to CT earlier in same day.
Chest x-ray follow-up 05/09/2024-typically left chest tube lateral left lung apex and complete resolution of left-sided pneumothorax
Chest x-ray 05/10/2024-resolution of pneumothorax
CT CHEST 05/04/24- Large left tension type pneumothorax. No findings to suggest central pulmonary embolism.
08/13/18- Pulmonary nodule being followed:
-Flat plaque-like nodule, 8 mm, at the base of the left lung of the diaphragm surface at the apex of the diaphragm. (Axial sequence 2 image 48). 2 mm nodule subpleural posterior right lower lobe (sequence 2 image 31), unchanged. No new or growing
pulmonary nodules.
Minor biapical subpleural emphysema spaces. No generalized emphysema. No fibrosis. Airways: No bronchiectasis. Minimum linear atelectasis or scarring in the para spinal medial base of both lower lobes. No change.
ECHO 2015- . Left ventricle: Normal size and function. The estimated ejection fraction is 55-60%.
2. Right ventricle: Normal size and function
3. Atria: Normal
4. Mitral valve: Trace mitral regurgitation
5. Aortic valve: Trace aortic insufficiency. No aortic stenosis
6. Tricuspid valve: Mild tricuspid regurgitation. Estimated pulmonary systolic pressures are 25-30 mmHg
7. There has been no significant change since the most recent echocardiogram from 10/28/14
.
Total time spent today was 35 minutes for this encounter. Time includes reviewing laboratory test/imaging results, reviewing pertinent medical records, obtaining and reviewing medical history, performing an appropriate exam, ordering medications,
tests and procedures. Time also includes documentation of this encounter, coordinating patient care and communicating with other healthcare professionals. Total time does not include separately billed tests performed on this date of service.
Subjective Data
-
Date of Service:
Date of Service: May 28, 2024
Chief Complaint: Pulmonary Follow Up
Subjective:
Chest tube removed this AM, doing well
Repeat CXR later today
No new complaints
Family at bedside
Objective Data
Data Reviewed
Vital Signs / I&O / Oxygen:
Vital Signs
Temp Pulse Resp BP Pulse Ox
98.1 F 70 16 118/69 95
05/28/24 11:15 05/28/24 11:15 05/28/24 11:15 05/28/24 11:15 05/28/24 11:15
Intake and Output
05/27/24 05/28/24 05/29/24
06:59 06:59 06:59
Intake Total 405 / 405 840 / 840
Output Total 292 / 292 1020 / 1020
Balance 113 / 113 -180 / -180
SaO2 95
Nasal Cannula flow liters per 3
minute
Physical Exam
General: Respiratory Distress (n), Pain (chest tube insertion site), Chills (n), Sweats (n) and Other (NAD)
HEENT: Normocephalic, Anicteric and Moist Mucous Membranes
Cardiovascular: S1-S2, Regular Rhythm, Murmur (RONNI heard best at RUSB) and Peripheral Edema (negative)
Respiratory: Clear, Wheeze (negative), Rhonchi (negative), Non-Labored Respirations and Stridor (negative)
GI: Soft, Non Distended, Non Tender and Normal Bowel Sounds
Neurology: AO x 3, No Motor Deficits and Tremors (negative)
Skin: Warm, Dry, Cyanosis (n) and Jaundice (n)
Labs/Micro/Reports
Lab Data
05/28/24 05:11
05/28/24 05:11
[2024-05-28 15:10] VITALS: BP 126/80
--- NOTE | 2024-05-28 15:32 | CM ---
Chart reviewed
Chest tube d/c'ed today
Chest X-ray this PM and in AM
Poss d/c tomorrow pending X-ray results
Plan - anticipate home no needs
[2024-05-28] MEDS: LOVENOX 40 MG SC (17:18)
[2024-05-28 19:15] VITALS: BP 131/73
[2024-05-28] MEDS: LIPITOR 10 MG PO (21:44)
[2024-05-28] MEDS: PROSCAR 5 MG PO (21:45)
[2024-05-28 23:37] VITALS: BP 121/65
[2024-05-29 06:28] LABS: Hematocrit 38.2 % (39.0-52.0); Hemoglobin 13.1 g/dL (13.0-18.0); Mean Corp Hgb Conc. 34.3 g/dL (33.0-37.0); Mean Corpuscular Hgb 30.8 pg (27.0-31.0); Mean Corpuscular Volume 89.9 fL (80.0-94.0); Mean Platelet Volume 9.6 fL (7.4-10.4); Platelet Count 169 10^3/uL (130-400); Red Blood Cell Count 4.25 10^6/uL (4.70-6.10); White Blood Cell Count 9.2 10^3/uL (4.8-10.8)
[2024-05-29 06:53] LABS: Blood Urea Nitrogen 22 mg/dl (9-20); Calcium 9.4 mg/dl (8.4-10.2); Carbon Dioxide 32 mmol/L (22-30); Chloride 100 mmol/L (98-107); Estimated Creatinine Clearance 57 ml/min; Glucose 112 mg/dl (70-99); Potassium 4.4 mmol/L (3.5-5.1); Sodium 136 mmol/L (135-145); eGFR > 60.00
[2024-05-29 07:10] VITALS: BP 130/70
--- NOTE | 2024-05-29 08:03 | W.PN.HOSP.TC ---
Today's Communication/Plan
-
Chest tube removed yesterday-No signs of pneumothorax this a.m.
Can be discharged today
Assessment / Plan
Assessment / Plan
88yo M who presented with came with chest pain and shortness of breath. Chest x-ray in ED showed left-sided pneumothorax, chest tube placed on 05/05, clamped on 05/06 and removed on 05/07, however pneumothorax reoccured after waterseal, so tube placed
back on 05/11. Tube was upsized on 05/13 with resultant complete resolution of pneumothorax on suction on 05/15. However, pneumothorax recurred while on clamp trial. CTX recommended chemical pleurodesis via chest tube, that is planned for 05/17/24
Chronic conditions prior to admission
COPD
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
Former smoker
Essential hypertension
HLD
BPH
Bullous pemphigoid
# Spontaneous left-sided pneumothorax
CXR 05/14/24 showed no pneumothorax. Chest tube placed to waterseal on 05/15/2020 and clamped in the evening of 05/15/2020
Chest x-ray 05/16 showed recurrence of pneumothorax and chest tube was changed back to suction
-Interventional radiology did pleurodesis on 05/18. Repeat chest x-ray immediately after chemical pleurodesis showed no pneumothorax.
-Chest x-ray (05/19) did not show pneumothorax, cxr 05/20 showed recurrent small left pneumothorax. 05/21 showed PTX expansion
-Chest tube was dislodged on the night of 05/24-IR was called and patient immediately went for new chest tube placement
-CTS consulted-recommended initial chemical pleurodesis which was done 05/18- Recurrent PTX seen after chemical pleurodesis - Reconsulted CTS- Appreciate Dr. Mariscal-Status post VATS on 05/26
-Currently on -20 suction- Okay to disconnect from suctioning for mobility. May go to the bathroom without suction as well.
-Chest tube removed at noon on 05/28-chest x-ray yesterday after chest tube removal did not show pneumothorax
-Chest x-ray this a.m. also does not show pneumothorax-discharge today after CTS visit
-Adequate pain management with Tylenol/Tramadol for pain at CT site
-Avoid BiPAP-supplemental O2 to keep SpO2>90%- currently saturating well on room air
# Bullous pemphigoid-in remission
Follows up with Dr. Felicia Rico and at [facility]
Currently not on tacrolimus or steroid ointment
Uses dexamethasone swish and spit-for the mouth
Continue doxycycline 100 mg daily
# Essential hypertension
-continue Amlodipine
# Hyperlipidemia
-continue Atorvastatin
# History of BPH
-continue Finasteride
# DVT prophylaxis
-Lovenox
Full code
Anticipated Discharge: Today
Subjective/Interval History
-
Date of Service: May 29, 2024
Patient was eating breakfast when I walked in the room. Chest tube was removed yesterday. He has been doing well without any shortness of breath and saturating well on room air. Slight pain at site of chest tube with movement
Objective Data
-
Labs:
Laboratory Results
05/29/24
05:09
WBC 9.2
Hgb 13.1
Hct 38.2 L
Plt Count 169
Sodium 136
Potassium 4.4
Chloride 100
Carbon Dioxide 32 H
BUN 22 H
Creatinine 0.8
Glucose 112 H
Calcium 9.4
Vital Signs:
Vital Signs
Temp Pulse Resp BP Pulse Ox
98.7 F 83 16 121/65 95
05/28/24 23:37 05/28/24 23:37 05/28/24 23:37 05/28/24 23:37 05/28/24 23:37
I&O
05/28/24 05/29/24 05/30/24
06:59 06:59 06:59
Intake Total 840 / 840 480 / 480
Output Total 1020 / 1020 1100 / 1100
Balance -180 / -180 -620 / -620
Physical Exam
-
General: Comfortable
HEENT: Normocephalic
Respiratory: Clear to Auscultation, Non Labored Respirations and Chest Tubes (Left chest tube removed on 05/28); Negative Wheezes
Cardiac: Regular Rhythm and S1/S2
GI: Soft, Nontender and Normal Bowel Sounds
Neuro: Awake, Alert, Oriented and AO x 3
Psych: Calm
[2024-05-29] MEDS: DECADRON 0.5 MG PO (09:39)
[2024-05-29] MEDS: NORVASC 2.5 MG PO (09:40)
[2024-05-29] MEDS: COLACE 100 MG PO (09:40)
[2024-05-29] MEDS: THERAGRAN 1 TABLET PO (09:40)
[2024-05-29] MEDS: VIBRAMYCIN 100 MG PO (09:40)
[2024-05-29] MEDS: VITAMIN C 1000 MG PO (09:40)
[2024-05-29] MEDS: SENOKOT 8.6 MG PO (09:41)
[2024-05-29] MEDS: NON-FORMULARY ITEM 1 UNIT PO (09:41)
--- NOTE | 2024-05-29 09:49 | W.PN.UPDATE ---
Update Note
Progress Note Update
I saw and evaluated the patient. I reviewed the resident�s note and agree with findings and plan as documented in the resident�s note.
No new complaints.
Gen: NAD, AAOx3.
Eyes: EOMI, PERRLA, no scleral icterus.
Neck: supple.
CV: remains RRR, +S1/S2
Resp: bronchial BS L hemithorax
Skin: No rashes.
Neuro: CN 2-12 intact, non-focal.
Psych: Normal mood and affect.
CXR 05/25/24: Interval placement of a left-sided chest tube with tip projecting over the lateral left upper lung. Resolution of the previously seen left-sided pneumothorax. Unchanged left basilar atelectasis.
Acute hypoxic respiratory failure due to spontaneous L PTX:
-s/p chest tube placement in the ER
-First chest tube placed under water seal 05/05/24 and Clamped 05/06/24 and removed 05/07/24, CT Replaced 05/08/24 for recurrent Pneumothorax
-Second chest tube placed to water seal 05/10/24, repeat CXR with PTX. Placed on wall suction again 05/11/2024, wall suction negative pressure increased on 05/12/24
-Chest tube upsized from 16 Fr to 18 Fr on 05/13/24
-CXR 05/14/24 no pneumothorax. Suction reduced and chest tube changed to water seal on 05/15/2020 and clamped in the evening of 05/15/2020
-CXR 05/16/24 showed PTX and chest tube placed back to suction
-IR did pleurodesis on 05/18/24.
-repeat CXR after the pleurodesis without PTX, but next day CXR with PTX and chest tube changed to wall suction
-CT surgery recommended IR check of chest tube to make sure of patency. Chest tube was exchanged on 05/21/2024 by IR.
-05/24/24 CXR with 25% PTX and wall suction increased to -30cm water
-evening of 05/25/24 chest tube fell out, replaced by IR
-s/p VATS on 05/26/24 with resection of left lower lobe bleb and chemical pleurodesis
-chest tube removed 05/28/24
-CXR 05/29/24: Bilateral opacification, left greater than right, slightly increased on the right most likely representing areas of atelectasis.
-saturating well on RA
Other problems:
Bullous pemphigoid: in remission, cont dexamethasone swish/spit and doxy
Hyperlipidemia: cont statin
Essential HTN: continue Amlodipine
BPH: continue Finasteride
Case discussed with Dr. Onofre, medically cleared for d/c.
FULL/Lovenox
Total time spent on d/c = 35 min. This included today's physical exam, progress note, review of laboratory and diagnostic data, preparation of discharge documents and prescriptions, and discussions about the pt's hospital course and discharge plan
with the patient and other infertility medical assistant involved in the patient's care.
--- NOTE | 2024-05-29 10:21 | W.PN.GENERIC ---
Assessment / Plan
-
S/p left upper lobe bleb and talc pleurodesis POD #3
doing well.
surgically ok for dc
I will see him back in my office in 1-2 weeks for a postoperative visit
Dw pt and
Physician Progress Note
Subjective
No complaints. Walked yesterday without problems. No SOB or pain
Objective
Vital Signs
Temp Pulse Resp BP Pulse Ox
97.8 F 78 16 130/70 95
05/29/24 07:10 05/29/24 07:10 05/29/24 07:10 05/29/24 07:10 05/29/24 07:10
Lab Results
05/29/24 05:09
05/29/24 05:09
Pul - CTA x2
CXR - no PTX
--- NOTE | 2024-05-29 10:47 | CM ---
Addendum entered by Shraddha Reynolds 05/29/24 12:38:
PT recs - HH. Pt/family with no preference to agency
TT sent to [facility]ia[facility] for HH needs
Plan - home with [facility]
Original Note:
Met with pt and at bedside
Poss d/c today
Reports will have ride home
Given IMM
PT eval pending
Plan - anticipate home no needs vs w/HH pending PT eval
[2024-05-29 12:13] VITALS: BP 131/75; PULSE 86; O2SAT 94
--- NOTE | 2024-05-29 13:11 | VNURNOTE ---
Home Health Liaison met with patient and family at bedside to discuss [facility] therapy, visits, schedule and homebound status. All are agreeable and understands that visits at home will be 2-3 x per week. Family interested in home PT/OT. [facility] contact
information provided. Patient is aware that [facility] will contact them for start of care in 1-2 days after discharge from .
[facility] referral completed in [facility].
--- NOTE | 2024-05-29 14:27 | W.PN.PUL3 ---
Today's Communication / Plan
-
No events ON, CXR this AM stable
Agree with discharge planning
Reviewed questions with family, OP FU arrangements
D/c planning per team
Assessment
-
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 He notes he woke up around 3:40AM due to back pain. He sat up and then he thought he slid down in bed.
He may have fallen as he found himself on the floor. He then suddenly had acute anterior chest pain wtih SOB and came to ER. CXR showing acute L sided pneumothorax. Chest tube emergently inserted in ER and he is admitted to floors. He has never
had a ptx before, denies coughing spells prior. We are consulted for evaluation.
Left spontaneous pneumothorax, fell at home s/p chest tube placement in ER 05/04/24
Chest tube discontinued 05/07, reinserted 05/08/24
Recurrent PTX s/p upsize in tube on 05/13 from 16Fr to 18 Fr
Status post chemical pleurodesis 05/18/2024 - unsuccessful
s/p VATS/bleb resection/pleurodesis 05/26/24
Chest pain
Mild leukocytosis - resolved
Hyperglycemia - resolved
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
Data download revealed excellent compliance, AHI of 3.7, average pressure of 21/18 cm
Paraseptal emphysema on CT scan
Pulmonary nodules <4mm/benign
Former smoker, quit smoking at age 46, smoked 1 pack/day from age [age]
Hypertension
Hyperlipidemia
GERD
Osteoarthritis of left knee, history of right knee replacement
Prediabetes
History of past GI bleed on aspirin
B/L Cataracts 2018
Basal cell carcinoma
Bilateral sensorineural hearing loss, has hearing aids
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
History of TIA, not on aspirin due to past GI bleed
BPH, history of elevated PSA, history of bladder stones
DDD/DJD C spine, L spine
Mohs procedure left and right side of head and neck 06/16/18
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
Plan:
Respiratory status is stable on RA
Has remained on RA, no hypoxemia noted
Pain control, PO PRN treatment
Chest tube for pneumothorax after fall 05/04/2024-discontinued 05/07/2024
Recurrent pneumothorax 05/08/2024
Since then unfortunately recurrent pneumothorax/air leak.
Status post chemical pleurodesis (05/18/2024) --> unsuccessful as pneumothorax recurred on 05/20/2024
Hospitalist consulted thoracic surgery on 05/16 --> recs appreciated
Chest x-ray 05/20/2024: showed new left-sided pneumothorax. No subcutaneous air. Patient was on waterseal overnight.
Returned to suction -20 cm of water morning of 05/20/2024.
Chest x-ray 05/21/2024: Moderate sided pneumothorax.
Chest tube was exchanged on 05/21/2024 by IR, upsizing from a 16 Uzbek to an 18 Uzbek Thal-Quick chest tube. Reexpansion of lung on subsequent chest x-ray 05/21/2024
05/22/2024 through 05/24/2024: No airleak.
CT chest 05/22/2024-reviewed showed 5.8 cm loculated thin-walled collection of air on the left hemithorax pulmonary bulla. Residual loculated left pneumothorax less likely. Left chest tube in adequate position. Small left pleural effusion.
Moderate subpleural airspace consolidation suspect atelectasis. Mild paraseptal emphysema in the right lung apex.
05/24 CXR showed enlargement of left-sided pneumothorax, now moderate size. Negative suction change from -20 cmH2O to -30 cmH2O. CXR repeated later in the afternoon showed stable, unchanged moderate left-sided pneumothorax.
Chest tube dislodged and reinserted by IR 05/25
CT surgery recommendations noted 05/21/2024: Recommending VATS for definitive treatment.
Patient does have history of mild paraseptal emphysema in that area on prior CT chest. Case has been discussed.
Unfortunately, Dr. Jessica Ham does not have OR time.
s/p-VATS/talc pleurodesis/blebectomy 05/26/[address] Tony Mariscal
Chest tube discontinued 05/28/[address] Stratton on 12/21/2020 for COPD and FATEMEH on BiPAP and since then has been following with KELSEY Mejia - last seen [id number] as an outpatient
May need to reduce PAP pressure in OP settings to avoid PTX recurrence
Last PSG in 2019, weight was 188, he has lost 15 lbs
May be worthwhile also restudying to reduce his pressures or try alternative treatments
Instructed patient not to use BIPAP until seen in office and would move forward with repeat sleep study/titration study

Family Discussions
Dr. Stratton reviewed with daughter 05/12/2024 over the phone extensively including pathophysiology of pneumothorax, typical treatment options, if not improved potential upsizing of chest tube for thoracic surgery involvement and realistically it will
take many more days to resolve
Dr. Stratton reviewed with 05/13/24, extensively, including once again the pathophysiology, pneumothorax, treatment options, potential need for increasing chest tube size or possibly even thoracic surgical opinion if pleural tear is not healed
with conservative therapy
Dr. El reviewed with daughter and on 05/14/2024 and again on 05/16-05/17/2024 at bedside and answered all questions.
Dr. Mcdaniel updated daughter and in detail 05/19/2024 and 05/20/2024, 05/21/2024 and 05/22/2024.

Diagnostic Data
CXR 05/05/24- Left-sided chest tube with the tip now positioned over the left lung base. No appreciable pneumothorax. Ovoid lucency projecting over the left lung base may represent a bulla in correlation with the previous chest CT. Low lung volumes.
Subsegmental atelectasis in the left lung base. No large pleural effusion. Stable cardiomediastinal silhouette.
CXR 05/04/24- Placement of left chest tube with significantly decreased large left pneumothorax in comparison to CT earlier in same day.
Chest x-ray follow-up 05/09/2024-typically left chest tube lateral left lung apex and complete resolution of left-sided pneumothorax
Chest x-ray 05/10/2024-resolution of pneumothorax
CT CHEST 05/04/24- Large left tension type pneumothorax. No findings to suggest central pulmonary embolism.
08/13/18- Pulmonary nodule being followed:
-Flat plaque-like nodule, 8 mm, at the base of the left lung of the diaphragm surface at the apex of the diaphragm. (Axial sequence 2 image 48). 2 mm nodule subpleural posterior right lower lobe (sequence 2 image 31), unchanged. No new or growing
pulmonary nodules.
Minor biapical subpleural emphysema spaces. No generalized emphysema. No fibrosis. Airways: No bronchiectasis. Minimum linear atelectasis or scarring in the para spinal medial base of both lower lobes. No change.
ECHO 2016- . Left ventricle: Normal size and function. The estimated ejection fraction is 55-60%.
2. Right ventricle: Normal size and function
3. Atria: Normal
4. Mitral valve: Trace mitral regurgitation
5. Aortic valve: Trace aortic insufficiency. No aortic stenosis
6. Tricuspid valve: Mild tricuspid regurgitation. Estimated pulmonary systolic pressures are 25-30 mmHg
7. There has been no significant change since the most recent echocardiogram from 10/28/14
.
Total time spent today was 35 minutes for this encounter. Time includes reviewing laboratory test/imaging results, reviewing pertinent medical records, obtaining and reviewing medical history, performing an appropriate exam, ordering medications,
tests and procedures. Time also includes documentation of this encounter, coordinating patient care and communicating with other healthcare professionals. Total time does not include separately billed tests performed on this date of service.
Subjective Data
-
Date of Service:
Date of Service: May 29, 2024
Chief Complaint: Pulmonary Follow Up
Subjective:
No events ON, stable on RA
Was able to get OOB today, sleeping in chair
Family at bedside
Objective Data
Data Reviewed
Vital Signs / I&O / Oxygen:
Vital Signs
Temp Pulse Resp BP Pulse Ox
97.8 F 78 16 130/70 95
05/29/24 07:10 05/29/24 07:10 05/29/24 07:10 05/29/24 07:10 05/29/24 07:10
Intake and Output
05/28/24 05/29/24 05/30/24
06:59 06:59 06:59
Intake Total 840 / 840 480 / 480
Output Total 1020 / 1020 1100 / 1100
Balance -180 / -180 -620 / -620
SaO2 95
Nasal Cannula flow liters per 3
minute
Physical Exam
General: Respiratory Distress (n), Pain (chest tube insertion site), Chills (n), Sweats (n) and Other (NAD)
HEENT: Normocephalic, Anicteric and Moist Mucous Membranes
Cardiovascular: S1-S2, Regular Rhythm, Murmur (RONNI heard best at RUSB) and Peripheral Edema (negative)
Respiratory: Clear, Wheeze (negative), Rhonchi (negative), Non-Labored Respirations and Stridor (negative)
GI: Soft, Non Distended, Non Tender and Normal Bowel Sounds
Neurology: AO x 3, No Motor Deficits and Tremors (negative)
Skin: Warm, Dry, Cyanosis (n) and Jaundice (n)
Labs/Micro/Reports
Lab Data
05/29/24 05:09
05/29/24 05:09
--- NOTE | 2024-05-29 14:46 | W.DCSUMMARY ---
Discharge Summary
Discharge Data
Date of Admission: 05/04/24
Date of Discharge: 05/29/24
-
Pending Results: No
Hospital Course
Patient is a 88-year-old male who presented to the ED after a sharp left-sided back pain roll coverer prior to admission which was shortly followed by shortness of breath and acute anterior chest pain. On arrival, he was tachycardic, tachypneic and
hypotensive. Chest CT was obtained with PE protocol, which did not show any filling defects to suggest pulmonary embolism. However, there was a massive left pneumothorax with tension component, causing shift of the heart and mediastinum to the
right. Chest tube was emergently inserted in ER and he was admitted to the floors.
Problem list
1. Spontaneous left tension pneumothorax
Chest x-ray immediately after chest tube showed re-expansion of left lung and hemodynamics became stable. Pulmonology was consulted and followed patient daily. Daily chest x-rays were obtained.
Course of pneumothorax during stay:
05/09/2024: Chest x-ray showed resolution of pneumothorax
05/10/2024: Chest tube was placed on waterseal
05/11/2024: Chest x-ray with small left apical pneumothorax-Chest tube placed back on wall suction -20 cm
05/12/2024: Chest x-ray showed persistent pneumothorax-suction increased to -40 cm
05/13/2024: Chest x-ray showed small left apical pneumothorax (decrease in size)- chest tube upsized from 16 Fr to 18 Fr on 05/13 and placed on wall suction -20 cm
05/14/2024: Chest x-ray showed resolution of PTX - Chest tube suction reduced to 10cm
05/15/2024: Chest tube changed to continuous water seal
05/16/2024: Chest x-ray showed recurrent L-sided PTX-Chest tube placed back on suction and IR consulted for chemical pleurodesis
05/18/2024: Chemical pleurodesis done by IR-immediate chest x-ray did not show any pneumothorax
05/19/2024: Chest tube changed to continuous water seal-no evidence for pneumothorax
05/20/2024: Chest x-ray showed new slight left apical pneumothorax. Returned to suction -20 cm.
05/21/2024: Chest x-ray showed moderate left sided pneumothorax. Cardiothoracic surgery consulted, recommended VATS for definite treatment. Dr. Mariscal accepted patient and placed him on OR list for 05/26/2024
05/24/2024: Chest x-ray showed enlargement of left-sided pneumothorax. Negative suction changed from -20 cmH2O to -30 cmH2O.
05/25/2024: Chest tube dislodged and reinserted by IR on the evening of 05/25-Repeat CXR showed improved persistent PTX
05/26/2024: Patient went to the OR for VATS/talc pleurodesis/blebectomy with Dr. Mariscal-- Chest tube placed on wall suction -20 cm after coming back from OR
05/27/2024: Chest x-ray did not show any appreciable pneumothorax. Patient saturating well on room air
05/28/2024: Chest x-ray did not show any pneumothorax. Chest tube removed by CTS. patient saturating well on room air
05/29/2024: No pneumothorax seen on chest x-ray. Patient saturating well on room air. Pulmonary and CTS cleared him for discharge.
2. Rest of chronic conditions including bullous pemphigoid and essential hypertension were managed as prior to admission.
Recommendations:
Patient should follow-up with office in 1 to 2 weeks
Patient should follow-up with Dr. Stratton office in 2 to 4 weeks.
Discharge Plan
-
Patient Disposition: Home (Routine Discharge)
Discharge Diagnosis/Procedures: Spontaneous pneumothorax
Bullous pemphigoid in remission
Hyperlipidemia
Hypertension
Enlarged prostate
Condition: Good
Diet: As tolerated
Activity: As tolerated and No strenuous activity
Driving Restrictions: As prior to admission
Other Services: PT and OT
Referrals:
Tony Mariscal MD [Active] - in one to two weeks
Aj Stratton MD [Active] - in two to four weeks (PFTs in 3 months after successful pneumothorax resolution, needs repeat sleep study-hopefully can go on lower pressures for CPAP with his pneumothorax)
UNKNOWN - PT DOES,NOT KNOW [Family Provider] -
Prescriptions:
New
polyethylene glycol 3350 17 gram Powder In Packet
17 g PO DAILYPRN PRN (Reason: constipation) Qty: 0 0RF
docusate sodium 100 mg Capsule
100 mg PO BID Qty: 0 0RF
acetaminophen 325 mg Tablet
650 mg PO Q4HPRN PRN (Reason: mild pain/HERNANDEZ/temp> 100.4F) Qty: 30 0RF
tramadol 50 mg tablet
50 mg PO Q6H PRN (Reason: severe pain) Qty: 10 0RF
Continued
ascorbic acid (vitamin C) [Vitamin C] 500 MG tablet
1,000 mg PO DAILY
multivitamin with folic acid [Tab-A-Ghada] 1 TABLET tablet
1 tab PO DAILY
doxycycline hyclate 100 mg capsule
100 mg PO DAILY
amlodipine 2.5 mg tablet
2.5 mg PO DAILY
dexamethasone 0.5 mg/5 mL solution
0.5 mg PO .SWISH AND SPIT BID
niacinamide 500 mg Tablet
500 mg PO DAILY
finasteride 5 mg tablet
5 mg PO HS
Artificial Tears (PF) Dropperette
1 drp BOTH EYES BIDPRN PRN (Reason: dry eye)
atorvastatin 10 MG tablet
10 mg PO HS
Rx Instructions:
pt and family refuse to increase the dose to 80 mg until they speak with their primary physician.
Discharge Orders:
Discharge Patient (As Directed); Ordered 05/29/24
Ordered By: Yuniel Polk
Discharge Date and Time
Print Language: LUXEMBOURGER
[2024-05-29 14:49] VITALS: BP 140/81
== END 2024-05-29 16:34 | disposition home health service (06) | DRG 163 ==
LOC: 2 SOUTH 09:46
PROVIDERS: Internal Medicine; Radiology Diagnostic Radiology; Radiology Vascular & Interventional Radiology; ADMITTING PHYSICIAN Hospitalist; ATTENDING PHYSICIAN Internal Medicine; CONSULT PHYSICIAN Internal Medicine; CONSULT PHYSICIAN Surgery; CONSULT PHYSICIAN Thoracic Surgery (Cardiothoracic Vascular Surgery); EMERGENCY PHYSICIAN Student in an Organized Health Care Education/Training Program
PROC: 0W9B30Z Drainage of Left Pleural Cavity with Drainage Device, Percutaneous Approach (ICD-10-PCS; 2024-05-04)
PROC: 0W2BX0Z Change Drainage Device in Left Pleural Cavity, External Approach (ICD-10-PCS; 2024-05-13)
PROC: 3E0L3GC Introduction of Other Therapeutic Substance into Pleural Cavity, Percutaneous Approach (ICD-10-PCS; 2024-05-18)
PROC: 0BBJ4ZZ Excision of Left Lower Lung Lobe, Percutaneous Endoscopic Approach (ICD-10-PCS; 2024-05-26)
PROC: 0W9B40Z Drainage of Left Pleural Cavity with Drainage Device, Percutaneous Endoscopic Approach (ICD-10-PCS; 2024-05-26)
DX: J93.0 Spontaneous tension pneumothorax (principal); J96.01 Acute respiratory failure with hypoxia; J98.11 Atelectasis; L12.0 Bullous pemphigoid; J43.9 Emphysema, unspecified; E78.00 Pure hypercholesterolemia, unspecified; G47.33 Obstructive sleep apnea (adult) (pediatric); I10 Essential (primary) hypertension; M17.12 Unilateral primary osteoarthritis, left knee; N40.0 Benign prostatic hyperplasia without lower urinary tract symptoms; H90.3 Sensorineural hearing loss, bilateral; D72.829 Elevated white blood cell count, unspecified; M54.9 Dorsalgia, unspecified; R73.03 Prediabetes; K21.9 Gastro-esophageal reflux disease without esophagitis; I95.9 Hypotension, unspecified; R73.9 Hyperglycemia, unspecified; R91.1 Solitary pulmonary nodule; W19.XXXA Unspecified fall, initial encounter; Y93.9 Activity, unspecified; Y92.009 Unspecified place in unspecified non-institutional (private) residence as the place of occurrence of the external cause; Z96.651 Presence of right artificial knee joint; Z86.73 Personal history of transient ischemic attack (TIA), and cerebral infarction without residual deficits; Z87.442 Personal history of urinary calculi; Z97.4 Presence of external hearing-aid; Z87.19 Personal history of other diseases of the digestive system; Z83.3 Family history of diabetes mellitus; Z87.891 Personal history of nicotine dependence; Z85.828 Personal history of other malignant neoplasm of skin; Z88.2 Allergy status to sulfonamides; Z88.8 Allergy status to other drugs, medicaments and biological substances; Z91.038 Other insect allergy status
CPT/HCPCS: 88307; 31500; 32557; 32560; 70450; 71045; 71046; 71250; 71275; 80048; 80053; 83735; 83880; 84484; 85025; 85027; 85049; 85730; 86850; 86900; 86901; 93005; 96361; 96374; 97110; 97116; 97162; 97166; 97530; 97535; 99291; C1729; C1769; Q9967

== ENCOUNTER → 2024-06-30 11:15 | Outpatient (REF) | payer MEDICARE, SELFPAY | LOC: RAD 11:15 | PROVIDERS: ATTENDING PHYSICIAN Internal Medicine Gastroenterology; FAMILY PHYSICIAN Family Medicine | DX: R11.0 Nausea (principal) | CPT/HCPCS: 74177; Q9967 ==

== ENCOUNTER → 2024-12-28 07:56 | Outpatient (REF) | payer MEDICARE, SELFPAY ==
[2024-12-28 09:24] LABS: Hematocrit 46.6 % (39.0-52.0); Hemoglobin 15.9 g/dL (13.0-18.0); Mean Corp Hgb Conc. 34.1 g/dL (33.0-37.0); Mean Corpuscular Volume 90.7 fL (80.0-94.0); Nucleated Red Blood Cells % 0 % (-); Platelet Count 144 10^3/uL (130-400); Red Cell Dist. Width 12.7 % (11.5-14.5)
[2024-12-28 10:02] LABS: ALT (SGPT) 29 U/L (0-50); AST (SGOT) 33 U/L (17-59); Albumin 4.3 g/dl (3.5-5.0); Alkaline Phosphatase 100 U/L (38-126); Blood Urea Nitrogen 24 mg/dl (9-20); Calcium 9.7 mg/dl (8.4-10.2); Carbon Dioxide 28 mmol/L (22-30); Chloride 106 mmol/L (98-107); Glucose 102 mg/dl (70-99); HDL Cholesterol 48 mg/dl; LDL Cholesterol, Calculated 92 mg/dl; Potassium 5.1 mmol/L (3.5-5.1); Sodium 141 mmol/L (135-145); Total Protein 6.7 g/dl (6.3-8.2); Very Low Density Lipoprotein 25 mg/dl (0-30); eGFR > 60.00
[2024-12-28 11:12] LABS: Glycohemoglobin (HgbA1c) 5.5 % (4.0-5.6)
== END ==
LOC: REG 07:56
PROVIDERS: ATTENDING PHYSICIAN Family Medicine
DX: E78.2 Mixed hyperlipidemia (principal); R73.03 Prediabetes; Z87.19 Personal history of other diseases of the digestive system
CPT/HCPCS: 36415; 80053; 80061; 83036; 84443; 85025

== ENCOUNTER → 2025-01-11 10:50 | Outpatient (REF) | payer MEDICARE, SELFPAY | LOC: HWRAD 10:50 | PROVIDERS: ATTENDING PHYSICIAN Internal Medicine Critical Care Medicine; FAMILY PHYSICIAN Family Medicine | DX: R91.1 Solitary pulmonary nodule (principal) | CPT/HCPCS: 71250 ==

== ENCOUNTER 2025-02-15 19:30 | Emergency (ER) | payer MEDICARE, SELFPAY ==
[2025-02-15] VITALS (9 sets, daily range): BP systolic 111–182; BP diastolic 66–108; BMI 28.1
[2025-02-15 19:58] LABS: Hematocrit 43.8 % (39.0-52.0); Hemoglobin 15.6 g/dL (13.0-18.0); Mean Corp Hgb Conc. 35.6 g/dL (33.0-37.0); Mean Corpuscular Volume 86.1 fL (80.0-94.0); Nucleated Red Blood Cells % 0 % (-); Platelet Count 167 10^3/uL (130-400); Red Cell Dist. Width 12.9 % (11.5-14.5)
--- NOTE | 2025-02-15 20:00 | ED.GENMED ---
History of Present Illness
General
Chief Complaint: Trauma Significant Mechanism
Time Seen by Provider: 02/15/25 19:39
History of Present Illness
History of Present Illness:
89-year-old male presents to the emergency department for evaluation of multiple injuries after falling down a full flight of stairs while carrying a ladder. Denies LOC. Arrives with c-collar in place from triage. He reports pain to the head as
well as right shoulder and back. Does not take anticoagulants or antiplatelets.
Past History
Past History
ED Past Medical History: HTN, Hypercholesterolemia, Other (Enlarged prostate, sleep apnea, arthritis, hearing impaired utilizes hearing aids bilaterally.) and Other (GIB)
ED Past Surgical History: None
Social History
Tobacco: Non-smoker
Alcohol: None
Drug: None
Personal:
Living: with family
Employment: Retired
Family History
Family History: Diabetes
Review of Systems
Review of Systems
Allergies reviewed?: Yes
All Other Systems: ROS reviewed and negative except as documented in HPI and ROS
Phy Exam
Physical Exam
Physical Exam:
GEN: Well appearing, NAD, WDWN
HEENT: Large cephalohematoma to the right temporal skull, no crepitus oral mucosa moist, no scleral icterus, no midline C-spine tenderness
Cardiac: Regular rate and rhythm, no murmurs
Lung: No respiratory distress, no tachypnea
MSK: No gross deformity or injuries, no midline C/T/L-spine tenderness. Right shoulder ecchymosis noted with no gross deformity. Pelvis stable with no crepitus
Skin: Good color, no pallor or jaundice, no rashes
Neuro: AO x3, moves all extremities freely
Psych: Calm, cooperative
Course
Orders/Labs/Results
Orders:
Orders
02/15/25 19:44
CT Cervical Spine W/o Iv Contr Urgent
Comment:
Reason For Exam: fall
CT Head W/o Iv Contrast Urgent
Comment:
Reason For Exam: fall
Chest/Abd/Pelvis w Contrast CT [CT Chest/abd/pel W Iv Cont] Urgent
Comment:
Reason For Exam: fall
CR Shoulder - Right Min 2 View Urgent
Comment:
Reason For Exam: fall
02/15/25 19:48
EKG [Electrocardiogram (*1)] Urgent
Reason for Study: Vertigo / Dizzy
EKG- Treatment ONCE
02/15/25 19:49
Type+Screen Urgent
Complete Blood Count/With Diff Urgent
Comprehensive Metabolic Panel Urgent
Abnormal Lab Results
02/15/25
19:49
BUN 26 H mg/dl
(9-20)
Glucose 135 H mg/dl
(70-99)
02/15/25 19:49
02/15/25 19:49
Vital Signs
Initial and Last Documented VS:
Initial Vital Signs
Temp Pulse Resp BP Pulse Ox
98.2 F 76 18 182/108 98
02/15/25 19:33 02/15/25 19:33 02/15/25 19:33 02/15/25 19:33 02/15/25 19:33
Last Documented Vital Signs
Temp Pulse Resp BP Pulse Ox
98.2 F 89 17 111/66 94
02/15/25 19:33 02/15/25 21:30 02/15/25 21:30 02/15/25 22:00 02/15/25 22:00
MDM/Problems Addressed
MDM/Problems Addressed:
Due to the mechanism of injury and the patient's advanced age CT of the head/C-spine/chest abdomen pelvis obtained for full trauma assessment fortunately the studies were all grossly negative. Follow-up right shoulder x-ray confirms no acute
osseous abnormality. Patient able to ambulate and is suitable for discharge
*Pulse Oximetry
SaO2: 99
Oxygen Mode of Delivery: Room air
Patient hypoxic: no
*Critical Care Note
Total Time (30-74mins, 75-104mins- exclusive of procedures): Not Applicable
ED Attending Note
-
Portions of this chart may have been created with voice recognition software.� Occasional wrong word or��sound alike� substitutions may have occurred due to the inherent limitations of voice recognition software.
Discharge Plan
Departure
Patient Disposition: Home (Routine Discharge)
Date of Disposition: 02/15/25
Time of Disposition: 21:58
Patient with high blood pressure during this ER visit?: No
Discharge Problem:
Fall down stairs, Closed head injury, Contusion of right shoulder
Instructions: Head Injury in Adults (DC), Preventing falls in adults
Prescriptions:
No Action
ascorbic acid (vitamin C) [Vitamin C] 500 MG tablet
1,000 mg PO DAILY
multivitamin with folic acid [Tab-A-Ghada] 1 TABLET tablet
1 tab PO DAILY
doxycycline hyclate 100 mg capsule
100 mg PO DAILY
amlodipine 2.5 mg tablet
2.5 mg PO DAILY
dexamethasone 0.5 mg/5 mL solution
0.5 mg PO .SWISH & SPIT DAILY
finasteride 5 mg tablet
5 mg PO HS
atorvastatin 10 MG tablet
10 mg PO HS
acetaminophen 325 mg tablet
650 mg PO Q4HPRN PRN (Reason: mild pain)
Referrals:
Sheila Thayer MD [Family Provider, Family Practice]
Interventions
Interventions:
*Risk Screen - Suicide Last Done: 02/15/25 19:52
*General Assessment Last Done: 02/15/25 19:52
*Neglect/Abuse Screening Last Done: 02/15/25 19:52
*ED- Fall Risk Assessment Last Done: 02/15/25 19:50
*ED COVID-19 Vaccine History Last Done: 02/15/25 19:50
*ED Influenza Vaccine History Last Done: 02/15/25 19:50
*Nursing Disposition Last Done: 02/15/25 22:20
ED-Musculoskeletal Assessment Last Done: 02/15/25 19:59
ED- Neurological Assessment Last Done: 02/15/25 19:59
ED-Skin Assessment Last Done: 02/15/25 19:59
Discharge Date and Time
Discharge Date/Time: 02/15/25 22:22
Print Language: SYRIAC
[2025-02-15 20:10] LABS: ALT (SGPT) 32 U/L (0-50); AST (SGOT) 50 U/L (17-59); Albumin 4.5 g/dl (3.5-5.0); Alkaline Phosphatase 114 U/L (38-126); Blood Urea Nitrogen 26 mg/dl (9-20); Calcium 10.1 mg/dl (8.4-10.2); Carbon Dioxide 27 mmol/L (22-30); Chloride 103 mmol/L (98-107); Estimated Creatinine Clearance 44 ml/min; Glucose 135 mg/dl (70-99); Potassium 4.3 mmol/L (3.5-5.1); Sodium 135 mmol/L (135-145); Total Protein 6.8 g/dl (6.3-8.2); eGFR > 60.00
== END 2025-02-15 22:22 | disposition home or self-care (01) ==
LOC: EMR 19:30
PROVIDERS: Physician Assistant; EMERGENCY PHYSICIAN Emergency Medicine; FAMILY PHYSICIAN Family Medicine
DX: S00.03XA Contusion of scalp, initial encounter (principal); S40.011A Contusion of right shoulder, initial encounter; W10.9XXA Fall (on) (from) unspecified stairs and steps, initial encounter; I10 Essential (primary) hypertension; E78.00 Pure hypercholesterolemia, unspecified; N40.0 Benign prostatic hyperplasia without lower urinary tract symptoms; G47.30 Sleep apnea, unspecified
CPT/HCPCS: 99284; 70450; 71260; 72125; 73030; 74177; 80053; 85025; 86850; 86900; 86901; 93005; Q9967